=== PATIENT | female | born 1940 | race Caucasian/White ===

== ENCOUNTER 2017-05-20 11:47 | Emergency (ER) | payer MEDICARE ==
--- NOTE | 2017-05-20 12:18 | ED ---
ENT HPI - General Chief complaint: ENT Stated complaint: jaw/dental pain Time Seen by Provider: 05/20/17 12:08 Source: patient, RN notes reviewed, old records reviewed Mode of arrival: ambulatory Limitations: no limitations - History of Present Illness Initial comments: Is a 76-year-old female presenting to the emergency Department chief complaint of right-sided jaw pain for the past 4 days. Patient reports that she's only O able to open her mouth a certain distance. Patient reports that the pain starts in front of her ear and radiates down her jaw. She does have a history of poor dentition. She denies any sore throat. She denies any chest pain, shortness of breath, nausea, vomiting. Patient reports that she is able to open her mouth wide enough to eat but not much more than that. Patient states that she is always had clicking in her jaw however has noticed that he has not been doing it over the past few days. Patient reports no fever or chills, abdominal pain, headache, changes in vision. Patient reports that she normally wears hearing aids however she has not been able to wear hearing aid due to the abnormal pain and swelling around her front of her ear. Patient reports that she taking aspirin for pain. - Related Data Home Medications Medication Instructions Recorded Confirmed Atenolol [Tenormin] 100 mg PO DAILY 04/09/15 05/20/17 Aspirin 650 mg PO Q6H PRN 05/20/17 05/20/17 L.acidoph,Paracasei, B.lactis 1 cap PO DAILY 05/20/17 05/20/17 [Probiotic] Nature-Throid (Unknown Dose) 2 tab PO DAILY 05/20/17 05/20/17 [place]-3/Dha/Epa/Fish Oil [Fish Oil 1 cap PO DAILY 05/20/17 05/20/17 EC 1,200 mg Softgel] Previous Rx's Medication Instructions Recorded Amoxicillin 500 mg PO Q12HR #20 cap 05/20/17 Cyclobenzaprine [Flexeril] 10 mg PO TID #12 tab 05/20/17 methylPREDNISolone Dose Pack 4 mg PO DIRECTED #21 package 05/20/17 [Medrol Dose Pack] Allergies Allergy/AdvReac Type Severity Reaction Status Date / Time diphenhydramine Allergy Rash/Hives Verified 05/20/17 12:21 [From Benadryl] Review of Systems ROS Statement: Those systems with pertinent positive or pertinent negative responses have been documented in the HPI. ROS Other: All systems not noted in ROS Statement are negative. Past Medical History Past Medical History: Fibromyalgia, Hypertension, Rheumatoid Arthritis (RA) Additional Past Medical History / Comment(s): weak bladder, bladder infection, spastic bowel History of Any Multi-Drug Resistant Organisms: None Reported Past Surgical History: Back Surgery Past Psychological History: No Psychological Hx Reported Smoking Status: Former smoker Past Alcohol Use History: Occasional Past Drug Use History: None Reported General Exam - General Exam Comments Initial Comments: Pleasant 76-year-old female. No distress. Limitations: no limitations General appearance: alert, in no apparent distress Head exam: Present: atraumatic, normocephalic, normal inspection Eye exam: Present: normal appearance, PERRL, EOMI. Absent: scleral icterus, conjunctival injection, periorbital swelling ENT exam: Present: normal exam, mucous membranes moist, TM's normal bilaterally , other (Patient has inability to open jaw fully. Patient has no mastoid tenderness. Patient is somewhat tender over the preauricular area radiating down her lower jawline. Patient reports some swelling over the aspect of her front of right ear.). Absent: normal oropharynx (Difficult to examine the oropharynx is patient is unable to fully open her mouth.), normal external ear exam (Patient has some swelling over the preauricular area of the right ear.) Neck exam: Present: normal inspection. Absent: tenderness, meningismus, lymphadenopathy Respiratory exam: Present: normal lung sounds bilaterally. Absent: respiratory distress, wheezes, rales, rhonchi, stridor Cardiovascular Exam: Present: regular rate, normal rhythm, normal heart sounds. Absent: systolic murmur, diastolic murmur, rubs, gallop, clicks GI/Abdominal exam: Present: soft, normal bowel sounds. Absent: distended, tenderness, guarding, rebound, rigid Extremities exam: Present: normal inspection, full ROM, normal capillary refill. Absent: tenderness, pedal edema, joint swelling, calf tenderness Back exam: Present: normal inspection Neurological exam: Present: alert, oriented X3, CN II-XII intact Psychiatric exam: Present: normal affect, normal mood Skin exam: Present: warm, dry, intact, normal color. Absent: rash Course Vital Signs 05/20/17 05/20/1705/20/17 12:00 12:25 13:43 Temperature 99.0 F 97.3 F L Pulse Rate 63 55 L 51 L Respiratory 20 16 18 Rate Blood Pressure 184/77 166/72 166/74 O2 Sat by Pulse 98 97 98 Oximetry 05/20/17 15:54 Temperature 96.4 F L Pulse Rate 50 L Respiratory 13 Rate Blood Pressure 172/80 O2 Sat by Pulse 99 Oximetry Medical Decision Making - Medical Decision Making Is a 76-year-old female presenting to the emergency Department chief complaint of right-sided jaw pain for the past 4 days. Patient reports that she's only O able to open her mouth a certain distance. Patient reports that the pain starts in front of her ear and radiates down her jaw. She does have a history of poor dentition. She denies any sore throat. She denies any chest pain, shortness of breath, nausea, vomiting. Patient reports that she is able to open her mouth wide enough to eat but not much more than that. Patient states that she is always had clicking in her jaw however has noticed that he has not been doing it over the past few days. It appears the patient does have acute TMJ disorder. However to rule out possible glasses we did order a CT of the neck. Also amenable x-ray was negative for any acute process. Evidence of a poor dentition however. Patient CT neck did show some fullness over the right soft tissues however no definite abscess was located. Is able to view the patient's oropharynx. No evidence of peritonsillar abscess. Patient's oropharynx is no exudates and is not erythematous. She is afebrile. Again patient does have some poor dentition. I discussed this case with Dr. Dior. 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 Patient will be discharged with muscle relaxers, steroids and amoxicillin in case there is any underlying dental infection. Patient agrees to treatment plan will comply. Return parameters were discussed. - Lab Data Lab Results 05/20/17 Range/Units 15:44 Group A Strep Rapid Negative (Negative) - Radiology Data Radiology results: report reviewed CT shows no acute osseous lesions. Mild degenerative changes within the cervical spine. Emphysema changes in the lungs. Atrophy of the right parotid gland. Asymmetry of the soft tissues of the oropharynx with prominence on the right direct visualization would be suggested. The exam is not adequately assessed dentition. Disposition Clinical Impression: TMJ (sprain of temporomandibular joint) Disposition: HOME SELF-CARE Condition: Good Instructions: Temporomandibular Disorder (ED) Additional Instructions: Follow-up with your primary care provider tomorrow or the next day. Return to the emergency department if any alarming signs or symptoms occur. Prescriptions: Amoxicillin 500 mg PO Q12HR #20 cap Cyclobenzaprine [Flexeril] 10 mg PO TID #12 tab methylPREDNISolone Dose Pack [Medrol Dose Pack] 4 mg PO DIRECTED #21 package Referrals: Vanessa Garcia MD [Primary Care Provider] - 1-2 days Time of Disposition: 15:52
--- NOTE | 2017-05-20 12:56 | XR ---
EXAMINATION TYPE: XR mandible complete DATE OF EXAM ORDERED: 05/20/2017 HISTORY: Pain. FINDINGS: There are multiple missing teeth. There is some resorption on the left.. No fracture or dislocation is seen. The temporomandibular joints are not assessed adequately. IMPRESSION: 1. POOR DENTITION. 2. MILD MANDIBULAR ENLARGED ON THE LEFT. 3. DEDICATED TM JOINT VIEWS WOULD BE SUGGESTED IF SYMPTOMS POINT TO THE TEMPOROMANDIBULAR JOINTS.
--- NOTE | 2017-05-20 14:54 | CT ---
EXAMINATION TYPE: CT soft tissue neck wo con DATE OF EXAM: 05/20/2017 HISTORY: Right sided jaw and dental pain COMPARISON: None. CT DLP: 565 mGycm. Automated Exposure Control for Dose Reduction was Utilized. TECHNIQUE: CT scan of the neck is performed , patient injected with mL of , axial images are obtaine d, coronal and sagittal reformatted images are reviewed. FINDINGS:Visualized intracranial structures are normal. Limited views of the orbits are normal. There is apical scarring present bilaterally. There is chronic emphysematous change throughout the vi sualized portions of the lungs. Vertebral body height and alignment are maintained. Atlantoaxial relationships are normal. There is s urprisingly few degenerative changes. There is uncovertebral joint disease at C5-6 and C6-7. Visualized portions of the paranasal sinuses and mastoids are clear. Both TMJs have a normal appearance. The mandible appears unremarkable. The zygomatic arches are intact. The pterygoid plates are intact. The hernandez of the maxillary sinuses are intact. There is atrophy of the right parotid gland. Major salivary glands are otherwise unremarkable. The parapharyngeal soft tissues are normal. There is asymmetry in the oropharyngeal soft tissue with the right being slightly effaced. Laryngeal soft tissues are unremarkable. The thyroid gland appears unremarkable. There is some shotty deep cervical as well as posterior triangle and submental adenopathy. No patholo gically enlarged lymph nodes are seen. There is a large amount of streak artifact through the region of the teeth and I cannot assess dentit ion. IMPRESSION: 1. NO ACUTE OSSEOUS LESION. 2. MILD DEGENERATIVE CHANGE WITHIN THE CERVICAL SPINE. 3. EMPHYSEMATOUS CHANGES WITHIN THE LUNGS. 4. ATROPHY OF THE RIGHT PAROTID GLAND. 5. ASYMMETRY IN THE SOFT TISSUES OF THE OROPHARYNX WITH PROMINENCE ON THE RIGHT. DIRECT VISUALIZATION WOULD BE SUGGESTED. 6. THIS EXAMINATION HAS NOT ADEQUATELY ASSESSED DENTITION.
[2017-05-20 15:55] VITALS: BP 172/80; PULSE 50; RESP 13; TEMP 96.4
== END 2017-05-20 16:17 | disposition home or self-care (01) ==
LOC: EC 11:47
DX: S03.41XA Sprain of jaw, right side, initial encounter (principal); M47.812 Spondylosis without myelopathy or radiculopathy, cervical region; J43.9 Emphysema, unspecified; K11.0 Atrophy of salivary gland; I10 Essential (primary) hypertension; Z87.891 Personal history of nicotine dependence; Z79.899 Other long term (current) drug therapy; Z88.8 Allergy status to other drugs, medicaments and biological substances; X58.XXXA Exposure to other specified factors, initial encounter
CPT/HCPCS: 70110; 70490; 87081; 87430; 99284

== ENCOUNTER → 2018-01-05 | Outpatient (CLI) | payer MEDICARE ==
[2018-01-05 14:16] LABS: Anion Gap 8 mmol/L; Blood Urea Nitrogen 23 mg/dL (7-17); Carbon Dioxide 32 mmol/L (22-30); Chloride 104 mmol/L (98-107); Potassium 4.6 mmol/L (3.5-5.1); Sodium 144 mmol/L (137-145)
[2018-01-05 14:49] LABS: Basophils % (A) 0 %; Eosinophils # (A) 0.1 k/uL (0-0.7); Eosinophils % (A) 1 %; HGB 13.1 gm/dL (11.4-16.0); Hypochromasia Slight; Lymphocytes # (A) 2.1 k/uL (1.0-4.8); Lymphocytes % (A) 19 %; MCH 29.3 pg (25.0-35.0); MCHC 30.5 g/dL (31.0-37.0); MCV 95.9 fL (80.0-100.0); Mean Platelet Volume 7.2; Monocytes # (A) 0.8 k/uL (0-1.0); Monocytes % (A) 7 %; Neutrophils # (A) 7.8 k/uL (1.3-7.7); Neutrophils % (A) 72 %; Platelet Count 395 k/uL (150-450); RBC 4.49 m/uL (3.80-5.40); RDW 14.2 % (11.5-15.5); WBC 10.9 k/uL (3.8-10.6)
== END | disposition home or self-care (01) ==
LOC: LABPAT 13:15
PROVIDERS: ATTEND Obstetrics & Gynecology
DX: Z01.812 Encounter for preprocedural laboratory examination (principal); N18.4 Chronic kidney disease, stage 4 (severe); N81.10 Cystocele, unspecified
CPT/HCPCS: 36415; 80051; 82565; 84520; 85025; 86850; 86900; 86901

== ENCOUNTER 2018-01-13 05:48 | Day surgery (SDC) | payer MEDICARE ==
[2018-01-02 09:57] VITALS: BMI 22.4
--- NOTE | 2018-01-12 17:53 | HP ---
HISTORY AND PHYSICAL DATE OF SURGERY: 01/13/2018 HISTORY OF PRESENT ILLNESS: The patient is a 77-year-old 5, para 5-0-0-5 who was found with grade 3 uterine prolapse and cystocele at a previous visit. She also complained of some urinary frequency and was then some subsequently sent for evaluation at [facility]. She was seen by Dr. Bhandari, who felt that no surgical urologic intervention was warranted. As a result, we have planned to proceed with vaginal hysterectomy and anterior colporrhaphy as well as possible posterior colporrhaphy, should that be noted under anesthesia. PAST MEDICAL HISTORY: 1. Issues with her colon. 2. Hypertension. PAST SURGICAL HISTORY: Back surgery on 2 separate occasions. OBSTETRICAL HISTORY: 5, para 5-0-0-5, with 5 term vaginal deliveries without complications. GYNECOLOGIC HISTORY: Unremarkable, with no history of any infections to include STDs. She does have prolapse, as noted above, to approximately grade 3. FAMILY HISTORY: Noncontributory. SOCIAL HISTORY: The patient is and retired. She smokes a half pack per day and reports occasional alcohol and no other social concerns. CURRENT MEDICATIONS: Atenolol daily. ALLERGIES: NO KNOWN DRUG ALLERGIES. REVIEW OF SYSTEMS: Confined to history of present illness. PHYSICAL EXAMINATION: Vital signs are stable. The patient is afebrile. In general, this is a well- developed, well-nourished white female in no acute distress. HEENT demonstrates PERRLA, EOMI. Her oropharynx is clear. Her neck is supple and without adenopathy. The thyroid is normal to palpation. Her heart has a regular rhythm and rate without murmur. Her lungs are clear to auscultation bilaterally in all ayoub. Her abdomen is nondistended, has normoactive bowel sounds, is soft, nontender, and without any palpable masses, hepatosplenomegaly or hernias. Her extremities are without any cyanosis, clubbing or edema and are non-tender to palpation bilaterally. Pelvic examination demonstrates normal external genitalia and BUS with normal vaginal mucosa and cervix. There is no cervical motion tenderness. There are grade 3 uterine prolapse and grade 3 cystocele present. The uterus is atrophic in size, mid plane, mobile, non-tender and normal in shape. The adnexa are normal and non-tender without mass bilaterally. ASSESSMENT AND PLAN: Symptomatic cystocele and uterine prolapse, grade 3. We discussed the treatment for this. She has been evaluated by Urology, who feels that no urologic surgical intervention is necessary. As a result, we will proceed with vaginal hysterectomy and anterior repair as well as possible posterior repair, should this be found under anesthesia. We also discussed non-surgical options, including pessaries. She ultimately agreed to proceed with the procedures as outlined. The risks and complications of these procedures were thoroughly discussed, including risk for bleeding, bleeding requiring transfusion, infection, and injury to local structures to specifically include the bowel, bladder and ureters. We also discussed the typical hospital and postoperative courses and are scheduled for the morning of January 13, 2018. MMODL / IJN: [id number] /
[~2018-01-13 05:48] MED LIST: DEXAMETHASONE SOD PHOSPHATE 10 MG/ML 1 ML VIAL IV ONE; HYDROmorphone 0.5 MG/0.5 ML SYRINGE IVP PRN; ONDANSETRON 4 MG/2 ML VIAL IVP ONE; ceFAZolin IN SWFI 2 GM/20 ML SYRINGE IVP ONE
[2018-01-13] MEDS: LACTATED RINGERS 1,000 ML IV SCH ×3 (06:31→21:44)
[2018-01-13] MEDS ORDERED: LIDOCAINE 1% 20 ML VIAL (10MG/ML) FOR IV START INTRADERMA ONE (06:31)
[2018-01-13] MEDS ORDERED: LIDOCAINE 1% INJ 10MG/ML (20 ML MDV) ONE (07:40)
[2018-01-13] MEDS ORDERED: PROPOFOL 10 MG/ML 20 ML VIAL IV ONE (07:40)
[2018-01-13] MEDS ORDERED: SUCCINYLCHOLINE CHLORIDE 100 MG/5 ML SYR IV ONE (07:40)
[2018-01-13] MEDS ORDERED: MIDAZOLAM 2 MG/2 ML VIAL ONE (07:40)
[2018-01-13] MEDS ORDERED: fentaNYL (PF) 50 MCG/ML 2 ML AMP ONE (07:40)
[2018-01-13] MEDS ORDERED: METOCLOPRAMIDE 5 MG/ML 2 ML VIAL IVP PRN (07:49)
[2018-01-13] MEDS ORDERED: Acetaminophen-Codeine 300-30mg TAB PO PRN ×2 (07:49)
[2018-01-13] MEDS ORDERED: SIMETHICONE 80 MG CHEWABLE PO PRN (07:49)
[2018-01-13] MEDS ORDERED: IBUPROFEN 600 MG TAB PO PRN (07:49)
[2018-01-13] MEDS ORDERED: ONDANSETRON 4 MG/2 ML VIAL IVP PRN (07:49)
[2018-01-13] MEDS ORDERED: VASOPRESSIN 20 UNIT/ML 1 ML VIAL SQ ONE (08:02)
[2018-01-13] MEDS ORDERED: BACITRACIN 500 UNIT/GM OINT 28.4 GM TUBE TOPICAL ONE (08:35)
--- NOTE | 2018-01-13 08:51 | P.OP ---
Date of Procedure: 01/13/18 Preoperative Diagnosis: Symptomatic pelvic organ prolapse, grade 3 cystocele Postoperative Diagnosis: Same Procedure(s) Performed: #1. Vaginal vitrectomy, abandoned #2. Anterior colporrhaphy Anesthesia: ROBINA Surgeon: Gatito Valera Clutch Specialist #1: Yamilet Pena Estimated Blood Loss (ml): 30 IV fluids (ml): 500 Urine output (ml): 180 Pathology: none sent Condition: stable Disposition: PACU Operative Findings: Preoperative pelvic examination demonstrated a grade 3 cystocele and uterus appeared to have somewhat less descensus than appreciated in the office. Intraoperatively, after application of a tenaculum, uterus was noted to have minimal descensus toward the opening the vagina. After opening the mucosa circumferentially and being unable to safely and clearly identify the posterior peritoneum from as well as the obvious and firm uterosacral support of the uterus, the decision was made to abandon the vaginal hysterectomy as it was clear that the uterus was not involved in the symptomatology of the prolapse. As result, the anterior colporrhaphy was carried out in standard fashion without difficulty. There was clear fabi urine both before and after the case. Description of Procedure: The patient was prepped and draped in usual fashion after general endotracheal anesthesia was administered by the anesthesiologist. A weighted speculum was placed in the anterior lip of the cervix was grasped with a single-tooth tenaculum and noted to be minimally mobile. Attempts with both a single-tooth and double tooth tenaculums failed to improve the visualization. Nonetheless, the cervicovaginal mucosa was infused with diluted vasopressin solution and incised circumferentially. Dissection was carried out bluntly to attempt to identify the posterior peritoneum. What appeared to be the posterior peritoneum could not be easily entered given the lack of space in the vagina and the lack of descensus of the uterus. The uterosacral ligaments were noted to be very firm and tense bilaterally. Given these findings, the decision was made to proceed with anterior repair and simply close the circumferential vaginal because all incision around the cervix. As result, the anterior vesicovaginal mucosa was grasped with 2 Allis clamps and infused in the midline towards the urethra with diluted vasopressin solution. A it was undermined and divided in the midline with the Metzenbaum scissors. Sharp and blunt dissection was carried out to reflect the overlying mucosa from the underlying tissues bilaterally. Once adequate reflection had been carried out, a catheter was placed into the bladder noting clear fabi urine. Serial Florecita plication stitches were placed from the urethral apex towards the cervical angle using 2- 0 Vicryl. At the bottom, the cervix was reincorporated in a pursestring stitch. The vaginal mucosa was then trimmed and the mucosa was then closed with a running locking stitch of 2-0 Vicryl proceeding from the apex to the cervix and around the left side of the cervix and then closing the posterior cul -de-sac dissection as well. A single [id number] stitch was utilized to close the cervical mucosa to the vaginal because on the patient's right side there was no significant ongoing bleeding throughout the entire case. Prior to closing the posterior mucosa there was noted to be no significant ongoing bleeding. Estimated blood loss for the entire case was 30 mL or less. The only complication was the inability to complete the vaginal hysterectomy which was abandoned before creating any difficulties for the patient. All sponge, instrument, and needle counts were correct. The patient tolerated the procedure well and proceeded to the recovery room in stable condition after the vagina was packed with one-inch iodophor gauze covered with bacitracin ointment.
[2018-01-13] MEDS: KETOROLAC 30 MG/ML 1 ML VIAL IVP PRN ×2 (10:30→21:56)
[2018-01-13] MEDS: SENNOSIDES-DOCUSATE SODIUM 1 EACH TAB PO SCH ×2 (12:53→21:45)
[2018-01-13] MEDS ORDERED: ATENOLOL 50 MG TAB PO SCH (21:00)
[2018-01-14] MEDS: KETOROLAC 30 MG/ML 1 ML VIAL IVP PRN ×2 (06:25→12:33)
[2018-01-14 06:43] LABS: Basophils % (A) 0 %; Eosinophils % (A) 0 %; HGB 12.2 gm/dL (11.4-16.0); Lymphocytes # (A) 2.2 k/uL (1.0-4.8); Lymphocytes % (A) 18 %; MCH 29.3 pg (25.0-35.0); MCV 91.7 fL (80.0-100.0); Mean Platelet Volume 7.4; Monocytes # (A) 0.8 k/uL (0-1.0); Monocytes % (A) 6 %; Neutrophils # (A) 9.4 k/uL (1.3-7.7); Neutrophils % (A) 74 %; Platelet Count 387 k/uL (150-450); RBC 4.15 m/uL (3.80-5.40); RDW 13.8 % (11.5-15.5); WBC 12.7 k/uL (3.8-10.6)
[2018-01-14] MEDS: LACTATED RINGERS 1,000 ML IV SCH ×2 (06:47→07:38)
[2018-01-14] MEDS: SENNOSIDES-DOCUSATE SODIUM 1 EACH TAB PO SCH (07:50)
[2018-01-14 08:52] VITALS: RESP 18
--- NOTE | 2018-01-14 09:03 | P.DS ---
Providers Expected date of discharge: 01/14/18 Attending physician: Gatito Valera Primary care physician: Vanessa Garcia - Discharge Diagnosis(es) (1) Cystocele Current Visit: Yes Status: Acute Hospital Course: The patient is a 77-year-old 5 para 5005 was found in the office to have grade 3 cystocele with presumptive uterine involvement as well. She additionally complains of some urinary frequency and the was [facility] They determined that no urologic surgical intervention was necessary. As result we plan to proceed with vaginal hysterectomy and anterior colporrhaphy as well as any indicated surgery. In the operating room, the patient was found to have actually quite excellent uterine support after opening circumferentially around the cervix. As it was difficult to identify the posterior peritoneum and the uterus did not appear to be any portion of the prolapse in question, the decision was made to abandon the vaginal hysterectomy and proceed only with the anterior colporrhaphy. This was carried out and an uncomplicated fashion without difficulty. The postoperative course was entirely unremarkable with the patient tolerating a regular diet by the evening of day of surgery. She reported the normal flatus at that time as well. Her pain was minimal throughout. She was deemed stable for discharge on postoperative day #1 pending adequate ability to void as she is currently undergoing a voiding trial. Should she be able to void at least two thirds of her volume and have a roughly no more than 100 mL of urine remaining in the bladder, she will be discharged home to follow-up in the office in 2 weeks for a recheck and 6 weeks routinely. Discharge instructions included calling for any significantly increased fever, pain, bleeding, or anything else that concerned her. She was additionally to do no heavy lifting for at least 6 weeks time and to abstain from anything in the vagina over the same period of time. She understood her instructions and agrees to follow up as noted above. Discharge medications included only her home medications as well as [id number] analgesic pain medications as needed. Discharge hemoglobin and hematocrit were 12.2 and 38.0 respectively. Procedures: #1. Attempted vaginal hysterectomy, abandoned #2. Anterior colporrhaphy Patient Condition at Discharge: Good Plan - Discharge Summary Discharge Rx Participant: No New Discharge Prescriptions: No Action Atenolol [Tenormin] 100 mg PO HS Aspirin 650 mg PO Q6H PRN PRN Reason: DENTAL PAIN [place]-3/Dha/Epa/Fish Oil [Fish Oil EC 1,200 mg Softgel] 1 cap PO DAILY L.acidoph,Paracasei, B.lactis [Probiotic] 1 cap PO DAILY Discharge Medication List Atenolol [Tenormin] 100 mg PO HS 04/09/15 [History] Aspirin 650 mg PO Q6H PRN 05/20/17 [History] L.acidoph,Paracasei, B.lactis [Probiotic] 1 cap PO DAILY 05/20/17 [History] [place]-3/Dha/Epa/Fish Oil [Fish Oil EC 1,200 mg Softgel] 1 cap PO DAILY 05/20/17 [History] Follow up Appointment(s)/Referral(s): Gatito Valera MD [STAFF PHYSICIAN] - 2 Weeks Discharge Disposition: HOME SELF-CARE
[2018-01-14 12:42] VITALS: BP 168/76; PULSE 56
[2018-01-14 14:59] VITALS: TEMP 98.1
== END 2018-01-14 15:57 | disposition home or self-care (01) ==
LOC: OR 05:48 → 6PED 09:33 → OR 01-14 15:57
PROVIDERS: ATTEND Obstetrics & Gynecology
DX: N81.4 Uterovaginal prolapse, unspecified (principal); Z53.8 Procedure and treatment not carried out for other reasons; I10 Essential (primary) hypertension; F17.210 Nicotine dependence, cigarettes, uncomplicated; Z79.899 Other long term (current) drug therapy; Z88.8 Allergy status to other drugs, medicaments and biological substances
CPT/HCPCS: 85025; 58260; 57240; J2250; J1100; J2405 ×2; J2001; J3010; J1885 ×2; J0330; J2704; J0690; 86850; 86900; 86901

== ENCOUNTER 2018-03-29 11:48 | Inpatient (IN) | payer MEDICARE ==
[2018-03-29] MEDS ORDERED: ACETAMINOPHEN TAB 500 MG TAB PO STA (11:59)
--- NOTE | 2018-03-29 12:00 | ED ---
Fever HPI - General Chief Complaint: Fever Stated Complaint: COLD SYMPTOMS Time Seen by Provider: 03/29/18 11:54 Source: patient, RN notes reviewed Mode of arrival: ambulatory Limitations: no limitations - History of Present Illness Initial Comments: This a 77-year-old female presents emergency Department chief complaint of fever cough congestion. Patient states she's been sick over the last 3-4 days progressively getting worse. She has not taken anything other than aspirin for her fever. Current temp 103.8. Patient points of sinus ingestion sinus pressure. He states her cough is productive at times. She states her grandson was sick last week and she believes this report stems from. She denies any abdominal pain including nausea, vomiting, diarrhea constipation. Patient has a mild headache denies any neck pain or neck stiffness. - Related Data Home Medications Medication Instructions Recorded Confirmed Atenolol [Tenormin] 100 mg PO HS 04/09/15 01/13/18 Aspirin 650 mg PO Q6H PRN 05/20/17 01/13/18 L.acidoph,Paracasei, B.lactis 1 cap PO DAILY 05/20/17 01/13/18 [Probiotic] [place]-3/Dha/Epa/Fish Oil [Fish Oil 1 cap PO DAILY 05/20/17 01/13/18 EC 1,200 mg Softgel] Allergies Allergy/AdvReac Type Severity Reaction Status Date / Time diphenhydramine Allergy Rash/Hives Verified 03/29/18 11:52 [From Benadryl] Review of Systems ROS Statement: Those systems with pertinent positive or pertinent negative responses have been documented in the HPI. ROS Other: All systems not noted in ROS Statement are negative. Past Medical History Past Medical History: Fibromyalgia, Hypertension, Rheumatoid Arthritis (RA) Additional Past Medical History / Comment(s): weak bladder, spastic bowel History of Any Multi-Drug Resistant Organisms: None Reported Past Surgical History: Back Surgery Additional Past Surgical History / Comment(s): Colonoscopy Past Anesthesia/Blood Transfusion Reactions: No Reported Reaction Past Psychological History: No Psychological Hx Reported Smoking Status: Former smoker Past Alcohol Use History: None Reported Past Drug Use History: None Reported - Past Family History Mother Family Medical History: Cancer Additional Family Medical History / Comment(s): Bone CA General Exam Limitations: no limitations General appearance: alert, in no apparent distress Head exam: Present: atraumatic, normocephalic, normal inspection Eye exam: Present: normal appearance, PERRL, EOMI. Absent: scleral icterus, conjunctival injection, periorbital swelling ENT exam: Present: mucous membranes moist, TM's normal bilaterally, normal external ear exam. Absent: normal exam, normal oropharynx (Mild postnasal drainage) Neck exam: Present: normal inspection, full ROM. Absent: tenderness, meningismus, lymphadenopathy Respiratory exam: Present: normal lung sounds bilaterally. Absent: respiratory distress, wheezes, rales, rhonchi, stridor Cardiovascular Exam: Present: regular rate, normal rhythm, normal heart sounds. Absent: systolic murmur, diastolic murmur, rubs, gallop, clicks Skin exam: Present: warm, dry, intact, normal color. Absent: rash Course Vital Signs 03/29/18 03/29/18 11:50 13:08 Temperature 103.8 F H 101.1 F H Pulse Rate 89 69 Respiratory 20 18 Rate Blood Pressure 172/77 120/56 O2 Sat by Pulse 96 93 L Oximetry Medical Decision Making - Medical Decision Making 77-year-old female presents for fever cough congestion. Patient is found to have bilateral pneumonia, leukocytosis. Influenza is negative. Patiently admitted for IV antibiotics and further medical management. - Lab Data Result diagrams: 03/29/18 12:10 03/29/18 12:10 Lab Results 03/29/18 03/29/18 03/29/18 Range/Units 12:10 12:10 12:10 WBC (3.8-10.6) k/uL RBC (3.80-5.40) m/uL Hgb (11.4-16.0) gm/dL Hct (34.0-46.0) % MCV (80.0-100.0) fL MCH (25.0-35.0) pg MCHC (31.0-37.0) g/dL RDW (11.5-15.5) % Plt Count (150-450) k/uL Neutrophils % % Lymphocytes % % Monocytes % % Eosinophils % % Basophils % % Neutrophils # (1.3-7.7) k/uL Lymphocytes # (1.0-4.8) k/uL Monocytes # (0-1.0) k/uL Eosinophils # (0-0.7) k/uL Basophils # (0-0.2) k/uL Sodium 142 (137-145) mmol/L Potassium 4.3 (3.5-5.1) mmol/L Chloride 103 (98-107) mmol/L Carbon Dioxide 25 (22-30) mmol/L Anion Gap 14 mmol/L BUN 11 (7-17) mg/dL Creatinine 0.70 (0.52-1.04) mg/dL Est GFR (CKD-EPI)AfAm >90 (>60 ml/min/1.73 sqM) Est GFR (CKD-EPI)NonAf 83 (>60 ml/min/1.73 sqM) Glucose 111 H (74-99) mg/dL Plasma Lactic Acid Clarke 0.9 (0.7-2.0) mmol/L Calcium 8.9 (8.4-10.2) mg/dL Total Bilirubin 0.9 (0.2-1.3) mg/dL AST 35 (14-36) U/L ALT 23 (9-52) U/L Alkaline Phosphatase 102 (38-126) U/L Total Protein 7.0 (6.3-8.2) g/dL Albumin 3.6 (3.5-5.0) g/dL Urine Color Urine Appearance (Clear) Urine pH (5.0-8.0) Ur Specific Molt (1.001-1.035) Urine Protein (Negative) Urine Glucose (UA) (Negative) Urine Ketones (Negative) Urine Blood (Negative) Urine Nitrite (Negative) Urine Bilirubin (Negative) Urine Urobilinogen (<2.0) mg/dL Ur Leukocyte Esterase (Negative) Urine RBC (0-5) /hpf Urine WBC (0-5) /hpf Ur Squamous Epith Cells (0-4) /hpf Urine Mucus (None) /hpf Influenza Type A RNA Not Detected (Not Detectd) Influenza Type B (PCR) Not Detected (Not Detectd) 03/29/18 03/29/18 Range/Units 12:10 12:20 WBC 17.6 H (3.8-10.6) k/uL RBC 4.16 (3.80-5.40) m/uL Hgb 12.1 (11.4-16.0) gm/dL Hct 37.4 (34.0-46.0) % MCV 89.7 (80.0-100.0) fL MCH 28.9 (25.0-35.0) pg MCHC 32.3 (31.0-37.0) g/dL RDW 14.1 (11.5-15.5) % Plt Count 448 (150-450) k/uL Neutrophils % 86 % Lymphocytes % 7 % Monocytes % 6 % Eosinophils % 0 % Basophils % 0 % Neutrophils # 15.1 H (1.3-7.7) k/uL Lymphocytes # 1.2 (1.0-4.8) k/uL Monocytes # 1.0 (0-1.0) k/uL Eosinophils # 0.1 (0-0.7) k/uL Basophils # 0.0 (0-0.2) k/uL Sodium (137-145) mmol/L Potassium (3.5-5.1) mmol/L Chloride (98-107) mmol/L Carbon Dioxide (22-30) mmol/L Anion Gap mmol/L BUN (7-17) mg/dL Creatinine (0.52-1.04) mg/dL Est GFR (CKD-EPI)AfAm (>60 ml/min/1.73 sqM) Est GFR (CKD-EPI)NonAf (>60 ml/min/1.73 sqM) Glucose (74-99) mg/dL Plasma Lactic Acid Clarke (0.7-2.0) mmol/L Calcium (8.4-10.2) mg/dL Total Bilirubin (0.2-1.3) mg/dL AST (14-36) U/L ALT (9-52) U/L Alkaline Phosphatase (38-126) U/L Total Protein (6.3-8.2) g/dL Albumin (3.5-5.0) g/dL Urine Color Yellow Urine Appearance Clear (Clear) Urine pH 5.5 (5.0-8.0) Ur Specific Molt 1.016 (1.001-1.035) Urine Protein 1+ H (Negative) Urine Glucose (UA) Negative (Negative) Urine Ketones Negative (Negative) Urine Blood Small H (Negative) Urine Nitrite Negative (Negative) Urine Bilirubin Negative (Negative) Urine Urobilinogen <2.0 (<2.0) mg/dL Ur Leukocyte Esterase Negative (Negative) Urine RBC 2 (0-5) /hpf Urine WBC 1 (0-5) /hpf Ur Squamous Epith Cells <1 (0-4) /hpf Urine Mucus Rare H (None) /hpf Influenza Type A RNA (Not Detectd) Influenza Type B (PCR) (Not Detectd) Disposition Clinical Impression: Bilateral pneumonia Disposition: ADMITTED IP TO THIS HOSP Condition: Stable Referrals: Vanessa Garcia MD [Primary Care Provider] - 1-2 days
[2018-03-29 12:28] LABS: Basophils % (A) 0 %; Eosinophils # (A) 0.1 k/uL (0-0.7); Eosinophils % (A) 0 %; HCT 37.4 % (34.0-46.0); HGB 12.1 gm/dL (11.4-16.0); Lymphocytes # (A) 1.2 k/uL (1.0-4.8); Lymphocytes % (A) 7 %; MCH 28.9 pg (25.0-35.0); MCHC 32.3 g/dL (31.0-37.0); MCV 89.7 fL (80.0-100.0); Mean Platelet Volume 7.8; Monocytes % (A) 6 %; Neutrophils # (A) 15.1 k/uL (1.3-7.7); Neutrophils % (A) 86 %; Platelet Count 448 k/uL (150-450); RBC 4.16 m/uL (3.80-5.40); RDW 14.1 % (11.5-15.5); WBC 17.6 k/uL (3.8-10.6)
--- NOTE | 2018-03-29 12:32 | XR ---
EXAMINATION TYPE: XR chest 2V DATE OF EXAM: 03/29/2018 HISTORY: Cough/fever. REFERENCE: NONE. FINDINGS: There are infiltrates in the upper lobes bilaterally. The lungs are overinflated. Heart siz e upper limits of normal. Pleural spaces are clear. IMPRESSION: 1. COPD. 2. BORDERLINE CARDIOMEGALY. 3. PATCHY, BILATERAL UPPER LOBE INFILTRATES.
[2018-03-29 12:37] LABS: ALT 23 U/L (9-52); AST 35 U/L (14-36); Albumin 3.6 g/dL (3.5-5.0); Alkaline Phosphatase 102 U/L (38-126); Anion Gap 14 mmol/L; Blood Urea Nitrogen 11 mg/dL (7-17); Calcium 8.9 mg/dL (8.4-10.2); Carbon Dioxide 25 mmol/L (22-30); Chloride 103 mmol/L (98-107); Glucose 111 mg/dL (74-99); Potassium 4.3 mmol/L (3.5-5.1); Sodium 142 mmol/L (137-145); Total Bilirubin 0.9 mg/dL (0.2-1.3)
[2018-03-29 12:47] LABS: Appearance,Urine Clear (Clear); Bilirubin,Urine Negative (Negative); Blood,Urine Small (Negative); Color,Urine Yellow; Glucose,Urine (UA) Negative (Negative); Ketones,Urine Negative (Negative); Leukocyte Esterase,Urine Negative (Negative); Mucus,Urine Rare /hpf; Nitrite,Urine Negative (Negative); PH, Urine 5.5 (5.0-8.0); Protein,Urine 1+ (Negative); RBC,Urine 2 /hpf (0-5); Specific Gravity,Urine 1.016 (1.001-1.035); Squamous Epithelial Cell,Urine <1 /hpf (0-4); Urobilinogen,Urine <2.0 mg/dL (<2.0); WBC,Urine 1 /hpf (0-5)
[2018-03-29] MEDS ORDERED: LEVOFLOXACIN 750MG-D5W PMX 750 MG in DEXTROSE/WATER 1 150ML.BAG IVPB STA (13:47)
[2018-03-29] MEDS ORDERED: PNEUMONIA PROTOCOL UTILIZED 1 EACH MISC PO PRN (13:48)
[2018-03-29] MEDS ORDERED: IBUPROFEN 600 MG TAB PO PRN (13:49)
[2018-03-29] MEDS ORDERED: ACETAMINOPHEN TAB 325 MG TAB PO PRN (13:49)
[2018-03-29] MEDS ORDERED: SODIUM CHLORIDE 0.9% 1,000 ML IV ONE (14:40)
[2018-03-29 15:12] VITALS: BMI 22.8
--- NOTE | 2018-03-29 17:34 | P.HPIM ---
History of Present Illness H&P Date: 03/29/18 Chief Complaint: Fever Yenni Reese is a 77-year-old female patient of Dr. Garcia who presented to [facility] emergency room with a chief complaint of fever and cough, patient stated that her symptoms started 3 days ago and have been worsening, she took [id number] medication for cough but her symptoms continued to worsen and she decided to come to emergency room. She was evaluated in the emergency room and had evidence of patchy infiltrates in both lungs suggestive of pneumonia she was started on IV antibiotics Levaquin and was admitted to medical floor. Patient stated that she used to smoke she quit 20 years ago, she denies ever being diagnosed with asthma or emphysema, she denies having any previous episodes of pneumonia in the past she denies having any previous history of cardiac disease no history of coronary artery disease or congestive heart failure. She states that 2 months ago she had bladder suspension surgery. Past Medical History Past Medical History: Fibromyalgia, Hypertension, Rheumatoid Arthritis (RA) Additional Past Medical History / Comment(s): weak bladder, spastic bowel History of Any Multi-Drug Resistant Organisms: None Reported Past Surgical History: Back Surgery, Bladder Surgery Additional Past Surgical History / Comment(s): Colonoscopy Past Anesthesia/Blood Transfusion Reactions: No Reported Reaction Past Psychological History: No Psychological Hx Reported Smoking Status: Former smoker Past Alcohol Use History: None Reported Additional Past Alcohol Use History / Comment(s): smoked from teens to 1989; smoked less than 1/2 ppd; has the occ. beer Past Drug Use History: None Reported - Past Family History Mother Family Medical History: Cancer Additional Family Medical History / Comment(s): Bone CA Medications and Allergies Home Medications Medication Instructions Recorded Confirmed Type Atenolol [Tenormin] 100 mg PO HS 04/09/15 03/29/18 History Aspirin 650 mg PO HS 05/20/17 03/29/18 History L.acidoph,Paracasei, B.lactis 1 cap PO DAILY 05/20/17 03/29/18 History [Probiotic] [place]-3/Dha/Epa/Fish Oil [Fish Oil 1 cap PO DAILY 05/20/17 03/29/18 History EC 1,200 mg Softgel] Allergies Allergy/AdvReac Type Severity Reaction Status Date / Time diphenhydramine Allergy Rash/Hives Verified 03/29/18 14:12 [From Benadryl] Physical Exam Vitals: Vital Signs Temp Pulse Pulse Resp BP BP Pulse Ox 03/29/18 15:35 96 03/29/18 14:45 97.9 F 66 18 114/57 96 03/29/18 14:21 105/50 03/29/18 14:19 98.9 F 95 18 101/50 98 03/29/18 13:08 101.1 F H 69 18 120/56 93 L 03/29/18 11:50 103.8 F H 89 20 172/77 96 Intake and Output 03/29/18 03/29/18 03/29/18 06:59 14:59 22:59 Other: # Voids 2 Weight 63.503 kg 64.41 kg In general patient is alert and oriented 3 in no apparent distress HEENT head normocephalic and atraumatic Neck is supple no JVD no goiter no lymphadenopathy Chest exam reveals scattered crackles in both lung ayoub no wheezing Cardiac exam reveals regular heart sounds S1 and S2 no gallops no murmurs Abdomen is soft nontender no organomegaly with normal bowel sounds Extremity exam reveals no edema no cyanosis or clubbing Neurological examination reveals no gross focal deficits Results CBC & Chem 7: 03/29/18 12:10 03/29/18 12:10 Labs: Abnormal Lab Results - Last 24 Hours (Table) 03/29/18 03/29/18 03/29/18 Range/Units 12:10 12:10 12:20 WBC 17.6 H (3.8-10.6) k/uL Neutrophils # 15.1 H (1.3-7.7) k/uL Glucose 111 H (74-99) mg/dL Urine Protein 1+ H (Negative) Urine Blood Small H (Negative) Urine Mucus Rare H (None) /hpf Thrombosis Risk Factor Assmnt - Choose All That Apply Each Factor Represents 1 point: Medical pt on bed rest, Serious lung disease incl. pneumonia (< 1month) Each Risk Factor Represents 3 Points: Age 75 years or older Other congenital or acquired thrombophilia - If yes, enter type in comment: No Thrombosis Risk Factor Assessment Total Risk Factor Score: 5 Thrombosis Risk Factor Assessment Level: High Risk Assessment and Plan Plan: #1 bilateral pneumonia, patient started on IV Levaquin in the emergency room will continue with the same at this time, will assess progress, influenza screen negative #2 febrile illness likely related to pneumonia #3 recent bladder suspension surgery, 2 months ago, prior to that patient was having recurrent urinary tract infections, urine analysis done in the emergency room and there was no evidence of significant urinary tract infection #4 for DVT prophylaxis patient started on Lovenox for GI prophylaxis patient started on Pepcid
[2018-03-29] MEDS: ASPIRIN 325 MG TAB PO SCH (22:08)
[2018-03-29] MEDS: ATENOLOL 50 MG TAB PO SCH (22:08)
[2018-03-29] MEDS: FAMOTIDINE 20 MG TAB PO SCH (22:08)
[2018-03-29] MEDS: guaiFENesin 600 MG TABLET.ER PO SCH (22:08)
[2018-03-30] MEDS: ENOXAPARIN 40 MG/0.4 ML SYRINGE SQ SCH (07:41)
[2018-03-30] MEDS: FAMOTIDINE 20 MG TAB PO SCH ×2 (07:41→20:43)
[2018-03-30] MEDS: guaiFENesin 600 MG TABLET.ER PO SCH ×2 (07:41→20:40)
[2018-03-30 07:52] LABS: Basophils % (A) 0 %; Eosinophils # (A) 0.1 k/uL (0-0.7); Eosinophils % (A) 1 %; HCT 34.9 % (34.0-46.0); HGB 11.1 gm/dL (11.4-16.0); Lymphocytes # (A) 1.8 k/uL (1.0-4.8); Lymphocytes % (A) 15 %; MCH 29.1 pg (25.0-35.0); MCHC 31.7 g/dL (31.0-37.0); MCV 91.7 fL (80.0-100.0); Mean Platelet Volume 7.3; Monocytes % (A) 8 %; Neutrophils # (A) 9.1 k/uL (1.3-7.7); Neutrophils % (A) 74 %; Platelet Count 365 k/uL (150-450); RBC 3.81 m/uL (3.80-5.40); RDW 13.8 % (11.5-15.5); WBC 12.2 k/uL (3.8-10.6)
[2018-03-30 08:10] LABS: ALT 22 U/L (9-52); AST 24 U/L (14-36); Albumin 2.8 g/dL (3.5-5.0); Alkaline Phosphatase 84 U/L (38-126); Anion Gap 10 mmol/L; Blood Urea Nitrogen 13 mg/dL (7-17); Calcium 8.6 mg/dL (8.4-10.2); Carbon Dioxide 28 mmol/L (22-30); Chloride 107 mmol/L (98-107); Glucose 95 mg/dL (74-99); Sodium 145 mmol/L (137-145); Total Bilirubin 0.7 mg/dL (0.2-1.3); Total Protein 5.8 g/dL (6.3-8.2)
[2018-03-30] MEDS ORDERED: NON-FORMULARY DRUG (Omega-3/Dha/Epa/Fish Oil [Fish Oil Ec 1,200 Mg Softgel] 1 CAP) PO SCH (09:00)
--- NOTE | 2018-03-30 11:17 | P.CNPUL ---
History of Present Illness Consult date: 03/30/18 Requesting physician: Galileo Valverde Reason for consult: pneumonia Chief complaint: shortness of breath History of present illness: This is a 77-year-old female patient being seen examined and evaluated today for consultation. The patient came in with complaints of a fever cough and congestion that had started approximately 3 days ago and had been progressing despite [id number]-[id number] medications. Patient was worked up in the emergency room and did have a chest x-ray which did reveal COPD, cardiomegaly and patchy bilateral upper lobe infiltrates. This patient is a previous half a pack per day smoker for approximately 30-40 years. Per the patient she did quit approximately 20 years ago. She denies ever seeing a public transit specialist in the past , has never had breathing treatments or MDIs. Patient does have 1 dog in the home. 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 Of note the patient was in the hospital personally 2 months ago with a bladder suspension surgery, related to multiple 3 current UTIs. The patient has been negative for UTI this admission. Upon examination she is resting up in bed on room air. States she does have shortness of breath with exertion and activity. Does have a congested cough. Patient states that she feels her sinuses are very congested and have sinus pressure. Unable to bring up sputum at this time. She is afebrile no further complaints Review of Systems 14 point review of systems was completed and is negative unless noted above in the HPI Past Medical History Past Medical History: Fibromyalgia, Hypertension, Rheumatoid Arthritis (RA) Additional Past Medical History / Comment(s): weak bladder, spastic bowel History of Any Multi-Drug Resistant Organisms: None Reported Past Surgical History: Back Surgery, Bladder Surgery Additional Past Surgical History / Comment(s): Colonoscopy Past Anesthesia/Blood Transfusion Reactions: No Reported Reaction Past Psychological History: No Psychological Hx Reported Smoking Status: Former smoker Past Alcohol Use History: None Reported Additional Past Alcohol Use History / Comment(s): smoked from teens to 1989; smoked less than 1/2 ppd; has the occ. beer Past Drug Use History: None Reported - Past Family History Mother Family Medical History: Cancer Additional Family Medical History / Comment(s): Bone CA Medications and Allergies Home Medications Medication Instructions Recorded Confirmed Type Atenolol [Tenormin] 100 mg PO HS 04/09/15 03/29/18 History Aspirin 650 mg PO HS 05/20/17 03/29/18 History L.acidoph,Paracasei, B.lactis 1 cap PO DAILY 05/20/17 03/29/18 History [Probiotic] [place]-3/Dha/Epa/Fish Oil [Fish Oil 1 cap PO DAILY 05/20/17 03/29/18 History EC 1,200 mg Softgel] Allergies Allergy/AdvReac Type Severity Reaction Status Date / Time diphenhydramine Allergy Rash/Hives Verified 03/29/18 14:12 [From Benadl] Physical Exam Vitals: Vital Signs Temp Pulse Pulse Resp BP BP Pulse Ox 03/30/18 07:45 97.9 F 53 L 20 166/64 98 03/29/18 22:10 98.4 F 78 16 170/85 99 03/29/18 21:40 16 03/29/18 15:35 96 03/29/18 14:45 97.9 F 66 18 114/57 96 03/29/18 14:21 105/50 03/29/18 14:19 98.9 F 95 18 101/50 98 03/29/18 13:08 101.1 F H 69 18 120/56 93 L 03/29/18 11:50 103.8 F H 89 20 172/77 96 Intake and Output 03/29/18 03/30/18 03/30/18 22:59 06:59 14:59 Intake Total 590 590 Balance 590 590 Intake: Oral 590 590 Other: # Voids 2 2 Weight 64.41 kg GENERAL EXAM: Alert, comfortable in no apparent distress. HEAD: Normocephalic. EYES: Normal reaction of pupils, equal size. NOSE: Clear with pink turbinates. THROAT: No erythema or exudates. NECK: No masses, no JVD. CHEST: No chest wall deformity. LUNGS: Lung sounds are noted to have some rhonchi throughout with a very faint expiratory wheeze. CVS: S1 and S2 normal with no audible mumurs, regular rhythm. ABDOMEN: No hepatosplenomegaly, normal bowel sounds, no guarding or rigidity. EXTREMITIES: No edema noted, pedal pulses palpable. CENTRAL NERVOUS SYSTEM: No focal deficits, tone is normal in all 4 extremities. Results - Laboratory Findings CBC and BMP: 03/30/18 06:54 03/30/18 06:54 Abnormal lab findings: Abnormal Labs 03/29/18 03/29/18 03/29/18 12:10 12:10 12:20 WBC 17.6 H Hgb Neutrophils # 15.1 H Glucose 111 H Total Protein Albumin Urine Protein 1+ H Urine Blood Small H Urine Mucus Rare H 03/30/18 03/30/18 06:54 06:54 WBC 12.2 H Hgb 11.1 L Neutrophils # 9.1 H Glucose Total Protein 5.8 L Albumin 2.8 L Urine Protein Urine Blood Urine Mucus - Diagnostic Findings Chest x-ray: report reviewed, image reviewed Assessment and Plan Assessment: Assessment Bilateral pneumonia Acute Sinusitis Status post bladder suspension surgery Rheumatoid arthritis Fibromyalgia Plan Medications have been reviewed and will be continued as ordered. We will add budesonide and DuoNeb to her current regime. Increase her Mucinex dosage. Initiate prednisone. Continue with pulmonary hygiene, coughing and deep breathing exercises, and supportive care. Supplemental oxygen to maintain oxygen saturations of 92% or better in needed. Obtain sputum culture. Initiate and encourage incentive spirometer. GI and DVT prophylaxis. We will continue to monitor labs/results and adjust treatment as necessary. Further recommendations pending. I performed an examination of the patient and discussed their management with the nurse practitioner. I have reviewed the nurse practitioner's note and agree with the documented findings and plan of care.
[2018-03-30] MEDS ORDERED: guaiFENesin 600 MG TABLET.ER PO ONE (11:30)
[2018-03-30] MEDS: LACTOBACILLUS ACIDOPH & BULGAR 1 EACH PACKET PO SCH (12:30)
[2018-03-30] MEDS: predniSONE 20 MG TAB PO SCH (12:31)
[2018-03-30] MEDS: IPRATROPIUM-ALBUTEROL 3 ML NEB INHALATION SCH ×2 (13:15→21:49)
--- NOTE | 2018-03-30 13:17 | P.PN ---
Subjective Progress Note Date: 03/30/18 Principal diagnosis: Bilateral pneumonia Patient is still having a lot of cough today. She said that her shortness of breath has improved. Her cough is generally nonproductive. No further documented fevers in the past 24 hours. Objective - Vital Signs Vital signs: Vital Signs Temp 97.9 F 03/30/18 07:45 Pulse 53 L 03/30/18 07:45 Resp 20 03/30/18 07:45 BP 166/64 03/30/18 07:45 Pulse Ox 98 03/30/18 07:45 Intake & Output 03/29/18 03/30/18 03/30/18 18:59 06:59 18:59 Intake Total 1180 Balance 1180 Weight 64.41 kg Intake: Oral 1180 Other: # Voids 2 2 - Exam General: The patient is awake and alert, in no distress Eye: there is normal conjunctiva bilaterally. Neck: The neck is supple, there is no JVD. Cardiovascular: Normal S1-S2, no S3-S4, no murmurs. Respiratory: Lungs clear to auscultation bilaterally Gastrointestinal: Abdomen is soft, nontender Musculoskeletal: There is no pedal edema. Neurological:. Speech is normal. Skin: Skin is warm and dry - Labs CBC & Chem 7: 03/30/18 06:54 03/30/18 06:54 Labs: Abnormal Lab Results - Last 24 Hours (Table) 03/30/18 03/30/18 Range/Units 06:54 06:54 WBC 12.2 H (3.8-10.6) k/uL Hgb 11.1 L (11.4-16.0) gm/dL Neutrophils # 9.1 H (1.3-7.7) k/uL Total Protein 5.8 L (6.3-8.2) g/dL Albumin 2.8 L (3.5-5.0) g/dL Microbiology - Last 24 Hours (Table) 03/29/18 12:20 Urine Culture - Preliminary Urine,Clean Catch Assessment and Plan Assessment: 1. Bilateral pneumonia, community-acquired. 2. Sepsis without septic shock secondary to #1. Improving with antibiotic. Blood culture pending. No further fever spike. 3. Essential hypertension, blood pressure not well controlled. We will continue to monitor 4. Shortness of breath and cough, attributed to #1. Continue bronchodilators as needed. Mucinex twice daily. Antibiotic with Levaquin for 7 days. 5. DVT prophylaxis with subcu Lovenox Today, I reviewed her medication list and lab work results. Continue current regimen. Repeat lab work in the morning. Continue short course of prednisone 40 mg daily for 5 days. Anticipate discharge home within the next day or 2.
[2018-03-30] MEDS ORDERED: LEVOFLOXACIN 750MG-D5W PMX 750 MG in DEXTROSE/WATER 1 150ML.BAG IVPB SCH (14:00)
[2018-03-30] MEDS ORDERED: LEVOFLOXACIN 750 MG TAB PO SCH (14:00)
--- NOTE | 2018-03-30 14:19 | XR ---
EXAMINATION TYPE: XR chest 2V DATE OF EXAM: 03/30/2018 COMPARISON: Chest x-ray yesterday. HISTORY: Pneumonia progress study. TECHNIQUE: Frontal and lateral views of the chest are obtained. FINDINGS: There is persistent patchy right upper lobe opacity. There is improved aeration left upper lobe. There is no new focal air space opacity, pleural effusion, or pneumothorax seen. The cardiac s ilhouette size is stable and upper limits of normal. Underlying scoliosis is redemonstrated. IMPRESSION: Persistent right upper lobe infiltrate. No new infiltrate is seen.
[2018-03-30] MEDS: ASPIRIN 325 MG TAB PO SCH (20:40)
[2018-03-30] MEDS: ATENOLOL 50 MG TAB PO SCH (20:42)
[2018-03-30] MEDS: BUDESONIDE 0.5 MG/2 ML NEBU INHALATION SCH (21:49)
[2018-03-31] MEDS: IPRATROPIUM-ALBUTEROL 3 ML NEB INHALATION SCH ×2 (07:11→12:48)
[2018-03-31] MEDS: BUDESONIDE 0.5 MG/2 ML NEBU INHALATION SCH (07:11)
[2018-03-31 07:47] LABS: Basophils % (A) 0 %; Eosinophils % (A) 0 %; HCT 36.7 % (34.0-46.0); HGB 11.5 gm/dL (11.4-16.0); Hypochromasia Slight; Lymphocytes # (A) 1.5 k/uL (1.0-4.8); Lymphocytes % (A) 12 %; MCH 29.2 pg (25.0-35.0); MCHC 31.2 g/dL (31.0-37.0); MCV 93.5 fL (80.0-100.0); Mean Platelet Volume 7.6; Monocytes # (A) 0.8 k/uL (0-1.0); Monocytes % (A) 7 %; Neutrophils # (A) 9.8 k/uL (1.3-7.7); Neutrophils % (A) 79 %; Platelet Count 434 k/uL (150-450); RBC 3.93 m/uL (3.80-5.40); RDW 13.9 % (11.5-15.5); WBC 12.3 k/uL (3.8-10.6)
[2018-03-31 07:51] LABS: Anion Gap 12 mmol/L; Blood Urea Nitrogen 16 mg/dL (7-17); Calcium 9.1 mg/dL (8.4-10.2); Carbon Dioxide 25 mmol/L (22-30); Chloride 107 mmol/L (98-107); Glucose 128 mg/dL (74-99); Potassium 4.2 mmol/L (3.5-5.1); Sodium 144 mmol/L (137-145)
[2018-03-31 07:54] VITALS: BP 161/72; PULSE 65; RESP 20; TEMP 97.4
--- NOTE | 2018-03-31 09:02 | P.PN ---
<Cindi Sanon E - Last Filed: 03/31/18 08:57> Subjective Progress Note Date: 03/31/18 HPI: This is a 77-year-old female patient being seen examined and evaluated today for consultation. The patient came in with complaints of a fever cough and congestion that had started approximately 3 days ago and had been progressing despite kehf-aux-oepkkwg medications. Patient was worked up in the emergency room and did have a chest x-ray which did reveal COPD, cardiomegaly and patchy bilateral upper lobe infiltrates. This patient is a previous half a pack per day smoker for approximately 30-40 years. Per the patient she did quit approximately 20 years ago. She denies ever seeing a deputy sheriff building guard in the past , has never had breathing treatments or MDIs. Patient does have 1 dog in the home. 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 Of note the patient was in the hospital personally 2 months ago with a bladder suspension surgery, related to multiple 3 current UTIs. The patient has been negative for UTI this admission. Upon examination she is resting up in bed on room air. States she does have shortness of breath with exertion and activity. Does have a congested cough. Patient states that she feels her sinuses are very congested and have sinus pressure. Unable to bring up sputum at this time. She is afebrile no further complaints Interval History: 03/31/18- Patient is being seen examined and evaluated today on rounds. She is resting up in bed on room air states she is feeling better and her breathing is close to baseline. She does occasionally still gets short of breath with exertion. She has been up ambulating in the hallway. She states her cough is getting better. She has been unable to obtain a sputum sample. She is requesting to go home. She is afebrile no further complaints. Objective - Vital Signs Vital signs: Vital Signs Temp 97.4 F L 03/31/18 07:40 Pulse 65 03/31/18 07:40 Resp 20 03/31/18 07:40 BP 161/72 03/31/18 07:40 Pulse Ox 97 03/31/18 07:40 Intake & Output 03/30/18 03/31/18 03/31/18 18:59 06:59 18:59 Intake Total 840 Balance 840 Weight 64.41 kg Intake: Oral 840 Other: # Voids 2 3 - Exam GENERAL EXAM: Alert, comfortable in no apparent distress. HEAD: Normocephalic. EYES: Normal reaction of pupils, equal size. NOSE: Clear with pink turbinates. THROAT: No erythema or exudates. NECK: No masses, no JVD. CHEST: No chest wall deformity. LUNGS: Lung sounds are noted to have some rhonchi throughout with a very faint expiratory wheeze. CVS: S1 and S2 normal with no audible mumurs, regular rhythm. ABDOMEN: No hepatosplenomegaly, normal bowel sounds, no guarding or rigidity. EXTREMITIES: No edema noted, pedal pulses palpable. CENTRAL NERVOUS SYSTEM: No focal deficits, tone is normal in all 4 extremities. - Labs CBC & Chem 7: 03/31/18 07:14 03/31/18 07:14 Labs: Abnormal Lab Results - Last 24 Hours (Table) 03/31/18 03/31/18 Range/Units 07:14 07:14 WBC 12.3 H (3.8-10.6) k/uL Neutrophils # 9.8 H (1.3-7.7) k/uL Glucose 128 H (74-99) mg/dL Microbiology - Last 24 Hours (Table) 03/29/18 12:20 Urine Culture - Final Urine,Clean Catch 03/29/18 12:10 Blood Culture - Preliminary Blood No Growth after 24 hours Assessment and Plan Assessment: Assessment Bilateral pneumonia Acute Sinusitis Status post bladder suspension surgery Rheumatoid arthritis Fibromyalgia Plan Patient can be cleared for discharge from a pulmonary stand point. Continue with oral antibiotics and steroids. Medications have been reviewed and will be continued as ordered. A script for a nebulizer machine has been given. Continue Mucinex. Continue with pulmonary hygiene, coughing and deep breathing exercises, and supportive care. Supplemental oxygen to maintain oxygen saturations of 92% or better in needed. Obtain sputum culture. Initiate and encourage incentive spirometer. GI and DVT prophylaxis. Patient would benefit from a full PFT in the outpatient setting. We'll follow-up with the patient 1- 2 days post discharge. We will continue to monitor labs/results and adjust treatment as necessary. Further recommendations pending. I performed an examination of the patient and discussed their management with the nurse practitioner. I have reviewed the nurse practitioner's note and agree with the documented findings and plan of care. <Ternes,Florecita A - Last Filed: 03/31/18 14:13> Objective - Vital Signs Vital signs: Vital Signs Temp 97.4 F L 03/31/18 07:40 Pulse 65 03/31/18 07:40 Resp 20 03/31/18 07:40 BP 161/72 03/31/18 07:40 Pulse Ox 97 03/31/18 07:40 Intake & Output 03/30/18 03/31/18 03/31/18 18:59 06:59 18:59 Intake Total 840 Balance 840 Weight 64.41 kg Intake: Oral 840 Other: # Voids 2 3 - Labs CBC & Chem 7: 03/31/18 07:14 03/31/18 07:14 Labs: Abnormal Lab Results - Last 24 Hours (Table) 03/31/18 03/31/18 Range/Units 07:14 07:14 WBC 12.3 H (3.8-10.6) k/uL Neutrophils # 9.8 H (1.3-7.7) k/uL Glucose 128 H (74-99) mg/dL Microbiology - Last 24 Hours (Table) 03/29/18 12:20 Urine Culture - Final Urine,Clean Catch 03/29/18 12:10 Blood Culture - Preliminary Blood No Growth after 24 hours Assessment and Plan Assessment: OK to DC from pulmonary standpoint with ABX, steroid taper, nebulizer with Pulmicort and Duonebs. PFT outpatient. CXR until clear. Follow up in pulmonary office in 1-2 days. ~Florecita Thomas DO
[2018-03-31] MEDS: guaiFENesin 600 MG TABLET.ER PO SCH (09:32)
[2018-03-31] MEDS: predniSONE 20 MG TAB PO SCH (09:33)
[2018-03-31] MEDS: FAMOTIDINE 20 MG TAB PO SCH (09:33)
[2018-03-31] MEDS: ENOXAPARIN 40 MG/0.4 ML SYRINGE SQ SCH (09:33)
[2018-03-31] MEDS: LACTOBACILLUS ACIDOPH & BULGAR 1 EACH PACKET PO SCH (11:45)
--- NOTE | 2018-03-31 12:40 | P.DS ---
Providers Date of admission: 03/29/18 13:48 Expected date of discharge: 03/31/18 Attending physician: Galileo Valverde Consults: 03/29/18 17:16 Consult Physician Routine Consulting Provider: Jovan Cruz Consult Reason/Comments: pneumonia Do you want consulting provider notified?: Yes Primary care physician: [facility] Course: 1. Bilateral pneumonia, community-acquired. 2. Sepsis without septic shock secondary to #1. Improved with antibiotic and IV fluid. Blood culture negative to date. 3. Essential hypertension, blood pressure not well controlled. Follow-up with PCP within the next 2-3 days Patient Condition at Discharge: Stable Plan - Discharge Summary Discharge Rx Participant: No New Discharge Prescriptions: New Ipratropium-Albuterol Nebulize [Duoneb 0.5 mg-3 mg/3 ml Soln] 3 ml INHALATION QID #120 neb guaiFENesin [Mucinex] 1,200 mg PO Q12HR #20 tablet.er Levofloxacin [Levaquin] 500 mg PO DAILY #5 tab predniSONE 40 mg PO DAILY #6 tab Continue Atenolol [Tenormin] 100 mg PO HS Aspirin 650 mg PO HS Aniwa-3/Dha/Epa/Fish Oil [Fish Oil EC 1,200 mg Softgel] 1 cap PO DAILY L.acidoph,Paracasei, B.lactis [Probiotic] 1 cap PO DAILY Discharge Medication List Atenolol [Tenormin] 100 mg PO HS 04/09/15 [History] Aspirin 650 mg PO HS 05/20/17 [History] L.acidoph,Paracasei, B.lactis [Probiotic] 1 cap PO DAILY 05/20/17 [History] Aniwa-3/Dha/Epa/Fish Oil [Fish Oil EC 1,200 mg Softgel] 1 cap PO DAILY 05/20/17 [History] Ipratropium-Albuterol Nebulize [Duoneb 0.5 mg-3 mg/3 ml Soln] 3 ml INHALATION QID #120 neb 03/31/18 [Rx] Levofloxacin [Levaquin] 500 mg PO DAILY #5 tab 03/31/18 [Rx] guaiFENesin [Mucinex] 1,200 mg PO Q12HR #20 tablet.er 03/31/18 [Rx] predniSONE 40 mg PO DAILY #6 tab 03/31/18 [Rx] Follow up Appointment(s)/Referral(s): Vanessa Garcia MD [Primary Care Provider] - 1-2 days Florecita Thomas DO [Doctor of Osteopathic Medicine] - 1 Week Discharge Disposition: HOME SELF-CARE
== END 2018-03-31 13:21 | disposition home or self-care (01) | DRG 871 ==
LOC: EC 11:48 → 5MS5E 13:48
PROVIDERS: ADMIT Internal Medicine; ATTEND Internal Medicine
DX: A41.9 Sepsis, unspecified organism (principal); J18.9 Pneumonia, unspecified organism; J44.0 Chronic obstructive pulmonary disease with (acute) lower respiratory infection; I11.9 Hypertensive heart disease without heart failure; J01.90 Acute sinusitis, unspecified; M06.9 Rheumatoid arthritis, unspecified; M79.7 Fibromyalgia; Z87.891 Personal history of nicotine dependence; Z87.440 Personal history of urinary (tract) infections; Z79.82 Long term (current) use of aspirin; Z79.899 Other long term (current) drug therapy; Z88.8 Allergy status to other drugs, medicaments and biological substances; Z80.8 Family history of malignant neoplasm of other organs or systems
CPT/HCPCS: 36415; 71046; 80048; 80053; 81001; 83605; 85025; 87040; 87086; 87502; 94640; 96365; 99285

== ENCOUNTER → 2018-07-09 | Outpatient (CLI) | payer MEDICARE ==
[2018-07-09 13:30] LABS: Basophils % (A) 0 %; Eosinophils # (A) 0.2 k/uL (0-0.7); Eosinophils % (A) 2 %; HCT 41.8 % (34.0-46.0); HGB 13.1 gm/dL (11.4-16.0); Lymphocytes # (A) 2.1 k/uL (1.0-4.8); Lymphocytes % (A) 19 %; MCH 29.1 pg (25.0-35.0); MCHC 31.3 g/dL (31.0-37.0); Mean Platelet Volume 6.9; Monocytes # (A) 0.7 k/uL (0-1.0); Monocytes % (A) 6 %; Neutrophils # (A) 8.2 k/uL (1.3-7.7); Neutrophils % (A) 72 %; Platelet Count 419 k/uL (150-450); RDW 14.4 % (11.5-15.5); WBC 11.4 k/uL (3.8-10.6)
[2018-07-09 13:38] LABS: Appearance,Urine Clear (Clear); Bacteria,Urine Rare /hpf; Bilirubin,Urine Negative (Negative); Blood,Urine Trace (Negative); Color,Urine Yellow; Glucose,Urine (UA) Negative (Negative); Ketones,Urine Negative (Negative); Leukocyte Esterase,Urine Trace (Negative); Mucus,Urine Rare /hpf; Nitrite,Urine Negative (Negative); Protein,Urine Negative (Negative); RBC,Urine 1 /hpf (0-5); Specific Gravity,Urine 1.015 (1.001-1.035); Squamous Epithelial Cell,Urine <1 /hpf (0-4); Urobilinogen,Urine <2.0 mg/dL (<2.0); WBC,Urine 3 /hpf (0-5)
[2018-07-09 13:53] LABS: Calcium 9.4 mg/dL (8.4-10.2); Potassium 5.7 mmol/L (3.5-5.1)
== END | disposition home or self-care (01) ==
LOC: LABPAT 12:20
PROVIDERS: ATTEND Urology
DX: Z01.812 Encounter for preprocedural laboratory examination (principal); N39.3 Stress incontinence (female) (male); I10 Essential (primary) hypertension; R35.0 Frequency of micturition; R31.29 Other microscopic hematuria; Z79.899 Other long term (current) drug therapy
CPT/HCPCS: 36415; 80048; 81001; 85025; 87086

== ENCOUNTER 2018-07-15 08:57 | Day surgery (SDC) | payer MEDICARE ==
[2018-07-08 09:46] VITALS: BMI 22.2
--- NOTE | 2018-07-14 12:57 | P.GSHP ---
History of Present Illness H&P Date: 07/14/18 The patient is 77. She had an anteriro repair last spring SHe had urgency incontinence and now has fahad that was masked by the cystocele SHe had an evaluation including uds that identified a low LPP She will undergo a pvs with autologous fascia. - Review of Systems ROS unobtainable: Reports: due to endotracheal tube, due to mental status Past Medical History Past Medical History: Fibromyalgia, Hypertension, Pneumonia, Rheumatoid Arthritis (RA) Additional Past Medical History / Comment(s): PNEUMONIA (MARCH 2018), STATES FREQUENT STOOLS WITH STOMACH ACHE PRIOR., BLADDER LEAKAGE . History of Any Multi-Drug Resistant Organisms: None Reported Past Surgical History: Back Surgery, Bladder Surgery Additional Past Surgical History / Comment(s): Colonoscopy, ANTERIOR COLPORRHAPHY. Past Anesthesia/Blood Transfusion Reactions: No Reported Reaction Past Psychological History: No Psychological Hx Reported Smoking Status: Former smoker Past Alcohol Use History: Occasional Additional Past Alcohol Use History / Comment(s): smoked from teens to 1989; smoked less than 1/2 ppd Past Drug Use History: None Reported - Past Family History Mother Family Medical History: Cancer Additional Family Medical History / Comment(s): Bone CA Medications and Allergies Home Medications Medication Instructions Recorded Confirmed Type Atenolol [Tenormin] 100 mg PO HS 04/09/15 07/08/18 History Aspirin 650 mg PO HS 05/20/17 07/08/18 History Digestive Enzyme 1 tab PO DAILY 07/08/18 History Allergies Allergy/AdvReac Type Severity Reaction Status Date / Time diphenhydramine Allergy Rash/Hives Verified 07/08/18 09:09 [From Benadryl] Surgical - Exam - General well developed, well nourished, no distress - Eyes PERRL - ENT no hearing loss - Neck no masses, trachea midline - Respiratory normal expansion, normal respiratory effort - Cardiovascular Rhythm: regular - Abdomen Abdomen: soft, non tender - Genitourinary hypermobile urethra normal external genitalia - Neurologic normal coordination, normal sensation - Musculoskeletal normal gait, normal posture - Psychiatric oriented to time, oriented to person, oriented to place, speech is normal, memory intact Assessment and Plan Assessment: Impression: FAHAD Plan Pubovagianl sling with autologous fascia.
[~2018-07-15 08:57] MED LIST changes: -HYDROmorphone 0.5 MG/0.5 ML SYRINGE IVP PRN; +LIDOCAINE 1% 20 ML VIAL (10MG/ML) FOR IV START INTRADERMA PRN; +MIDAZOLAM 2 MG/2 ML VIAL IV PRN; +ceFAZolin 1,000 MG in DEXTROSE/WATER 1 50ML.BAG IVPB ONE; -ceFAZolin IN SWFI 2 GM/20 ML SYRINGE IVP ONE; +fentaNYL (PF) 50 MCG/ML 2 ML AMP IV PRN
[2018-07-15] MEDS: LACTATED RINGERS 1,000 ML IV SCH ×2 (09:53→19:44)
[2018-07-15] MEDS ORDERED: LIDOCAINE 1% INJ 10MG/ML (20 ML MDV) ONE (12:04)
[2018-07-15] MEDS ORDERED: fentaNYL (PF) 50 MCG/ML 2 ML AMP ONE (12:04)
[2018-07-15] MEDS ORDERED: PROPOFOL 10 MG/ML 20 ML VIAL IV ONE (12:04)
[2018-07-15] MEDS ORDERED: SUCCINYLCHOLINE CHLORIDE 100 MG/5 ML SYR IV ONE (12:04)
[2018-07-15] MEDS ORDERED: MIDAZOLAM 2 MG/2 ML VIAL ONE (12:04)
[2018-07-15] MEDS ORDERED: VASOPRESSIN 20 UNIT/ML 1 ML VIAL SQ ONE (12:27)
[2018-07-15] MEDS ORDERED: BACITRACIN 500 UNIT/GM OINT 28.4 GM TUBE TOPICAL ONE (12:28)
[2018-07-15] MEDS ORDERED: ONDANSETRON 4 MG/2 ML VIAL IVP PRN (13:28)
--- NOTE | 2018-07-15 13:35 | P.OP ---
Date of Procedure: 07/15/18 Preoperative Diagnosis: Stress urinary incontinence Postoperative Diagnosis: Same Procedure(s) Performed: Cystoscopy with pubovaginal sling using autologous fascia Anesthesia: ROBINA Surgeon: Rom Bhandari Estimated Blood Loss (ml): 10 Pathology: none sent Condition: stable Disposition: PACU Indications for Procedure: The patient is 77. She is status post hysterectomy and anterior repair that unmasked her stress incontinence. She actually has type III stress incontinence. She come for pubovaginal sling with autologous fascia Description of Procedure: Patient brought to the operating suite. She's given general anesthesia. She's placed lithotomy position and a sterile prep and drape. The labor sewn laterally to 0 silk. Tarango cath was introduced sterilely. The anterior vaginal mucosa was elevated off the submucosa with a mixture of 20 units of Pitressin and 60 mL of saline. A midline suburethral incision is made. I dissect lateral the bladder neck through the endopelvic fascia bilaterally. A make a suprapubic Pfannenstiel incision. I dissect down to the rectus fascia. I ellipsed a segment of rectus fascia 2 cm x 8 cm. The rectus fascias closed with 2 running 0 PDS stitches. Through the ends of the rectus fascia placed 2- 0 Prolene stitches. I then passed the Stamey needle retropubically at the corners of the pubis into the vaginal space. I attached the this graft to the Stamey needles and pull it back through the suprapubic incisions. Actually in the mid urethra nicely secured with 2 4-0 Vicryl. I then inspect the urethra there is no injury inspect the bladder there is no injury. I pull on the and it elevates bladder neck nicely. Then tied the Prolene stitches to one another over the rectus fascia such that 2 fingerbreadths can fit beneath the tight stitches. I closed the suprapubic incision in 2 layers with 4-0 chromic and 4- 0 Vicryl. I closed the vaginal incision with 3-0 Vicryl. The Tarango catheter been previously replaced. A vaginal packing is placed. The labial stitches are removed. The patient awake and returned recovery in good condition. Blood loss was approximately 10 mL.
[2018-07-15] MEDS: HYDROcodone/APAP 5-325MG 1 EACH TAB PO PRN (15:14)
[2018-07-15] MEDS: DEXTROSE 5%-0.45% NACL 1,000 ML IV SCH ×2 (15:25→15:44)
[2018-07-15] MEDS: ATENOLOL 50 MG TAB PO SCH (21:42)
[2018-07-16] MEDS: HYDROcodone/APAP 5-325MG 1 EACH TAB PO PRN (02:14)
[2018-07-16] MEDS: DEXTROSE 5%-0.45% NACL 1,000 ML IV SCH (03:42)
--- NOTE | 2018-07-16 06:45 | P.PN ---
Subjective Progress Note Date: 07/16/18 The patient is in her first postoperative day from a pubovaginal sling. Her pain is mild to moderate. The catheter and packing were removed this morning. She has yet to void although it clearly. Vital signs are stable. Her urine output was good. We'll see how she does today. If she does well she can be discharged home in the morning. Objective - Vital Signs Vital signs: Vital Signs Temp 97.4 F L 07/16/18 00:00 Pulse 42 L 07/16/18 00:00 Resp 15 07/16/18 00:00 BP 168/77 07/16/18 00:00 Pulse Ox 98 07/15/18 20:00 Intake & Output 07/15/18 07/15/18 07/16/18 06:59 18:59 06:59 Intake Total 900 Output Total 810 1400 Balance 90 -1400 Weight 63.503 kg Intake: IV 900 Output: Urine 800 1400 Uretheral (Tarango) 1400 Estimated Blood Loss 10 - Labs CBC & Chem 7: 07/15/18 09:50
[2018-07-16] MEDS: KETOROLAC 30 MG/ML 1 ML VIAL IVP PRN ×2 (13:05→21:26)
[2018-07-16] MEDS: ATENOLOL 50 MG TAB PO SCH (21:08)
[2018-07-17] MEDS: DEXTROSE 5%-0.45% NACL 1,000 ML IV SCH (00:07)
[2018-07-17] MEDS: LACTATED RINGERS 1,000 ML IV SCH (00:08)
[2018-07-17 00:42] VITALS: PULSE 48
--- NOTE | 2018-07-17 07:24 | P.DS ---
Providers Attending physician: Rom Bhandari Primary care physician: [facility] Course: The patient is 77. She is brought in the hospital 07/15/2018 for a pubovaginal sling for type III stress urinary incontinence. She has responded nicely postoperatively. She has not had any fever or chills. Her pain has been under control. She she does not have stress incontinence but she does have some urgency. She is emptying her bladder adequately. I explained to her that the urgency and urgency incontinence is quite normal post as well as presurgical. As Long as she is not leaking with movement than the surgery has worked up. The urgency may subside with time however if not medication may be in order. She comprehends this difference. Her wound looks good. Vital signs are stable. She'll be discharged home care of family regular diet limited activity. She'll follow-up in the office in one week. Postoperative instructions been given. She does not wish any pain medicine upon discharge. Patient Condition at Discharge: Good Plan - Discharge Summary Discharge Rx Participant: Yes New Discharge Prescriptions: No Action Atenolol [Tenormin] 100 mg PO HS Aspirin 650 mg PO HS Digestive Enzyme 1 tab PO DAILY Discharge Medication List Atenolol [Tenormin] 100 mg PO HS 04/09/15 [History] Aspirin 650 mg PO HS 05/20/17 [History] Digestive Enzyme 1 tab PO DAILY 07/08/18 [History] Follow up Appointment(s)/Referral(s): Rom Bhandari MD [STAFF PHYSICIAN] - 1 Week Discharge Disposition: HOME SELF-CARE
[2018-07-17 08:33] VITALS: BP 125/68; RESP 16; TEMP 97.8
== END 2018-07-17 09:50 | disposition home or self-care (01) ==
LOC: OR 08:57 → 4FBP 13:51 → OR 07-17 09:50
PROVIDERS: ATTEND Urology
DX: N39.46 Mixed incontinence (principal); N81.10 Cystocele, unspecified; I10 Essential (primary) hypertension; M79.7 Fibromyalgia; M06.9 Rheumatoid arthritis, unspecified; Z87.891 Personal history of nicotine dependence; Z79.82 Long term (current) use of aspirin; Z79.899 Other long term (current) drug therapy; Z88.8 Allergy status to other drugs, medicaments and biological substances
CPT/HCPCS: 84132; 57288; J2250; J1100; J2405; J2001; J3010; J1885; J0690; J0330; J2704

== ENCOUNTER 2021-02-08 16:35 | Emergency (ER) | payer MEDICARE ==
[2021-02-08 17:13] VITALS: BP 170/85
[2021-02-08] MEDS ORDERED: ACETAMINOPHEN TAB 325 MG TAB PO STA (17:18)
--- NOTE | 2021-02-08 17:46 | XR ---
EXAMINATION TYPE: XR chest 2V DATE OF EXAM: 02/08/2021 COMPARISON: 03/30/2018 HISTORY: Short of breath. Fever. TECHNIQUE: FINDINGS: There is some mild interstitial infiltrate in the right lower lung ayoub. Heart and medias tinum are normal. There is no pleural effusion. There is no heart failure. Bony thorax is intact. The re is mild pleural thickening at the lung apices. IMPRESSION: There is mild right lower lobe interstitial infiltrate that is new compared to last exam. There is clearing of the right upper lobe mild pneumonia compared to last exam. There is clearing of the small right pleural effusion.
--- NOTE | 2021-02-08 19:25 | ED ---
URI HPI - General Chief Complaint: Upper Respiratory Infection Stated Complaint: Poss covid Time Seen by Provider: 02/08/21 18:36 Source: patient Mode of arrival: ambulatory Limitations: no limitations - History of Present Illness Initial Comments: 80-year-old female with hx of RA, HTN presenting today for chief complaint of body aches and fevers. Patient states she's had bodyaches fevers and occasional cough. Patient was concerned that she is comfortable. Patient states she really does not have shortness of breath or any chest pain denies leg swelling or hemoptysis. Patient denies a pain with deep inspiration. Patient denies any neck stiffness sore throat or ear pain. Patient denies dysuria urgency frequency. Patient upon arrival appears well nontoxic in no acute distress. In advanced triage pt tested positive for covid 19. - Related Data Home Medications Medication Instructions Recorded Confirmed Atenolol [Tenormin] 100 mg PO HS 04/09/15 07/15/18 Aspirin 650 mg PO HS 05/20/17 07/15/18 Digestive Enzyme 1 tab PO DAILY 07/08/18 07/15/18 Previous Rx's Medication Instructions Recorded Dexamethasone [Decadron] 6 mg PO DAILY 4 Days #4 tablet 02/08/21 Allergies Allergy/AdvReac Type Severity Reaction Status Date / Time diphenhydramine Allergy Rash/Hives Verified 02/08/21 17:13 [From Benadryl] Review of Systems ROS Statement: Those systems with pertinent positive or pertinent negative responses have been documented in the HPI. ROS Other: All systems not noted in ROS Statement are negative. Past Medical History Past Medical History: Fibromyalgia, Hypertension, Pneumonia, Rheumatoid Arthritis (RA) Additional Past Medical History / Comment(s): PNEUMONIA (MARCH 2018), STATES FREQUENT STOOLS WITH STOMACH ACHE PRIOR., BLADDER LEAKAGE . History of Any Multi-Drug Resistant Organisms: None Reported Past Surgical History: Back Surgery, Bladder Surgery Additional Past Surgical History / Comment(s): Colonoscopy, ANTERIOR COLPORRHAPHY. Past Anesthesia/Blood Transfusion Reactions: No Reported Reaction Past Psychological History: No Psychological Hx Reported Smoking Status: Never smoker Past Alcohol Use History: Occasional Past Drug Use History: None Reported - Past Family History Mother Family Medical History: Cancer Additional Family Medical History / Comment(s): Bone CA General Exam - General Exam Comments Initial Comments: General: The patient is awake and alert, in no distress Eye: +3 mm pupils are equal, round and reactive to light, extra-ocular movements are intact. No nystagmus. There is normal conjunctiva bilaterally. No signs of icterus. Ears, nose, mouth and throat: There are moist mucous membranes and no oral lesions. Neck: The neck is supple, there is no tenderness or JVD. Cardiovascular: There is a regular rate and rhythm. No murmur, rub or gallop is appreciated. Respiratory: Lungs are clear to auscultation, respirations are non-labored, breath sounds are equal. No wheezes, stridor, rales, or rhonchi. Gastrointestinal: Soft, non-distended, non-tender abdomen without masses or organomegaly noted. There is no rebound or guarding present. Musculoskeletal: Normal ROM, no tenderness. Strength 5/5. Sensation intact. Radial and DP pulses equal bilaterally 2+. Neurological: A&O x 3. CN II-XII intact grossly, There are no obvious motor or sensory deficits. Coordination appears grossly intact. Speech is normal. Skin: Skin is warm and dry and no rashes or lesions are noted. No calf pain, no LE edema Psychiatric: Cooperative, appropriate mood & affect, normal judgment. Limitations: no limitations Course Vital Signs 02/08/21 02/08/21 17:08 19:09 Temperature 103.0 F H Pulse Rate 78 Respiratory 18 22 Rate Blood Pressure 170/85 O2 Sat by Pulse 95 Oximetry Medical Decision Making - Medical Decision Making Very well-appearing 80-year-old female history of hypertension presenting for cough fever body aches. Comfortable positive. Denies chest pain or shortness of breath she is 95-96% on room air. She has no retractions nor abdominal breathing. Patient fever controlled with tylenol. Patient CXR infiltrate noted suspectd to be viral. Patient diann be discharged with CAP tx and decadron with PCP f/u. I recommend home monitoring of oxygen with OTC pulse oximeter. patient aware of strict return parameters and aware that she may decline. patietn agreeable to discharge and states she just wants to go home and eat. Dr Ibarra is agreeable to care plan and discharge. - Lab Data Lab Results 02/08/21 Range/Units 17:18 Coronavirus (PCR) Detected A (Not Detectd) Disposition Clinical Impression: COVID-19, Myalgia, Fever Disposition: HOME SELF-CARE Condition: Good Instructions (If sedation given, give patient instructions): Coronavirus Disease 2019 (COVID-19) Additional Instructions: Please use medication as discussed. Please follow-up with family doctor in the next 2 days. Home oxygen monitoring as discussed-return for shortness of breath or chest pain/extremity swelling, uncontrolled fevers/pain. Please return to emergency room if the symptoms increase or worsen or for any other concerns. Prescriptions: Dexamethasone [Decadron] 6 mg PO DAILY 4 Days #4 tablet Is patient prescribed a controlled substance at d/c from ED?: No Referrals: Vanessa Garcia MD [Primary Care Provider] - 1-2 days Time of Disposition: 19:24
[2021-02-08 19:49] VITALS: PULSE 71; RESP 18; TEMP 99.8
== END 2021-02-08 19:48 | disposition home or self-care (01) ==
LOC: EC 16:35
DX: U07.1 COVID-19 (principal); M79.7 Fibromyalgia; I10 Essential (primary) hypertension; M06.9 Rheumatoid arthritis, unspecified; Z79.82 Long term (current) use of aspirin
CPT/HCPCS: 71046; 87635; 99283

== ENCOUNTER 2021-02-12 19:51 | Inpatient (IN) | payer MEDICARE ==
[2021-02-12 20:33] LABS: Basophils % (A) 0 %; Eosinophils % (A) 0 %; HCT 41.3 % (34.0-46.0); HGB 13.8 gm/dL (11.4-16.0); Lymphocytes # (A) 1.4 k/uL (1.0-4.8); Lymphocytes % (A) 21 %; MCH 29.8 pg (25.0-35.0); MCHC 33.4 g/dL (31.0-37.0); MCV 89.4 fL (80.0-100.0); Mean Platelet Volume 7.7; Monocytes # (A) 0.2 k/uL (0-1.0); Monocytes % (A) 3 %; Neutrophils # (A) 4.9 k/uL (1.3-7.7); Neutrophils % (A) 75 %; Platelet Count 280 k/uL (150-450); RBC 4.63 m/uL (3.80-5.40); RDW 14.2 % (11.5-15.5); WBC 6.5 k/uL (3.8-10.6)
[2021-02-12] MEDS: ALBUTEROL HFA INHALER INHALATION PRN (20:41)
--- NOTE | 2021-02-12 20:45 | XR ---
EXAMINATION TYPE: XR chest 1V portable DATE OF EXAM: 02/12/2021 COMPARISON: Covid positive. Shortness of breath. HISTORY: 02/08/2021. TECHNIQUE: Single frontal view of the chest is obtained. FINDINGS: There are increased peripheral [id number]-[id number] interstitial opacities in the mid to lower lungs bilaterally. No significant pleural effusion, or pneumothorax seen. The cardiac silhouette si ze is within normal limits. The osseous structures are intact. IMPRESSION: Increased bilateral interstitial opacities, concerning for infection.
[2021-02-12 20:47] LABS: Albumin 3.4 g/dL (3.5-5.0); Calcium 8.6 mg/dL (8.4-10.2); INR 0.9 (<1.2); Magnesium 1.9 mg/dL (1.6-2.3); Partial Thromboplastin Time 26.6 sec (22.0-30.0); Total Bilirubin 0.4 mg/dL (0.2-1.3); Total Protein 6.8 g/dL (6.3-8.2)
[2021-02-12 20:59] LABS: D-Dimer 0.93 mg/L FEU (<0.60)
--- NOTE | 2021-02-12 21:47 | CT ---
EXAMINATION TYPE: CT angio chest DATE OF EXAM: 02/12/2021 9:30 PM COMPARISON: Same-day radiograph. HISTORY: Elevated d-dimer, +covid. CT DLP: 217.3 mGycm Automated exposure control for dose reduction was used. CONTRAST: CTA scan of the thorax is performed with IV Contrast, patient injected with 54ml mL of Isovue 370, pu lmonary embolism protocol. MIP images are created and reviewed. FINDINGS: LUNGS: There are bilateral diffuse moderate patchy groundglass opacities, most pronounced at the lung bases. No significant pleural effusion or pneumothorax. MEDIASTINUM: There is satisfactory enhancement of the pulmonary artery and its branches, there is no CT evidence for pulmonary embolism. There are scattered few mildly enlarged mediastinal lymph nodes, may be reactive. No pericardial effusion is seen. OTHER: No additional significant abnormality is seen. IMPRESSION: NO PE. BILATERAL DIFFUSE PATCHY AIRSPACE OPACITIES, CONSISTENT WITH COVID PNEUMONIA.
--- NOTE | 2021-02-12 22:14 | ED ---
General Adult HPI - General Chief complaint: Recheck/Abnormal Lab/Rx Stated complaint: Low oxygen level Time Seen by Provider: 02/12/21 20:05 Source: patient Mode of arrival: ambulatory Limitations: no limitations - History of Present Illness Initial comments: This 80-year-old female presents with a complaint of cough. She also has felt weak and has had some diffuse myalgias. She states that she will cough if she takes a deep breath. She denies any chest pain. There is no leg pain or swelling. She denies any underlying lung disease. She was seen in the emergency department 4 days ago and was diagnosed with covid. She was started on steroids of dexamethasone but this did not seem to help alleviate her symptoms. She also has taken multiple [id number] medications without relief. She is been watching her oxygen at home and it is ranged between 87 and 92 over the last day. She did have fevers initially. Symptom onset was approximately 8-9 days ago. She denies any other complaints or modifying factors. - Related Data Home Medications Medication Instructions Recorded Confirmed Atenolol [Tenormin] 100 mg PO HS 04/09/15 02/12/21 Acetaminophen Tab [Tylenol] 325 mg PO Q4-6H PRN 02/12/21 02/12/21 Ergocalciferol (Vitamin D2) 50 mcg PO DAILY 02/12/21 02/12/21 [Vitamin D2 (2000 Iu)] Hydroxychloroquine Sulfate 200 mg PO DIRECTED 02/12/21 02/12/21 [Plaquenil] Hydroxychloroquine Sulfate See Taper PO DIRECTED 02/12/21 02/12/21 [Plaquenil] Ibuprofen [Advil] 200 mg PO Q4-6H PRN 02/12/21 02/12/21 Thyroid,Pork [Game Trapper Thyroid] 60 mg PO DAILY 02/12/21 02/12/21 Zinc 50 mg PO DAILY 02/12/21 02/12/21 Previous Rx's Medication Instructions Recorded Dexamethasone [Decadron] 6 mg PO DAILY 4 Days #4 tablet 02/08/21 Allergies Allergy/AdvReac Type Severity Reaction Status Date / Time diphenhydramine Allergy Rash/Hives Verified 02/12/21 21:06 [From Benadryl] Review of Systems ROS Statement: Those systems with pertinent positive or pertinent negative responses have been documented in the HPI. ROS Other: All systems not noted in ROS Statement are negative. Past Medical History Past Medical History: Fibromyalgia, Hypertension, Pneumonia, Rheumatoid Arthritis (RA) Additional Past Medical History / Comment(s): PNEUMONIA (MARCH 2018), STATES FREQUENT STOOLS WITH STOMACH ACHE PRIOR., BLADDER LEAKAGE . History of Any Multi-Drug Resistant Organisms: None Reported Past Surgical History: Back Surgery, Bladder Surgery Additional Past Surgical History / Comment(s): Colonoscopy, ANTERIOR COLP ORRHAPHY. Past Anesthesia/Blood Transfusion Reactions: No Reported Reaction Past Psychological History: No Psychological Hx Reported Smoking Status: Never smoker Past Alcohol Use History: Occasional Past Drug Use History: None Reported - Past Family History Mother Family Medical History: Cancer Additional Family Medical History / Comment(s): Bone CA General Exam - General Exam Comments Initial Comments: GENERAL: The patient is well nourished and well hydrated. VITAL SIGNS: Heart rate, blood pressure, respiratory rate reviewed as recorded in nurse's notes. EYES: Pupils are round and reactive. Extraocular movements are intact. No conjunctival / lid redness or swelling. ENT: No external evidence of injury, swelling, or ecchymosis. Airway is patent. Throat is clear. NECK: Nontender. No swelling or evidence of injury. No subcutaneous emphysema. Trachea is midline. No thyroid mass. HEART: Regular rate and rhythm. Good peripheral pulses. LUNGS/CHEST: Breath sounds clear and equal bilaterally. No rales, rhonchi, or wheezes. No ecchymosis, subcutaneous emphysema, or tenderness. ABDOMEN: Abdomen soft without tenderness. No palpable masses or organomegaly. No peritoneal signs. No abdominal wall swelling or ecchymosis. EXTREMITIES: No extremity tenderness. Normal muscle tone and function. No thoracolumbar tenderness. NEUROLOGIC: Sensation is grossly intact. Cranial nerve exam reveals face is symmetrical, tongue is midline, speech is clear. SKIN: No abrasions or ecchymosis is noted. No induration or masses noted. PSYCHIATRIC: Alert and oriented. Appropriate behavior and judgment. Limitations: no limitations Course Vital Signs 02/12/21 02/12/21 02/12/21 19:56 20:23 20:29 Temperature 99.7 F H Pulse Rate 70 65 Respiratory 18 18 18 Rate Blood Pressure 147/71 175/75 O2 Sat by Pulse 95 96 Oximetry Medical Decision Making - Medical Decision Making The patient was seen and examined. All diagnostics were reviewed. She had an EKG which shows a normal sinus rhythm at a rate of 66. There is some flattened T waves in inferior leads but no ST elevation. The GA intervals 156, QRS duration is 82, and the QTC intervals 438. The patient also had a chest x-ray which does show infiltrate of changes likely related to COVID. The laboratory came back with a significant elevation of the CRP. There also is elevation of the d-dimer. She therefore underwent a CT angiogram of the chest and this does show evidence of likely covid pneumonia. She was watched for quite some time without oxygen on in her pulse ox went down to 91%. She's had approximately 95- 96% on 2 L per nasal cannula. Overall, the patient appears to have bilateral p neumonia. Her symptomatology is moderate to severe and it is felt as though she would benefit from admission to the hospital for further oxygen treatment. She also may benefit from seeing pulmonology for further recommendations and treatment of her condition. Albuterol will be added. She has already tried a course of steroids without significant relief. Case will be discussed with internal medicine in the near future. - Lab Data Result diagrams: 02/12/21 20:24 02/12/21 20:24 Lab Results 02/12/21 02/12/21 02/12/21 Range/Units 20:24 20:24 20:24 WBC 6.5 (3.8-10.6) k/uL RBC 4.63 (3.80-5.40) m/uL Hgb 13.8 (11.4-16.0) gm/dL Hct 41.3 (34.0-46.0) % MCV 89.4 (80.0-100.0) fL MCH 29.8 (25.0-35.0) pg MCHC 33.4 (31.0-37.0) g/dL RDW 14.2 (11.5-15.5) % Plt Count 280 (150-450) k/uL MPV 7.7 Neutrophils % 75 % Lymphocytes % 21 % Monocytes % 3 % Eosinophils % 0 % Basophils % 0 % Neutrophils # 4.9 (1.3-7.7) k/uL Lymphocytes # 1.4 (1.0-4.8) k/uL Monocytes # 0.2 (0-1.0) k/uL Eosinophils # 0.0 (0-0.7) k/uL Basophils # 0.0 (0-0.2) k/uL PT 10.0 (9.0-12.0) sec INR 0.9 (<1.2) APTT 26.6 (22.0-30.0) sec D-Dimer 0.93 H (<0.60) mg/L FEU Sodium 135 L (137-145) mmol/L Potassium 4.0 (3.5-5.1) mmol/L Chloride 99 (98-107) mmol/L Carbon Dioxide 29 (22-30) mmol/L Anion Gap 7 mmol/L BUN 15 (7-17) mg/dL Creatinine 0.75 (0.52-1.04) mg/dL Est GFR (CKD-EPI)AfAm 87 (>60 ml/min/1.73 sqM) Est GFR (CKD-EPI)NonAf 75 (>60 ml/min/1.73 sqM) Glucose 121 H (74-99) mg/dL Plasma Lactic Acid Clarke (0.7-2.0) mmol/L Calcium 8.6 (8.4-10.2) mg/dL Magnesium 1.9 (1.6-2.3) mg/dL Total Bilirubin 0.4 (0.2-1.3) mg/dL AST 99 H (14-36) U/L ALT 34 (4-34) U/L Alkaline Phosphatase 64 (38-126) U/L Lactate Dehydrogenase 900 H (313-618) U/L C-Reactive Protein 135.0 H (<10.0) mg/L Total Protein 6.8 (6.3-8.2) g/dL Albumin 3.4 L (3.5-5.0) g/dL 02/12/21 Range/Units 20:24 WBC (3.8-10.6) k/uL RBC (3.80-5.40) m/uL Hgb (11.4-16.0) gm/dL Hct (34.0-46.0) % MCV (80.0-100.0) fL MCH (25.0-35.0) pg MCHC (31.0-37.0) g/dL RDW (11.5-15.5) % Plt Count (150-450) k/uL MPV Neutrophils % % Lymphocytes % % Monocytes % % Eosinophils % % Basophils % % Neutrophils # (1.3-7.7) k/uL Lymphocytes # (1.0-4.8) k/uL Monocytes # (0-1.0) k/uL Eosinophils # (0-0.7) k/uL Basophils # (0-0.2) k/uL PT (9.0-12.0) sec INR (<1.2) APTT (22.0-30.0) sec D-Dimer (<0.60) mg/L FEU Sodium (137-145) mmol/L Potassium (3.5-5.1) mmol/L Chloride (98-107) mmol/L Carbon Dioxide (22-30) mmol/L Anion Gap mmol/L BUN (7-17) mg/dL Creatinine (0.52-1.04) mg/dL Est GFR (CKD-EPI)AfAm (>60 ml/min/1.73 sqM) Est GFR (CKD-EPI)NonAf (>60 ml/min/1.73 sqM) Glucose (74-99) mg/dL Plasma Lactic Acid Clarke 1.0 (0.7-2.0) mmol/L Calcium (8.4-10.2) mg/dL Magnesium (1.6-2.3) mg/dL Total Bilirubin (0.2-1.3) mg/dL AST (14-36) U/L ALT (4-34) U/L Alkaline Phosphatase (38-126) U/L Lactate Dehydrogenase (313-618) U/L C-Reactive Protein (<10.0) mg/L Total Protein (6.3-8.2) g/dL Albumin (3.5-5.0) g/dL Disposition Clinical Impression: COVID-19, Bilateral pneumonia, Myalgia, Hypoxia, Hypertension, Elevated d- dimer, Weakness Disposition: ADMITTED IP TO THIS [facility] Condition: Fair Is patient prescribed a controlled substance at d/c from ED?: No Referrals: Vanessa Garcia MD [Primary Care Provider] - 1-2 days Time of Disposition: 22:14 Decision Date: 02/12/21 Decision Time: 22:14
[2021-02-12] MEDS ORDERED: IBUPROFEN 200 MG TAB PO PRN (22:15)
[2021-02-12] MEDS ORDERED: NALOXONE 0.4 MG/ML 1 ML VIAL IV PRN (22:16)
[2021-02-12] MEDS: traMADol 50 MG TAB PO PRN (22:57)
[2021-02-13] MEDS: ACETAMINOPHEN TAB 325 MG TAB PO PRN ×2 (02:52→22:44)
[2021-02-13] MEDS: ZINC SULFATE 220 MG CAP PO SCH (08:02)
[2021-02-13] MEDS: dexAMETHasone 4 MG TAB PO SCH (08:02)
[2021-02-13] MEDS: ENOXAPARIN 40 MG/0.4 ML SYRINGE SQ SCH (08:03)
[2021-02-13] MEDS: ALBUTEROL HFA INHALER INHALATION PRN ×2 (08:12→19:52)
[2021-02-13] MEDS: THYROID, PORK 30 MG TAB PO SCH (08:43)
[2021-02-13] MEDS ORDERED: PANTOPRAZOLE 40 MG/10 ML VIAL IV SCH (09:00)
[2021-02-13] MEDS ORDERED: HYDROXYCHLOROQUINE SULFATE 200 MG TAB PO ONE (09:00)
[2021-02-13] MEDS ORDERED: NON FORMULARY DRUG (Ergocalciferol (Vitamin D2) [Vitamin D2 (2000 Iu)] 50 MCG Tablet) PO SCH (09:00)
--- NOTE | 2021-02-13 10:03 | P.CNPUL ---
History of Present Illness Consult date: 02/13/21 Reason for consult: dyspnea, cough, hypoxemia, abnormal CXR/CT Chief complaint: COVID 19 History of present illness: 80-year-old female with past medical history of hypertension, rheumatoid arthritis on hydroxychloroquine, fibro-myalgia, remote history of smoking but no chronic lung disease who was seen in the emergency department on 02/08/2021 with symptoms of body aches and fevers and occasional cough, patient at that time was not complaining of any shortness of breath, no chest pain, no leg swelling or hemoptysis, patient was checked for COVID 19 and was found to be positive, her chest x-ray did show a lateral infiltrates that were suspected to be viral, and patient was discharged home on Decadron 6 mg daily for 4 days, azithromycin, patient was not requiring oxygen at that time. She was breathing comfortably, she was instructed to follow up with her primary care provider. Fortunately patient did not take her Decadron as she was confused about which medication to take and she was worried about some interaction with her regular medications. She returned to the emergency department on 02/12/2021 for reevaluation of high fevers of 10 3F, diffuse body aches, increased cough. She felt increasingly weak, she has had poor appetite, she's had a couple of bouts of diarrhea, some mild nausea but no vomiting, no leg pain or swelling, no chest discomfort, no hemoptysis, no altered mentation. Chest x-ray showed increased bilateral interstitial opacities. Her d-dimer was increased to 0.93, CBC was within normal limits sodium was 135, the rest of electrolytes and renal profile were unremarkable LDH was 900, and CRP is 135. THS was completed showing no evidence of pulmonary embolism, no showed bilateral diffuse moderate patchy groundglass opacities more pronounced at bilateral lung bases. Patient is currently requiring oxygen, at 2 L, and her pulse ox is 92%, she is in sinus mechanism with a rate 65, blood pressure is 160/73, she has been started on Decadron, lung sounds reveal diffuse coarse crackles more so at bilateral bases. She was started on vitamin C D and zinc, and prophylactic dose of Lovenox at 40 mg once daily, she is awaiting admission on medical surgical floor. Review of Systems All systems: negative Constitutional: Reports fatigue, Reports fever, Reports weakness, Denies chills Eyes: denies blurred vision, denies pain Ears, nose, mouth and throat: Denies headache, Denies sore throat Cardiovascular: Denies chest pain, Denies shortness of breath Respiratory: Reports dyspnea, Denies cough Gastrointestinal: Denies abdominal pain, Denies diarrhea, Denies nausea, Denies vomiting Genitourinary: Denies dysuria, Denies hematuria Musculoskeletal: Denies myalgias Integumentary: Denies pruritus, Denies rash Neurological: Denies numbness, Denies weakness Psychiatric: Denies anxiety, Denies depression Endocrine: Denies fatigue, Denies weight change Past Medical History Past Medical History: Fibromyalgia, Hypertension, Pneumonia, Rheumatoid Arthritis (RA) Additional Past Medical History / Comment(s): PNEUMONIA (MARCH 2018), STATES FREQUENT STOOLS WITH STOMACH ACHE PRIOR., BLADDER LEAKAGE . History of Any Multi-Drug Resistant Organisms: None Reported Past Surgical History: Back Surgery, Bladder Surgery Additional Past Surgical History / Comment(s): Colonoscopy, ANTERIOR COLPORRHAPHY. Past Anesthesia/Blood Transfusion Reactions: No Reported Reaction Past Psychological History: No Psychological Hx Reported Smoking Status: Never smoker Past Alcohol Use History: Occasional Past Drug Use History: None Reported - Past Family History Mother Family Medical History: Cancer Additional Family Medical History / Comment(s): Bone CA Medications and Allergies Home Medications Medication Instructions Recorded Confirmed Type Atenolol [Tenormin] 100 mg PO HS 04/09/15 02/12/21 History Dexamethasone [Decadron] 6 mg PO DAILY 4 Days #4 tablet 02/08/21 02/12/21 Rx Acetaminophen Tab [Tylenol] 325 mg PO Q4-6H PRN 02/12/21 02/12/21 History Ergocalciferol (Vitamin D2) 50 mcg PO DAILY 02/12/21 02/12/21 History [Vitamin D2 (2000 Iu)] Hydroxychloroquine Sulfate 200 mg PO DIRECTED 02/12/21 02/12/21 History [Plaquenil] Hydroxychloroquine Sulfate See Taper PO DIRECTED 02/12/21 02/12/21 History [Plaquenil] Ibuprofen [Advil] 200 mg PO Q4-6H PRN 02/12/21 02/12/21 History 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,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 Thyroid] 60 mg PO DAILY 02/12/21 02/12/21 History Zinc 50 mg PO DAILY 02/12/21 02/12/21 History Allergies Allergy/AdvReac Type Severity Reaction Status Date / Time diphenhydramine Allergy Rash/Hives Verified 02/12/21 21:06 [From [facility]] Physical Exam Vitals: Vital Signs Temp Pulse Resp BP Pulse Ox 02/13/21 06:20 100 F H 69 18 160/73 94 L 02/13/21 02:27 18 02/13/21 00:56 18 02/12/21 22:58 70 18 156/65 96 02/12/21 22:23 67 18 172/72 95 02/12/21 21:00 70 18 159/77 96 02/12/21 20:29 18 02/12/21 20:23 65 18 175/75 96 02/12/21 19:56 99.7 F H 70 18 147/71 95 Intake and Output 02/12/21 02/13/21 02/13/21 22:59 06:59 14:59 Other: Weight 61.235 kg GENERAL EXAM: Alert, very pleasant, 80-year-old white female, on 2 L of oxygen and the pulse ox of 92%, comfortable in no apparent distress. HEAD: Normocephalic/atraumatic. EYES: Normal reaction of pupils, equal size. Conjunctiva pink, sclera white. NOSE: Clear with pink turbinates. THROAT: No erythema or exudates. NECK: No masses, no JVD, no thyroid enlargement, no adenopathy. CHEST: No chest wall deformity. Symmetrical expansion. LUNGS: Equal air entry with diffuse coarse crackles more so at bilateral lung bases CVS: Regular rate and rhythm, normal S1 and S2, no gallops, no murmurs, no rubs ABDOMEN: Soft, nontender. No hepatosplenomegaly, normal bowel sounds, no guarding or rigidity. EXTREMITIES: No clubbing, no edema, no cyanosis, 2+ pulses and upper and lower extremities. MUSCULOSKELETAL: Muscle strength and tone normal. SPINE: No scoliosis or deformity SKIN: No rashes CENTRAL NERVOUS SYSTEM: Alert and oriented -3. No focal deficits, tone is normal in all 4 extremities. PSYCHIATRIC: Alert and oriented -3. Appropriate affect. Intact judgment and insight. Results - Laboratory Findings CBC and BMP: 02/12/21 20:24 02/12/21 20:24 PT/INR, D-dimer PT 10.0 sec (9.0-12.0) 02/12/21 20:24 INR 0.9 (<1.2) 02/12/21 20:24 D-Dimer 0.93 mg/L FEU (<0.60) H 02/12/21 20:24 Abnormal lab findings: Abnormal Labs 02/12/21 02/12/21 20:24 20:24 D-Dimer 0.93 H Sodium 135 L Glucose 121 H AST 99 H Lactate Dehydrogenase 900 H C-Reactive Protein 135.0 H Albumin 3.4 L - Diagnostic Findings Chest x-ray: report reviewed, image reviewed CT scan - chest: report reviewed, image reviewed Assessment and Plan Plan: Assessment: #1. Acute hypoxic respiratory failure related to acute COVID 19 pneumonia, patient was first diagnosed on 02/08/2021, was seen in the emergency department, initially did not have any significant pulmonary symptoms other than mild cough, and did not require oxygen. Patient was sent home with outpatient treatment on oral steroids however she failed to take her steroids and her symptoms progressed and patient presented back to the emergency department on 02/12/2021 with worsening symptoms, cough, hypoxia and progression of pulmonary infiltrates #2. Fever, cough, elevated inflammatory markers, related to the above #3. Elevated d-dimer, without CT evidence of pulmonary embolism #4. History of rheumatoid arthritis on hydroxychloroquine #5. History of fibromyalgia #6. No history of smoking, no chronic lung disease #7. Previous history of pneumonia #8. History of hypertension Plan: Continue the Decadron, continue prophylactic anticoagulation, chest imaging has been reviewed including chest x-ray and CT angios of the chest, there is progression of bilateral infiltrates from 02/08/2021 related to viral pneumonia. We'll start the patient on Remdesivir treatments, continue with vitamins, urge oral intake. Continue following inflammatory markers, follow-up chest x-ray tomorrow. I performed a history & physical examination of the patient and discussed their management with my nurse practitioner, Yolanda Hall. I reviewed the nurse practitioner's note and agree with the documented findings and plan of care. Lung sounds are positive for diffuse coarse bilateral crackles. The findings and the impression was discussed with the patient. I attest to the documentation by the nurse practitioner. Time with Patient: Greater than 30
[2021-02-13] MEDS: CHOLECALCIFEROL 25 MCG (1000 IU) TABLET PO SCH (11:01)
[2021-02-13] MEDS: ASCORBIC ACID 500 MG TAB PO SCH ×2 (11:01→22:46)
[2021-02-13] MEDS ORDERED: REMDESIVIR 200 MG in SODIUM CHLORIDE 0.9% 250 ML IVPB ONE (12:00)
[2021-02-13 12:15] LABS: Ferritin 1090.5 ng/mL (10.0-291.0)
--- NOTE | 2021-02-13 18:33 | P.HPIM ---
History of Present Illness H&P Date: 02/13/21 Yenni Reese, 80-year-old female, who presented to [facility] emergency room with a chief complaint of cough generalized weakness and muscle ache, patient was seen in the emergency room for days prior to this admission at that time she was diagnosed with Covid 19, she was started on dexamethasone and was discharged home patient was monitoring her oxygen level and her pulse ox was ranging between 87 and 92, her symptoms started to worsen and she decided to return to emergency room. Patient was evaluated again in the emergency room vital examination reveals a temperature of 99.7 pulse 70 respiration 18 blood pressure 147/71 pulse ox 95% on room air white blood count is 6.5 hemoglobin 13.8 platelet count 280 d-dimer 0.93 sodium 135 potassium 4.0 chloride 99 LDH 900 C-reactive protein 135 Procalcitonin 0.83 chest x-ray done in the emergency room revealed increased bilateral interstitial opacities concerning for infection, CT angiogram of the chest done in the emergency room was negative for pulmonary embolism however it revealed bilateral diffuse patchy airspace opacit ies 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 Past medical history is significant for history of hypertension, history of rheumatoid arthritis, and history of fibromyalgia no previous history of lung disease no previous history of smoking Past Medical History Past Medical History: Fibromyalgia, Hypertension, Pneumonia, Rheumatoid Arthritis (RA) Additional Past Medical History / Comment(s): PNEUMONIA (MARCH 2018), STATES FREQUENT STOOLS WITH STOMACH ACHE PRIOR., BLADDER LEAKAGE . History of Any Multi-Drug Resistant Organisms: None Reported Past Surgical History: Back Surgery, Bladder Surgery Additional Past Surgical History / Comment(s): Colonoscopy, ANTERIOR COLPORRHAPHY. Past Anesthesia/Blood Transfusion Reactions: No Reported Reaction Past Psychological History: No Psychological Hx Reported Smoking Status: Never smoker Past Alcohol Use History: Occasional Past Drug Use History: None Reported - Past Family History Mother Family Medical History: Cancer Additional Family Medical History / Comment(s): Bone CA Medications and Allergies Home Medications Medication Instructions Recorded Confirmed Type Atenolol [Tenormin] 100 mg PO HS 04/09/15 02/12/21 History Dexamethasone [Decadron] 6 mg PO DAILY 4 Days #4 tablet 02/08/21 02/12/21 Rx Acetaminophen Tab [Tylenol] 325 mg PO Q4-6H PRN 02/12/21 02/12/21 History Ergocalciferol (Vitamin D2) 50 mcg PO DAILY 02/12/21 02/12/21 History [Vitamin D2 (2000 Iu)] Hydroxychloroquine Sulfate 200 mg PO DIRECTED 02/12/21 02/12/21 History [Plaquenil] Hydroxychloroquine Sulfate See Taper PO DIRECTED 02/12/21 02/12/21 History [Plaquenil] Ibuprofen [Advil] 200 mg PO Q4-6H PRN 02/12/21 02/12/21 History 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,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 Thyroid] 60 mg PO DAILY 02/12/21 02/12/21 History Zinc 50 mg PO DAILY 02/12/21 02/12/21 History Allergies Allergy/AdvReac Type Severity Reaction Status Date / Time diphenhydramine Allergy Rash/Hives Verified 02/12/21 21:06 [From [facility]] Physical Exam Vitals: Vital Signs Temp Pulse Resp BP Pulse Ox 02/13/21 15:49 61 16 161/80 95 02/13/21 11:02 67 18 142/67 93 L 02/13/21 06:20 100 F H 69 18 160/73 94 L 02/13/21 02:27 18 02/13/21 00:56 18 02/12/21 22:58 70 18 156/65 96 02/12/21 22:23 67 18 172/72 95 02/12/21 21:00 70 18 159/77 96 02/12/21 20:29 18 02/12/21 20:23 65 18 175/75 96 02/12/21 19:56 99.7 F H 70 18 147/71 95 In general patient is alert and oriented 3 in no apparent distress HEENT head normocephalic and atraumatic Neck is supple no JVD no goiter no lymphadenopathy Chest exam reveals coarse crackles in both lung ayoub with wheezing Cardiac exam reveals regular heart sounds no gallops no murmurs Abdomen is soft nontender no organomegaly with normal bowel sounds Extremity exam reveals no edema no cyanosis or clubbing Neurological examination reveals no gross focal deficit Results CBC & Chem 7: 02/12/21 20:24 02/12/21 20:24 Labs: Abnormal Lab Results - Last 24 Hours (Table) 02/12/21 02/12/21 02/12/21 Range/Units 20:24 20:24 20:24 D-Dimer 0.93 H (<0.60) mg/L FEU Sodium 135 L (137-145) mmol/L Glucose 121 H (74-99) mg/dL Ferritin 1090.5 H (10.0-291.0) ng/mL AST 99 H (14-36) U/L Lactate Dehydrogenase 900 H (313-618) U/L C-Reactive Protein 135.0 H (<10.0) mg/L Albumin 3.4 L (3.5-5.0) g/dL Procalcitonin 0.83 H (0.02-0.09) ng/mL Assessment and Plan Plan: Acute Covid 19 infection with pneumonia Acute hypoxic respiratory failure Elevated d-dimer CT angiogram negative for pulmonary embolism History of rheumatoid arthritis History of hypertension History of fibromyalgia At this time patient is admitted to medical floor She is started on oral dexamethasone, subcu Lovenox, IV Remdesevir Pulmonary critical care consultation requested Home medications reviewed and reordered Will follow closely during this admission
[2021-02-13] MEDS: atenoloL 50 MG TAB PO SCH (22:44)
[2021-02-14] MEDS: ONDANSETRON 4 MG/2 ML VIAL IVP PRN (02:48)
[2021-02-14] MEDS: ASCORBIC ACID 500 MG TAB PO SCH ×2 (08:49→19:47)
[2021-02-14] MEDS: ZINC SULFATE 220 MG CAP PO SCH (08:49)
[2021-02-14] MEDS: CHOLECALCIFEROL 25 MCG (1000 IU) TABLET PO SCH (08:49)
[2021-02-14] MEDS: ENOXAPARIN 40 MG/0.4 ML SYRINGE SQ SCH (08:49)
[2021-02-14] MEDS: PANTOPRAZOLE 40 MG TABLET PO SCH (08:49)
[2021-02-14] MEDS: dexAMETHasone 4 MG TAB PO SCH (09:52)
[2021-02-14] MEDS: THYROID, PORK 30 MG TAB PO SCH (09:53)
[2021-02-14] MEDS: ALBUTEROL HFA INHALER INHALATION PRN ×2 (11:30→21:04)
--- NOTE | 2021-02-14 11:43 | P.PN ---
Subjective Progress Note Date: 02/14/21 80-year-old female with past medical history of hypertension, rheumatoid arthri tis on hydroxychloroquine, fibro-myalgia, remote history of smoking but no chronic lung disease who was seen in the emergency department on 02/08/2021 with symptoms of body aches and fevers and occasional cough, patient at that time was not complaining of any shortness of breath, no chest pain, no leg swelling or hemoptysis, patient was checked for COVID 19 and was found to be positive, her chest x-ray did show a lateral infiltrates that were suspected to be viral, and patient was discharged home on Decadron 6 mg daily for 4 days, azithromycin, patient was not requiring oxygen at that time. She was breathing comfortably, she was instructed to follow up with her primary care provider. Fortunately patient did not take her Decadron as she was confused about which medication to take and she was worried about some interaction with her regular medications. She returned to the emergency department on 02/12/2021 for reevaluation of high fevers of 10 3F, diffuse body aches, increased cough. She felt increasingly weak, she has had poor appetite, she's had a couple of bouts of diarrhea, some mild nausea but no vomiting, no leg pain or swelling, no chest discomfort, no hemoptysis, no altered mentation. Chest x-ray showed increased bilateral interstitial opacities. Her d-dimer was increased to 0.93, CBC was within normal limits sodium was 135, the rest of electrolytes and renal profile were unremarkable LDH was 900, and CRP is 135. THS was completed showing no evidence of pulmonary embolism, no showed bilateral diffuse moderate patchy groundglass opacities more pronounced at bilateral lung bases. Patient is currently requiring oxygen, at 2 L, and her pulse ox is 92%, she is in sinus mechanism with a rate 65, blood pressure is 160/73, she has been started on Decadron, lung sounds reveal diffuse coarse crackles more so at bilateral bases. She was started on vitamin C D and zinc, and prophylactic dose of Lovenox at 40 mg once daily, she is awaiting admission on medical surgical floor. 02/14/2021 the patient is being seen for a follow-up. Patient is still in the emergency department. She was supposed to get hospitalized for Covid likely related to pneumonia. After she is hospitalized and she is waiting for a bed. She remains on 2 L about 2 by nasal cannula. She is afebrile. She was started on Decadron and she was also started on REM and she received her first dose yesterday and second dose will be delivered to her today. No blood work from today. Note that the initial LDH was 900 and CRP was 135 and these need to be followed up. Chest x-ray was showing increased interstitial infiltrates bilaterally. CT angiogram was also done yesterday that showed no evidence of any pulmonary embolism. 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 Objective - Vital Signs Vital signs: Vital Signs Temp 97.5 F L 02/14/21 08:00 Pulse 67 02/14/21 08:00 Resp 16 02/14/21 08:00 BP 127/71 02/14/21 08:00 Pulse Ox 88 L 02/14/21 08:00 Intake & Output 02/13/21 02/14/21 02/14/21 18:59 06:59 18:59 Weight 61.235 kg Other: # Voids 2 - Exam GENERAL EXAM: Alert, very pleasant, 80-year-old white female, on 2 L of oxygen and the pulse ox of 92%, comfortable in no apparent distress. HEAD: Normocephalic/atraumatic. EYES: Normal reaction of pupils, equal size. Conjunctiva pink, sclera white. NOSE: Clear with pink turbinates. THROAT: No erythema or exudates. NECK: No masses, no JVD, no thyroid enlargement, no adenopathy. CHEST: No chest wall deformity. Symmetrical expansion. LUNGS: Equal air entry with diffuse coarse crackles more so at bilateral lung bases CVS: Regular rate and rhythm, normal S1 and S2, no gallops, no murmurs, no rubs ABDOMEN: Soft, nontender. No hepatosplenomegaly, normal bowel sounds, no guarding or rigidity. EXTREMITIES: No clubbing, no edema, no cyanosis, 2+ pulses and upper and lower extremities. MUSCULOSKELETAL: Muscle strength and tone normal. SPINE: No scoliosis or deformity SKIN: No rashes CENTRAL NERVOUS SYSTEM: Alert and oriented -3. No focal deficits, tone is normal in all 4 extremities. PSYCHIATRIC: Alert and oriented -3. Appropriate affect. Intact judgment and insight. - Labs CBC & Chem 7: 02/12/21 20:24 02/12/21 20:24 Labs: Abnormal Lab Results - Last 24 Hours (Table) 02/12/21 02/12/21 Range/Units 20:24 20:24 Ferritin 1090.5 H (10.0-291.0) ng/mL Procalcitonin 0.83 H (0.02-0.09) ng/mL Microbiology - Last 24 Hours (Table) 02/12/21 20:56 Blood Culture - Preliminary Blood No Growth after 24 hours 02/12/21 20:40 Blood Culture - Preliminary Blood No Growth after 24 hours Assessment and Plan Plan: #1. Acute hypoxic respiratory failure related to acute COVID 19 pneumonia, patient was first diagnosed on 02/08/2021, was seen in the emergency department, initially did not have any significant pulmonary symptoms other than mild cough, and did not require oxygen. Patient was sent home with outpatient treatment on oral steroids however she failed to take her steroids and her symptoms progressed and patient presented back to the emergency department on 02/12/2021 with worsening symptoms, cough, hypoxia and progression of pulmonary infiltrates. #2. Fever, cough, elevated inflammatory markers, related to the above #3. Elevated d-dimer, without CT evidence of pulmonary embolism #4. History of rheumatoid arthritis on hydroxychloroquine #5. History of fibromyalgia #6. No history of smoking, no chronic lung disease #7. Previous history of pneumonia #8. History of hypertension Plan: Continue the Decadron 6 mg by mouth daily Lovenox 40 mg SC every day Remdesivir treatments day #2 and will try to complete a 5 day course Stop The hydroxychloroquine continue with vitamins, urge oral intake. Continue following inflammatory markers follow-up chest x-ray tomorrow.
[2021-02-14] MEDS: REMDESIVIR 100 MG in SODIUM CHLORIDE 0.9% 250 ML IVPB SCH (13:24)
--- NOTE | 2021-02-14 17:52 | P.PN ---
Subjective Progress Note Date: 02/14/21 Yenni Reese, 80-year-old female, who presented to [facility] emergency room with a chief complaint of cough generalized weakness and muscle ache, patient was seen in the emergency room for days prior to this admission at that time she was diagnosed with Covid 19, she was started on dexamethasone and was discharged home patient was monitoring her oxygen level and her pulse ox was ranging between 87 and 92, her symptoms started to worsen and she decided to return to emergency room. Patient was evaluated again in the emergency room vital examination reveals a temperature of 99.7 pulse 70 respiration 18 blood pressure 147/71 pulse ox 95% on room air white blood count is 6.5 hemoglobin 13.8 platelet count 280 d-dimer 0.93 sodium 135 potassium 4.0 chloride 99 LDH 900 C-reactive protein 135 Procalcitonin 0.83 chest x-ray done in the emergency room revealed increased bilateral interstitial opacities concerning for infection, CT angiogram of the chest done in the emergency room was negative for pulmonary embolism however it revealed bilateral diffuse patchy airspace opacities 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 Past medical history is significant for history of hypertension, history of rheumatoid arthritis, and history of fibromyalgia no previous history of lung disease no previous history of smoking On 02/14/2021 patient was seen and examined on the medical floor she is alert and oriented 3 in no apparent distress she stated that her cough and shortness of breath has improved there is no fever or chills no headache or dizziness no chest pain no nausea or vomiting no abdominal pain no diarrhea no blood in the stools no burning with urination no frequency or urgency and no hematuria Objective - Vital Signs Vital signs: Vital Signs Temp 97.5 F L 02/14/21 02:51 Pulse 56 L 02/14/21 02:51 Resp 16 02/14/21 02:51 BP 181/80 02/14/21 02:51 Pulse Ox 93 L 02/14/21 02:51 Intake & Output 02/13/21 02/14/21 02/14/21 18:59 06:59 18:59 Weight 61.235 kg - Exam In general patient is alert and oriented 3 in no apparent distress HEENT head normocephalic and atraumatic Neck is supple no JVD no goiter no lymphadenopathy Chest exam reveals coarse crackles in both lung ayoub with wheezing Cardiac exam reveals regular heart sounds no gallops no murmurs Abdomen is soft nontender no organomegaly with normal bowel sounds Extremity exam reveals no edema no cyanosis or clubbing Neurological examination reveals no gross focal deficit - Labs CBC & Chem 7: 02/12/21 20:24 02/12/21 20:24 Labs: Abnormal Lab Results - Last 24 Hours (Table) 02/12/21 02/12/21 Range/Units 20:24 20:24 Ferritin 1090.5 H (10.0-291.0) ng/mL Procalcitonin 0.83 H (0.02-0.09) ng/mL Microbiology - Last 24 Hours (Table) 02/12/21 20:56 Blood Culture - Preliminary Blood No Growth after 24 hours 02/12/21 20:40 Blood Culture - Preliminary Blood No Growth after 24 hours Assessment and Plan Plan: Acute Covid 19 infection with pneumonia Acute hypoxic respiratory failure Elevated d-dimer CT angiogram negative for pulmonary embolism History of rheumatoid arthritis History of hypertension History of fibromyalgia At this time patient is admitted to medical floor She is started on oral dexamethasone, subcu Lovenox, IV Remdesevir Pulmonary critical care consultation requested Home medications reviewed and reordered Will follow closely during this admission
[2021-02-14] MEDS: atenoloL 50 MG TAB PO SCH (19:47)
--- NOTE | 2021-02-15 07:22 | XR ---
EXAMINATION TYPE: XR chest 1V portable DATE OF EXAM: 02/15/2021 HISTORY: Shortness of breath. COMPARISON: 02/12/2021 TECHNIQUE: Single view of the chest is submitted. FINDINGS: Demonstrated are scattered senescent parenchymal change. Vague peripheral infiltrate left lung persists as well as scattered groundglass infiltrate right lung base. The heart is stable. Hilar and mediastinal structures are within normal limits. Degenerative changes are seen of the dorsal spine. IMPRESSION: 1. Stable chest.
[2021-02-15] MEDS: ENOXAPARIN 40 MG/0.4 ML SYRINGE SQ SCH (07:50)
[2021-02-15] MEDS: CHOLECALCIFEROL 25 MCG (1000 IU) TABLET PO SCH (07:50)
[2021-02-15] MEDS: THYROID, PORK 30 MG TAB PO SCH (07:50)
[2021-02-15] MEDS: PANTOPRAZOLE 40 MG TABLET PO SCH (07:50)
[2021-02-15] MEDS: ASCORBIC ACID 500 MG TAB PO SCH ×2 (07:50→20:18)
[2021-02-15] MEDS: ZINC SULFATE 220 MG CAP PO SCH (07:50)
[2021-02-15] MEDS: ALBUTEROL HFA INHALER INHALATION PRN (08:49)
[2021-02-15] MEDS: dexAMETHasone 4 MG TAB PO SCH (10:21)
[2021-02-15 12:04] LABS: C Reactive Protein 4.8 mg/dL (0.0-0.8)
[2021-02-15] MEDS: REMDESIVIR 100 MG in SODIUM CHLORIDE 0.9% 250 ML IVPB SCH (12:30)
--- NOTE | 2021-02-15 14:39 | P.PN ---
Subjective Progress Note Date: 02/15/21 80-year-old female with past medical history of hypertension, rheumatoid arthri tis on hydroxychloroquine, fibro-myalgia, remote history of smoking but no chronic lung disease who was seen in the emergency department on 02/08/2021 with symptoms of body aches and fevers and occasional cough, patient at that time was not complaining of any shortness of breath, no chest pain, no leg swelling or hemoptysis, patient was checked for COVID 19 and was found to be positive, her chest x-ray did show a lateral infiltrates that were suspected to be viral, and patient was discharged home on Decadron 6 mg daily for 4 days, azithromycin, patient was not requiring oxygen at that time. She was breathing comfortably, she was instructed to follow up with her primary care provider. Fortunately patient did not take her Decadron as she was confused about which medication to take and she was worried about some interaction with her regular medications. She returned to the emergency department on 02/12/2021 for reevaluation of high fevers of 10 3F, diffuse body aches, increased cough. She felt increasingly weak, she has had poor appetite, she's had a couple of bouts of diarrhea, some mild nausea but no vomiting, no leg pain or swelling, no chest discomfort, no hemoptysis, no altered mentation. Chest x-ray showed increased bilateral interstitial opacities. Her d-dimer was increased to 0.93, CBC was within normal limits sodium was 135, the rest of electrolytes and renal profile were unremarkable LDH was 900, and CRP is 135. THS was completed showing no evidence of pulmonary embolism, no showed bilateral diffuse moderate patchy groundglass opacities more pronounced at bilateral lung bases. Patient is currently requiring oxygen, at 2 L, and her pulse ox is 92%, she is in sinus mechanism with a rate 65, blood pressure is 160/73, she has been started on Decadron, lung sounds reveal diffuse coarse crackles more so at bilateral bases. She was started on vitamin C D and zinc, and prophylactic dose of Lovenox at 40 mg once daily, she is awaiting admission on medical surgical floor. 02/14/2021 the patient is being seen for a follow-up. Patient is still in the emergency department. She was supposed to get hospitalized for Covid likely related to pneumonia. After she is hospitalized and she is waiting for a bed. She remains on 2 L about 2 by nasal cannula. She is afebrile. She was started on Decadron and she was also started on REM and she received her first dose yesterday and second dose will be delivered to her today. No blood work from today. Note that the initial LDH was 900 and CRP was 135 and these need to be followed up. Chest x-ray was showing increased interstitial infiltrates bilaterally. CT angiogram was also done yesterday that showed no evidence of any pulmonary embolism. 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 02/15/2021, I have the patient on oxygen at 2 L. She is on day 3 of REM and she is also on Decadron. Note that the patient extensive bilateral pneumonia related to Covid 19 and the patient was hospitalized accordingly. She is doing well. CRP is down to 4.8 and LDH is down to 333. No new complaints otherwise for now. She has multiple comorbidities. She has RA and hypertension and fibromyalgia. No other constitutional symptoms for now. She is tolerating her diet. No altered mentation. Objective - Vital Signs Vital signs: Vital Signs Temp 97.8 F 02/15/21 10:00 Pulse 52 L 02/15/21 10:00 Resp 16 02/15/21 10:00 BP 154/82 02/15/21 10:00 Pulse Ox 89 L 02/15/21 10:00 Intake & Output 02/14/21 02/15/21 02/15/21 18:59 06:59 18:59 Intake Total 200 Balance 200 Weight 61.235 kg Intake: Oral 200 Other: Voiding Method Toilet Toilet # Voids 1 3 - Exam GENERAL EXAM: Alert, very pleasant, 80-year-old white female, on 2 L of oxygen and the pulse ox of 92%, comfortable in no apparent distress. HEAD: Normocephalic/atraumatic. EYES: Normal reaction of pupils, equal size. Conjunctiva pink, sclera white. NOSE: Clear with pink turbinates. THROAT: No erythema or exudates. NECK: No masses, no JVD, no thyroid enlargement, no adenopathy. CHEST: No chest wall deformity. Symmetrical expansion. LUNGS: Equal air entry with diffuse coarse crackles more so at bilateral lung bases CVS: Regular rate and rhythm, normal S1 and S2, no gallops, no murmurs, no rubs ABDOMEN: Soft, nontender. No hepatosplenomegaly, normal bowel sounds, no guarding or rigidity. EXTREMITIES: No clubbing, no edema, no cyanosis, 2+ pulses and upper and lower extremities. MUSCULOSKELETAL: Muscle strength and tone normal. SPINE: No scoliosis or deformity SKIN: No rashes CENTRAL NERVOUS SYSTEM: Alert and oriented -3. No focal deficits, tone is normal in all 4 extremities. PSYCHIATRIC: Alert and oriented -3. Appropriate affect. Intact judgment and insight. - Labs CBC & Chem 7: 02/12/21 20:24 02/12/21 20:24 Labs: Abnormal Lab Results - Last 24 Hours (Table) 02/15/21 Range/Units 08:12 Lactate Dehydrogenase 333 H (120-246) U/L C-Reactive Protein 4.8 H (0.0-0.8) mg/dL Microbiology - Last 24 Hours (Table) 02/12/21 20:56 Blood Culture - Preliminary Blood No Growth after 48 hours 02/12/21 20:40 Blood Culture - Preliminary Blood No Growth after 48 hours Assessment and Plan Plan: #1. Acute hypoxic respiratory failure related to acute COVID 19 pneumonia, patient was first diagnosed on 02/08/2021, was seen in the emergency department, initially did not have any significant pulmonary symptoms other than mild cough, and did not require oxygen. Patient was sent home with outpatient treatment on oral steroids however she failed to take her steroids and her symptoms progressed and patient presented back to the emergency department on 02/12/2021 with worsening symptoms, cough, hypoxia and progression of pulmonary infiltrates. Likely, the patient is remaining stable. She is completing the course of Decadron and REM and she is on day #3. Inflammatory markers are improving. She is also on Lovenox for DVT prophylaxis. She is afebrile. #2. Fever, cough, elevated inflammatory markers, related to the above #3. Elevated d-dimer, without CT evidence of pulmonary embolism #4. History of rheumatoid arthritis on hydroxychloroquine #5. History of fibromyalgia #6. No history of smoking, no chronic lung disease #7. Previous history of pneumonia #8. History of hypertension Plan: Continue the Decadron 6 mg by mouth daily Lovenox 40 mg SC every day Remdesivir treatments day #3 and will try to complete a 5 day course continue with vitamins, urge oral intake. Continue following inflammatory markers follow-up chest x-ray tomorrow.
[2021-02-15] MEDS: atenoloL 50 MG TAB PO SCH (20:18)
[2021-02-16] MEDS: THYROID, PORK 30 MG TAB PO SCH (08:20)
[2021-02-16] MEDS: CHOLECALCIFEROL 25 MCG (1000 IU) TABLET PO SCH (08:20)
[2021-02-16] MEDS: ZINC SULFATE 220 MG CAP PO SCH (08:20)
[2021-02-16] MEDS: ASCORBIC ACID 500 MG TAB PO SCH ×2 (08:20→21:20)
[2021-02-16] MEDS: PANTOPRAZOLE 40 MG TABLET PO SCH (08:20)
[2021-02-16] MEDS: dexAMETHasone 4 MG TAB PO SCH (08:21)
[2021-02-16] MEDS: ENOXAPARIN 40 MG/0.4 ML SYRINGE SQ SCH (08:21)
[2021-02-16] MEDS: REMDESIVIR 100 MG in SODIUM CHLORIDE 0.9% 250 ML IVPB SCH (08:21)
[2021-02-16] MEDS ORDERED: HYDROXYCHLOROQUINE SULFATE 200 MG TAB PO SCH ×2 (09:00)
[2021-02-16 09:24] LABS: HCT 42.6 % (37.2-46.3); HGB 13.9 g/dL (12.0-15.0); MCH 29.4 pg (27.0-32.0); MCHC 32.6 g/dL (32.0-37.0); MCV 90.1 fL (80.0-97.0); Mean Platelet Volume 9.9 fL (9.5-12.2); Platelet Count 442 X 10*3/uL (140-440); RBC 4.73 X 10*6/uL (4.10-5.20)
[2021-02-16 09:36] LABS: African American GFR (CKD) 80.1 (60.0-200.0); Albumin 3.6 g/dL (3.80-4.90); Albumin/Globulin Ratio 1.29 (1.60-3.17); Anion Gap 9.5 mmol/L (4.00-12.00); C Reactive Protein 3.4 mg/dL (0.0-0.8); Carbon Dioxide 30.5 mmol/L (21.6-31.8); Globulin 2.8 g/dL (1.6-3.3); Non-African American GFR(CKD) 69.1 (60.0-200.0); Potassium 4.9 mmol/L (3.5-5.5); Total Bilirubin 0.5 mg/dL (0.3-1.2); Total Protein 6.4 g/dL (6.2-8.2)
--- NOTE | 2021-02-16 09:47 | P.PN ---
Subjective Progress Note Date: 02/15/21 Yenni Reese, 80-year-old female, who presented to [facility] emergency room with a chief complaint of cough generalized weakness and muscle ache, patient was seen in the emergency room for days prior to this admission at that time she was diagnosed with Covid 19, she was started on dexamethasone and was discharged home patient was monitoring her oxygen level and her pulse ox was ranging between 87 and 92, her symptoms started to worsen and she decided to return to emergency room. Patient was evaluated again in the emergency room vital examination reveals a temperature of 99.7 pulse 70 respiration 18 blood pressure 147/71 pulse ox 95% on room air white blood count is 6.5 hemoglobin 13.8 platelet count 280 d-dimer 0.93 sodium 135 potassium 4.0 chloride 99 LDH 900 C-reactive protein 135 Procalcitonin 0.83 chest x-ray done in the emergency room revealed increased bilateral interstitial opacities concerning for infection, CT angiogram of the chest done in the emergency room was negative for pulmonary embolism however it revealed bilateral diffuse patchy airspace opacities 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 Past medical history is significant for history of hypertension, history of rheumatoid arthritis, and history of fibromyalgia no previous history of lung disease no previous history of smoking On 02/14/2021 patient was seen and examined on the medical floor she is alert and oriented 3 in no apparent distress she stated that her cough and shortness of breath has improved there is no fever or chills no headache or dizziness no chest pain no nausea or vomiting no abdominal pain no diarrhea no blood in the stools no burning with urination no frequency or urgency and no hematuria On 02/15/2021 patient was seen and examined on the medical floor she is alert and oriented 3 in no apparent distress she is complaining of shortness of breath and cough otherwise she denies any complaints there is no fever or chills no headache or dizziness no chest pain no nausea or vomiting no abdominal pain no diarrhea no blood in the stools no burning with urination no frequency or urgency and no hematuria Objective - Vital Signs Vital signs: Vital Signs Temp 97.6 F 02/15/21 05:58 Pulse 52 L 02/15/21 05:58 Resp 17 02/15/21 05:58 BP 172/75 02/15/21 05:58 Pulse Ox 92 L 02/15/21 05:58 Intake & Output 02/14/21 02/15/21 02/15/21 18:59 06:59 18:59 Weight 61.235 kg Other: Voiding Method Toilet Toilet # Voids 1 3 - Exam In general patient is alert and oriented 3 in no apparent distress HEENT head normocephalic and atraumatic Neck is supple no JVD no goiter no lymphadenopathy Chest exam reveals coarse crackles in both lung ayoub with wheezing Cardiac exam reveals regular heart sounds no gallops no murmurs Abdomen is soft nontender no organomegaly with normal bowel sounds Extremity exam reveals no edema no cyanosis or clubbing Neurological examination reveals no gross focal deficit - Labs CBC & Chem 7: 02/16/21 05:46 02/16/21 05:46 Labs: Microbiology - Last 24 Hours (Table) 02/12/21 20:56 Blood Culture - Preliminary Blood No Growth after 48 hours 02/12/21 20:40 Blood Culture - Preliminary Blood No Growth after 48 hours Assessment and Plan Plan: Acute Covid 19 infection with pneumonia Acute hypoxic respiratory failure Elevated d-dimer CT angiogram negative for pulmonary embolism History of rheumatoid arthritis History of hypertension History of fibromyalgia At this time patient is admitted to medical floor She is started on oral dexamethasone, subcu Lovenox, IV Remdesevir Pulmonary critical care consultation requested Home medications reviewed and reordered Will follow closely during this admission
[2021-02-16 10:53] LABS: Basophils # (A) 0.06 X 10*3/uL (0.00-0.10); Basophils % (A) 0.5 %; Eosinophils # (A) 0 X 10*3/uL (0.04-0.35); Eosinophils % (A) 0 %; Lymphocytes # (A) 1.54 X 10*3/uL (0.90-5.00); Lymphocytes % (A) 12.3 %; Monocytes # (A) 0.79 X 10*3/uL (0.20-1.00); Monocytes % (A) 6.3 %; Neutrophils # (A) 9.85 X 10*3/uL (1.80-7.70); Neutrophils % (A) 78.8 %
--- NOTE | 2021-02-16 12:57 | P.PN ---
Subjective Progress Note Date: 02/16/21 80-year-old female with past medical history of hypertension, rheumatoid arthritis on hydroxychloroquine, fibro-myalgia, remote history of smoking but no chronic lung disease who was seen in the emergency department on 02/08/2021 with symptoms of body aches and fevers and occasional cough, patient at that time was not complaining of any shortness of breath, no chest pain, no leg swelling or hemoptysis, patient was checked for COVID 19 and was found to be positive, her chest x-ray did show a lateral infiltrates that were suspected to be viral, and patient was discharged home on Decadron 6 mg daily for 4 days, azithromycin, patient was not requiring oxygen at that time. She was breathing comfortably, she was instructed to follow up with her primary care provider. Fortunately patient did not take her Decadron as she was confused about which medication to take and she was worried about some interaction with her regular medications. She returned to the emergency department on 02/12/2021 for reevaluation of high fevers of 10 3F, diffuse body aches, increased cough. She felt increasingly weak, she has had poor appetite, she's had a couple of bouts of diarrhea, some mild nausea but no vomiting, no leg pain or swelling, no chest discomfort, no hemoptysis, no altered mentation. Chest x-ray showed increased bilateral interstitial opacities. Her d-dimer was increased to 0.93, CBC was within normal limits sodium was 135, the rest of electrolytes and renal profile were unremarkable LDH was 900, and CRP is 135. THS was completed showing no evidence of pulmonary embolism, no showed bilateral diffuse moderate patchy groundglass opacities more pronounced at bilateral lung bases. Patient is currently requiring oxygen, at 2 L, and her pulse ox is 92%, she is in sinus mechanism with a rate 65, blood pressure is 160/73, she has been started on Decadron, lung sounds reveal diffuse coarse crackles more so at bilateral bases. She was started on vitamin C D and zinc, and prophylactic dose of Lovenox at 40 mg once daily, she is awaiting admission on medical surgical floor. 02/14/2021 the patient is being seen for a follow-up. Patient is still in the emergency department. She was supposed to get hospitalized for Covid likely related to pneumonia. After she is hospitalized and she is waiting for a bed. She remains on 2 L about 2 by nasal cannula. She is afebrile. She was started on Decadron and she was also started on REM and she received her first dose yesterday and second dose will be delivered to her today. No blood work from today. Note that the initial LDH was 900 and CRP was 135 and these need to be followed up. Chest x-ray was showing increased interstitial infiltrates bilaterally. CT angiogram was also done yesterday that showed no evidence of any pulmonary embolism. 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 02/15/2021, I have the patient on oxygen at 2 L. She is on day 3 of REM and she is also on Decadron. Note that the patient extensive bilateral pneumonia rela carl to Covid 19 and the patient was hospitalized accordingly. She is doing well. CRP is down to 4.8 and LDH is down to 333. No new complaints otherwise for now. She has multiple comorbidities. She has RA and hypertension and fibromyalgia. No other constitutional symptoms for now. She is tolerating her diet. No altered mentation. On 02/16/2021 patient seen in follow-up on medical surgical floor, states she is awake and alert, in no acute distress, she states she is breathing easier, mini mal crackles on today's exam, no cough, no chest discomfort, she is afebrile, room air pulse ox is 91%, today is day 4 of Remdesivir, she is on Decadron and prophylactic Lovenox. Doing well. Today's labs reviewed, d-dimer is 0.75, electrodes renal profile within normal limits, platelet count has increased to 442, white count is 12.5, hemoglobin is 13.9. No specific complaints, LDH is down to 290, CRP is down to 3.4. Follow-up pro-Rickey is negative at 0.22. Blood cultures negative Objective - Vital Signs Vital signs: Vital Signs Temp 97.7 F 02/16/21 10:00 Pulse 71 02/16/21 10:00 Resp 18 02/16/21 10:00 BP 157/76 02/16/21 10:00 Pulse Ox 91 L 02/16/21 10:00 Intake & Output 03/25/21 03/26/21 03/26/21 18:59 06:59 18:59 Intake Total 520 Balance 520 Intake: Oral 520 Other: Voiding Method Toilet # Voids 2 2 - Exam GENERAL EXAM: Alert, very pleasant, 80-year-old white female, on 2 L of oxygen and the pulse ox of 92%, comfortable in no apparent distress. HEAD: Normocephalic/atraumatic. EYES: Normal reaction of pupils, equal size. Conjunctiva pink, sclera white. NOSE: Clear with pink turbinates. THROAT: No erythema or exudates. NECK: No masses, no JVD, no thyroid enlargement, no adenopathy. CHEST: No chest wall deformity. Symmetrical expansion. LUNGS: Equal air entry with diffuse coarse crackles more so at bilateral lung bases CVS: Regular rate and rhythm, normal S1 and S2, no gallops, no murmurs, no rubs ABDOMEN: Soft, nontender. No hepatosplenomegaly, normal bowel sounds, no guarding or rigidity. EXTREMITIES: No clubbing, no edema, no cyanosis, 2+ pulses and upper and lower extremities. MUSCULOSKELETAL: Muscle strength and tone normal. SPINE: No scoliosis or deformity SKIN: No rashes CENTRAL NERVOUS SYSTEM: Alert and oriented -3. No focal deficits, tone is normal in all 4 extremities. PSYCHIATRIC: Alert and oriented -3. Appropriate affect. Intact judgment and insight. - Labs CBC & Chem 7: 02/16/21 05:46 02/16/21 05:46 Labs: Abnormal Lab Results - Last 24 Hours (Table) 02/15/21 02/16/21 02/16/21 Range/Units 08:12 05:46 05:46 WBC (4.50-10.00) X 10*3/uL RDW (11.5-14.5) % Plt Count (140-440) X 10*3/uL Plt Count Comment Immature Gran # (0.00-0.04) X 10*3/uL Neutrophils # (1.80-7.70) X 10*3/uL Eosinophils # (0.04-0.35) X 10*3/uL D-Dimer 0.75 H (<0.60) mg/L FEU BUN/Creatinine Ratio 30.00 H (12.00-20.00) Ratio Glucose 155 H (70-110) mg/dL AST 63 H (13-35) U/L ALT 77 H (8-44) U/L Lactate Dehydrogenase 290 H (120-246) U/L C-Reactive Protein 3.4 H (0.0-0.8) mg/dL Albumin 3.60 L (3.80-4.90) g/dL Albumin/Globulin Ratio 1.29 L (1.60-3.17) g/dL Procalcitonin 0.22 H (0.02-0.09) ng/mL 02/16/21 Range/Units 05:46 WBC 12.50 H (4.50-10.00) X 10*3/uL RDW 15.0 H (11.5-14.5) % Plt Count 442 H (140-440) X 10*3/uL Plt Count Comment INCREASED A Immature Gran # 0.26 H (0.00-0.04) X 10*3/uL Neutrophils # 9.85 H (1.80-7.70) X 10*3/uL Eosinophils # 0 L (0.04-0.35) X 10*3/uL D-Dimer (<0.60) mg/L FEU BUN/Creatinine Ratio (12.00-20.00) Ratio Glucose (70-110) mg/dL AST (13-35) U/L ALT (8-44) U/L Lactate Dehydrogenase (120-246) U/L C-Reactive Protein (0.0-0.8) mg/dL Albumin (3.80-4.90) g/dL Albumin/Globulin Ratio (1.60-3.17) g/dL Procalcitonin (0.02-0.09) ng/mL Microbiology - Last 24 Hours (Table) 02/12/21 20:56 Blood Culture - Preliminary Blood No Growth after 72 hours 02/12/21 20:40 Blood Culture - Preliminary Blood No Growth after 72 hours Assessment and Plan Plan: Assessment: #1. Acute hypoxic respiratory failure related to acute COVID 19 pneumonia, patient was first diagnosed on 02/08/2021, was seen in the emergency department, initially did not have any significant pulmonary symptoms other than mild cough, and did not require oxygen. Patient was sent home with outpatient treatment on oral steroids however she failed to take her steroids and her symptoms progressed and patient presented back to the emergency department on 02/12/2021 with worsening symptoms, cough, hypoxia and progression of pulmonary infiltrates. Patient was started on Remdesivir treatment on 02/13/2021 #2. Fever, cough, elevated inflammatory markers, related to the above #3. Elevated d-dimer, without CT evidence of pulmonary embolism #4. History of rheumatoid arthritis on hydroxychloroquine #5. History of fibromyalgia #6. No history of smoking, no chronic lung disease #7. Previous history of pneumonia #8. History of hypertension Plan: Continue current medical treatment, today is day 4 of Remdesivir, follow up with something markers and a d-dimer, continue with prophylactic Lovenox, patient is doing well, obtain room air oxygen, increase activity as tolerated, will consider for discharge home possibly in the next 24 hours if she continues to improve I performed a history & physical examination of the patient and discussed their management with my nurse practitioner, Yolanda Hall. I reviewed the nurse practitioner's note and agree with the documented findings and plan of care. Lung sounds are positive for diffuse coarse bilateral crackles. The findings and the impression was discussed with the patient. I attest to the documentation by the nurse practitioner. Time with Patient: Less than 30
--- NOTE | 2021-02-16 13:47 | P.PN ---
Subjective Progress Note Date: 02/16/21 Yenni Reese, 80-year-old female, who presented to [facility] emergency room with a chief complaint of cough generalized weakness and muscle ache, patient was seen in the emergency room for days prior to this admission at that time she was diagnosed with Covid 19, she was started on dexamethasone and was discharged home patient was monitoring her oxygen level and her pulse ox was ranging between 87 and 92, her symptoms started to worsen and she decided to return to emergency room. Patient was evaluated again in the emergency room vital examination reveals a temperature of 99.7 pulse 70 respiration 18 blood pressure 147/71 pulse ox 95% on room air white blood count is 6.5 hemoglobin 13.8 platelet count 280 d-dimer 0.93 sodium 135 potassium 4.0 chloride 99 LDH 900 C-reactive protein 135 Procalcitonin 0.83 chest x-ray done in the emergency room revealed increased bilateral interstitial opacities concerning for infection, CT angiogram of the chest done in the emergency room was negative for pulmonary embolism however it revealed bilateral diffuse patchy airspace opacities 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 Past medical history is significant for history of hypertension, history of rheumatoid arthritis, and history of fibromyalgia no previous history of lung disease no previous history of smoking On 02/14/2021 patient was seen and examined on the medical floor she is alert and oriented 3 in no apparent distress she stated that her cough and shortness of breath has improved there is no fever or chills no headache or dizziness no chest pain no nausea or vomiting no abdominal pain no diarrhea no blood in the stools no burning with urination no frequency or urgency and no hematuria On 02/15/2021 patient was seen and examined on the medical floor she is alert and oriented 3 in no apparent distress she is complaining of shortness of breath and cough otherwise she denies any complaints there is no fever or chills no headache or dizziness no chest pain no nausea or vomiting no abdominal pain no diarrhea no blood in the stools no burning with urination no frequency or urgency and no hematuria On 02/16/2021 patient was seen and examined on the medical floor she is alert and oriented in no distress she is feeling better she is still having shortness of breath with activity and some cough otherwise she denies any complaints there is no fever or chills no headache or dizziness no chest pain no nausea or vomiting no abdominal pain no diarrhea no blood in the stools no burning with urination no frequency or urgency and no hematuria Objective - Vital Signs Vital signs: Vital Signs Temp 97.5 F L 02/16/21 05:59 Pulse 48 L 02/16/21 05:59 Resp 17 02/15/21 21:38 BP 186/79 02/16/21 05:59 Pulse Ox 90 L 02/16/21 05:59 Intake & Output 02/15/21 02/16/21 02/16/21 18:59 06:59 18:59 Intake Total 520 Balance 520 Intake: Oral 520 Other: Voiding Method Toilet # Voids 2 2 - Exam In general patient is alert and oriented 3 in no apparent distress HEENT head normocephalic and atraumatic Neck is supple no JVD no goiter no lymphadenopathy Chest exam reveals coarse crackles in both lung ayoub with wheezing Cardiac exam reveals regular heart sounds no gallops no murmurs Abdomen is soft nontender no organomegaly with normal bowel sounds Extremity exam reveals no edema no cyanosis or clubbing Neurological examination reveals no gross focal deficit - Labs CBC & Chem 7: 02/16/21 05:46 02/16/21 05:46 Labs: Abnormal Lab Results - Last 24 Hours (Table) 02/15/21 02/15/21 02/16/21 Range/Units 08:12 08:12 05:46 WBC (4.50-10.00) X 10*3/uL RDW (11.5-14.5) % Plt Count (140-440) X 10*3/uL D-Dimer 0.75 H (<0.60) mg/L FEU BUN/Creatinine Ratio (12.00-20.00) Ratio Glucose (70-110) mg/dL AST (13-35) U/L ALT (8-44) U/L Lactate Dehydrogenase 333 H (120-246) U/L C-Reactive Protein 4.8 H (0.0-0.8) mg/dL Albumin (3.80-4.90) g/dL Albumin/Globulin Ratio (1.60-3.17) g/dL Procalcitonin 0.22 H (0.02-0.09) ng/mL 02/16/21 02/16/21 Range/Units 05:46 05:46 WBC 12.50 H (4.50-10.00) X 10*3/uL RDW 15.0 H (11.5-14.5) % Plt Count 442 H (140-440) X 10*3/uL D-Dimer (<0.60) mg/L FEU BUN/Creatinine Ratio 30.00 H (12.00-20.00) Ratio Glucose 155 H (70-110) mg/dL AST 63 H (13-35) U/L ALT 77 H (8-44) U/L Lactate Dehydrogenase 290 H (120-246) U/L C-Reactive Protein 3.4 H (0.0-0.8) mg/dL Albumin 3.60 L (3.80-4.90) g/dL Albumin/Globulin Ratio 1.29 L (1.60-3.17) g/dL Procalcitonin (0.02-0.09) ng/mL Microbiology - Last 24 Hours (Table) 02/12/21 20:56 Blood Culture - Preliminary Blood No Growth after 72 hours 02/12/21 20:40 Blood Culture - Preliminary Blood No Growth after 72 hours Assessment and Plan Plan: Acute Covid 19 infection with pneumonia Acute hypoxic respiratory failure Elevated d-dimer CT angiogram negative for pulmonary embolism History of rheumatoid arthritis History of hypertension History of fibromyalgia At this time patient is admitted to medical floor She is started on oral dexamethasone, subcu Lovenox, IV Remdesevir Pulmonary critical care consultation requested Home medications reviewed and reordered Will follow closely during this admission
[2021-02-16] MEDS: atenoloL 50 MG TAB PO SCH (21:19)
[2021-02-16] MEDS: ONDANSETRON 4 MG/2 ML VIAL IVP PRN (21:20)
[2021-02-16] MEDS: traMADol 50 MG TAB PO PRN (21:20)
[2021-02-17 07:47] LABS: Basophils # (A) 0.1 k/uL (0-0.2); Basophils % (A) 0 %; Eosinophils % (A) 0 %; HGB 14.9 gm/dL (11.4-16.0); Lymphocytes # (A) 1.5 k/uL (1.0-4.8); Lymphocytes % (A) 6 %; MCH 29.9 pg (25.0-35.0); MCHC 33.8 g/dL (31.0-37.0); MCV 88.5 fL (80.0-100.0); Mean Platelet Volume 7.7; Monocytes # (A) 1.1 k/uL (0-1.0); Monocytes % (A) 5 %; Neutrophils # (A) 20.7 k/uL (1.3-7.7); Neutrophils % (A) 88 %; Platelet Count 517 k/uL (150-450); RBC 4.97 m/uL (3.80-5.40); RDW 14.3 % (11.5-15.5); WBC 23.5 k/uL (3.8-10.6)
[2021-02-17 08:01] LABS: ALT 67 U/L (4-34); AST 69 U/L (14-36); African American GFR (CKD) >90 (>60 ml/min/1.73 sqM); Albumin 3.2 g/dL (3.5-5.0); Albumin/Globulin Ratio 0.9; Alkaline Phosphatase 96 U/L (38-126); Anion Gap 10 mmol/L; Blood Urea Nitrogen 22 mg/dL (7-17); C Reactive Protein 53.2 mg/L (<10.0); Calcium 8.5 mg/dL (8.4-10.2); Carbon Dioxide 31 mmol/L (22-30); Chloride 95 mmol/L (98-107); Globulin 3.5 g/dL; Glucose 136 mg/dL (74-99); LDH 796 U/L (313-618); Non-African American GFR(CKD) 88 (>60 ml/min/1.73 sqM); Sodium 136 mmol/L (137-145); Total Bilirubin 0.7 mg/dL (0.2-1.3); Total Protein 6.7 g/dL (6.3-8.2)
--- NOTE | 2021-02-17 08:03 | XR ---
EXAMINATION TYPE: XR chest 1V portable DATE OF EXAM: 02/17/2021 COMPARISON: 02/15/2021 HISTORY: Shortness of breath TECHNIQUE: Single frontal view of the chest is obtained. FINDINGS: There are mild small scattered partially consolidative opacities in both lungs. The opacity in the ri ght lung bases mildly worsened in the interval. The graft is no pleural effusion or pneumothorax. Hea rt size and pulmonary vasculature are normal. The osseous structures are intact. IMPRESSION: Mild scattered partially consolidative opacities with mild worsening in the right lung base.
[2021-02-17] MEDS: PANTOPRAZOLE 40 MG TABLET PO SCH (08:19)
[2021-02-17] MEDS: CHOLECALCIFEROL 25 MCG (1000 IU) TABLET PO SCH (08:19)
[2021-02-17] MEDS: THYROID, PORK 30 MG TAB PO SCH (08:20)
[2021-02-17] MEDS: ZINC SULFATE 220 MG CAP PO SCH (08:20)
[2021-02-17] MEDS: dexAMETHasone 4 MG TAB PO SCH (08:20)
[2021-02-17] MEDS: ASCORBIC ACID 500 MG TAB PO SCH ×2 (08:20→20:01)
[2021-02-17] MEDS: ENOXAPARIN 40 MG/0.4 ML SYRINGE SQ SCH (08:26)
--- NOTE | 2021-02-17 11:01 | P.PN ---
Subjective Progress Note Date: 02/17/21 80-year-old female with past medical history of hypertension, rheumatoid arthritis on hydroxychloroquine, fibro-myalgia, remote history of smoking but no chronic lung disease who was seen in the emergency department on 02/08/2021 with symptoms of body aches and fevers and occasional cough, patient at that time was not complaining of any shortness of breath, no chest pain, no leg swelling or hemoptysis, patient was checked for COVID 19 and was found to be positive, her chest x-ray did show a lateral infiltrates that were suspected to be viral, and patient was discharged home on Decadron 6 mg daily for 4 days, azithromycin, patient was not requiring oxygen at that time. She was breathing comfortably, she was instructed to follow up with her primary care provider. Fortunately patient did not take her Decadron as she was confused about which medication to take and she was worried about some interaction with her regular medications. She returned to the emergency department on 02/12/2021 for reevaluation of high fevers of 10 3F, diffuse body aches, increased cough. She felt increasingly we ak, she has had poor appetite, she's had a couple of bouts of diarrhea, some mild nausea but no vomiting, no leg pain or swelling, no chest discomfort, no hemoptysis, no altered mentation. Chest x-ray showed increased bilateral interstitial opacities. Her d-dimer was increased to 0.93, CBC was within normal limits sodium was 135, the rest of electrolytes and renal profile were unremarkable LDH was 900, and CRP is 135. THS was completed showing no evidence of pulmonary embolism, no showed bilateral diffuse moderate patchy groundglass opacities more pronounced at bilateral lung bases. Patient is currently requiring oxygen, at 2 L, and her pulse ox is 92%, she is in sinus mechanism with a rate 65, blood pressure is 160/73, she has been started on Decadron, lung sounds reveal diffuse coarse crackles more so at bilateral bases. She was started on vitamin C D and zinc, and prophylactic dose of Lovenox at 40 mg once daily, she is awaiting admission on medical surgical floor. 02/14/2021 the patient is being seen for a follow-up. Patient is still in the emergency department. She was supposed to get hospitalized for Covid likely related to pneumonia. After she is hospitalized and she is waiting for a bed. She remains on 2 L about 2 by nasal cannula. She is afebrile. She was started on Decadron and she was also started on REM and she received her first dose yesterday and second dose will be delivered to her today. No blood work from today. Note that the initial LDH was 900 and CRP was 135 and these need to be followed up. Chest x-ray was showing increased interstitial infiltrates bilaterally. CT angiogram was also done yesterday that showed no evidence of any pulmonary embolism. 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 02/15/2021, I have the patient on oxygen at 2 L. She is on day 3 of REM and she is also on Decadron. Note that the patient extensive bilateral pneumonia rel ated to Covid 19 and the patient was hospitalized accordingly. She is doing well. CRP is down to 4.8 and LDH is down to 333. No new complaints otherwise for now. She has multiple comorbidities. She has RA and hypertension and fibromyalgia. No other constitutional symptoms for now. She is tolerating her diet. No altered mentation. On 02/16/2021 patient seen in follow-up on medical surgical floor, states she is awake and alert, in no acute distress, she states she is breathing easier, min imal crackles on today's exam, no cough, no chest discomfort, she is afebrile, room air pulse ox is 91%, today is day 4 of Remdesivir, she is on Decadron and prophylactic Lovenox. Doing well. Today's labs reviewed, d-dimer is 0.75, electrodes renal profile within normal limits, platelet count has increased to 442, white count is 12.5, hemoglobin is 13.9. No specific complaints, LDH is down to 290, CRP is down to 3.4. Follow-up pro-Rickey is negative at 0.22. Blood cultures negative On 02/17/2021, the patient is completing her fifth day of REM and she is also on Decadron regarding her Covid 19 related pneumonia. Her main complaint is some vague abdominal discomfort that she cannot describe. No nausea. No vomiting. No diarrhea. No abdominal distention. The chest x-ray findings showing some limited improvement especially in the infiltrate on the left peripherally. She is on room air oxygen for now. Her blood work today is showing a rise in her white cell count up to 23 from 12.5 yesterday, platelet is 517, the d-dimer is at 1.15, LFTs is showing some mild transaminitis which is essentially stable compared to yesterday, LDH came up to 796 as CRP is up to 53. Progesterone le yessica was low at 0.8 and 0.2 respectively. Serum bicarb is 31. BUN is 22 with a creatinine of 0.5. Objective - Vital Signs Vital signs: Vital Signs Temp 98.6 F 02/17/21 06:00 Pulse 59 L 02/17/21 06:00 Resp 19 02/17/21 06:00 BP 162/74 02/17/21 06:00 Pulse Ox 91 L 02/17/21 06:00 Intake & Output 02/16/21 02/17/21 02/17/21 18:59 06:59 18:59 Other: Voiding Method Toilet Toilet # Voids 3 2 - Exam GENERAL EXAM: Alert, very pleasant, 80-year-old white female, on RA oxygen and the pulse ox of 92%, comfortable in no apparent distress. HEAD: Normocephalic/atraumatic. EYES: Normal reaction of pupils, equal size. Conjunctiva pink, sclera white. NOSE: Clear with pink turbinates. THROAT: No erythema or exudates. NECK: No masses, no JVD, no thyroid enlargement, no adenopathy. CHEST: No chest wall deformity. Symmetrical expansion. LUNGS: Equal air entry with diffuse coarse crackles more so at bilateral lung bases CVS: Regular rate and rhythm, normal S1 and S2, no gallops, no murmurs, no rubs ABDOMEN: Soft, nontender. No hepatosplenomegaly, normal bowel sounds, no guarding or rigidity. EXTREMITIES: No clubbing, no edema, no cyanosis, 2+ pulses and upper and lower extremities. MUSCULOSKELETAL: Muscle strength and tone normal. SPINE: No scoliosis or deformity SKIN: No rashes CENTRAL NERVOUS SYSTEM: Alert and oriented -3. No focal deficits, tone is normal in all 4 extremities. PSYCHIATRIC: Alert and oriented -3. Appropriate affect. Intact judgment and insight. - Labs CBC & Chem 7: 02/17/21 06:18 02/17/21 06:18 Labs: Abnormal Lab Results - Last 24 Hours (Table) 02/17/21 02/17/21 02/17/21 Range/Units 06:18 06:18 06:18 WBC 23.5 H (3.8-10.6) k/uL Plt Count 517 H (150-450) k/uL Neutrophils # 20.7 H (1.3-7.7) k/uL Monocytes # 1.1 H (0-1.0) k/uL D-Dimer 1.15 H (<0.60) mg/L FEU Sodium 136 L (137-145) mmol/L Chloride 95 L (98-107) mmol/L Carbon Dioxide 31 H (22-30) mmol/L BUN 22 H (7-17) mg/dL Glucose 136 H (74-99) mg/dL AST 69 H (14-36) U/L ALT 67 H (4-34) U/L Lactate Dehydrogenase 796 H (313-618) U/L C-Reactive Protein 53.2 H (<10.0) mg/L Albumin 3.2 L (3.5-5.0) g/dL Microbiology - Last 24 Hours (Table) 02/12/21 20:56 Blood Culture - Preliminary Blood No Growth after 96 hours 02/12/21 20:40 Blood Culture - Preliminary Blood No Growth after 96 hours Assessment and Plan Plan: #1. Acute hypoxic respiratory failure related to acute COVID 19 pneumonia, keyana rodriguez was first diagnosed on 02/08/2021, was seen in the emergency department, initially did not have any significant pulmonary symptoms other than mild cough, and did not require oxygen. Patient was sent home with outpatient treatment on oral steroids however she failed to take her steroids and her symptoms progressed and patient presented back to the emergency department on 02/12/2021 with worsening symptoms, cough, hypoxia and progression of pulmonary infiltrates. Likely, the patient is remaining stable. She is completing the course of Decadron and REM and she is on day #5. Inflammatory markers are rising. She is also on Lovenox for DVT prophylaxis. She is afebrile. #2. Fever, cough, elevated inflammatory markers, related to the above, fever for now, LDH has come up in addition to CRP. #3. Elevated d-dimer, without CT evidence of pulmonary embolism #4. History of rheumatoid arthritis on hydroxychloroquine #5. History of fibromyalgia #6. No history of smoking, no chronic lung disease #7. Previous history of pneumonia #8. History of hypertension Plan: Continue the Decadron 6 mg by mouth daily Lovenox 40 mg SC every day Remdesivir treatments day #5 continue with vitamins Continue following inflammatory markers Possible home today over the next 24 hours. I'm a bit surprised by the rise in the inflammatory markers. Nevertheless, clinically the patient is stable for now. She may be considered for discharge with a very close follow-up.
[2021-02-17] MEDS: REMDESIVIR 100 MG in SODIUM CHLORIDE 0.9% 250 ML IVPB SCH (11:35)
--- NOTE | 2021-02-17 14:05 | P.PN ---
Subjective Progress Note Date: 02/17/21 Yenni Reese, 80-year-old female, who presented to [facility] emergency room with a chief complaint of cough generalized weakness and muscle ache, patient was seen in the emergency room for days prior to this admission at that time she was diagnosed with Covid 19, she was started on dexamethasone and was discharged home patient was monitoring her oxygen level and her pulse ox was ranging between 87 and 92, her symptoms started to worsen and she decided to return to emergency room. Patient was evaluated again in the emergency room vital examination reveals a temperature of 99.7 pulse 70 respiration 18 blood pressure 147/71 pulse ox 95% on room air white blood count is 6.5 hemoglobin 13.8 platelet count 280 d-dimer 0.93 sodium 135 potassium 4.0 chloride 99 LDH 900 C-reactive protein 135 Procalcitonin 0.83 chest x-ray done in the emergency room revealed increased bilateral interstitial opacities concerning for infection, CT angiogram of the chest done in the emergency room was negative for pulmonary embolism however it revealed bilateral diffuse patchy airspace opacities 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 Past medical history is significant for history of hypertension, history of rheumatoid arthritis, and history of fibromyalgia no previous history of lung disease no previous history of smoking On 02/14/2021 patient was seen and examined on the medical floor she is alert and oriented 3 in no apparent distress she stated that her cough and shortness of breath has improved there is no fever or chills no headache or dizziness no chest pain no nausea or vomiting no abdominal pain no diarrhea no blood in the stools no burning with urination no frequency or urgency and no hematuria On 02/15/2021 patient was seen and examined on the medical floor she is alert and oriented 3 in no apparent distress she is complaining of shortness of breath and cough otherwise she denies any complaints there is no fever or chills no headache or dizziness no chest pain no nausea or vomiting no abdominal pain no diarrhea no blood in the stools no burning with urination no frequency or urgency and no hematuria On 02/16/2021 patient was seen and examined on the medical floor she is alert and oriented in no distress she is feeling better she is still having shortness of breath with activity and some cough otherwise she denies any complaints there is no fever or chills no headache or dizziness no chest pain no nausea or vomiting no abdominal pain no diarrhea no blood in the stools no burning with urination no frequency or urgency and no hematuria On 02/17/2021 patient was seen and examined on the medical floor she is alert and oriented 3 in no apparent distress feeling slightly worse today with more fatigue and shortness of breath, white blood count went up from 12.5-23.5 d- dimer is up from 0.75-1.15 and inflammatory markers are up LDH is up from 290- 796 C-reactive protein is up from 3.4-53.2 days was discussed was pulmonary critical care will continue to monitor patient for 1 more day Objective - Vital Signs Vital signs: Vital Signs Temp 98.2 F 02/17/21 10:00 Pulse 56 L 02/17/21 10:00 Resp 18 02/17/21 10:00 BP 175/87 02/17/21 10:00 Pulse Ox 91 L 02/17/21 10:00 Intake & Output 02/16/21 02/17/21 02/17/21 18:59 06:59 18:59 Other: Voiding Method Toilet Toilet # Voids 3 2 - Exam In general patient is alert and oriented 3 in no apparent distress HEENT head normocephalic and atraumatic Neck is supple no JVD no goiter no lymphadenopathy Chest exam reveals coarse crackles in both lung ayoub with wheezing Cardiac exam reveals regular heart sounds no gallops no murmurs Abdomen is soft nontender no organomegaly with normal bowel sounds Extremity exam reveals no edema no cyanosis or clubbing Neurological examination reveals no gross focal deficit - Labs CBC & Chem 7: 02/17/21 06:18 02/17/21 06:18 Labs: Abnormal Lab Results - Last 24 Hours (Table) 02/17/21 02/17/21 02/17/21 Range/Units 06:18 06:18 06:18 WBC 23.5 H (3.8-10.6) k/uL Plt Count 517 H (150-450) k/uL Neutrophils # 20.7 H (1.3-7.7) k/uL Monocytes # 1.1 H (0-1.0) k/uL D-Dimer 1.15 H (<0.60) mg/L FEU Sodium 136 L (137-145) mmol/L Chloride 95 L (98-107) mmol/L Carbon Dioxide 31 H (22-30) mmol/L BUN 22 H (7-17) mg/dL Glucose 136 H (74-99) mg/dL AST 69 H (14-36) U/L ALT 67 H (4-34) U/L Lactate Dehydrogenase 796 H (313-618) U/L C-Reactive Protein 53.2 H (<10.0) mg/L Albumin 3.2 L (3.5-5.0) g/dL Microbiology - Last 24 Hours (Table) 02/12/21 20:56 Blood Culture - Preliminary Blood No Growth after 96 hours 02/12/21 20:40 Blood Culture - Preliminary Blood No Growth after 96 hours Assessment and Plan Plan: Acute Covid 19 infection with pneumonia Acute hypoxic respiratory failure Elevated d-dimer CT angiogram negative for pulmonary embolism History of rheumatoid arthritis History of hypertension History of fibromyalgia At this time patient is admitted to medical floor She is started on oral dexamethasone, subcu Lovenox, IV Remdesevir Pulmonary critical care consultation requested Home medications reviewed and reordered Will follow closely during this admission
[2021-02-17] MEDS: atenoloL 50 MG TAB PO SCH (20:01)
[2021-02-18] MEDS: CHOLECALCIFEROL 25 MCG (1000 IU) TABLET PO SCH (08:01)
[2021-02-18] MEDS: THYROID, PORK 30 MG TAB PO SCH (08:01)
[2021-02-18] MEDS: ASCORBIC ACID 500 MG TAB PO SCH ×2 (08:01→20:06)
[2021-02-18] MEDS: ZINC SULFATE 220 MG CAP PO SCH (08:01)
[2021-02-18] MEDS: PANTOPRAZOLE 40 MG TABLET PO SCH (08:01)
[2021-02-18] MEDS: ENOXAPARIN 40 MG/0.4 ML SYRINGE SQ SCH (08:01)
[2021-02-18] MEDS: dexAMETHasone 4 MG TAB PO SCH (08:02)
--- NOTE | 2021-02-18 09:38 | P.PN ---
Subjective Progress Note Date: 02/18/21 Yenni Reese, 80-year-old female, who presented to [facility] emergency room with a chief complaint of cough generalized weakness and muscle ache, patient was seen in the emergency room for days prior to this admission at that time she was diagnosed with Covid 19, she was started on dexamethasone and was discharged home patient was monitoring her oxygen level and her pulse ox was ranging between 87 and 92, her symptoms started to worsen and she decided to return to emergency room. Patient was evaluated again in the emergency room vital examination reveals a temperature of 99.7 pulse 70 respiration 18 blood pressure 147/71 pulse ox 95% on room air white blood count is 6.5 hemoglobin 13.8 platelet count 280 d-dimer 0.93 sodium 135 potassium 4.0 chloride 99 LDH 900 C-reactive protein 135 Procalcitonin 0.83 chest x-ray done in the emergency room revealed increased bilateral interstitial opacities concerning for infection, CT angiogram of the chest done in the emergency room was negative for pulmonary embolism however it revealed bilateral diffuse patchy airspace opacities 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 Past medical history is significant for history of hypertension, history of rheumatoid arthritis, and history of fibromyalgia no previous history of lung disease no previous history of smoking On 02/14/2021 patient was seen and examined on the medical floor she is alert and oriented 3 in no apparent distress she stated that her cough and shortness of breath has improved there is no fever or chills no headache or dizziness no chest pain no nausea or vomiting no abdominal pain no diarrhea no blood in the stools no burning with urination no frequency or urgency and no hematuria On 02/15/2021 patient was seen and examined on the medical floor she is alert and oriented 3 in no apparent distress she is complaining of shortness of breath and cough otherwise she denies any complaints there is no fever or chills no headache or dizziness no chest pain no nausea or vomiting no abdominal pain no diarrhea no blood in the stools no burning with urination no frequency or urgency and no hematuria On 02/16/2021 patient was seen and examined on the medical floor she is alert and oriented in no distress she is feeling better she is still having shortness of breath with activity and some cough otherwise she denies any complaints there is no fever or chills no headache or dizziness no chest pain no nausea or vomiting no abdominal pain no diarrhea no blood in the stools no burning with urination no frequency or urgency and no hematuria On 02/17/2021 patient was seen and examined on the medical floor she is alert and oriented 3 in no apparent distress feeling slightly worse today with more fatigue and shortness of breath, white blood count went up from 12.5-23.5 d- dimer is up from 0.75-1.15 and inflammatory markers are up LDH is up from 290- 796 C-reactive protein is up from 3.4-53.2 days was discussed was pulmonary critical care will continue to monitor patient for 1 more day On 02/18/2021 patient was seen and examined on the medical floor she is alert and oriented 3 in no distress she stated that she is not feeling well and not ready to go home or complaining of cough and shortness of breath she is complaining of abdominal discomfort and constipation otherwise she denies any complaints there is no fever or chills no headache or dizziness no chest pain no nausea or vomiting no diarrhea no blood in the stools no burning with urination no frequency or urgency and no hematuria Objective - Vital Signs Vital signs: Vital Signs Temp 98.2 F 02/18/21 06:00 Pulse 61 02/18/21 06:00 Resp 18 02/18/21 06:00 BP 168/97 02/18/21 06:00 Pulse Ox 92 L 02/18/21 06:00 Intake & Output 02/17/21 02/18/21 02/18/21 18:59 06:59 18:59 Other: Voiding Method Toilet Toilet # Voids 2 - Exam In general patient is alert and oriented 3 in no apparent distress HEENT head normocephalic and atraumatic Neck is supple no JVD no goiter no lymphadenopathy Chest exam reveals coarse crackles in both lung ayoub with wheezing Cardiac exam reveals regular heart sounds no gallops no murmurs Abdomen is soft nontender no organomegaly with normal bowel sounds Extremity exam reveals no edema no cyanosis or clubbing Neurological examination reveals no gross focal deficit - Labs CBC & Chem 7: 02/17/21 06:18 02/17/21 06:18 Labs: Microbiology - Last 24 Hours (Table) 02/12/21 20:56 Blood Culture - Preliminary Blood No Growth after 120 hours 02/12/21 20:40 Blood Culture - Preliminary Blood No Growth after 120 hours Assessment and Plan Plan: Acute Covid 19 infection with pneumonia Acute hypoxic respiratory failure Elevated d-dimer CT angiogram negative for pulmonary embolism History of rheumatoid arthritis History of hypertension History of fibromyalgia At this time patient is admitted to medical floor She is started on oral dexamethasone, subcu Lovenox, IV Remdesevir Pulmonary critical care consultation requested Home medications reviewed and reordered Will follow closely during this admission
--- NOTE | 2021-02-18 12:24 | P.PN ---
Subjective Progress Note Date: 02/18/21 80-year-old female with past medical history of hypertension, rheumatoid arthritis on hydroxychloroquine, fibro-myalgia, remote history of smoking but no chronic lung disease who was seen in the emergency department on 02/08/2021 with symptoms of body aches and fevers and occasional cough, patient at that time was not complaining of any shortness of breath, no chest pain, no leg swelling or hemoptysis, patient was checked for COVID 19 and was found to be positive, her chest x-ray did show a lateral infiltrates that were suspected to be viral, and patient was discharged home on Decadron 6 mg daily for 4 days, azithromycin, patient was not requiring oxygen at that time. She was breathing comfortably, she was instructed to follow up with her primary care provider. Fortunately patient did not take her Decadron as she was confused about which medication to take and she was worried about some interaction with her regular medications. She returned to the emergency department on 02/12/2021 for reevaluation of high fevers of 10 3F, diffuse body aches, increased cough. She felt increasingly we ak, she has had poor appetite, she's had a couple of bouts of diarrhea, some mild nausea but no vomiting, no leg pain or swelling, no chest discomfort, no hemoptysis, no altered mentation. Chest x-ray showed increased bilateral interstitial opacities. Her d-dimer was increased to 0.93, CBC was within normal limits sodium was 135, the rest of electrolytes and renal profile were unremarkable LDH was 900, and CRP is 135. THS was completed showing no evidence of pulmonary embolism, no showed bilateral diffuse moderate patchy groundglass opacities more pronounced at bilateral lung bases. Patient is currently requiring oxygen, at 2 L, and her pulse ox is 92%, she is in sinus mechanism with a rate 65, blood pressure is 160/73, she has been started on Decadron, lung sounds reveal diffuse coarse crackles more so at bilateral bases. She was started on vitamin C D and zinc, and prophylactic dose of Lovenox at 40 mg once daily, she is awaiting admission on medical surgical floor. 02/14/2021 the patient is being seen for a follow-up. Patient is still in the emergency department. She was supposed to get hospitalized for Covid likely related to pneumonia. After she is hospitalized and she is waiting for a bed. She remains on 2 L about 2 by nasal cannula. She is afebrile. She was started on Decadron and she was also started on REM and she received her first dose yesterday and second dose will be delivered to her today. No blood work from today. Note that the initial LDH was 900 and CRP was 135 and these need to be followed up. Chest x-ray was showing increased interstitial infiltrates bilaterally. CT angiogram was also done yesterday that showed no evidence of any pulmonary embolism. 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 02/15/2021, I have the patient on oxygen at 2 L. She is on day 3 of REM and she is also on Decadron. Note that the patient extensive bilateral pneumonia rel ated to Covid 19 and the patient was hospitalized accordingly. She is doing well. CRP is down to 4.8 and LDH is down to 333. No new complaints otherwise for now. She has multiple comorbidities. She has RA and hypertension and fibromyalgia. No other constitutional symptoms for now. She is tolerating her diet. No altered mentation. On 02/16/2021 patient seen in follow-up on medical surgical floor, states she is awake and alert, in no acute distress, she states she is breathing easier, min imal crackles on today's exam, no cough, no chest discomfort, she is afebrile, room air pulse ox is 91%, today is day 4 of Remdesivir, she is on Decadron and prophylactic Lovenox. Doing well. Today's labs reviewed, d-dimer is 0.75, electrodes renal profile within normal limits, platelet count has increased to 442, white count is 12.5, hemoglobin is 13.9. No specific complaints, LDH is down to 290, CRP is down to 3.4. Follow-up pro-Rickey is negative at 0.22. Blood cultures negative On 02/17/2021, the patient is completing her fifth day of REM and she is also on Decadron regarding her Covid 19 related pneumonia. Her main complaint is some vague abdominal discomfort that she cannot describe. No nausea. No vomiting. No diarrhea. No abdominal distention. The chest x-ray findings showing some limited improvement especially in the infiltrate on the left peripherally. She is on room air oxygen for now. Her blood work today is showing a rise in her white cell count up to 23 from 12.5 yesterday, platelet is 517, the d-dimer is at 1.15, LFTs is showing some mild transaminitis which is essentially stable compared to yesterday, LDH came up to 796 as CRP is up to 53. Procal level was low at 0.8 and 0.2 respectively. Serum bicarb is 31. BUN is 22 with a creatinine of 0.5. 02/18/2021, the patient is still having some vague got issues with some discomfort. She completed her course of REM and she is also on Decadron. No major respiratory issues. She is on oxygen on 1 L per minute that she can easily be weaned down to room air. Her d-dimer is at 1.1. Her white cell count is at 2022 from yesterday probably steroid induced, and her LDH was 796 and the CRP was 53. I think the levels need to be repeated to make sure they're consistently dropping. No other complaints otherwise for now. The GI issues are being addressed by the medical team. Objective - Vital Signs Vital signs: Vital Signs Temp 98.2 F 02/18/21 10:00 Pulse 69 02/18/21 10:00 Resp 19 02/18/21 10:00 BP 150/92 02/18/21 10:00 Pulse Ox 92 L 02/18/21 10:00 Intake & Output 02/17/21 02/18/21 02/18/21 18:59 06:59 18:59 Other: Voiding Method Toilet Toilet # Voids 2 - Exam GENERAL EXAM: Alert, very pleasant, 80-year-old white female, on RA -1l oxygen and the pulse ox of 92%, comfortable in no apparent distress. HEAD: Normocephalic/atraumatic. EYES: Normal reaction of pupils, equal size. Conjunctiva pink, sclera white. NOSE: Clear with pink turbinates. THROAT: No erythema or exudates. NECK: No masses, no JVD, no thyroid enlargement, no adenopathy. CHEST: No chest wall deformity. Symmetrical expansion. LUNGS: Equal air entry with diffuse coarse crackles more so at bilateral lung bases CVS: Regular rate and rhythm, normal S1 and S2, no gallops, no murmurs, no rubs ABDOMEN: Soft, nontender. No hepatosplenomegaly, normal bowel sounds, no guarding or rigidity. EXTREMITIES: No clubbing, no edema, no cyanosis, 2+ pulses and upper and lower extremities. MUSCULOSKELETAL: Muscle strength and tone normal. SPINE: No scoliosis or deformity SKIN: No rashes CENTRAL NERVOUS SYSTEM: Alert and oriented -3. No focal deficits, tone is normal in all 4 extremities. PSYCHIATRIC: Alert and oriented -3. Appropriate affect. Intact judgment and insight. - Labs CBC & Chem 7: 02/17/21 06:18 02/17/21 06:18 Labs: Microbiology - Last 24 Hours (Table) 02/12/21 20:56 Blood Culture - Preliminary Blood No Growth after 120 hours 02/12/21 20:40 Blood Culture - Preliminary Blood No Growth after 120 hours Assessment and Plan Plan: #1. Acute hypoxic respiratory failure related to acute COVID 19 pneumonia, patient was first diagnosed on 02/08/2021, was seen in the emergency department, initially did not have any significant pulmonary symptoms other than mild cough, and did not require oxygen. Patient was sent home with outpatient treatment on oral steroids however she failed to take her steroids and her symptoms progressed and patient presented back to the emergency department on 02/12/2021 with worsening symptoms, cough, hypoxia and progression of pulmonary infiltrates. Likely, the patient is remaining stable. She is completing the course of Decadron and REM and she is on day #5. Inflammatory markers are rising. She is also on Lovenox for DVT prophylaxis. She is afebrile. His evaluation, the patient's oxygenation is ranging between room air and 1 L Bactrim by nasal cannula and her pulse ox is above 90%. Inflammatory markers need to be rechecked based on the increasing trend that was noted earlier. I'm also awaiting a follow-up white cell count knowing that her white cell count from yesterday was elevated at 23.5. #2. Fever, cough, elevated inflammatory markers, related to the above, fever for now, LDH has come up in addition to CRP. #3. Elevated d-dimer, without CT evidence of pulmonary embolism #4. History of rheumatoid arthritis on hydroxychloroquine #5. History of fibromyalgia #6. No history of smoking, no chronic lung disease #7. Previous history of pneumonia #8. History of hypertension Plan: Continue the Decadron 6 mg by mouth daily Lovenox 40 mg SC every day Remdesivir treatments, a total of 5 day course of treatment was completed continue with vitamins Continue following inflammatory markers and repeat levels today and awaiting a follow-up white cell count Possible home today over the next 24 hours.
[2021-02-18] MEDS: LACTOBACILLUS ACIDOPH & BULGAR 1 EACH PACKET PO SCH ×2 (13:39→20:06)
[2021-02-18] MEDS: atenoloL 50 MG TAB PO SCH (20:06)
[2021-02-19 08:49] LABS: HCT 42.8 % (37.2-46.3); HGB 14.1 g/dL (12.0-15.0); MCH 29.3 pg (27.0-32.0); MCHC 32.9 g/dL (32.0-37.0); Mean Platelet Volume 9.7 fL (9.5-12.2); Platelet Count 521 X 10*3/uL (140-440); RBC 4.81 X 10*6/uL (4.10-5.20); RDW 14.6 % (11.5-14.5); WBC 29.06 X 10*3/uL (4.50-10.00)
[2021-02-19] MEDS: PANTOPRAZOLE 40 MG TABLET PO SCH (08:53)
[2021-02-19] MEDS: ZINC SULFATE 220 MG CAP PO SCH (08:53)
[2021-02-19] MEDS: LACTOBACILLUS ACIDOPH & BULGAR 1 EACH PACKET PO SCH ×2 (08:53→19:34)
[2021-02-19] MEDS: ENOXAPARIN 40 MG/0.4 ML SYRINGE SQ SCH (08:53)
[2021-02-19] MEDS: CHOLECALCIFEROL 25 MCG (1000 IU) TABLET PO SCH (08:53)
[2021-02-19] MEDS: ASCORBIC ACID 500 MG TAB PO SCH ×2 (08:53→19:34)
[2021-02-19] MEDS: ALBUTEROL HFA INHALER INHALATION PRN ×2 (08:57→16:42)
[2021-02-19] MEDS: THYROID, PORK 30 MG TAB PO SCH (08:57)
[2021-02-19] MEDS: dexAMETHasone 4 MG TAB PO SCH (08:59)
[2021-02-19 10:02] LABS: African American GFR (CKD) 94.2 (60.0-200.0); Albumin 3.1 g/dL (3.80-4.90); Albumin/Globulin Ratio 1.15 (1.60-3.17); Anion Gap 6.2 mmol/L (4.00-12.00); BUN/Creat Ratio 31.43 Ratio (12.00-20.00); C Reactive Protein 10.1 mg/dL (0.0-0.8); Calcium 8.6 mg/dL (8.7-10.3); Carbon Dioxide 34.8 mmol/L (21.6-31.8); Globulin 2.7 g/dL (1.6-3.3); Non-African American GFR(CKD) 81.3 (60.0-200.0); Potassium 4.2 mmol/L (3.5-5.5); Total Bilirubin 0.9 mg/dL (0.3-1.2); Total Protein 5.8 g/dL (6.2-8.2)
[2021-02-19 10:49] LABS: Basophils # (A) 0.12 X 10*3/uL (0.00-0.10); Basophils % (A) 0.4 %; Eosinophils # (A) 0.01 X 10*3/uL (0.04-0.35); Eosinophils % (A) 0 %; Lymphocytes # (A) 1.71 X 10*3/uL (0.90-5.00); Lymphocytes % (A) 5.9 %; Monocytes # (A) 2.33 X 10*3/uL (0.20-1.00); Neutrophils # (A) 24.39 X 10*3/uL (1.80-7.70)
[2021-02-19] MEDS: IOPAMIDOL CONTRAST (ORAL USE) VIAL PO PRN ×2 (16:00→16:36)
--- NOTE | 2021-02-19 18:31 | P.PN ---
Subjective Progress Note Date: 02/19/21 Yenni Reese, 80-year-old female, who presented to [facility] emergency room with a chief complaint of cough generalized weakness and muscle ache, patient was seen in the emergency room for days prior to this admission at that time she was diagnosed with Covid 19, she was started on dexamethasone and was discharged home patient was monitoring her oxygen level and her pulse ox was ranging between 87 and 92, her symptoms started to worsen and she decided to return to emergency room. Patient was evaluated again in the emergency room vital examination reveals a temperature of 99.7 pulse 70 respiration 18 blood pressure 147/71 pulse ox 95% on room air white blood count is 6.5 hemoglobin 13.8 platelet count 280 d-dimer 0.93 sodium 135 potassium 4.0 chloride 99 LDH 900 C-reactive protein 135 Procalcitonin 0.83 chest x-ray done in the emergency room revealed increased bilateral interstitial opacities concerning for infection, CT angiogram of the chest done in the emergency room was negative for pulmonary embolism however it revealed bilateral diffuse patchy airspace opacities 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 Past medical history is significant for history of hypertension, history of rheumatoid arthritis, and history of fibromyalgia no previous history of lung disease no previous history of smoking On 02/14/2021 patient was seen and examined on the medical floor she is alert and oriented 3 in no apparent distress she stated that her cough and shortness of breath has improved there is no fever or chills no headache or dizziness no chest pain no nausea or vomiting no abdominal pain no diarrhea no blood in the stools no burning with urination no frequency or urgency and no hematuria On 02/15/2021 patient was seen and examined on the medical floor she is alert and oriented 3 in no apparent distress she is complaining of shortness of breath and cough otherwise she denies any complaints there is no fever or chills no headache or dizziness no chest pain no nausea or vomiting no abdominal pain no diarrhea no blood in the stools no burning with urination no frequency or urgency and no hematuria On 02/16/2021 patient was seen and examined on the medical floor she is alert and oriented in no distress she is feeling better she is still having shortness of breath with activity and some cough otherwise she denies any complaints there is no fever or chills no headache or dizziness no chest pain no nausea or vomiting no abdominal pain no diarrhea no blood in the stools no burning with urination no frequency or urgency and no hematuria On 02/17/2021 patient was seen and examined on the medical floor she is alert and oriented 3 in no apparent distress feeling slightly worse today with more fatigue and shortness of breath, white blood count went up from 12.5-23.5 d- dimer is up from 0.75-1.15 and inflammatory markers are up LDH is up from 290- 796 C-reactive protein is up from 3.4-53.2 days was discussed was pulmonary critical care will continue to monitor patient for 1 more day On 02/18/2021 patient was seen and examined on the medical floor she is alert and oriented 3 in no distress she stated that she is not feeling well and not ready to go home or complaining of cough and shortness of breath she is complaining of abdominal discomfort and constipation otherwise she denies any complaints there is no fever or chills no headache or dizziness no chest pain no nausea or vomiting no diarrhea no blood in the stools no burning with urination no frequency or urgency and no hematuria On 02/19/2021 patient was seen and examined on the medical floor she is alert and oriented 3 in no apparent distress she is complaining of shortness of breath and cough, and mostly abdominal discomfort, otherwise she denies any complaints there is no fever or chills no headache or dizziness no chest pain no nausea or vomiting no diarrhea no blood in the stools no burning with urination no frequency or urgency and no hematuria. Objective - Vital Signs Vital signs: Vital Signs Temp 97.5 F L 02/19/21 06:00 Pulse 55 L 02/19/21 06:00 Resp 18 02/19/21 06:00 BP 144/66 02/19/21 06:00 Pulse Ox 96 02/19/21 06:00 Intake & Output 02/18/21 02/19/21 02/19/21 18:59 06:59 18:59 Other: Voiding Method Toilet Toilet # Voids 1 - Exam In general patient is alert and oriented 3 in no apparent distress HEENT head normocephalic and atraumatic Neck is supple no JVD no goiter no lymphadenopathy Chest exam reveals coarse crackles in both lung ayoub with wheezing Cardiac exam reveals regular heart sounds no gallops no murmurs Abdomen is soft nontender no organomegaly with normal bowel sounds Extremity exam reveals no edema no cyanosis or clubbing Neurological examination reveals no gross focal deficit - Labs CBC & Chem 7: 02/19/21 06:23 02/19/21 06:23 Labs: Abnormal Lab Results - Last 24 Hours (Table) 02/19/21 02/19/21 02/19/21 Range/Units 06:23 06:23 06:23 WBC 29.06 H (4.50-10.00) X 10*3/uL RDW 14.6 H (11.5-14.5) % Plt Count 521 H (140-440) X 10*3/uL Plt Count Comment INCREASED A Immature Gran # 0.50 H (0.00-0.04) X 10*3/uL Neutrophils # 24.39 H (1.80-7.70) X 10*3/uL Monocytes # 2.33 H (0.20-1.00) X 10*3/uL Eosinophils # 0.01 L (0.04-0.35) X 10*3/uL Basophils # 0.12 H (0.00-0.10) X 10*3/uL D-Dimer 0.81 H (<0.60) mg/L FEU Chloride 95 L (96-109) mmol/L Carbon Dioxide 34.8 H (21.6-31.8) mmol/L BUN/Creatinine Ratio 31.43 H (12.00-20.00) Ratio Glucose 161 H (70-110) mg/dL Calcium 8.6 L (8.7-10.3) mg/dL Lactate Dehydrogenase 301 H (120-246) U/L C-Reactive Protein 10.1 H (0.0-0.8) mg/dL Total Protein 5.8 L (6.2-8.2) g/dL Albumin 3.10 L (3.80-4.90) g/dL Albumin/Globulin Ratio 1.15 L (1.60-3.17) g/dL Microbiology - Last 24 Hours (Table) 02/12/21 20:56 Blood Culture - Final Blood No Growth after 144 hours 02/12/21 20:40 Blood Culture - Final Blood No Growth after 144 hours Assessment and Plan Plan: Acute Covid 19 infection with pneumonia Acute hypoxic respiratory failure Elevated d-dimer CT angiogram negative for pulmonary embolism History of rheumatoid arthritis History of hypertension History of fibromyalgia Abdominal discomfort, will check CT scan of Abdomen and pelvis and consult GI At this time patient is admitted to medical floor She is started on oral dexamethasone, subcu Lovenox, IV Remdesevir Pulmonary critical care consultation requested Home medications reviewed and reordered Will follow closely during this admission
--- NOTE | 2021-02-19 19:12 | CT ---
EXAMINATION TYPE: CT abdomen pelvis w con DATE OF EXAM: 02/19/2021 COMPARISON: None HISTORY: LUQ pain CT DLP: 687.7 mGycm Automated exposure control for dose reduction was used. CONTRAST: Performed with IV Contrast, patient injected with 100 mL of Isovue 300. Images obtained from the diaphragm to the floor the pelvis with oral and IV contrast. There is some airspace infiltrate and atelectasis both lung bases. There is no pleural effusion. Hear t is borderline enlarged. There is no pericardial effusion. Liver is intact. The bile ducts are not dilated. Spleen is intact. There is no critical mass. Stomach is intact. There is no adrenal mass. Kidneys show satisfactory contrast opacification. There is no hydronephrosi s. There is no retroperitoneal adenopathy. Abdominal aorta is atheromatous. Bladder distends smoothly . There is no inguinal hernia. There is no free fluid in the pelvis. Delayed images show normal renal excretion. There are numerous sigmoid diverticula. There is a complex mass in the pelvis anterior to the lower s igmoid colon which contains air and fluid and measures 8 x 6 cm and consistent with peridiverticular abscess. The oral contrast material extends to the mid sigmoid colon. I see no evidence of free air. The lumbar vertebra show some disc space narrowing and spur formation. There is a mild dextroscoliosi s. There is no compression fracture. The bony pelvis is intact. There is hypertrophic spurring at the hip joints. IMPRESSION: Large complex pelvic mass consistent with peridiverticular abscess. Extensive sigmoid diverticulosis. Bilateral basilar pulmonary linear infiltrates and atelectasis.
[2021-02-19] MEDS: atenoloL 50 MG TAB PO SCH (19:34)
[2021-02-19] MEDS: CHOLESTYRAMINE (WITH SUGAR) 4 GM PACKET PO SCH (21:39)
[2021-02-20] MEDS: CHOLECALCIFEROL 25 MCG (1000 IU) TABLET PO SCH (08:31)
[2021-02-20] MEDS: ENOXAPARIN 40 MG/0.4 ML SYRINGE SQ SCH (08:31)
[2021-02-20] MEDS: dexAMETHasone 4 MG TAB PO SCH (08:31)
[2021-02-20] MEDS: PANTOPRAZOLE 40 MG TABLET PO SCH (08:31)
[2021-02-20] MEDS: ZINC SULFATE 220 MG CAP PO SCH (08:31)
[2021-02-20] MEDS: THYROID, PORK 30 MG TAB PO SCH (08:31)
[2021-02-20] MEDS: ASCORBIC ACID 500 MG TAB PO SCH ×2 (08:32→20:28)
[2021-02-20] MEDS: LACTOBACILLUS ACIDOPH & BULGAR 1 EACH PACKET PO SCH ×2 (08:32→20:12)
[2021-02-20] MEDS: CHOLESTYRAMINE (WITH SUGAR) 4 GM PACKET PO SCH ×2 (08:32→18:21)
[2021-02-20] MEDS: ALBUTEROL HFA INHALER INHALATION PRN (09:25)
[2021-02-20 09:40] LABS: Basophils % (A) 0.5 %; Eosinophils # (A) 0 X 10*3/uL (0.04-0.35); Eosinophils % (A) 0 %; HCT 43.8 % (37.2-46.3); HGB 14.1 g/dL (12.0-15.0); Lymphocytes # (A) 1.29 X 10*3/uL (0.90-5.00); MCH 29.1 pg (27.0-32.0); MCHC 32.2 g/dL (32.0-37.0); MCV 90.5 fL (80.0-97.0); Mean Platelet Volume 9.9 fL (9.5-12.2); Monocytes # (A) 1.89 X 10*3/uL (0.20-1.00); Monocytes % (A) 8.8 %; Neutrophils # (A) 17.89 X 10*3/uL (1.80-7.70); Neutrophils % (A) 82.8 %; Platelet Count 558 X 10*3/uL (140-440); RBC 4.84 X 10*6/uL (4.10-5.20); RDW 14.8 % (11.5-14.5); WBC 21.57 X 10*3/uL (4.50-10.00)
[2021-02-20 10:22] LABS: African American GFR (CKD) 80.1 (60.0-200.0); Albumin 3.5 g/dL (3.80-4.90); Albumin/Globulin Ratio 1.17 (1.60-3.17); Anion Gap 7.7 mmol/L (4.00-12.00); BUN/Creat Ratio 23.75 Ratio (12.00-20.00); Calcium 9.2 mg/dL (8.7-10.3); Carbon Dioxide 33.3 mmol/L (21.6-31.8); Non-African American GFR(CKD) 69.1 (60.0-200.0); Potassium 5.3 mmol/L (3.5-5.5); Total Protein 6.5 g/dL (6.2-8.2)
[2021-02-20] MEDS: LEVOFLOXACIN 500MG-D5W PMX 500 MG in DEXTROSE/WATER 1 100ML.BAG IVPB SCH (12:23)
[2021-02-20] MEDS: metroNIDAZOLE-NS PMX 500 MG in SALINE 1 100ML.BAG IVPB SCH ×3 (13:23→23:49)
--- NOTE | 2021-02-20 15:19 | P.GSCN ---
History of Present Illness Consult date: 02/20/21 Reason for Consult: Abdominal pain History of present illness: 80-year-old female admitted to the hospital with complaints of cough myalgias an d fatigue. Patient was diagnosed with Covid pneumonia. During this hospital stay patient began experiencing abdominal discomfort over the last few days. Per the patient and the family she has a history of intermittent lower abdominal pain for the last several months if not longer. History of diverticulitis in the past. Last colonoscopy within the last 5 years she states and apparently was normal. Her white blood cell count has been climbing over the last several days. CAT scan was performed last night which shows a abscess adjacent to the sigmoid colon along with inflammatory changes and possible mass formation. No free intraperitoneal air noted. Patient describes history of chronic intermittent crampy abdominal discomfort and change in bowel habits. No rectal bleeding. Patient says her pain radiates from the left lower quadrant to the left back. She is afebrile without tachycardia. Patient has low oxygen requirements. Says her Covid infection is better. Review of Systems The patient denies any acute changes in vision or hearing, no dysphagia or odynophagia, no dysuria or hematuria, no headache, no runny nose, no rectal bleeding or melena, no unexplained weight loss Past Medical History Past Medical History: Fibromyalgia, Hypertension, Osteoarthritis (OA), Pneumonia, Rheumatoid Arthritis (RA), Thyroid Disorder Additional Past Medical History / Comment(s): Pt tested +covic on 02/08/21 at [facility] ER. 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 History of Any Multi-Drug Resistant Organisms: None Reported Past Surgical History: Back Surgery, Bladder Surgery, Tonsillectomy Additional Past Surgical History / Comment(s): Anterior colporrhaphy, cyst pubo vag sling, colonoscopy, lower back surgery, bilateral cataract removals/lens implants Past Anesthesia/Blood Transfusion Reactions: No Reported Reaction Smoking Status: Former smoker - Past Family History Mother Family Medical History: Cancer Additional Family Medical History / Comment(s): Bone CA Father Additional Family Medical History / Comment(s): Father had rheumatic fever as a child and from heart problem at the age of 43yrs. Medications and Allergies Home Medications Medication Instructions Recorded Confirmed Type Atenolol [Tenormin] 100 mg PO HS 04/09/15 02/12/21 History Dexamethasone [Decadron] 6 mg PO DAILY 4 Days #4 tablet 02/08/21 02/12/21 Rx Acetaminophen Tab [Tylenol] 325 mg PO Q4-6H PRN 02/12/21 02/12/21 History Ergocalciferol (Vitamin D2) 50 mcg PO DAILY 02/12/21 02/12/21 History [Vitamin D2 (2000 Iu)] Hydroxychloroquine Sulfate 200 mg PO DIRECTED 02/12/21 02/12/21 History [Plaquenil] Hydroxychloroquine Sulfate See Taper PO DIRECTED 02/12/21 02/12/21 History [Plaquenil] Ibuprofen [Advil] 200 mg PO Q4-6H PRN 02/12/21 02/12/21 History Thyroid,Pork [Morning Nanny Thyroid] 60 mg PO DAILY 02/12/21 02/12/21 History Zinc 50 mg PO DAILY 02/12/21 02/12/21 History Allergies Allergy/AdvReac Type Severity Reaction Status Date / Time diphenhydramine Allergy Rash/Hives Verified 02/12/21 21:06 [From Benadryl] Surgical - Exam Vital Signs Temp Pulse Resp BP Pulse Ox 99.7 F H 70 18 147/71 95 02/12/21 19:56 02/12/21 19:56 02/12/21 19:56 02/12/21 19:56 02/12/21 19:56 Physical exam: General: Well-developed, well-nourished HEENT: Normocephalic, sclerae nonicteric Abdomen: Bilateral lower quadrant tenderness left greater than right, some fullness in the midline inferiorly, nondistended Extremities: No edema Neuro: Alert and oriented Results - Labs 02/20/21 06:00 02/20/21 06:00 Abnormal Lab Results - Last 24 Hours (Table) 02/20/21 02/20/21 Range/Units 06:00 06:00 WBC 21.57 H (4.50-10.00) X 10*3/uL RDW 14.8 H (11.5-14.5) % Plt Count 558 H (140-440) X 10*3/uL Immature Gran # 0.40 H (0.00-0.04) X 10*3/uL Neutrophils # 17.89 H (1.80-7.70) X 10*3/uL Monocytes # 1.89 H (0.20-1.00) X 10*3/uL Eosinophils # 0 L (0.04-0.35) X 10*3/uL Carbon Dioxide 33.3 H (21.6-31.8) mmol/L BUN/Creatinine Ratio 23.75 H (12.00-20.00) Ratio Glucose 156 H (70-110) mg/dL Albumin 3.50 L (3.80-4.90) g/dL Albumin/Globulin Ratio 1.17 L (1.60-3.17) g/dL Diabetes panel 02/20/21 Range/Units 06:00 Sodium 137 (135-145) mmol/L Potassium 5.3 (3.5-5.5) mmol/L Chloride 96 (96-109) mmol/L Carbon Dioxide 33.3 H (21.6-31.8) mmol/L BUN 19.0 (9.0-27.0) mg/dL Creatinine 0.8 (0.6-1.5) mg/dL Glucose 156 H (70-110) mg/dL Calcium 9.2 (8.7-10.3) mg/dL AST 20 (13-35) U/L ALT 31 (8-44) U/L Alkaline Phosphatase 87 (41-126) U/L Total Protein 6.5 (6.2-8.2) g/dL Albumin 3.50 L (3.80-4.90) g/dL Calcium panel 02/20/21 Range/Units 06:00 Calcium 9.2 (8.7-10.3) mg/dL Albumin 3.50 L (3.80-4.90) g/dL Pituitary panel 02/20/21 Range/Units 06:00 Sodium 137 (135-145) mmol/L Potassium 5.3 (3.5-5.5) mmol/L Chloride 96 (96-109) mmol/L Carbon Dioxide 33.3 H (21.6-31.8) mmol/L BUN 19.0 (9.0-27.0) mg/dL Creatinine 0.8 (0.6-1.5) mg/dL Glucose 156 H (70-110) mg/dL Calcium 9.2 (8.7-10.3) mg/dL Adrenal panel 02/20/21 Range/Units 06:00 Sodium 137 (135-145) mmol/L Potassium 5.3 (3.5-5.5) mmol/L Chloride 96 (96-109) mmol/L Carbon Dioxide 33.3 H (21.6-31.8) mmol/L BUN 19.0 (9.0-27.0) mg/dL Creatinine 0.8 (0.6-1.5) mg/dL Glucose 156 H (70-110) mg/dL Calcium 9.2 (8.7-10.3) mg/dL Total Bilirubin 1.0 (0.2-1.2) mg/dL AST 20 (13-35) U/L ALT 31 (8-44) U/L Alkaline Phosphatase 87 (41-126) U/L Total Protein 6.5 (6.2-8.2) g/dL Albumin 3.50 L (3.80-4.90) g/dL Assessment and Plan (1) Diverticular disease of intestine with perforation and abscess Narrative/Plan: 80-year-old female with CAT scan findings demonstrating a large abscess anterior to the sigmoid colon. This does not appear to be amenable to percutaneous drainage. Patient has had chronic complaints over the last several months of bowel issues and diverticulitis in the past. Options reviewed. We'll proceed with exploratory laparotomy, drainage pelvic abscess, possible sigmoid colectomy, possible ostomy. This was discussed with both the patient and her daughter Lakesha. I did call the patient's but was unable to reach him. Risks of bleeding, infection, scarring, hernia, ostomy, possible need for further surgery, recurrent abscess, bladder bowel and ureteral injury, respiratory failure, cardiac failure, were reviewed. She understands and wishes to proceed. Current Visit: Yes Status: Acute Code(s): K57.80 - DVTRCLI OF INTEST, PART UNSP, W PERF AND ABSCESS W/O BLEED SNOMED Code(s): 4937445100043
[2021-02-20 15:20] VITALS: BMI 21.7
[2021-02-20] MEDS ORDERED: fentaNYL (PF) 50 MCG/ML 2 ML AMP ONE (15:24)
[2021-02-20] MEDS ORDERED: HYDROmorphone (PF) 1 MG/ML ONE (15:24)
[2021-02-20] MEDS ORDERED: LIDOCAINE 1% INJ 10MG/ML (20 ML MDV) ONE (15:24)
[2021-02-20] MEDS ORDERED: NEOSTIGMINE 1 MG/ML 10 ML VIAL ONE (15:24)
[2021-02-20] MEDS ORDERED: ROCURONIUM 10 MG/ML (5 ML VIAL) IV ONE (15:24)
[2021-02-20] MEDS ORDERED: METOPROLOL TARTRATE 5 MG/5 ML VIAL IVP ONE (15:24)
[2021-02-20] MEDS ORDERED: PROPOFOL 10 MG/ML 20 ML VIAL IV ONE (15:24)
[2021-02-20] MEDS ORDERED: SUCCINYLCHOLINE CHLORIDE 100 MG/5 ML SYR IV ONE (15:24)
[2021-02-20] MEDS ORDERED: DEXAMETHASONE SOD PHOSPHATE 4 MG/ML 1 ML VIAL ONE (15:24)
[2021-02-20] MEDS ORDERED: ONDANSETRON 4 MG/2 ML VIAL ONE (15:24)
[2021-02-20] MEDS ORDERED: MIDAZOLAM 2 MG/2 ML VIAL ONE (15:24)
[2021-02-20] MEDS ORDERED: GLYCOPYRROLATE 0.2 MG/ML 2 ML VIAL ONE (15:24)
[2021-02-20] MEDS ORDERED: ePHEDrine SULFATE/0.9% NACL/PF 50 MG/5 ML SYRINGE IV ONE (15:24)
[2021-02-20] MEDS ORDERED: hydrALAZINE HCL 20 MG/ML 1 ML VIAL ONE (15:24)
[2021-02-20] MEDS ORDERED: SODIUM CHLORIDE 0.9% 1,000 ML IV ONE ×2 (15:27→17:27)
--- NOTE | 2021-02-20 17:05 | P.CONS ---
History of Present Illness - Reason for Consult Consult date: 02/20/21 Abdominal pain Requesting physician: Galileo Valverde - Chief Complaint Fever, shortness of breath, cough - History of Present Illness This is a pleasant 80-year-old white female who was admitted to the hospital 8 days ago with complaints of cough, myalgias, and fatigue. She was diagnosed with Covid 19 infection with pneumonia. Past medical history includes fibromyalgia, hypertension, osteoarthritis, rheumatoid arthritis, diverticular disease and thyroid disorder. During her hospital stay she started having increased abdominal discomfort therefore gastroenterology was consulted. She states she has had abdominal pain with cramping for the last few months and was following with Dr. Andrade who had her on probiotics and vitamins. She states she's been having some loose bowel movements, no blood noted. She states her last colonoscopy was within the last couple years and was normal. Primary medicine ordered a CT of the abdomen and pelvis as part of the workup for the abdominal pain which showed large complex pelvic mass consistent with peridiverticular abscess. Extensive sigmoid diverticulosis. Bilateral basilar pulmonary linear infiltrates and atelectasis. Review of Systems Constitutional: Denies chills, Denies fever Eyes: denies blurred vision, denies pain Ears, nose, mouth and throat: Denies headache, Denies sore throat Cardiovascular: Denies chest pain, Denies shortness of breath Respiratory: Reports cough, Reports dyspnea Gastrointestinal: Reports abdominal pain, Reports change in bowel habits, Denies BRBPR, Denies coffee ground emesis, Denies hematemesis, Denies hematochezia, Denies loss of appetite, Denies melena, Denies nausea, Denies vomiting Genitourinary: Denies dysuria, Denies hematuria Musculoskeletal: Denies myalgias Integumentary: Denies pruritus, Denies rash Neurological: Denies numbness, Denies weakness Psychiatric: Denies anxiety, Denies depression Endocrine: Denies fatigue, Denies weight change Past Medical History Past Medical History: Fibromyalgia, Hypertension, Osteoarthritis (OA), Pneumonia, Rheumatoid Arthritis (RA), Thyroid Disorder Additional Past Medical History / Comment(s): Pt tested +covic on 02/08/[address] [facility] ER. 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 History of Any Multi-Drug Resistant Organisms: None Reported Past Surgical History: Back Surgery, Bladder Surgery, Tonsillectomy Additional Past Surgical History / Comment(s): Anterior colporrhaphy, cyst pubo vag sling, colonoscopy, lower back surgery, bilateral cataract removals/lens implants Past Anesthesia/Blood Transfusion Reactions: No Reported Reaction Smoking Status: Former smoker - Past Family History Mother Family Medical History: Cancer Additional Family Medical History / Comment(s): Bone CA Father Additional Family Medical History / Comment(s): Father had rheumatic fever as a child and from heart problem at the age of 43yrs. Medications and Allergies Home Medications Medication Instructions Recorded Confirmed Type Atenolol [Tenormin] 100 mg PO HS 04/09/15 02/12/21 History Dexamethasone [Decadron] 6 mg PO DAILY 4 Days #4 tablet 02/08/21 02/12/21 Rx Acetaminophen Tab [Tylenol] 325 mg PO Q4-6H PRN 02/12/21 02/12/21 History Ergocalciferol (Vitamin D2) 50 mcg PO DAILY 02/12/21 02/12/21 History [Vitamin D2 (2000 Iu)] Hydroxychloroquine Sulfate 200 mg PO DIRECTED 02/12/21 02/12/21 History [Plaquenil] Hydroxychloroquine Sulfate See Taper PO DIRECTED 02/12/21 02/12/21 History [Plaquenil] Ibuprofen [Advil] 200 mg PO Q4-6H PRN 02/12/21 02/12/21 History Thyroid,Pork [Chemical Tester Thyroid] 60 mg PO DAILY 02/12/21 02/12/21 History Zinc 50 mg PO DAILY 02/12/21 02/12/21 History Allergies Allergy/AdvReac Type Severity Reaction Status Date / Time diphenhydramine Allergy Rash/Hives Verified 02/12/21 21:06 [From Benadryl] Physical Exam Vitals: Vital Signs Temp Pulse Resp BP BP Pulse Ox 02/20/21 15:54 144/70 02/20/21 13:50 97.8 F 69 18 153/82 94 L 02/20/21 11:47 98.6 F 54 L 16 134/70 96 02/20/21 09:21 97.4 F L 66 18 161/83 95 02/20/21 06:00 97.7 F 51 L 16 195/83 95 02/20/21 02:00 98.0 F 55 L 16 185/68 94 L 02/19/21 22:00 97.5 F L 52 L 16 174/90 94 L 02/19/21 20:00 62 18 Intake and Output 02/20/21 02/20/21 02/20/21 06:59 14:59 22:59 Other: # Voids 2 Weight 61.235 kg General appearance: The patient is alert, oriented, appears in no acute distres s. HET: Head is normocephalic and atraumatic. Neck: Supple without lymphadenopathy. Trachea midline. Heart: S1 S2. Regular rate and rhythm. Lungs: Equal air entry, with crackles at bilateral bases. Abdomen: Soft, low abdominal tenderness, nondistended with bowel sounds. No peritoneal signs. No palpable organomegaly or masses. Extremities: Normal skin color and turgor. Bilateral lower extremity pedal edema Neurological: No focal deficits. Alert and oriented 3. Results CBC & Chem 7: 02/20/21 06:00 02/20/21 06:00 Labs: Abnormal Lab Results - Last 24 Hours (Table) 02/20/21 02/20/21 Range/Units 06:00 06:00 WBC 21.57 H (4.50-10.00) X 10*3/uL RDW 14.8 H (11.5-14.5) % Plt Count 558 H (140-440) X 10*3/uL Immature Gran # 0.40 H (0.00-0.04) X 10*3/uL Neutrophils # 17.89 H (1.80-7.70) X 10*3/uL Monocytes # 1.89 H (0.20-1.00) X 10*3/uL Eosinophils # 0 L (0.04-0.35) X 10*3/uL Carbon Dioxide 33.3 H (21.6-31.8) mmol/L BUN/Creatinine Ratio 23.75 H (12.00-20.00) Ratio Glucose 156 H (70-110) mg/dL Albumin 3.50 L (3.80-4.90) g/dL Albumin/Globulin Ratio 1.17 L (1.60-3.17) g/dL CT scan - abdomen: report reviewed (Large complex pelvic mass consistent with peridiverticular abcess.dense of sigmoid diverticulosis. Bilateral basilar pulmonary linear infiltrates and atelectasis.) Assessment and Plan (1) Abdominal pain Narrative/Plan: This is a pleasant 80-year-old white female who was admitted for coping 19 infection with pneumonia. She has been complaining of intermittent abdominal pain for the last several months duration and has been using probiotics and vitamins. During her hospitalization she has had increase in abdominal pain, therefore a CT of the abdomen and pelvis was completed. The computed tomography scan findings included a large peridiverticular abscess with dense of sigmoid diverticulosis. She states her last colonoscopy was approximately 2-3 years ago, with normal findings. His denied any rectal bleeding or blood in her stool. She denies any nausea or vomiting. Current Visit: Yes Status: Acute Code(s): R10.9 - UNSPECIFIED ABDOMINAL PAIN SNOMED Code(s): 10618921 (2) COVID-19 Narrative/Plan: Pulmonology and primary medicine following patient closely, symptoms have improved. Current Visit: Yes Status: Acute Code(s): U07.1 - COVID-19 SNOMED Code(s): 374673735 (3) Diverticular disease of intestine with perforation and abscess Narrative/Plan: Surgical services is on consult, plan is to proceed with exploratory laparotomy, drainage of the pelvic abscess, possible sigmoid colectomy, possible ostomy. Current Visit: Yes Status: Acute Code(s): K57.80 - DVTRCLI OF INTEST, PART UNSP, W PERF AND ABSCESS W/O BLEED SNOMED Code(s): 8305908543918 Plan: 1. Symptomatic and supportive care 2. Levaquin 500 milligrams IV every 24 hours and Flagyl 500 mg IV every 8 hours ordered 3. Repeat CBC 4. Surgical services on consult, proceeding with exploratory laparotomy, drainage of pelvic abscess, possible sigmoid colectomy, possible ostomy 5. Will try to get old records from previous colonoscopy 6. Diet per surgical services Thank you for this consultation, we will continue to follow closely Dr. Bhargavi Pham I agree with the dictator's note, documented as a scribe by Albina Birmingham.
[2021-02-20] MEDS ORDERED: HYDROmorphone 1 MG/ML 1 ML SYRINGE IVP PRN (17:28)
--- NOTE | 2021-02-20 17:38 | P.OP ---
Date of Procedure: 02/20/21 Procedure(s) Performed: PREOPERATIVE DIAGNOSIS: Diverticular abscess POSTOPERATIVE DIAGNOSIS: Same PROCEDURE: Sigmoid colectomy with end colostomy, drainage pelvic abscess SURGEON: Flavio EBL: 50 mL ANESTHESIA: General COMPLICATIONS: None OPERATIVE PROCEDURE: Patient place in the operative table in the supine position. The patient was placed under general anesthesia. The abdomen was prepped and draped in usual sterile fashion. A vertical incision was made extending from the suprapubic region to the umbilicus. The fascia was divided as well. There was no unusual fluid within the peritoneal cavity. The Bookwalter retractor was utilized. The sigmoid colon was densely adherent to the posterior aspect of the uterus. As I bluntly dissected between the uterus and sigmoid colon a moderate to large sized abscess cavity was encountered. Air, pus, and stool was evacuated from that abscess cavity. As I further dissected I could feel a 1.5 cm hole in the colon feeding this abscess cavity. Careful dissection took place distal to the perforated site in the distal sigmoid colon. The tissues here were so indurated that a stapler could not be utilized. Instead the bowel was divided using electrocautery. The stump was oversewn using a running locking 0 Vicryl suture. The mesentery of the bowel was divided using the LigaSure device. The bowel proximal to the inflamed segment was divided using a linear 75 stapler. The specimen was passed off at this point. Cultures were taken early during the procedure. A drain was placed behind the uterus in the previous abscess cavity. This exited from the low right lower lateral abdomen and sutured using a 3-0 silk stitch. The sigmoid colon was further mobilized by incising the white line of Toldt. Once I had enough length on the colon the abdomen was copiously irrigated with 3 L of saline. No further purulence was encountered at that time. A circular incision was made in the left midabdomen. Dissection through the subcutaneous fat and fascia took place using electrocautery. I bluntly entered the perineal cavity and this was further bluntly opened. The bowel was brought out through this defect in the left midabdomen. The midline fascia was then reapproximated using 2 separate double-stranded #1 PDS sutures. The subcutaneous tissues were irrigated. The subcutaneous tissues were closed using 3-0 Vicryl sutures. The skin was then closed using liliane. The ostomy was then addressed. A portion of the pericolonic fat was removed using the LigaSure device. The staple line was then removed using electrocautery. The ostomy was then matured in a [place] fashion using interrupted 3-0 Vicryl sutures. An ostomy appliance was then applied. Sterile dressings were then applied to the midline incision. DISPOSITION: Stable
--- NOTE | 2021-02-20 18:04 | P.PN ---
Subjective Progress Note Date: 02/20/21 Yenni Reese, 80-year-old female, who presented to [facility] emergency room with a chief complaint of cough generalized weakness and muscle ache, patient was seen in the emergency room for days prior to this admission at that time she was diagnosed with Covid 19, she was started on dexamethasone and was discharged home patient was monitoring her oxygen level and her pulse ox was ranging between 87 and 92, her symptoms started to worsen and she decided to return to emergency room. Patient was evaluated again in the emergency room vital examination reveals a temperature of 99.7 pulse 70 respiration 18 blood pressure 147/71 pulse ox 95% on room air white blood count is 6.5 hemoglobin 13.8 platelet count 280 d-dimer 0.93 sodium 135 potassium 4.0 chloride 99 LDH 900 C-reactive protein 135 Procalcitonin 0.83 chest x-ray done in the emergency room revealed increased bilateral interstitial opacities concerning for infection, CT angiogram of the chest done in the emergency room was negative for pulmonary embolism however it revealed bilateral diffuse patchy airspace opacities 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 Past medical history is significant for history of hypertension, history of rheumatoid arthritis, and history of fibromyalgia no previous history of lung disease no previous history of smoking On 02/14/2021 patient was seen and examined on the medical floor she is alert and oriented 3 in no apparent distress she stated that her cough and shortness of breath has improved there is no fever or chills no headache or dizziness no chest pain no nausea or vomiting no abdominal pain no diarrhea no blood in the stools no burning with urination no frequency or urgency and no hematuria On 02/15/2021 patient was seen and examined on the medical floor she is alert and oriented 3 in no apparent distress she is complaining of shortness of breath and cough otherwise she denies any complaints there is no fever or chills no headache or dizziness no chest pain no nausea or vomiting no abdominal pain no diarrhea no blood in the stools no burning with urination no frequency or urgency and no hematuria On 02/16/2021 patient was seen and examined on the medical floor she is alert and oriented in no distress she is feeling better she is still having shortness of breath with activity and some cough otherwise she denies any complaints there is no fever or chills no headache or dizziness no chest pain no nausea or vomiting no abdominal pain no diarrhea no blood in the stools no burning with urination no frequency or urgency and no hematuria On 02/17/2021 patient was seen and examined on the medical floor she is alert and oriented 3 in no apparent distress feeling slightly worse today with more fatigue and shortness of breath, white blood count went up from 12.5-23.5 d- dimer is up from 0.75-1.15 and inflammatory markers are up LDH is up from 290- 796 C-reactive protein is up from 3.4-53.2 days was discussed was pulmonary critical care will continue to monitor patient for 1 more day On 02/18/2021 patient was seen and examined on the medical floor she is alert and oriented 3 in no distress she stated that she is not feeling well and not ready to go home or complaining of cough and shortness of breath she is complaining of abdominal discomfort and constipation otherwise she denies any complaints there is no fever or chills no headache or dizziness no chest pain no nausea or vomiting no diarrhea no blood in the stools no burning with urination no frequency or urgency and no hematuria On 02/19/2021 patient was seen and examined on the medical floor she is alert and oriented 3 in no apparent distress she is complaining of shortness of breath and cough, and mostly abdominal discomfort, otherwise she denies any complaints there is no fever or chills no headache or dizziness no chest pain no nausea or vomiting no diarrhea no blood in the stools no burning with urination no frequency or urgency and no hematuria. On 02/20/2021 patient was seen and examined on the medical floor she is alert and oriented 3 in no distress she is still complaining of abdominal discomfort computed tomography scan of the abdomen and pelvis done last night reviewed patient was started on IV antibiotics Levaquin and Flagyl and surgical consultation was requested with Dr. Muniz Objective - Vital Signs Vital signs: Vital Signs Temp 97.4 F L 02/20/21 09:21 Pulse 66 02/20/21 09:21 Resp 18 02/20/21 09:21 BP 161/83 02/20/21 09:21 Pulse Ox 95 02/20/21 09:21 Intake & Output 02/19/21 02/20/21 02/20/21 18:59 06:59 18:59 Intake Total 600 Balance 600 Intake: Oral 600 Other: Voiding Method Toilet # Voids 3 2 - Exam In general patient is alert and oriented 3 in no apparent distress HEENT head normocephalic and atraumatic Neck is supple no JVD no goiter no lymphadenopathy Chest exam reveals coarse crackles in both lung ayoub with wheezing Cardiac exam reveals regular heart sounds no gallops no murmurs Abdomen is soft nontender no organomegaly with normal bowel sounds Extremity exam reveals no edema no cyanosis or clubbing Neurological examination reveals no gross focal deficit - Labs CBC & Chem 7: 02/20/21 06:00 02/20/21 06:00 Labs: Abnormal Lab Results - Last 24 Hours (Table) 02/19/21 02/19/21 02/20/21 Range/Units 06:23 06:23 06:00 WBC 21.57 H (4.50-10.00) X 10*3/uL RDW 14.8 H (11.5-14.5) % Plt Count 558 H (140-440) X 10*3/uL Plt Count Comment INCREASED A Immature Gran # 0.50 H 0.40 H (0.00-0.04) X 10*3/uL Neutrophils # 24.39 H 17.89 H (1.80-7.70) X 10*3/uL Monocytes # 2.33 H 1.89 H (0.20-1.00) X 10*3/uL Eosinophils # 0.01 L 0 L (0.04-0.35) X 10*3/uL Basophils # 0.12 H (0.00-0.10) X 10*3/uL Lactate Dehydrogenase 301 H (120-246) U/L Assessment and Plan Plan: Acute Covid 19 infection with pneumonia Acute hypoxic respiratory failure Elevated d-dimer CT angiogram negative for pulmonary embolism History of rheumatoid arthritis History of hypertension History of fibromyalgia Acute diverticulitis with evidence of diverticular abscess, patient was started on IV antibiotics Levaquin and Flagyl, surgical consultation was requested At this time patient is admitted to medical floor She is started on oral dexamethasone, subcu Lovenox, IV Remdesevir Pulmonary critical care consultation requested Home medications reviewed and reordered Will follow closely during this admission
[2021-02-20] MEDS: atenoloL 50 MG TAB PO SCH (20:28)
[2021-02-20] MEDS: traMADol 50 MG TAB PO PRN (23:56)
[2021-02-21] MEDS: ASCORBIC ACID 500 MG TAB PO SCH ×2 (08:08→20:21)
[2021-02-21] MEDS: LACTOBACILLUS ACIDOPH & BULGAR 1 EACH PACKET PO SCH ×2 (08:08→20:21)
[2021-02-21] MEDS: ENOXAPARIN 40 MG/0.4 ML SYRINGE SQ SCH (08:08)
[2021-02-21] MEDS: CHOLECALCIFEROL 25 MCG (1000 IU) TABLET PO SCH (08:08)
[2021-02-21] MEDS: ZINC SULFATE 220 MG CAP PO SCH (08:08)
[2021-02-21] MEDS: PANTOPRAZOLE 40 MG TABLET PO SCH (08:08)
[2021-02-21] MEDS: dexAMETHasone 4 MG TAB PO SCH (08:09)
[2021-02-21] MEDS: metroNIDAZOLE-NS PMX 500 MG in SALINE 1 100ML.BAG IVPB SCH ×3 (08:09→23:43)
[2021-02-21] MEDS: THYROID, PORK 30 MG TAB PO SCH (08:09)
[2021-02-21] MEDS: SIMETHICONE 40 MG/0.6 ML DROPS 2,000 MG/30 ML BOTTLE PO SCH ×4 (09:04→23:44)
[2021-02-21 09:13] LABS: Basophils # (A) 0.06 X 10*3/uL (0.00-0.10); Basophils % (A) 0.3 %; Eosinophils # (A) 0 X 10*3/uL (0.04-0.35); Eosinophils % (A) 0 %; HCT 40.7 % (37.2-46.3); HGB 13.4 g/dL (12.0-15.0); Lymphocytes # (A) 0.99 X 10*3/uL (0.90-5.00); Lymphocytes % (A) 4.5 %; MCH 29.9 pg (27.0-32.0); MCHC 32.9 g/dL (32.0-37.0); MCV 90.8 fL (80.0-97.0); Mean Platelet Volume 9.8 fL (9.5-12.2); Monocytes # (A) 2.66 X 10*3/uL (0.20-1.00); Monocytes % (A) 12.2 %; Neutrophils # (A) 17.71 X 10*3/uL (1.80-7.70); Neutrophils % (A) 81.3 %; Platelet Count 520 X 10*3/uL (140-440); RBC 4.48 X 10*6/uL (4.10-5.20); RDW 14.8 % (11.5-14.5)
[2021-02-21 10:00] LABS: African American GFR (CKD) 94.2 (60.0-200.0); Albumin 2.8 g/dL (3.80-4.90); Albumin/Globulin Ratio 1.17 (1.60-3.17); Anion Gap 7.5 mmol/L (4.00-12.00); BUN/Creat Ratio 24.29 Ratio (12.00-20.00); Calcium 8.2 mg/dL (8.7-10.3); Carbon Dioxide 29.5 mmol/L (21.6-31.8); Globulin 2.4 g/dL (1.6-3.3); Non-African American GFR(CKD) 81.3 (60.0-200.0); Potassium 4.7 mmol/L (3.5-5.5); Total Protein 5.2 g/dL (6.2-8.2)
[2021-02-21] MEDS: LEVOFLOXACIN 500MG-D5W PMX 500 MG in DEXTROSE/WATER 1 100ML.BAG IVPB SCH (10:12)
--- NOTE | 2021-02-21 11:29 | P.PN ---
<Jennifer Domingo - Last Filed: 02/21/21 11:19> Subjective Progress Note Date: 02/21/21 CHIEF COMPLAINT: Diverticular abscess HISTORY OF PRESENT ILLNESS: Patient is postop day #1 status post sigmoid colectomy with end colostomy and drainage of pelvic abscess. Patient is complaining of gas pains. Simethicone drops have been added. Patient denies any nausea or vomiting. No output per ostomy. Afebrile. Currently on a clear liquid diet. WBC 21.80 Hgb 13.4 RIANA drain serosanguineous output of 90 bowel PHYSICAL EXAM: VITAL SIGNS: Reviewed. GENERAL: Well-developed in no acute distress. HEENT: No sclera icterus. Extraocular movements grossly intact. Moist buccal mucosa. Head is atraumatic, normocephalic. ABDOMEN: Soft. Nondistended. Incisional dressing clean dry and intact. Ostomy on the left of the abdomen with pink stoma. Service sanguinous drainage in the bag. RIANA drain in place NEUROLOGIC: Alert and oriented. Cranial nerves II through XII grossly intact. ASSESSMENT: 1. Diverticular abscess status post sigmoid colectomy with end colostomy and drainage of pelvic abscess 2. Covid 19 pneumonia PLAN: -Continue clear liquid diet -Simethicone drops added for gas pains -Continue pain medication as needed -Continue antibiotics -Agree with ID consult -Continue Covid 19 treatment -Encouraged patient to use incentive spirometer and to ambulate -GI prophylaxis Protonix and DVT prophylaxis Lovenox Physician Rn Case Management note has been reviewed by physician. Signing provider agrees with the documented findings, assessment, and plan of care. Objective - Vital Signs Vital signs: Vital Signs Temp 97.5 F L 02/21/21 10:06 Pulse 52 L 02/21/21 10:06 Resp 13 02/21/21 10:06 BP 129/68 02/21/21 10:06 Pulse Ox 96 02/21/21 10:06 Intake & Output 02/20/21 02/21/21 02/21/21 18:59 06:59 18:59 Intake Total 1000 Output Total 720 620 Balance 280 -620 Weight 61.235 kg Intake: IV 1000 Output: Drainage 20 70 Right Abdomen 20 70 Urine 550 550 Estimated Blood Loss 150 Other: Voiding Method Indwelling Catheter Indwelling Catheter Indwelling Catheter - Labs CBC & Chem 7: 02/21/21 05:56 02/21/21 05:56 Labs: Abnormal Lab Results - Last 24 Hours (Table) 02/21/21 02/21/21 Range/Units 05:56 05:56 WBC 21.80 H (4.50-10.00) X 10*3/uL RDW 14.8 H (11.5-14.5) % Plt Count 520 H (140-440) X 10*3/uL Immature Gran # 0.38 H (0.00-0.04) X 10*3/uL Neutrophils # 17.71 H (1.80-7.70) X 10*3/uL Monocytes # 2.66 H (0.20-1.00) X 10*3/uL Eosinophils # 0 L (0.04-0.35) X 10*3/uL BUN/Creatinine Ratio 24.29 H (12.00-20.00) Ratio Glucose 135 H (70-110) mg/dL Calcium 8.2 L (8.7-10.3) mg/dL Total Protein 5.2 L (6.2-8.2) g/dL Albumin 2.80 L (3.80-4.90) g/dL Albumin/Globulin Ratio 1.17 L (1.60-3.17) g/dL Microbiology - Last 24 Hours (Table) 02/20/21 16:16 Anaerobic Culture - Preliminary Groin 02/20/21 16:16 Wound Culture - Preliminary Groin <Leon Muniz - Last Filed: 02/21/21 12:01> Subjective As above. Patient doing better today. Says the pain she had preoperatively is much improved. Having surgical site discomfort. Labs noted. Continue broad- spectrum antibiotics. Increase activity level. Continue clear liquids. Objective - Vital Signs Vital signs: Vital Signs Temp 97.5 F L 02/21/21 10:06 Pulse 52 L 02/21/21 10:06 Resp 13 02/21/21 10:06 BP 129/68 02/21/21 10:06 Pulse Ox 96 02/21/21 10:06 Intake & Output 02/20/21 02/21/21 02/21/21 18:59 06:59 18:59 Intake Total 1000 Output Total 720 620 Balance 280 -620 Weight 61.235 kg Intake: IV 1000 Output: Drainage 20 70 Right Abdomen 20 70 Urine 550 550 Estimated Blood Loss 150 Other: Voiding Method Indwelling Catheter Indwelling Catheter Indwelling Catheter - Labs CBC & Chem 7: 02/21/21 05:56 02/21/21 05:56 Labs: Abnormal Lab Results - Last 24 Hours (Table) 02/21/21 02/21/21 Range/Units 05:56 05:56 WBC 21.80 H (4.50-10.00) X 10*3/uL RDW 14.8 H (11.5-14.5) % Plt Count 520 H (140-440) X 10*3/uL Immature Gran # 0.38 H (0.00-0.04) X 10*3/uL Neutrophils # 17.71 H (1.80-7.70) X 10*3/uL Monocytes # 2.66 H (0.20-1.00) X 10*3/uL Eosinophils # 0 L (0.04-0.35) X 10*3/uL BUN/Creatinine Ratio 24.29 H (12.00-20.00) Ratio Glucose 135 H (70-110) mg/dL Calcium 8.2 L (8.7-10.3) mg/dL Total Protein 5.2 L (6.2-8.2) g/dL Albumin 2.80 L (3.80-4.90) g/dL Albumin/Globulin Ratio 1.17 L (1.60-3.17) g/dL Microbiology - Last 24 Hours (Table) 02/20/21 16:16 Anaerobic Culture - Preliminary Groin 02/20/21 16:16 Wound Culture - Preliminary Groin Assessment and Plan (1) Diverticular disease of intestine with perforation and abscess Current Visit: Yes Status: Acute Code(s): K57.80 - DVTRCLI OF INTEST, PART UNSP, W PERF AND ABSCESS W/O BLEED SNOMED Code(s): 4104451378188
--- NOTE | 2021-02-21 11:59 | P.PN ---
Subjective Progress Note Date: 02/21/21 Principal diagnosis: Abdominal pain This is a pleasant 80-year-old female who was admitted to the hospital with Covid 19 pneumonia. The patient had stated she has been having abdominal pain on and off for the last few months duration and has been following with her PCP. She reported increased abdominal pain while in the hospital and underwent a CT of the abdomen which shows large complex pelvic mass consistent with peridiverticular abscess. Extensive sigmoid diverticulosis. Yesterday she underwent sigmoid colectomy with end colostomy, drainage of the pelvic abscess by Dr. Muniz. Today she states she is feeling a little bit better, has some abdominal tenderness. States she was been very gassy feeling, however unable to pass flatus. She is on a clear liquid diet and tolerating in small amounts. She had no acute changes through the night, denies any fever or chills, nausea or vomiting. Objective - Vital Signs Vital signs: Vital Signs Temp 97.5 F L 02/21/21 10:06 Pulse 52 L 02/21/21 10:06 Resp 13 02/21/21 10:06 BP 129/68 02/21/21 10:06 Pulse Ox 96 02/21/21 10:06 Intake & Output 02/20/21 02/21/21 02/21/21 18:59 06:59 18:59 Intake Total 1000 Output Total 720 620 Balance 280 -620 Weight 61.235 kg Intake: IV 1000 Output: Drainage 20 70 Right Abdomen 20 70 Urine 550 550 Estimated Blood Loss 150 Other: Voiding Method Indwelling Catheter Indwelling Catheter Indwelling Catheter - Exam General appearance: The patient is alert, oriented, appears in no acute distress. HET: Head is normocephalic and atraumatic. Conjunctiva pink. Sclera anicteric. Neck: Supple without lymphadenopathy. Abdomen: Soft, surgical tenderness, RIANA drain with serosanguineous drainage, ostomy left abdomen. No guarding or rigidity. Extremities: Normal skin color and turgor. No pedal edema Skin: No rashes, no jaundice Neurological: No focal deficits. Alert and oriented 3. - Labs CBC & Chem 7: 02/21/21 05:56 02/21/21 05:56 Labs: Abnormal Lab Results - Last 24 Hours (Table) 02/21/21 02/21/21 Range/Units 05:56 05:56 WBC 21.80 H (4.50-10.00) X 10*3/uL RDW 14.8 H (11.5-14.5) % Plt Count 520 H (140-440) X 10*3/uL Immature Gran # 0.38 H (0.00-0.04) X 10*3/uL Neutrophils # 17.71 H (1.80-7.70) X 10*3/uL Monocytes # 2.66 H (0.20-1.00) X 10*3/uL Eosinophils # 0 L (0.04-0.35) X 10*3/uL BUN/Creatinine Ratio 24.29 H (12.00-20.00) Ratio Glucose 135 H (70-110) mg/dL Calcium 8.2 L (8.7-10.3) mg/dL Total Protein 5.2 L (6.2-8.2) g/dL Albumin 2.80 L (3.80-4.90) g/dL Albumin/Globulin Ratio 1.17 L (1.60-3.17) g/dL Microbiology - Last 24 Hours (Table) 02/20/21 16:16 Anaerobic Culture - Preliminary Groin 02/20/21 16:16 Wound Culture - Preliminary Groin Assessment and Plan (1) Abdominal pain Narrative/Plan: This is a pleasant 80-year-old white female who was admitted for coping 19 infection with pneumonia. She has been complaining of intermittent abdominal pain for the last several months duration and has been using probiotics and vitamins. During her hospitalization she has had increase in abdominal pain, therefore a CT of the abdomen and pelvis was completed. The computed tomography scan findings included a large peridiverticular abscess with dense of sigmoid diverticulosis. She states her last colonoscopy was approximately 2-3 years ago, with normal findings. His denied any rectal bleeding or blood in her stool. She denies any nausea or vomiting. Current Visit: Yes Status: Acute Code(s): R10.9 - UNSPECIFIED ABDOMINAL PAIN SNOMED Code(s): 93193750 (2) COVID-19 Narrative/Plan: Pulmonology and primary medicine following patient closely, symptoms have improved. Current Visit: Yes Status: Acute Code(s): U07.1 - COVID-19 SNOMED Code(s): 630022813 (3) Diverticular disease of intestine with perforation and abscess Narrative/Plan: Surgical services is on consult, plan is to proceed with exploratory laparotomy, drainage of the pelvic abscess, possible sigmoid colectomy, possible ostomy. The patient underwent a sigmoid colectomy with end colostomy, drainage of the pelvic abscess yesterday with Dr. Muniz Current Visit: Yes Status: Acute Code(s): K57.80 - DVTRCLI OF INTEST, PART UNSP, W PERF AND ABSCESS W/O BLEED SNOMED Code(s): 3829223568057 Plan: 1. Symptomatic and supportive care 2. Continue Levaquin 500 milligrams IV every 24 hours and Flagyl 500 mg IV every 8 hours ordered 3. Repeat CBC 4. Surgical services on consult, status post sigmoid colectomy with end colostomy and drainage of the pelvic abscess 6. Diet per surgical services Thank you for this consultation, we will continue to follow closely Dr. Bhargavi Pham I agree with the dictator's note, documented as a scribe by Albina Birmingham.
[2021-02-21] MEDS: traMADol 50 MG TAB PO PRN ×2 (12:26→18:00)
--- NOTE | 2021-02-21 18:07 | P.PN ---
Subjective Progress Note Date: 02/21/21 Yenni Reese, 80-year-old female, who presented to [facility] emergency room with a chief complaint of cough generalized weakness and muscle ache, patient was seen in the emergency room for days prior to this admission at that time she was diagnosed with Covid 19, she was started on dexamethasone and was discharged home patient was monitoring her oxygen level and her pulse ox was ranging between 87 and 92, her symptoms started to worsen and she decided to return to emergency room. Patient was evaluated again in the emergency room vital examination reveals a temperature of 99.7 pulse 70 respiration 18 blood pressure 147/71 pulse ox 95% on room air white blood count is 6.5 hemoglobin 13.8 platelet count 280 d-dimer 0.93 sodium 135 potassium 4.0 chloride 99 LDH 900 C-reactive protein 135 Procalcitonin 0.83 chest x-ray done in the emergency room revealed increased bilateral interstitial opacities concerning for infection, CT angiogram of the chest done in the emergency room was negative for pulmonary embolism however it revealed bilateral diffuse patchy airspace opacities 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 Past medical history is significant for history of hypertension, history of rheumatoid arthritis, and history of fibromyalgia no previous history of lung disease no previous history of smoking On 02/14/2021 patient was seen and examined on the medical floor she is alert and oriented 3 in no apparent distress she stated that her cough and shortness of breath has improved there is no fever or chills no headache or dizziness no chest pain no nausea or vomiting no abdominal pain no diarrhea no blood in the stools no burning with urination no frequency or urgency and no hematuria On 02/15/2021 patient was seen and examined on the medical floor she is alert and oriented 3 in no apparent distress she is complaining of shortness of breath and cough otherwise she denies any complaints there is no fever or chills no headache or dizziness no chest pain no nausea or vomiting no abdominal pain no diarrhea no blood in the stools no burning with urination no frequency or urgency and no hematuria On 02/16/2021 patient was seen and examined on the medical floor she is alert and oriented in no distress she is feeling better she is still having shortness of breath with activity and some cough otherwise she denies any complaints there is no fever or chills no headache or dizziness no chest pain no nausea or vomiting no abdominal pain no diarrhea no blood in the stools no burning with urination no frequency or urgency and no hematuria On 02/17/2021 patient was seen and examined on the medical floor she is alert and oriented 3 in no apparent distress feeling slightly worse today with more fatigue and shortness of breath, white blood count went up from 12.5-23.5 d- dimer is up from 0.75-1.15 and inflammatory markers are up LDH is up from 290- 796 C-reactive protein is up from 3.4-53.2 days was discussed was pulmonary critical care will continue to monitor patient for 1 more day On 02/18/2021 patient was seen and examined on the medical floor she is alert and oriented 3 in no distress she stated that she is not feeling well and not ready to go home or complaining of cough and shortness of breath she is complaining of abdominal discomfort and constipation otherwise she denies any complaints there is no fever or chills no headache or dizziness no chest pain no nausea or vomiting no diarrhea no blood in the stools no burning with urination no frequency or urgency and no hematuria On 02/19/2021 patient was seen and examined on the medical floor she is alert and oriented 3 in no apparent distress she is complaining of shortness of breath and cough, and mostly abdominal discomfort, otherwise she denies any complaints there is no fever or chills no headache or dizziness no chest pain no nausea or vomiting no diarrhea no blood in the stools no burning with urination no frequency or urgency and no hematuria. On 02/20/2021 patient was seen and examined on the medical floor she is alert and oriented 3 in no distress she is still complaining of abdominal discomfort computed tomography scan of the abdomen and pelvis done last night reviewed patient was started on IV antibiotics Levaquin and Flagyl and surgical consultation was requested with Dr. Muniz On 02/21/2021 patient was seen and examined on the medical floor she is alert and oriented 3 in no distress she is still complaining of abdominal discomfort computed tomography scan of the abdomen and pelvis done last night reviewed patient was started on IV antibiotics Levaquin and Flagyl and surgical consultat ion was requested with Dr. Muniz, patient underwent sigmoid colectomy with drainage of pelvic abscess yesterday and today she is doing better there is no fever or chills no headache or dizziness no chest pain no shortness of breath no cough no nausea or vomiting no abdominal pain no diarrhea and no urinary symptoms Objective - Vital Signs Vital signs: Vital Signs Temp 97.5 F L 02/21/21 10:06 Pulse 52 L 02/21/21 10:06 Resp 13 02/21/21 10:06 BP 129/68 02/21/21 10:06 Pulse Ox 96 02/21/21 10:06 Intake & Output 02/20/21 02/21/21 02/21/21 18:59 06:59 18:59 Intake Total 1000 Output Total 720 620 Balance 280 -620 Weight 61.235 kg Intake: IV 1000 Output: Drainage 20 70 Right Abdomen 20 70 Urine 550 550 Estimated Blood Loss 150 Other: Voiding Method Indwelling Catheter Indwelling Catheter Indwelling Catheter - Exam In general patient is alert and oriented 3 in no apparent distress HEENT head normocephalic and atraumatic Neck is supple no JVD no goiter no lymphadenopathy Chest exam reveals coarse crackles in both lung ayoub with wheezing Cardiac exam reveals regular heart sounds no gallops no murmurs Abdomen is soft nontender no organomegaly with normal bowel sounds Extremity exam reveals no edema no cyanosis or clubbing Neurological examination reveals no gross focal deficit - Labs CBC & Chem 7: 02/21/21 05:56 02/21/21 05:56 Labs: Abnormal Lab Results - Last 24 Hours (Table) 02/21/21 02/21/21 Range/Units 05:56 05:56 WBC 21.80 H (4.50-10.00) X 10*3/uL RDW 14.8 H (11.5-14.5) % Plt Count 520 H (140-440) X 10*3/uL Immature Gran # 0.38 H (0.00-0.04) X 10*3/uL Neutrophils # 17.71 H (1.80-7.70) X 10*3/uL Monocytes # 2.66 H (0.20-1.00) X 10*3/uL Eosinophils # 0 L (0.04-0.35) X 10*3/uL BUN/Creatinine Ratio 24.29 H (12.00-20.00) Ratio Glucose 135 H (70-110) mg/dL Calcium 8.2 L (8.7-10.3) mg/dL Total Protein 5.2 L (6.2-8.2) g/dL Albumin 2.80 L (3.80-4.90) g/dL Albumin/Globulin Ratio 1.17 L (1.60-3.17) g/dL Microbiology - Last 24 Hours (Table) 02/20/21 16:16 Anaerobic Culture - Preliminary Groin 02/20/21 16:16 Wound Culture - Preliminary Groin Assessment and Plan Plan: Acute Covid 19 infection with pneumonia Acute hypoxic respiratory failure Elevated d-dimer CT angiogram negative for pulmonary embolism History of rheumatoid arthritis History of hypertension History of fibromyalgia Acute diverticulitis with evidence of diverticular abscess, patient was started on IV antibiotics Levaquin and Flagyl, surgical consultation was requested At this time patient is admitted to medical floor She is started on oral dexamethasone, subcu Lovenox, IV Remdesevir Pulmonary critical care consultation requested Home medications reviewed and reordered Will follow closely during this admission
[2021-02-21] MEDS: atenoloL 50 MG TAB PO SCH (20:20)
[2021-02-21] MEDS: MELATONIN 5 MG TABLET PO SCH (20:21)
[2021-02-21] MEDS: PIPERACILLIN-TAZOBACTAM 3.375 GM in SODIUM CHLORIDE 0.9% 100 ML IVPB SCH (23:43)
--- NOTE | 2021-02-22 06:25 | CONS ---
CONSULTATION DATE OF SERVICE: 02/21/2021 REASON FOR CONSULTATION: Abdominal abscess, perforated diverticulitis. HISTORY OF PRESENT ILLNESS: The patient is an 80-year-old female who presented to [facility] more than a week ago on 02/12/2021 for evaluation of increasing shortness of breath and cough in this patient who has been diagnosed with acute COVID-19 pneumonia. Patient has been treated with remdesivir along with steroids. On the , the patient did develop abdominal pain for which the patient did have further workup. His CT scan was completed which did show evidence of a large complex pelvic mass consistent with peridiverticular abscess and extensive sigmoid diverticulosis. Patient subsequent has been evaluated by General Surgery. Patient was taken to the OR last evening and the patient is status post laparotomy and drainage of the abscess and sigmoid colectomy. Culture has been obtained which is currently pending. The patient was treated with Levaquin and Flagyl. Infectious Disease was consulted for further management of antibiotic therapy. The patient at time of my evaluation this morning has been afebrile. The patient is complaining of some gas pain, more of a bloating feeling intensity 3 to 4/10, no radiation. The patient has nausea but no vomiting. Denies any chest pain, shortness of breath or cough. No output in the colostomy bag. Feeling slightly better. REVIEW OF SYSTEMS: Positive points have been mentioned in HPI. Rest of systems are negative. PAST MEDICAL HISTORY: Fibromyalgia, hypertension, pneumonia, rheumatoid arthritis. PAST SURGICAL HISTORY: Back surgery, bladder surgery, colonoscopy. SOCIAL HISTORY: No history of smoking. Occasionally drinks. No drug use. FAMILY HISTORY: Mother with history of bone cancer. ALLERGIES: DIPHENHYDRAMINE. MEDICATIONS: The patient is currently on Tylenol, Ventolin, vitamin C, Tenormin, vitamin D3, dexamethasone, Lovenox, Dilaudid, Advil, Lactinex, Levaquin, Flagyl, Zofran, Protonix, Ultram and zinc sulfate. PHYSICAL EXAMINATION: VITAL SIGNS: Blood pressure 132/67 with a pulse of 58, temperature 96.6, she is 97% on 1 L nasal cannula. GENERAL DESCRIPTION: Patient is an elderly female lying in bed in no distress. No tachypnea or accessory muscles of respiration use. HEENT: Examination shows no pallor or scleral icterus. Oral mucous membrane is dry. NECK: Trachea central, no thyromegaly. LUNGS: Unlabored breathing, decreased intensity, no wheeze. HEART: S1-S2, regular rate and rhythm. ABDOMEN: Soft, mild tenderness. No guarding or rigidity. EXTREMITIES: No edema of the feet. SKIN: No rash or mass palpable. NEUROLOGICAL: Patient is awake, alert, oriented times three. Mood and affect normal. LABS: Hemoglobin 13.4, white count 1.80, BUN of 17, creatinine 0.7, and electrolytes normal. Blood culture so far pending. Abdominal culture is pending. DIAGNOSTIC IMPRESSION: Patient in the hospital with acute COVID-19 pneumonia, subsequent developing abdominal pain in this patient who is status post laparotomy, right colectomy and diverting colostomy, with drainage of the abscess. Will need to cover for the enteric gram- negative both aerobes and anaerobes. PLAN: 1. Discontinue Levaquin. 2. Start the patient on Zosyn 3.375 grams q.8 hours. 3. We will follow her clinical condition and culture to further adjust medication if needed. Thank you for this consultation. Will follow this patient along with you. MMODL / IJN: [id number] /
[2021-02-22] MEDS: ALBUTEROL HFA INHALER INHALATION PRN (07:46)
[2021-02-22] MEDS: CHOLECALCIFEROL 25 MCG (1000 IU) TABLET PO SCH (08:18)
[2021-02-22] MEDS: traMADol 50 MG TAB PO PRN ×3 (08:19→23:44)
[2021-02-22] MEDS: PANTOPRAZOLE 40 MG TABLET PO SCH (08:19)
[2021-02-22] MEDS: dexAMETHasone 4 MG TAB PO SCH (08:19)
[2021-02-22] MEDS: metroNIDAZOLE-NS PMX 500 MG in SALINE 1 100ML.BAG IVPB SCH ×2 (08:19→15:19)
[2021-02-22] MEDS: ZINC SULFATE 220 MG CAP PO SCH (08:19)
[2021-02-22] MEDS: ASCORBIC ACID 500 MG TAB PO SCH ×2 (08:19→21:43)
[2021-02-22] MEDS: PIPERACILLIN-TAZOBACTAM 3.375 GM in SODIUM CHLORIDE 0.9% 100 ML IVPB SCH ×3 (08:19→23:40)
[2021-02-22] MEDS: SIMETHICONE 40 MG/0.6 ML DROPS 2,000 MG/30 ML BOTTLE PO SCH ×4 (08:27→21:44)
[2021-02-22] MEDS: LACTOBACILLUS ACIDOPH & BULGAR 1 EACH PACKET PO SCH ×2 (08:28→21:42)
[2021-02-22] MEDS: THYROID, PORK 30 MG TAB PO SCH (09:40)
[2021-02-22] MEDS: ENOXAPARIN 40 MG/0.4 ML SYRINGE SQ SCH (09:40)
[2021-02-22 11:48] LABS: Basophils # (A) 0.1 k/uL (0-0.2); Basophils % (A) 1 %; Eosinophils % (A) 0 %; HCT 42.6 % (34.0-46.0); HGB 13.5 gm/dL (11.4-16.0); Lymphocytes # (A) 1.6 k/uL (1.0-4.8); Lymphocytes % (A) 10 %; MCH 29.4 pg (25.0-35.0); MCHC 31.6 g/dL (31.0-37.0); MCV 92.9 fL (80.0-100.0); Mean Platelet Volume 8.2; Monocytes # (A) 1.2 k/uL (0-1.0); Monocytes % (A) 7 %; Neutrophils # (A) 12.7 k/uL (1.3-7.7); Neutrophils % (A) 81 %; Platelet Count 515 k/uL (150-450); RBC 4.58 m/uL (3.80-5.40); RDW 14.5 % (11.5-15.5); WBC 15.7 k/uL (3.8-10.6)
[2021-02-22 11:53] LABS: ALT 16 U/L (4-34); AST 26 U/L (14-36); African American GFR (CKD) >90 (>60 ml/min/1.73 sqM); Albumin 2.4 g/dL (3.5-5.0); Albumin/Globulin Ratio 0.8; Alkaline Phosphatase 65 U/L (38-126); Anion Gap 4 mmol/L; Blood Urea Nitrogen 16 mg/dL (7-17); Carbon Dioxide 29 mmol/L (22-30); Chloride 103 mmol/L (98-107); Globulin 2.9 g/dL; Glucose 110 mg/dL (74-99); Non-African American GFR(CKD) 82 (>60 ml/min/1.73 sqM); Potassium 4.8 mmol/L (3.5-5.1); Sodium 136 mmol/L (137-145); Total Bilirubin 0.8 mg/dL (0.2-1.3); Total Protein 5.3 g/dL (6.3-8.2)
--- NOTE | 2021-02-22 15:29 | P.PN ---
Subjective Progress Note Date: 02/22/21 CHIEF COMPLAINT: Diverticular abscess HISTORY OF PRESENT ILLNESS: Patient is postop day #2 status post sigmoid colectomy with end colostomy and drainage of pelvic abscess. Patient reports that her pain is controlled. She denies any nausea or vomiting. She has been up and ambulating. No output per ostomy. Afebrile. Currently on a clear liquid diet. WBC is trended down from 21.80 to 15.7 Hgb 13.5 RIANA drain sanguineous output. Patient seen by infectious disease PHYSICAL EXAM: VITAL SIGNS: Reviewed. GENERAL: Well-developed in no acute distress. HEENT: No sclera icterus. Extraocular movements grossly intact. Moist buccal mucosa. Head is atraumatic, normocephalic. ABDOMEN: Soft. Nondistended. Incisional dressing clean dry and intact. Ostomy on the left of the abdomen with pink stoma. serosanguinous drainage in the ostomy bag. RIANA drain in place NEUROLOGIC: Alert and oriented. Cranial nerves II through XII grossly intact. ASSESSMENT: 1. Diverticular abscess status post sigmoid colectomy with end colostomy and drainage of pelvic abscess 2. Covid 19 pneumonia PLAN: -Continue clear liquid diet -continue Simethicone drops for gas pains -Continue pain medication as needed -Continue antibiotics -Continue Covid 19 treatment -Encouraged patient to use incentive spirometer and to ambulate -GI prophylaxis Protonix and DVT prophylaxis Lovenox Physician Cotton Tier note has been reviewed by physician. Signing provider agrees with the documented findings, assessment, and plan of care. Objective - Vital Signs Vital signs: Vital Signs Temp 97.8 F 02/22/21 13:59 Pulse 58 L 02/22/21 13:59 Resp 16 02/22/21 13:59 BP 133/61 02/22/21 13:59 Pulse Ox 94 L 02/22/21 13:59 Intake & Output 02/21/21 02/22/21 02/22/21 18:59 06:59 18:59 Output Total 365 850 Balance -365 -850 Output: Drainage 65 50 Right Abdomen 65 50 Urine 300 800 Other: Voiding Method Indwelling Catheter Indwelling Catheter Indwelling Catheter - Labs CBC & Chem 7: 02/22/21 09:03 02/22/21 09:03 Labs: Abnormal Lab Results - Last 24 Hours (Table) 02/22/21 02/22/21 Range/Units 09:03 09:03 WBC 15.7 H (3.8-10.6) k/uL Plt Count 515 H (150-450) k/uL Neutrophils # 12.7 H (1.3-7.7) k/uL Monocytes # 1.2 H (0-1.0) k/uL Sodium 136 L (137-145) mmol/L Glucose 110 H (74-99) mg/dL Calcium 8.0 L (8.4-10.2) mg/dL Total Protein 5.3 L (6.3-8.2) g/dL Albumin 2.4 L (3.5-5.0) g/dL Microbiology - Last 24 Hours (Table) 02/20/21 16:16 Gram Stain - Preliminary Groin Wound Culture - Preliminary Estephania albicans
--- NOTE | 2021-02-22 18:52 | P.PN ---
Subjective Progress Note Date: 02/22/21 Yenni Reese, 80-year-old female, who presented to [facility] emergency room with a chief complaint of cough generalized weakness and muscle ache, patient was seen in the emergency room for days prior to this admission at that time she was diagnosed with Covid 19, she was started on dexamethasone and was discharged home patient was monitoring her oxygen level and her pulse ox was ranging between 87 and 92, her symptoms started to worsen and she decided to return to emergency room. Patient was evaluated again in the emergency room vital examination reveals a temperature of 99.7 pulse 70 respiration 18 blood pressure 147/71 pulse ox 95% on room air white blood count is 6.5 hemoglobin 13.8 platelet count 280 d-dimer 0.93 sodium 135 potassium 4.0 chloride 99 LDH 900 C-reactive protein 135 Procalcitonin 0.83 chest x-ray done in the emergency room revealed increased bilateral interstitial opacities concerning for infection, CT angiogram of the chest done in the emergency room was negative for pulmonary embolism however it revealed bilateral diffuse patchy airspace opacities contrast staff assistant was 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 Past medical history is significant for history of hypertension, history of rheumatoid arthritis, and history of fibromyalgia no previous history of lung disease no previous history of smoking On 02/14/2021 patient was seen and examined on the medical floor she is alert and oriented 3 in no apparent distress she stated that her cough and shortness of breath has improved there is no fever or chills no headache or dizziness no chest pain no nausea or vomiting no abdominal pain no diarrhea no blood in the stools no burning with urination no frequency or urgency and no hematuria On 02/15/2021 patient was seen and examined on the medical floor she is alert and oriented 3 in no apparent distress she is complaining of shortness of breath and cough otherwise she denies any complaints there is no fever or chills no headache or dizziness no chest pain no nausea or vomiting no abdominal pain no diarrhea no blood in the stools no burning with urination no frequency or urgency and no hematuria On 02/16/2021 patient was seen and examined on the medical floor she is alert and oriented in no distress she is feeling better she is still having shortness of breath with activity and some cough otherwise she denies any complaints there is no fever or chills no headache or dizziness no chest pain no nausea or vomiting no abdominal pain no diarrhea no blood in the stools no burning with urination no frequency or urgency and no hematuria On 02/17/2021 patient was seen and examined on the medical floor she is alert and oriented 3 in no apparent distress feeling slightly worse today with more fatigue and shortness of breath, white blood count went up from 12.5-23.5 d- dimer is up from 0.75-1.15 and inflammatory markers are up LDH is up from 290- 796 C-reactive protein is up from 3.4-53.2 days was discussed was pulmonary critical care will continue to monitor patient for 1 more day On 02/18/2021 patient was seen and examined on the medical floor she is alert and oriented 3 in no distress she stated that she is not feeling well and not ready to go home or complaining of cough and shortness of breath she is complaining of abdominal discomfort and constipation otherwise she denies any complaints there is no fever or chills no headache or dizziness no chest pain no nausea or vomiting no diarrhea no blood in the stools no burning with urination no frequency or urgency and no hematuria On 02/19/2021 patient was seen and examined on the medical floor she is alert and oriented 3 in no apparent distress she is complaining of shortness of breath and cough, and mostly abdominal discomfort, otherwise she denies any complaints there is no fever or chills no headache or dizziness no chest pain no nausea or vomiting no diarrhea no blood in the stools no burning with urination no frequency or urgency and no hematuria. On 02/20/2021 patient was seen and examined on the medical floor she is alert and oriented 3 in no distress she is still complaining of abdominal discomfort computed tomography scan of the abdomen and pelvis done last night reviewed patient was started on IV antibiotics Levaquin and Flagyl and surgical consultation was requested with Dr. Muniz On 02/21/2021 patient was seen and examined on the medical floor she is alert and oriented 3 in no distress she is still complaining of abdominal discomfort computed tomography scan of the abdomen and pelvis done last night reviewed patient was started on IV antibiotics Levaquin and Flagyl and surgical consultat ion was requested with Dr. Muniz, patient underwent sigmoid colectomy with drainage of pelvic abscess yesterday and today she is doing better there is no fever or chills no headache or dizziness no chest pain no shortness of breath no cough no nausea or vomiting no abdominal pain no diarrhea and no urinary symptoms On 02/22/2021 patient was seen and examined on the medical floor she is alert and oriented 3 in no apparent distress there is no fever or chills no headache or dizziness no chest pain no shortness of breath no cough no nausea or vomiting no abdominal pain no diarrhea no blood in the stools no burning with urination no frequency or urgency and no hematuria Objective - Vital Signs Vital signs: Vital Signs Temp 97.5 F L 02/22/21 05:57 Pulse 45 L 02/22/21 05:57 Resp 16 02/22/21 05:57 BP 153/71 02/22/21 05:57 Pulse Ox 92 L 02/22/21 05:57 Intake & Output 02/21/21 02/22/21 02/22/21 18:59 06:59 18:59 Output Total 365 850 Balance -365 -850 Output: Drainage 65 50 Right Abdomen 65 50 Urine 300 800 Other: Voiding Method Indwelling Catheter Indwelling Catheter - Exam In general patient is alert and oriented 3 in no apparent distress HEENT head normocephalic and atraumatic Neck is supple no JVD no goiter no lymphadenopathy Chest exam reveals coarse crackles in both lung ayoub with wheezing Cardiac exam reveals regular heart sounds no gallops no murmurs Abdomen is soft nontender no organomegaly with normal bowel sounds Extremity exam reveals no edema no cyanosis or clubbing Neurological examination reveals no gross focal deficit - Labs CBC & Chem 7: 02/22/21 09:03 02/22/21 09:03 Labs: Abnormal Lab Results - Last 24 Hours (Table) 02/21/21 02/21/21 Range/Units 05:56 05:56 WBC 21.80 H (4.50-10.00) X 10*3/uL RDW 14.8 H (11.5-14.5) % Plt Count 520 H (140-440) X 10*3/uL Immature Gran # 0.38 H (0.00-0.04) X 10*3/uL Neutrophils # 17.71 H (1.80-7.70) X 10*3/uL Monocytes # 2.66 H (0.20-1.00) X 10*3/uL Eosinophils # 0 L (0.04-0.35) X 10*3/uL BUN/Creatinine Ratio 24.29 H (12.00-20.00) Ratio Glucose 135 H (70-110) mg/dL Calcium 8.2 L (8.7-10.3) mg/dL Total Protein 5.2 L (6.2-8.2) g/dL Albumin 2.80 L (3.80-4.90) g/dL Albumin/Globulin Ratio 1.17 L (1.60-3.17) g/dL Microbiology - Last 24 Hours (Table) 02/20/21 16:16 Gram Stain - Preliminary Groin Wound Culture - Preliminary 02/20/21 16:16 Anaerobic Culture - Preliminary Groin Assessment and Plan Plan: Acute Covid 19 infection with pneumonia Acute hypoxic respiratory failure Elevated d-dimer CT angiogram negative for pulmonary embolism History of rheumatoid arthritis History of hypertension History of fibromyalgia Acute diverticulitis with evidence of diverticular abscess, patient was started on IV antibiotics Levaquin and Flagyl, surgical consultation was requested At this time patient is admitted to medical floor She is started on oral dexamethasone, subcu Lovenox, IV Remdesevir Pulmonary critical care consultation requested Home medications reviewed and reordered Will follow closely during this admission
[2021-02-22] MEDS: atenoloL 50 MG TAB PO SCH (21:43)
[2021-02-22] MEDS: MELATONIN 5 MG TABLET PO SCH (21:45)
[2021-02-22] MEDS ORDERED: FLUCONAZOLE 100 MG TAB PO ONE (23:00)
--- NOTE | 2021-02-22 23:25 | PN ---
PROGRESS NOTE DATE OF SERVICE: 02/22/2021 REASON FOR FOLLOWUP: Perforated diverticulitis. INTERVAL HISTORY: The patient is currently afebrile. Patient is breathing comfortably. The patient denies having any chest pain. No shortness of breath or cough. Abdominal pain has improved. No nausea, no vomiting. No . PHYSICAL EXAMINATION: Blood pressure 137/74, pulse of 64, temperature 98.4. He is 95% on room air. General description: The patient is an elderly female up in the chair in no distress. Respiratory system: Unlabored breathing, decreased intensity of breath sounds. No wheeze. HEART: S1, S2. Regular rate and rhythm. ABDOMEN: Soft, mildly tender. No guarding. No rigidity. LABS: Hemoglobin 13.5, white count 15.7, BUN of 16, creatinine 0.69. Abdominal cultures with Estephania albicans. DIAGNOSTIC IMPRESSION AND PLAN: Patient with abdominal abscess from perforated diverticulitis status post diverting colostomy. Abdominal culture now showing Estephania albicans. We will add Diflucan to her antibiotic regimen of Zosyn and continue supportive care. MMODL / IJN: [id number] /
[2021-02-23] MEDS: ASCORBIC ACID 500 MG TAB PO SCH ×2 (08:14→21:23)
[2021-02-23] MEDS: CHOLECALCIFEROL 25 MCG (1000 IU) TABLET PO SCH (08:14)
[2021-02-23] MEDS: ENOXAPARIN 40 MG/0.4 ML SYRINGE SQ SCH (08:14)
[2021-02-23] MEDS: THYROID, PORK 30 MG TAB PO SCH (08:15)
[2021-02-23] MEDS: ZINC SULFATE 220 MG CAP PO SCH (08:15)
[2021-02-23] MEDS: PANTOPRAZOLE 40 MG TABLET PO SCH (08:15)
[2021-02-23] MEDS: PIPERACILLIN-TAZOBACTAM 3.375 GM in SODIUM CHLORIDE 0.9% 100 ML IVPB SCH ×3 (08:15→23:46)
[2021-02-23] MEDS: dexAMETHasone 4 MG TAB PO SCH (08:15)
[2021-02-23] MEDS: LACTOBACILLUS ACIDOPH & BULGAR 1 EACH PACKET PO SCH ×2 (08:15→21:23)
[2021-02-23] MEDS: SIMETHICONE 40 MG/0.6 ML DROPS 2,000 MG/30 ML BOTTLE PO SCH ×4 (08:16→21:24)
[2021-02-23 11:31] LABS: Basophils # (A) 0.05 X 10*3/uL (0.00-0.10); Basophils % (A) 0.4 %; Eosinophils # (A) 0.01 X 10*3/uL (0.04-0.35); Eosinophils % (A) 0.1 %; HCT 37.4 % (37.2-46.3); Lymphocytes # (A) 1.41 X 10*3/uL (0.90-5.00); Lymphocytes % (A) 11.7 %; MCH 29.5 pg (27.0-32.0); MCHC 32.1 g/dL (32.0-37.0); MCV 91.9 fL (80.0-97.0); Mean Platelet Volume 9.9 fL (9.5-12.2); Monocytes # (A) 1.38 X 10*3/uL (0.20-1.00); Monocytes % (A) 11.4 %; Neutrophils # (A) 9.03 X 10*3/uL (1.80-7.70); Neutrophils % (A) 74.7 %; Platelet Count 439 X 10*3/uL (140-440); RBC 4.07 X 10*6/uL (4.10-5.20); RDW 14.9 % (11.5-14.5); WBC 12.09 X 10*3/uL (4.50-10.00)
--- NOTE | 2021-02-23 14:37 | P.PN ---
Subjective Progress Note Date: 02/23/21 Yenni Reese, 80-year-old female, who presented to [facility] emergency room with a chief complaint of cough generalized weakness and muscle ache, patient was seen in the emergency room for days prior to this admission at that time she was diagnosed with Covid 19, she was started on dexamethasone and was discharged home patient was monitoring her oxygen level and her pulse ox was ranging between 87 and 92, her symptoms started to worsen and she decided to return to emergency room. Patient was evaluated again in the emergency room vital examination reveals a temperature of 99.7 pulse 70 respiration 18 blood pressure 147/71 pulse ox 95% on room air white blood count is 6.5 hemoglobin 13.8 platelet count 280 d-dimer 0.93 sodium 135 potassium 4.0 chloride 99 LDH 900 C-reactive protein 135 Procalcitonin 0.83 chest x-ray done in the emergency room revealed increased bilateral interstitial opacities concerning for infection, CT angiogram of the chest done in the emergency room was negative for pulmonary embolism however it revealed bilateral diffuse patchy airspace opacities 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 Past medical history is significant for history of hypertension, history of rheumatoid arthritis, and history of fibromyalgia no previous history of lung disease no previous history of smoking On 02/14/2021 patient was seen and examined on the medical floor she is alert and oriented 3 in no apparent distress she stated that her cough and shortness of breath has improved there is no fever or chills no headache or dizziness no chest pain no nausea or vomiting no abdominal pain no diarrhea no blood in the stools no burning with urination no frequency or urgency and no hematuria On 02/15/2021 patient was seen and examined on the medical floor she is alert and oriented 3 in no apparent distress she is complaining of shortness of breath and cough otherwise she denies any complaints there is no fever or chills no headache or dizziness no chest pain no nausea or vomiting no abdominal pain no diarrhea no blood in the stools no burning with urination no frequency or urgency and no hematuria On 02/16/2021 patient was seen and examined on the medical floor she is alert and oriented in no distress she is feeling better she is still having shortness of breath with activity and some cough otherwise she denies any complaints there is no fever or chills no headache or dizziness no chest pain no nausea or vomiting no abdominal pain no diarrhea no blood in the stools no burning with urination no frequency or urgency and no hematuria On 02/17/2021 patient was seen and examined on the medical floor she is alert and oriented 3 in no apparent distress feeling slightly worse today with more fatigue and shortness of breath, white blood count went up from 12.5-23.5 d- dimer is up from 0.75-1.15 and inflammatory markers are up LDH is up from 290- 796 C-reactive protein is up from 3.4-53.2 days was discussed was pulmonary critical care will continue to monitor patient for 1 more day On 02/18/2021 patient was seen and examined on the medical floor she is alert and oriented 3 in no distress she stated that she is not feeling well and not ready to go home or complaining of cough and shortness of breath she is complaining of abdominal discomfort and constipation otherwise she denies any complaints there is no fever or chills no headache or dizziness no chest pain no nausea or vomiting no diarrhea no blood in the stools no burning with urination no frequency or urgency and no hematuria On 02/19/2021 patient was seen and examined on the medical floor she is alert and oriented 3 in no apparent distress she is complaining of shortness of breath and cough, and mostly abdominal discomfort, otherwise she denies any complaints there is no fever or chills no headache or dizziness no chest pain no nausea or vomiting no diarrhea no blood in the stools no burning with urination no frequency or urgency and no hematuria. On 02/20/2021 patient was seen and examined on the medical floor she is alert and oriented 3 in no distress she is still complaining of abdominal discomfort computed tomography scan of the abdomen and pelvis done last night reviewed patient was started on IV antibiotics Levaquin and Flagyl and surgical consultation was requested with Dr. Muniz On 02/21/2021 patient was seen and examined on the medical floor she is alert and oriented 3 in no distress she is still complaining of abdominal discomfort computed tomography scan of the abdomen and pelvis done last night reviewed patient was started on IV antibiotics Levaquin and Flagyl and surgical consultat ion was requested with Dr. Muniz, patient underwent sigmoid colectomy with drainage of pelvic abscess yesterday and today she is doing better there is no fever or chills no headache or dizziness no chest pain no shortness of breath no cough no nausea or vomiting no abdominal pain no diarrhea and no urinary symptoms On 02/22/2021 patient was seen and examined on the medical floor she is alert and oriented 3 in no apparent distress there is no fever or chills no headache or dizziness no chest pain no shortness of breath no cough no nausea or vomiting no abdominal pain no diarrhea no blood in the stools no burning with urination no frequency or urgency and no hematuria. On 02/23/2021 patient was seen and examined on the medical floor she is alert and oriented 3 in no apparent distress she is feeling better there is no fever or chills no headache or dizziness no chest pain no shortness of breath no cough no nausea or vomiting no abdominal pain no diarrhea no blood in the stools no burning with urination no frequency or urgency and no hematuria Objective - Vital Signs Vital signs: Vital Signs Temp 97.8 F 02/23/21 05:31 Pulse 50 L 02/23/21 05:31 Resp 14 02/23/21 05:31 BP 183/80 02/23/21 05:31 Pulse Ox 93 L 02/23/21 05:31 Intake & Output 02/22/21 02/23/21 02/23/21 18:59 06:59 18:59 Output Total 1010 1240 Balance -1010 -1240 Output: Drainage 60 40 Right Abdomen 60 40 Urine 950 1200 Other: Voiding Method Indwelling Catheter Indwelling Catheter Indwelling Catheter - Exam In general patient is alert and oriented 3 in no apparent distress HEENT head normocephalic and atraumatic Neck is supple no JVD no goiter no lymphadenopathy Chest exam reveals coarse crackles in both lung ayoub with wheezing Cardiac exam reveals regular heart sounds no gallops no murmurs Abdomen is soft nontender no organomegaly with normal bowel sounds Extremity exam reveals no edema no cyanosis or clubbing Neurological examination reveals no gross focal deficit - Labs CBC & Chem 7: 02/23/21 07:16 02/22/21 09:03 Labs: Abnormal Lab Results - Last 24 Hours (Table) 02/22/21 02/22/21 Range/Units 09:03 09:03 WBC 15.7 H (3.8-10.6) k/uL Plt Count 515 H (150-450) k/uL Neutrophils # 12.7 H (1.3-7.7) k/uL Monocytes # 1.2 H (0-1.0) k/uL Sodium 136 L (137-145) mmol/L Glucose 110 H (74-99) mg/dL Calcium 8.0 L (8.4-10.2) mg/dL Total Protein 5.3 L (6.3-8.2) g/dL Albumin 2.4 L (3.5-5.0) g/dL Microbiology - Last 24 Hours (Table) 02/20/21 16:16 Gram Stain - Preliminary Groin Wound Culture - Preliminary Estephania albicans Assessment and Plan Plan: Acute Covid 19 infection with pneumonia Acute hypoxic respiratory failure Elevated d-dimer CT angiogram negative for pulmonary embolism History of rheumatoid arthritis History of hypertension History of fibromyalgia Acute diverticulitis with evidence of diverticular abscess, patient was started on IV antibiotics Levaquin and Flagyl, surgical consultation was requested At this time patient is admitted to medical floor She is started on oral dexamethasone, subcu Lovenox, IV Remdesevir Pulmonary critical care consultation requested Home medications reviewed and reordered Will follow closely during this admission
--- NOTE | 2021-02-23 16:02 | P.PN ---
Progress Note - Text Progress Note Date: 02/23/21 Patient is resting comfortably room. She is eating her diet. She's had no complaints of pain. On exam her vital signs are stable. Abdomen soft colostomy is functioning. Status post Blake procedure for perforated diverticulitis. Patient will have her diet advanced to regular diet today.
[2021-02-23] MEDS: FLUCONAZOLE 100 MG TAB PO SCH (16:59)
--- NOTE | 2021-02-23 18:16 | PN ---
PROGRESS NOTE DATE OF SERVICE: 02/23/2021 REASON FOR FOLLOWUP: Abdominal abscess, perforated diverticulitis. INTERVAL HISTORY: The patient is currently afebrile. The patient is breathing comfortably. The patient denies having any chest pain, shortness of breath or cough. No abdominal pain or diarrhea. She has been started on a clear liquid diet, which the patient has been tolerating. PHYSICAL EXAMINATION: Blood pressure is 142/72 with a pulse of 59, temperature 98. She is 92% on room air. General description is an elderly female up in the chair in no distress. RESPIRATORY SYSTEM: Unlabored breathing with decreased intensity of breath sounds. No wheeze. HEART: S1, S2. Regular rate and rhythm. ABDOMEN: Soft. No tenderness. LABS: Hemoglobin is 12, white count 12.09. Abdominal culture with Estephania albicans. DIAGNOSTIC IMPRESSION AND PLAN: Patient with abdominal abscess, perforated diverticulitis, status post diverting colostomy. Abdominal culture with Estephania albicans. The patient was started on Diflucan; to continue in addition to Zosyn, finishing therapy with oral Augmentin and Diflucan once cleared by Surgery. Continue with supportive care. MMODL / IJN: [id number] /
[2021-02-23] MEDS: MELATONIN 5 MG TABLET PO SCH (21:23)
[2021-02-23] MEDS: atenoloL 50 MG TAB PO SCH (21:28)
[2021-02-24] MEDS: THYROID, PORK 30 MG TAB PO SCH (08:55)
[2021-02-24] MEDS: CHOLECALCIFEROL 25 MCG (1000 IU) TABLET PO SCH (08:55)
[2021-02-24] MEDS: PIPERACILLIN-TAZOBACTAM 3.375 GM in SODIUM CHLORIDE 0.9% 100 ML IVPB SCH ×2 (08:55→15:57)
[2021-02-24] MEDS: PANTOPRAZOLE 40 MG TABLET PO SCH (08:55)
[2021-02-24] MEDS: dexAMETHasone 4 MG TAB PO SCH (08:55)
[2021-02-24] MEDS: ASCORBIC ACID 500 MG TAB PO SCH ×2 (08:55→20:26)
[2021-02-24] MEDS: FLUCONAZOLE 100 MG TAB PO SCH (08:56)
[2021-02-24] MEDS: LACTOBACILLUS ACIDOPH & BULGAR 1 EACH PACKET PO SCH ×2 (08:56→20:26)
[2021-02-24] MEDS: ZINC SULFATE 220 MG CAP PO SCH (08:56)
[2021-02-24] MEDS: ENOXAPARIN 40 MG/0.4 ML SYRINGE SQ SCH (08:57)
[2021-02-24] MEDS: SIMETHICONE 40 MG/0.6 ML DROPS 2,000 MG/30 ML BOTTLE PO SCH ×4 (08:57→20:27)
--- NOTE | 2021-02-24 10:42 | P.PN ---
Subjective Progress Note Date: 02/24/21 Yenni Reese, 80-year-old female, who presented to [facility] emergency room with a chief complaint of cough generalized weakness and muscle ache, patient was seen in the emergency room for days prior to this admission at that time she was diagnosed with Covid 19, she was started on dexamethasone and was discharged home patient was monitoring her oxygen level and her pulse ox was ranging between 87 and 92, her symptoms started to worsen and she decided to return to emergency room. Patient was evaluated again in the emergency room vital examination reveals a temperature of 99.7 pulse 70 respiration 18 blood pressure 147/71 pulse ox 95% on room air white blood count is 6.5 hemoglobin 13.8 platelet count 280 d-dimer 0.93 sodium 135 potassium 4.0 chloride 99 LDH 900 C-reactive protein 135 Procalcitonin 0.83 chest x-ray done in the emergency room revealed increased bilateral interstitial opacities concerning for infection, CT angiogram of the chest done in the emergency room was negative for pulmonary embolism however it revealed bilateral diffuse patchy airspace opacities 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 Past medical history is significant for history of hypertension, history of rheumatoid arthritis, and history of fibromyalgia no previous history of lung disease no previous history of smoking On 02/14/2021 patient was seen and examined on the medical floor she is alert and oriented 3 in no apparent distress she stated that her cough and shortness of breath has improved there is no fever or chills no headache or dizziness no chest pain no nausea or vomiting no abdominal pain no diarrhea no blood in the stools no burning with urination no frequency or urgency and no hematuria On 02/15/2021 patient was seen and examined on the medical floor she is alert and oriented 3 in no apparent distress she is complaining of shortness of breath and cough otherwise she denies any complaints there is no fever or chills no headache or dizziness no chest pain no nausea or vomiting no abdominal pain no diarrhea no blood in the stools no burning with urination no frequency or urgency and no hematuria On 02/16/2021 patient was seen and examined on the medical floor she is alert and oriented in no distress she is feeling better she is still having shortness of breath with activity and some cough otherwise she denies any complaints there is no fever or chills no headache or dizziness no chest pain no nausea or vomiting no abdominal pain no diarrhea no blood in the stools no burning with urination no frequency or urgency and no hematuria On 02/17/2021 patient was seen and examined on the medical floor she is alert and oriented 3 in no apparent distress feeling slightly worse today with more fatigue and shortness of breath, white blood count went up from 12.5-23.5 d- dimer is up from 0.75-1.15 and inflammatory markers are up LDH is up from 290- 796 C-reactive protein is up from 3.4-53.2 days was discussed was pulmonary critical care will continue to monitor patient for 1 more day On 02/18/2021 patient was seen and examined on the medical floor she is alert and oriented 3 in no distress she stated that she is not feeling well and not ready to go home or complaining of cough and shortness of breath she is complaining of abdominal discomfort and constipation otherwise she denies any complaints there is no fever or chills no headache or dizziness no chest pain no nausea or vomiting no diarrhea no blood in the stools no burning with urination no frequency or urgency and no hematuria On 02/19/2021 patient was seen and examined on the medical floor she is alert and oriented 3 in no apparent distress she is complaining of shortness of breath and cough, and mostly abdominal discomfort, otherwise she denies any complaints there is no fever or chills no headache or dizziness no chest pain no nausea or vomiting no diarrhea no blood in the stools no burning with urination no frequency or urgency and no hematuria. On 02/20/2021 patient was seen and examined on the medical floor she is alert and oriented 3 in no distress she is still complaining of abdominal discomfort computed tomography scan of the abdomen and pelvis done last night reviewed patient was started on IV antibiotics Levaquin and Flagyl and surgical consultation was requested with Dr. Muniz On 02/21/2021 patient was seen and examined on the medical floor she is alert and oriented 3 in no distress she is still complaining of abdominal discomfort computed tomography scan of the abdomen and pelvis done last night reviewed patient was started on IV antibiotics Levaquin and Flagyl and surgical consultat ion was requested with Dr. Muniz, patient underwent sigmoid colectomy with drainage of pelvic abscess yesterday and today she is doing better there is no fever or chills no headache or dizziness no chest pain no shortness of breath no cough no nausea or vomiting no abdominal pain no diarrhea and no urinary symptoms On 02/22/2021 patient was seen and examined on the medical floor she is alert and oriented 3 in no apparent distress there is no fever or chills no headache or dizziness no chest pain no shortness of breath no cough no nausea or vomiting no abdominal pain no diarrhea no blood in the stools no burning with urination no frequency or urgency and no hematuria. On 02/23/2021 patient was seen and examined on the medical floor she is alert and oriented 3 in no apparent distress she is feeling better there is no fever or chills no headache or dizziness no chest pain no shortness of breath no cough no nausea or vomiting no abdominal pain no diarrhea no blood in the stools no burning with urination no frequency or urgency and no hematuria. On 02/24/2021 patient was seen and examined on the medical floor she is alert and oriented 3 in no apparent distress there is no fever or chills no headache or dizziness no chest pain no shortness of breath no cough no nausea or vomiting no abdominal pain no diarrhea no blood in the stools no burning with urination no frequency or urgency and no hematuria. At this time will continue with current management and there is stool coming out in the colostomy bag, possible discharge to home on Friday. Objective - Vital Signs Vital signs: Vital Signs Temp 97.7 F 02/24/21 05:58 Pulse 52 L 02/24/21 05:58 Resp 16 02/24/21 05:58 BP 167/80 02/24/21 05:58 Pulse Ox 95 02/24/21 05:58 Intake & Output 02/23/21 02/24/21 02/24/21 18:59 06:59 18:59 Output Total 1600 40 Balance -1600 -40 Weight 61.235 kg Output: Drainage 40 Right Abdomen 40 Urine 1600 Other: Voiding Method Indwelling Catheter # Voids 2 - Exam In general patient is alert and oriented 3 in no apparent distress HEENT head normocephalic and atraumatic Neck is supple no JVD no goiter no lymphadenopathy Chest exam reveals coarse crackles in both lung ayoub with wheezing Cardiac exam reveals regular heart sounds no gallops no murmurs Abdomen is soft nontender no organomegaly with normal bowel sounds Extremity exam reveals no edema no cyanosis or clubbing Neurological examination reveals no gross focal deficit - Labs CBC & Chem 7: 02/23/21 07:16 02/22/21 09:03 Labs: Abnormal Lab Results - Last 24 Hours (Table) 02/23/21 Range/Units 07:16 WBC 12.09 H (4.50-10.00) X 10*3/uL RBC 4.07 L (4.10-5.20) X 10*6/uL RDW 14.9 H (11.5-14.5) % Immature Gran # 0.21 H (0.00-0.04) X 10*3/uL Neutrophils # 9.03 H (1.80-7.70) X 10*3/uL Monocytes # 1.38 H (0.20-1.00) X 10*3/uL Eosinophils # 0.01 L (0.04-0.35) X 10*3/uL Microbiology - Last 24 Hours (Table) 02/20/21 16:16 Gram Stain - Final Groin Wound Culture - Final Estephania albicans Assessment and Plan Plan: Acute Covid 19 infection with pneumonia Acute hypoxic respiratory failure Elevated d-dimer CT angiogram negative for pulmonary embolism History of rheumatoid arthritis History of hypertension History of fibromyalgia Acute diverticulitis with evidence of diverticular abscess, patient was started on IV antibiotics Levaquin and Flagyl, surgical consultation was requested At this time patient is admitted to medical floor She is started on oral dexamethasone, subcu Lovenox, IV Remdesevir Pulmonary critical care consultation requested Home medications reviewed and reordered Will follow closely during this admission
[2021-02-24 11:22] LABS: HCT 34.8 % (37.2-46.3); HGB 11.5 g/dL (12.0-15.0); MCH 29.9 pg (27.0-32.0); MCV 90.6 fL (80.0-97.0); Mean Platelet Volume 10.2 fL (9.5-12.2); Platelet Count 433 X 10*3/uL (140-440); RBC 3.84 X 10*6/uL (4.10-5.20); RDW 14.9 % (11.5-14.5); WBC 11.02 X 10*3/uL (4.50-10.00)
[2021-02-24 11:45] LABS: Basophils # (A) 0.05 X 10*3/uL (0.00-0.10); Basophils % (A) 0.5 %; Eosinophils # (A) 0 X 10*3/uL (0.04-0.35); Eosinophils % (A) 0 %; Lymphocytes # (A) 1.34 X 10*3/uL (0.90-5.00); Lymphocytes % (A) 12.2 %; Monocytes # (A) 1.16 X 10*3/uL (0.20-1.00); Monocytes % (A) 10.5 %; Neutrophils # (A) 8.24 X 10*3/uL (1.80-7.70); Neutrophils % (A) 74.7 %
[2021-02-24 12:41] LABS: African American GFR (CKD) 94.2 (60.0-200.0); Albumin 2.6 g/dL (3.80-4.90); Albumin/Globulin Ratio 1.24 (1.60-3.17); Anion Gap 2.9 mmol/L (4.00-12.00); BUN/Creat Ratio 21.43 Ratio (12.00-20.00); Calcium 7.9 mg/dL (8.7-10.3); Carbon Dioxide 31.1 mmol/L (21.6-31.8); Globulin 2.1 g/dL (1.6-3.3); Non-African American GFR(CKD) 81.3 (60.0-200.0); Potassium 4.4 mmol/L (3.5-5.5); Total Bilirubin 0.5 mg/dL (0.3-1.2); Total Protein 4.7 g/dL (6.2-8.2)
--- NOTE | 2021-02-24 14:10 | P.PN ---
Progress Note - Text Progress Note Date: 02/24/21 Patient's resting comfortably in bed. She appears to be in no distress. On exam vital signs are stable. Abdomen soft. Incisions clean and intact. Colostomy has some stool in it. Status post Blake procedure for perforated diverticula is. Patient is doing well surgically. She can be discharged when medically appropriate
[2021-02-24] MEDS: ALBUTEROL HFA INHALER INHALATION PRN (16:35)
[2021-02-24] MEDS: MELATONIN 5 MG TABLET PO SCH (20:26)
[2021-02-24] MEDS: atenoloL 50 MG TAB PO SCH (20:27)
--- NOTE | 2021-02-24 21:15 | PN ---
PROGRESS NOTE DATE OF SERVICE: 02/24/2021 REASON FOR FOLLOWUP: Perforated diverticulitis and abdominal abscess. INTERVAL HISTORY: Patient is currently afebrile. Patient is feeling better. Breathing comfortably. The patient is currently on room air. Denies any chest pain or shortness of breath or cough. Abdominal pain is currently controlled. Has been tolerating her diet. PHYSICAL EXAMINATION: Blood pressure 186/80 with a pulse of 50. Temperature 97.9. She is 96% on room air. General description: The patient is an elderly female up in the bed in no distress. Respiratory system: Unlabored breathing, clear to auscultation anteriorly. Heart S1, S2. Regular rate and rhythm. ABDOMEN: Soft. Mild tenderness. No guarding. No rigidity. EXTREMITIES: No edema of the feet. LABS: Hemoglobin 11.5, white count 9.02. BUN of 15, creatinine 0.7. Abdominal culture with Estephania albicans. DIAGNOSTIC IMPRESSION AND PLAN: Patient with abdominal abscess from perforated diverticulitis in this patient who is status post laparotomy with sigmoid colectomy and colostomy and drainage of the pelvic abscess. Culture has been positive for Estephania albicans. Patient is covered with Zosyn and Diflucan. Finish therapy with oral Augmentin and Diflucan and close outpatient followup. MMODL / IJN: [id number] /
[2021-02-25] MEDS: PIPERACILLIN-TAZOBACTAM 3.375 GM in SODIUM CHLORIDE 0.9% 100 ML IVPB SCH ×3 (00:19→16:02)
[2021-02-25] MEDS: hydrALAZINE HCL 20 MG/ML 1 ML VIAL IVP PRN ×2 (03:38→22:50)
[2021-02-25] MEDS: THYROID, PORK 30 MG TAB PO SCH (08:37)
[2021-02-25] MEDS: FLUCONAZOLE 100 MG TAB PO SCH (08:37)
[2021-02-25] MEDS: LACTOBACILLUS ACIDOPH & BULGAR 1 EACH PACKET PO SCH ×2 (08:38→20:16)
[2021-02-25] MEDS: ENOXAPARIN 40 MG/0.4 ML SYRINGE SQ SCH (08:38)
[2021-02-25] MEDS: CHOLECALCIFEROL 25 MCG (1000 IU) TABLET PO SCH (08:38)
[2021-02-25] MEDS: dexAMETHasone 4 MG TAB PO SCH (08:38)
[2021-02-25] MEDS: ASCORBIC ACID 500 MG TAB PO SCH ×2 (08:38→20:15)
[2021-02-25] MEDS: PANTOPRAZOLE 40 MG TABLET PO SCH (08:38)
[2021-02-25] MEDS: ZINC SULFATE 220 MG CAP PO SCH (08:39)
[2021-02-25] MEDS: SIMETHICONE 40 MG/0.6 ML DROPS 2,000 MG/30 ML BOTTLE PO SCH ×4 (08:47→20:16)
--- NOTE | 2021-02-25 09:52 | P.PN ---
Progress Note - Text Progress Note Date: 02/25/21 Patient feels better. She is tolerating diet. On exam her vital signs show. Abdomen soft. Colostomy dysfunction. Patient will be most likely discharge home tomorrow.
--- NOTE | 2021-02-25 16:55 | P.PN ---
Subjective 80-year-old female was admitted for covid 19, patient patient is found to have diverticulitis patient underwent sigmoid colectomy patient has a colostomy in place patient is having bowel movements and the patient is clinically doing well probably will be discharged tomorrow. Constitutional: Denied any fatigue denied any fever. Cardio vascular: denied any chest pain, palpitations Gastrointestinal denied any nausea vomiting Pulmonary: Denied any shortness of breath cough Neurologic denied any new focal deficits All inpatient medications were reviewed and appropriate changes in these medications as dictated in the interval history and assessment and plan. Objective - Vital Signs Vital signs: Vital Signs Temp 97.9 F 02/25/21 14:00 Pulse 53 L 02/25/21 14:00 Resp 18 02/25/21 14:00 BP 142/64 02/25/21 14:00 Pulse Ox 94 L 02/25/21 14:00 Intake & Output 02/24/21 02/25/21 02/25/21 18:59 06:59 18:59 Intake Total 600 Output Total 335 20 350 Balance -335 -20 250 Intake: Oral 600 Output: Drainage 35 20 50 Right Abdomen 35 20 50 Stool 300 300 Other: Voiding Method Indwelling Catheter Indwelling Catheter # Voids 2 - Exam PHYSICAL EXAMINATION: GENERAL: The patient is alert and oriented x3, not in any acute distress. Thin built female HEENT: Pupils are round and equally reacting to light. EOMI. No scleral icterus. No conjunctival pallor. Normocephalic, atraumatic. No pharyngeal erythema. No thyromegaly. CARDIOVASCULAR: S1 and S2 present. No murmurs, rubs, or gallops. PULMONARY: Chest is clear to auscultation, no wheezing or crackles. ABDOMEN: Soft, nontender, nondistended, normoactive bowel sounds. No palpable organomegaly. colOstomy in place does have bowel sounds MUSCULOSKELETAL: No joint swelling or deformity. EXTREMITIES: No cyanosis, clubbing, or pedal edema. NEUROLOGICAL: Gross neurological examination did not reveal any focal deficits. SKIN: No rashes. - Labs CBC & Chem 7: 02/24/21 07:19 02/24/21 07:19 Labs: Microbiology - Last 24 Hours (Table) 02/20/21 16:16 Anaerobic Culture - Final Groin Anaerobic Gm Positive Bacill Anaerobic Gm Negative Bacilli Gram Neg Bacilli Assessment and Plan Plan: Acute Covid 19 infection with pneumonia patient is on room air at 94% Acute hypoxic respiratory failure Elevated d-dimer CT angiogram negative for pulmonary embolism History of rheumatoid arthritis History of hypertension History of fibromyalgia Acute diverticulitis , patient is status post sigmoid colectomy and a colostomy which is functioning very well. Possible discharge tomorrow
--- NOTE | 2021-02-25 19:50 | PN ---
PROGRESS NOTE DATE OF SERVICE: 02/25/2021 REASON FOR FOLLOWUP: Abdominal abscess, perforated diverticulitis. INTERVAL HISTORY: Patient is currently afebrile. The patient is feeling better. She is breathing comfortably. The patient denies any chest pain, shortness of breath or cough. Abdominal pain is currently controlled. No nausea, vomiting or diarrhea. PHYSICAL EXAMINATION: Blood pressure 148/74, pulse of 87, temperature 98. She is 96% on room air. General description: The patient is an elderly female lying in bed in no distress. Respiratory system: Unlabored breathing, clear to auscultation anteriorly. Heart S1, S2. Regular rate and rhythm. Abdomen soft, no tenderness. LABS: White count 11.2, abdominal culture positive for anaerobes and Estephania albicans, now with Gram-negative bacilli. DIAGNOSTIC IMPRESSION AND PLAN: Patient with abdominal abscess from perforated diverticulitis status post diverting colostomy. Abdominal culture now showing anaerobes as well as gram-negative. ID is sensitive to gram-negative pending along with Estephania albicans. Patient to continue Zosyn and Diflucan. Discharge antibiotic depending upon the final cultures. Continue supportive care. MMODL / IJN: [id number] /
[2021-02-25] MEDS: atenoloL 50 MG TAB PO SCH (20:16)
[2021-02-25] MEDS: MELATONIN 5 MG TABLET PO SCH (20:16)
[2021-02-26] MEDS: PIPERACILLIN-TAZOBACTAM 3.375 GM in SODIUM CHLORIDE 0.9% 100 ML IVPB SCH ×3 (00:21→12:32)
[2021-02-26] MEDS: hydrALAZINE HCL 20 MG/ML 1 ML VIAL IVP PRN (06:13)
[2021-02-26] MEDS: SIMETHICONE 40 MG/0.6 ML DROPS 2,000 MG/30 ML BOTTLE PO SCH ×2 (09:00→12:45)
[2021-02-26] MEDS: FLUCONAZOLE 100 MG TAB PO SCH (09:13)
[2021-02-26] MEDS: ASCORBIC ACID 500 MG TAB PO SCH (09:13)
[2021-02-26] MEDS: PANTOPRAZOLE 40 MG TABLET PO SCH (09:13)
[2021-02-26] MEDS: THYROID, PORK 30 MG TAB PO SCH (09:13)
[2021-02-26] MEDS: ZINC SULFATE 220 MG CAP PO SCH (09:13)
[2021-02-26] MEDS: LACTOBACILLUS ACIDOPH & BULGAR 1 EACH PACKET PO SCH ×2 (09:13→09:23)
[2021-02-26] MEDS: CHOLECALCIFEROL 25 MCG (1000 IU) TABLET PO SCH (09:13)
[2021-02-26] MEDS: ENOXAPARIN 40 MG/0.4 ML SYRINGE SQ SCH (09:23)
[2021-02-26 09:42] VITALS: BP 111/54; PULSE 65; RESP 17; TEMP 99.1
--- NOTE | 2021-02-26 11:58 | P.PN ---
Subjective Progress Note Date: 02/26/21 Principal diagnosis: Diverticular abscess Patient doing well today. No significant discomfort. RIANA drain is serosanguineous. She is afebrile. Tolerating diet. Good ostomy function. She would like to go home. Objective - Vital Signs Vital signs: Vital Signs Temp 99.1 F 02/26/21 09:41 Pulse 65 02/26/21 09:41 Resp 17 02/26/21 09:41 BP 111/54 02/26/21 09:41 Pulse Ox 96 02/26/21 09:41 Intake & Output 02/25/21 02/26/21 02/26/21 18:59 06:59 18:59 Intake Total 600 Output Total 370 15 20 Balance 230 -15 -20 Intake: Oral 600 Output: Drainage 70 15 20 Right Abdomen 70 15 20 Stool 300 Other: Voiding Method Indwelling Catheter # Voids 2 3 - Exam Abdomen: Soft, nondistended, dressing removed, incision clean and dry, RIANA serosanguineous, ostomy functioning - Labs CBC & Chem 7: 02/24/21 07:19 02/24/21 07:19 Labs: Microbiology - Last 24 Hours (Table) 02/20/21 16:16 Anaerobic Culture - Final Groin Anaerobic Gm Positive Bacill Anaerobic Gm Negative Bacilli Gram Neg Bacilli Assessment and Plan (1) Diverticular disease of intestine with perforation and abscess Narrative/Plan: Patient doing well today. May discharge from my standpoint. Remove drain today. Follow-up one week. Current Visit: Yes Status: Acute Code(s): K57.80 - DVTRCLI OF INTEST, PART UNSP, W PERF AND ABSCESS W/O BLEED SNOMED Code(s): 2640549941872
--- NOTE | 2021-02-26 13:12 | P.DS ---
Providers Date of admission: 02/12/21 22:20 Attending physician: Galileo Valverde Consults: 02/12/21 22:18 Consult Physician Routine Consulting Provider: Kalen Arechiga Consult Reason/Comments: covid pneumonia Do you want consulting provider notified?: Yes 02/19/21 13:20 Consult Physician Routine Consulting Provider: Azra Pham Consult Reason/Comments: Abdominal pain Do you want consulting provider notified?: Yes 02/20/21 10:19 Consult Physician Routine Consulting Provider: Leon Muniz Consult Reason/Comments: diverticulitis with abcess Do you want consulting provider notified?: Yes 02/20/21 18:02 Consult Physician Routine Consulting Provider: Casie Gambino Consult Reason/Comments: abdominal infection Do you want consulting provider notified?: Yes Primary care physician: Vanessa Garcia [place] [facility] Course: 80-year-old female was admitted for covid 19, patient patient is found to have diverticulitis patient underwent sigmoid colectomy patient has a colostomy in place patient is having bowel movements and the patient is clinically doing well probably will be discharged tomorrow. 02/26/2021 Patient's surgical drain was removed patient is clinically doing well patient will be discharged home to follow up with general surgery as an outpatient. Patient will be discharged on 1 week of Augmentin and a week of Diflucan. PHYSICAL EXAMINATION: GENERAL: The patient is alert and oriented x3, not in any acute distress. Thin built female HEENT: Pupils are round and equally reacting to light. EOMI. No scleral icterus. No conjunctival pallor. Normocephalic, atraumatic. No pharyngeal erythema. No thyromegaly. CARDIOVASCULAR: S1 and S2 present. No murmurs, rubs, or gallops. PULMONARY: Chest is clear to auscultation, no wheezing or crackles. ABDOMEN: Soft, nontender, nondistended, normoactive bowel sounds. No palpable organomegaly. colOstomy in place does have bowel sounds MUSCULOSKELETAL: No joint swelling or deformity. EXTREMITIES: No cyanosis, clubbing, or pedal edema. NEUROLOGICAL: Gross neurological examination did not reveal any focal deficits. SKIN: No rashes. Assessment and Plan Plan: Acute Covid 19 infection with pneumonia patient is on room air Acute hypoxic respiratory failure Elevated d-dimer CT angiogram negative for pulmonary embolism History of rheumatoid arthritis History of hypertension History of fibromyalgia Acute diverticulitis , patient is status post sigmoid colectomy and a colostomy which is functioning very well. Patient Condition at Discharge: Fair Plan - Discharge Summary Discharge Rx Participant: No New Discharge Prescriptions: New Pantoprazole [Protonix] 40 mg PO AC-BRKFST #14 tablet. Amoxicillin/Potassium Clav [Augmentin 875-125 Tablet] 1 tab PO Q12HR 7 Days #14 tab Fluconazole [Diflucan] 100 mg PO DAILY #7 tablet Continue Atenolol [Tenormin] 100 mg PO HS Hydroxychloroquine Sulfate [Plaquenil] 200 mg PO DIRECTED Hydroxychloroquine Sulfate [Plaquenil] See Taper PO DIRECTED Ergocalciferol (Vitamin D2) [Vitamin D2 (2000 Iu)] 50 mcg PO DAILY Zinc 50 mg PO DAILY Thyroid,Pork [Pawn Broker Thyroid] 60 mg PO DAILY Acetaminophen Tab [Tylenol] 325 mg PO Q4-6H PRN PRN Reason: Fever And/ Or Pain Discontinued Dexamethasone [Decadron] 6 mg PO DAILY 4 Days #4 tablet Ibuprofen [Advil] 200 mg PO Q4-6H PRN PRN Reason: Fever And/ Or Pain Discharge Medication List Atenolol [Tenormin] 100 mg PO HS 04/09/15 [History] Acetaminophen Tab [Tylenol] 325 mg PO Q4-6H PRN 02/12/21 [History] Ergocalciferol (Vitamin D2) [Vitamin D2 (2000 Iu)] 50 mcg PO DAILY 02/12/21 [His tory] Hydroxychloroquine Sulfate [Plaquenil] 200 mg PO DIRECTED 02/12/21 [History] Hydroxychloroquine Sulfate [Plaquenil] See Taper PO DIRECTED 02/12/21 [History] Thyroid,Pork [Pawn Broker Thyroid] 60 mg PO DAILY 02/12/21 [History] Zinc 50 mg PO DAILY 02/12/21 [History] Amoxicillin/Potassium Clav [Augmentin 875-125 Tablet] 1 tab PO Q12HR 7 Days #14 tab 02/26/21 [Rx] Fluconazole [Diflucan] 100 mg PO DAILY #7 tablet 02/26/21 [Rx] Pantoprazole [Protonix] 40 mg PO AC-BRKFST #14 tablet. 02/26/21 [Rx] Follow up Appointment(s)/Referral(s): Leon Muniz MD [Medical Doctor] - 1 Week Vanessa Garcia MD [Primary Care Provider] - 1-2 days [facility], [NON-STAFF] - As Needed Kalen Arechiga MD [STAFF PHYSICIAN] - 1 Week Patient Instructions/Handouts: Coronavirus Disease 2019 (COVID-19), Colostomy Care (GEN) Activity/Diet/Wound Care/Special Instructions: Colostomy Care Recommendations for Home: Last Colosotmy Pouching system change: 02.23.2021 Mrs Reese will be supplied the following colostomy care products from the hospital for home: Convatec moldable flanges #[id number] (3) Convatec pouches with filter #[id number] (3) Osotmy powder No sting prep pads (10) Mrs. Reese is to empty the pouching system when it is 1/2 to 1/3 full int eh bathroom Mrs Reese is to change the entire pouching system every 3-5 days unless otherwise instructed Home care please arrange for disposable pouches for Mrs Reese in 2-3 weeks and additional ostomy supplies [facility]. Discharge Disposition: HOME WITH HOME HEALTH SERVICES
== END 2021-02-26 14:04 | disposition home health service (06) | DRG 981 ==
LOC: EC 19:51 → 1SOBS 22:20 → 4SSUR 02-13 01:07
PROVIDERS: ADMIT Internal Medicine; ATTEND Internal Medicine
PROC: XW033E5 Introduction of Remdesivir Anti-infective into Peripheral Vein, Percutaneous Approach, New Technology Group 5 (ICD-10-PCS; 2021-02-13)
PROC: 0DTN0ZZ Resection of Sigmoid Colon, Open Approach (ICD-10-PCS; 2021-02-20)
PROC: 0W9J00Z Drainage of Pelvic Cavity with Drainage Device, Open Approach (ICD-10-PCS; 2021-02-20)
PROC: 0D1M0Z4 Bypass Descending Colon to Cutaneous, Open Approach (ICD-10-PCS; principal; 2021-02-20 07:30)
DX: U07.1 COVID-19 (principal); J96.01 Acute respiratory failure with hypoxia; J12.82 Pneumonia due to coronavirus disease 2019; K57.20 Diverticulitis of large intestine with perforation and abscess without bleeding; J98.11 Atelectasis; M06.9 Rheumatoid arthritis, unspecified; I10 Essential (primary) hypertension; E03.9 Hypothyroidism, unspecified; N39.3 Stress incontinence (female) (male); T38.0X5A Adverse effect of glucocorticoids and synthetic analogues, initial encounter; M79.7 Fibromyalgia; M19.90 Unspecified osteoarthritis, unspecified site; Z79.899 Other long term (current) drug therapy; Z87.01 Personal history of pneumonia (recurrent); Z87.448 Personal history of other diseases of urinary system; Z87.39 Personal history of other diseases of the musculoskeletal system and connective tissue; Z87.891 Personal history of nicotine dependence; Z98.42 Cataract extraction status, left eye; Z98.41 Cataract extraction status, right eye; Z96.1 Presence of intraocular lens; Z90.89 Acquired absence of other organs; Z98.890 Other specified postprocedural states; Z88.8 Allergy status to other drugs, medicaments and biological substances; Z80.8 Family history of malignant neoplasm of other organs or systems; Z82.49 Family history of ischemic heart disease and other diseases of the circulatory system
CPT/HCPCS: 36415; 71045; 71275; 74177; 80053; 82728; 83605; 83615; 83690; 83735; 84145; 85025; 85379; 85610; 85730; 86140; 87040; 87070; 87075; 87205; 87324; 88307; 93005; 94640; 94760; 99285

== ENCOUNTER → 2021-12-14 | Outpatient (CLI) | payer MEDICARE ==
[2021-12-14 20:14] LABS: Basophils # (A) 0.03 X 10*3/uL (0.00-0.10); Basophils % (A) 0.4 %; Eosinophils # (A) 0.13 X 10*3/uL (0.04-0.35); Eosinophils % (A) 1.7 %; HGB 15.1 g/dL (12.0-15.0); Lymphocytes # (A) 1.84 X 10*3/uL (0.90-5.00); Lymphocytes % (A) 24.6 %; MCH 29.8 pg (27.0-32.0); MCHC 31.5 g/dL (32.0-37.0); MCV 94.9 fL (80.0-97.0); Mean Platelet Volume 10.1 fL (9.5-12.2); Monocytes # (A) 0.58 X 10*3/uL (0.20-1.00); Monocytes % (A) 7.7 %; Neutrophils # (A) 4.88 X 10*3/uL (1.80-7.70); Neutrophils % (A) 65.2 %; Platelet Count 363 X 10*3/uL (140-440); RBC 5.06 X 10*6/uL (4.10-5.20); RDW 14.6 % (11.5-14.5); WBC 7.49 X 10*3/uL (4.50-10.00)
[2021-12-15 00:26] LABS: Anion Gap 9.8 mmol/L (10.00-18.00); Carbon Dioxide 26.4 mmol/L (20.0-27.5); Potassium 5.2 mmol/L (3.5-5.5)
== END | disposition home or self-care (01) ==
LOC: LABPAT 12:19
PROVIDERS: ATTEND Surgery
DX: Z01.812 Encounter for preprocedural laboratory examination (principal); K57.20 Diverticulitis of large intestine with perforation and abscess without bleeding
CPT/HCPCS: 36415; 80051; 85025

== ENCOUNTER 2021-12-20 11:28 | Day surgery (SDC) | payer MEDICARE ==
[2021-12-18 10:56] VITALS: BMI 22.6
[2021-12-20] MEDS: LACTATED RINGERS 1,000 ML IV SCH ×2 (12:25→15:40)
[2021-12-20] MEDS ORDERED: LIDOCAINE 1% (10MG/ML) FOR IV START INTRADERMA ONE (12:25)
[2021-12-20 12:38] VITALS: RESP 16; TEMP 97.2
[2021-12-20] MEDS ORDERED: PROPOFOL 10 MG/ML 20 ML VIAL IV ONE (12:41)
--- NOTE | 2021-12-20 12:46 | P.GSHP ---
History of Present Illness H&P Date: 12/20/21 Chief Complaint: Diverticulitis 81-year-old female known to our service. Last January patient underwent Blake's procedure for diverticulitis with perforation and abscess. Postoperatively patient has done well. She is interested in colostomy reversal. No recent colonoscopy. Here today for colonoscopy. Past Medical History Past Medical History: Fibromyalgia, Hearing Disorder / Deafness, Hypertension, Osteoarthritis (OA), Rheumatoid Arthritis (RA), Thyroid Disorder Additional Past Medical History / Comment(s): Hx Covid 02/08/21. Rheumatoid arthtiris in large joints, diverticular disease, hypothyroid, stress incontinence, varicose veins, bilateral hearing aid use. History of Any Multi-Drug Resistant Organisms: None Reported Past Surgical History: Back Surgery, Bladder Surgery, Bowel Resection, Tonsillectomy Additional Past Surgical History / Comment(s): Anterior colporrhaphy, cyst pubo vag sling, colonoscopy, lower back surgery, bilateral cataract removals/lens implants, bowel surgery with colostomy. Past Anesthesia/Blood Transfusion Reactions: No Reported Reaction Past Psychological History: No Psychological Hx Reported Smoking Status: Former smoker Past Alcohol Use History: Occasional Additional Past Alcohol Use History / Comment(s): Smoked from teens to 1989, smoked less than 1/2 ppd. Past Drug Use History: None Reported - Past Family History Mother Family Medical History: Cancer Additional Family Medical History / Comment(s): Floyd Treadwell. Father Additional Family Medical History / Comment(s): Father had rheumatic fever as a child and from heart problem at the age of 43yrs. Medications and Allergies Home Medications Medication Instructions Recorded Confirmed Type Atenolol [Tenormin] 100 mg PO QAM 04/09/15 12/18/21 History Thyroid,Pork [Potato Peeler Thyroid] 60 mg PO QAM 02/12/21 12/18/21 History Allergies Allergy/AdvReac Type Severity Reaction Status Date / Time diphenhydramine Allergy Rash/Hives Verified 12/20/21 12:17 [From Benadryl] Surgical - Exam Vital Signs Temp Pulse Resp BP Pulse Ox 97.2 F L 59 L 16 202/87 98 12/20/21 12:20 12/20/21 12:20 12/20/21 12:20 12/20/21 12:20 12/20/21 12:20 Physical exam: General: Well-developed, well-nourished HEENT: Normocephalic, sclerae nonicteric Abdomen: Nontender, nondistended, left-sided ostomy Extremities: No edema Neuro: Alert and oriented Assessment and Plan (1) Diverticular disease of intestine with perforation and abscess Narrative/Plan: 81-year-old female with history of diverticulitis and perforation. We'll proceed with colonoscopy at this time. Current Visit: No Status: Acute Code(s): K57.80 - DVTRCLI OF INTEST, PART UNSP, W PERF AND ABSCESS W/O BLEED SNOMED Code(s): 0073679167206
[2021-12-20] MEDS ORDERED: IOPAMIDOL CONTRAST (ORAL USE) VIAL PO PRN (13:05)
--- NOTE | 2021-12-20 13:09 | P.PCN ---
Date of Procedure: 12/20/21 Procedure(s) Performed: PREOPERATIVE DIAGNOSIS: Diverticulitis POSTOPERATIVE DIAGNOSIS: Residual stool in rectal vault with mild disuse proctitis, fullness in pelvis palpable PROCEDURE: Colonoscopy via stoma and anus ANESTHESIA: MAC SURGEON: Leon Muniz M.D. SPECIMENS: None ENDOSCOPIC PROCEDURE: The patient was placed on the endoscopy table in the left decubitus position. The Olympus colonoscope was inserted into the anus and passed to the proximal rectum. The patient had retained stool that was evacuated manually. There was some residual stool even more proximal that could not be evacuated well that was suspected to be near the end of the rectal stump. Palpation of the pelvis through the rectum however demonstrated some significant induration and fullness. This was unusual by palpation. The patient was then placed supine. The scope was advanced through the stoma to the base of the cecum. The appendiceal orifice was visualized. From that point the scope was slowly withdrawn inspecting all surfaces carefully. There were no neoplastic inflammatory or polypoid lesions throughout the cecum, ascending, transverse, or descending colon. The stoma appeared normal. There was no visible diverticulosis. The patient was taken to the recovery room in stable condition per anesthesia guidelines. RECOMMENDATIONS: Will order CT abdomen and pelvis to evaluate the pelvic fullness palpable on digital rectal examination. This will be reviewed prior to deciding on colostomy reversal tomorrow.
[2021-12-20] MEDS ORDERED: IOPAMIDOL CONTRAST (ORAL USE) VIAL PO ONE ×2 (14:10→14:59)
[2021-12-20 14:34] LABS: Basophils % (A) 0 %; Eosinophils # (A) 0.1 k/uL (0-0.7); Eosinophils % (A) 2 %; HCT 45.7 % (34.0-46.0); HGB 14.6 gm/dL (11.4-16.0); Lymphocytes # (A) 1.5 k/uL (1.0-4.8); Lymphocytes % (A) 23 %; MCH 30.6 pg (25.0-35.0); MCV 95.7 fL (80.0-100.0); Mean Platelet Volume 7.4; Monocytes # (A) 0.4 k/uL (0-1.0); Monocytes % (A) 6 %; Neutrophils # (A) 4.5 k/uL (1.3-7.7); Neutrophils % (A) 67 %; Platelet Count 300 k/uL (150-450); RBC 4.77 m/uL (3.80-5.40); RDW 13.7 % (11.5-15.5); WBC 6.7 k/uL (3.8-10.6)
[2021-12-20 14:52] LABS: Albumin 3.9 g/dL (3.5-5.0); Calcium 9.6 mg/dL (8.4-10.2); Potassium 5.3 mmol/L (3.5-5.1); Total Bilirubin 1.1 mg/dL (0.2-1.3)
[2021-12-20] MEDS ORDERED: hydrALAZINE HCL 20 MG/ML 1 ML VIAL IVP ONE (16:15)
--- NOTE | 2021-12-20 16:24 | CT ---
EXAMINATION TYPE: CT abdomen pelvis w con DATE OF EXAM: 12/20/2021 COMPARISON: 02/19/2021 HISTORY: 81-year-old female Diverticulitis. TECHNIQUE: Contiguous axial scanning of the abdomen and pelvis following administration of 100 ml Iso iesha 300 IV contrast. Delayed images through the kidneys and coronal/sagittal reconstructions perform ed. CT DLP: 1009 mGycm Automated exposure control for dose reduction was used. FINDINGS: Heart upper limits of normal in size without pericardial effusion. Mild groundglass right middle lobe could represent atelectasis versus minimal infectious/inflammatory focus. No pleural effusion. No focal liver lesion or biliary ductal dilatation. Portal venous system is patent. Gallbladder, right adrenal gland, spleen, and pancreas show no gross abnormality. Bilateral small renal cortical cysts are redemonstrated measuring up to 1.2 cm. Symmetric uptake and excretion of contrast from both kidneys. No dilated small bowel, free fluid, or free air. Mild/moderate atherosclerotic plaque and calcifications within the abdominal aorta. Normal appendix. Oral contrast progressed to the patient's left lower quadrant sigmoid colostomy. There is an associat ed 8.1 cm wide fatty parastomal hernia. Bladder partially distended. Uterus anteverted with a 1.3 cm anterior uterine calcified fibroid. Morrison's pouch. There is some residual wall thickening of the distal sigmoid and rectum here. Rectum may have a chronic mural based fluid collection measuring 2.0 cm along the left lateral aspect, refe r to axial image 70 and coronal image 57. Consider direct visualization or CT with rectal contrast. S ome mild soft tissue thickening at the Morrison's pouch and some strandy areas of probable residual in flammation or scarring. No pelvic lymphadenopathy seen. Bones: Osteitis pubis. Moderate degenerative change at the hips. Mild degenerative change of the SI j oints. Degenerated dextro convex scoliosis of lumbar spine. IMPRESSION: 1. COMPARED TO 02/19/2021, THERE HAS BEEN LEFT LOWER QUADRANT SIGMOID COLOSTOMY. WE NOTE A 8.1 CM W CHITO FATTY PARASTOMAL HERNIA HERE. 2. MORRISON'S POUCH. THERE MAY BE SOME CHRONIC SCARRING OR RESIDUAL MILD INFLAMMATION AT THE BLIND END CHARACTERIZED BY SOME SOFT TISSUE THICKENING. ALSO, THERE MAY BE RESIDUAL MILD WALL THICKENING/INFLA MMATION OF THE DISTAL SIGMOID AND RECTUM HERE. THERE IS A 2.0 CM POCKET OF FLUID ECCENTRICALLY POSITI ONED ALONG THE LEFT LATERAL ASPECT OF THE RECTUM THAT COULD BE A SMALL 2.0 CM INTRAMURAL ABSCESS. IF THIS REPRESENTS INTRALUMINAL FLUID, THERE IS ECCENTRIC SOFT TISSUE ON THE RIGHT DISPLACING THE LUMEN. CONSIDER DIRECT VISUALIZATION OR CT WITH RECTAL AND IV CONTRAST TO FURTHER EVALUATE (AXIAL IMAGE 70 AND CORONAL IMAGE 57).
[2021-12-20 16:37] VITALS: BP 158/83; PULSE 60
== END 2021-12-20 17:08 | disposition home or self-care (01) ==
LOC: ORWHC2ENDO 11:28
PROVIDERS: ATTEND Surgery
DX: K57.92 Diverticulitis of intestine, part unspecified, without perforation or abscess without bleeding (principal); M79.7 Fibromyalgia; I10 Essential (primary) hypertension; M19.90 Unspecified osteoarthritis, unspecified site; E03.9 Hypothyroidism, unspecified; Z87.891 Personal history of nicotine dependence; Z80.9 Family history of malignant neoplasm, unspecified
CPT/HCPCS: 44388; 86900; 86901; 80053; 85025; 86850; 74177; J0360; J2704; Q9967

== ENCOUNTER 2021-12-21 01:46 | Emergency (ER) | payer MEDICARE ==
[2021-12-21 01:52] VITALS: TEMP 98.2
[2021-12-21] MEDS ORDERED: SODIUM CHLORIDE 0.9% 1,000 ML IV STA (02:25)
[2021-12-21] MEDS ORDERED: ONDANSETRON 4 MG/2 ML VIAL IVP STA (02:25)
[2021-12-21] MEDS ORDERED: MORPHINE SULFATE 4 MG/ML SYRINGE IV STA (03:00)
[2021-12-21] MEDS ORDERED: SODIUM CHLORIDE 0.9% 500 ML 500 ML IV STA (03:00)
[2021-12-21 03:14] LABS: Basophils % (A) 0 %; Eosinophils % (A) 0 %; HCT 49.9 % (34.0-46.0); HGB 16.1 gm/dL (11.4-16.0); Lymphocytes # (A) 0.6 k/uL (1.0-4.8); Lymphocytes % (A) 5 %; MCHC 32.3 g/dL (31.0-37.0); MCV 96.2 fL (80.0-100.0); Mean Platelet Volume 7.6; Monocytes # (A) 0.2 k/uL (0-1.0); Monocytes % (A) 2 %; Neutrophils # (A) 12.1 k/uL (1.3-7.7); Neutrophils % (A) 93 %; Platelet Count 324 k/uL (150-450); RBC 5.19 m/uL (3.80-5.40); RDW 14.2 % (11.5-15.5)
[2021-12-21 03:18] LABS: ALT 25 U/L (4-34); AST 54 U/L (14-36); African American GFR (CKD) >90 (>60 ml/min/1.73 sqM); Alkaline Phosphatase 88 U/L (38-126); Amylase 55 U/L (30-110); Anion Gap 12 mmol/L; Blood Urea Nitrogen 13 mg/dL (7-17); Calcium 9.6 mg/dL (8.4-10.2); Carbon Dioxide 25 mmol/L (22-30); Chloride 99 mmol/L (98-107); Glucose 162 mg/dL (74-99); Lipase 36 U/L (23-300); Non-African American GFR(CKD) 88 (>60 ml/min/1.73 sqM); Sodium 136 mmol/L (137-145)
[2021-12-21 03:58] LABS: Potassium 4.9 mmol/L (3.5-5.1)
[2021-12-21 04:18] LABS: Appearance,Urine Cloudy (Clear); Bilirubin,Urine Negative (Negative); Blood,Urine Trace (Negative); Color,Urine Yellow; Glucose,Urine (UA) 2+ (Negative); Hyaline Casts,Urine 1 /lpf (0-2); Leukocyte Esterase,Urine Negative (Negative); Mucus,Urine Rare /hpf; Nitrite,Urine Negative (Negative); Protein,Urine 3+ (Negative); RBC,Urine 3 /hpf (0-5); Specific Gravity,Urine 1.024 (1.001-1.035); Urobilinogen,Urine <2.0 mg/dL (<2.0); WBC,Urine 3 /hpf (0-5)
[2021-12-21 04:40] LABS: Ketones,Urine 2+ (Negative)
[2021-12-21] MEDS ORDERED: ONDANSETRON 4 MG ODT STARTER PACK 2 TAB BTL PO STA (04:49)
[2021-12-21] MEDS ORDERED: traMADol 50 MG STARTER PACK 3 TAB BTL PO STA (04:49)
--- NOTE | 2021-12-21 04:49 | ED ---
Nausea/Vomiting/Diarrhea HPI - General Chief complaint: Nausea/Vomiting/Diarrhea Stated complaint: Vomiting, nausea Time Seen by Provider: 12/21/21 02:24 Source: patient, family Mode of arrival: wheelchair Limitations: no limitations - History of Present Illness Initial comments: This patient is an 81-year-old woman who presents to be evaluated for nausea and vomiting as well as headache. The patient states that she is currently taking a GI prep to have diagnostic study later today in preparation for takedown of her colostomy. The patient states that after drinking 2 bottles of the prep she became very nauseated and has had multiple episodes of vomiting. She denies abdominal pain. She denies hematemesis. She states that as result of the vom iting she has developed a moderately severe diffuse headache. She states that she used to get migraine headaches and this headache is not as severe as those were. No neurologic symptoms. No fever or chills. MD complaint: nausea, vomiting -: hour(s) Description of Vomiting: watery Associated Abdominal Pain: No Improves with: none Worsens with: none Associated Symptoms: nausea/vomiting, other (Headache) - Related Data Home Medications Medication Instructions Recorded Confirmed Atenolol [Tenormin] 100 mg PO QAM 04/09/15 12/18/21 Thyroid,Pork [Oil Deliverer Thyroid] 60 mg PO QAM 02/12/21 12/18/21 Allergies Allergy/AdvReac Type Severity Reaction Status Date / Time diphenhydramine Allergy Rash/Hives Verified 12/21/21 01:52 [From Benadryl] Review of Systems ROS Statement: Those systems with pertinent positive or pertinent negative responses have been documented in the HPI. ROS Other: All systems not noted in ROS Statement are negative. Constitutional: Denies: fever, weakness Eyes: Denies: eye pain, vision change Respiratory: Denies: cough Cardiovascular: Denies: chest pain Gastrointestinal: Reports: nausea, vomiting. Denies: abdominal pain Genitourinary: Denies: dysuria Musculoskeletal: Denies: back pain Skin: Denies: rash Neurological: Reports: headache. Denies: weakness, numbness, paresthesias, confusion Past Medical History Past Medical History: Fibromyalgia, Hypertension, Osteoarthritis (OA), Pneu monia, Rheumatoid Arthritis (RA), Thyroid Disorder Additional Past Medical History / Comment(s): Pt tested +covid on 02/08/21 at [facility] ER. 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 History of Any Multi-Drug Resistant Organisms: None Reported Past Surgical History: Back Surgery, Bladder Surgery, Tonsillectomy Additional Past Surgical History / Comment(s): Anterior colporrhaphy, cyst pubo vag sling, colonoscopy, lower back surgery, bilateral cataract removals/lens implants Past Anesthesia/Blood Transfusion Reactions: No Reported Reaction Past Psychological History: No Psychological Hx Reported Smoking Status: Former smoker Past Alcohol Use History: Occasional Past Drug Use History: None Reported - Past Family History Mother Family Medical History: Cancer Additional Family Medical History / Comment(s): [place]. Father Additional Family Medical History / Comment(s): Father had rheumatic fever as a child and from heart problem at the age of 43yrs. General Exam Limitations: no limitations General appearance: alert, in no apparent distress Head exam: Present: atraumatic, normocephalic Eye exam: Present: normal appearance, PERRL, EOMI. Absent: scleral icterus, conjunctival injection, nystagmus Neck exam: Present: normal inspection, full ROM. Absent: tenderness, meningismus Respiratory exam: Present: normal lung sounds bilaterally. Absent: respiratory distress, wheezes, rales, rhonchi Cardiovascular Exam: Present: regular rate, normal rhythm, normal heart sounds. Absent: systolic murmur, diastolic murmur, rubs, gallop GI/Abdominal exam: Present: soft. Absent: distended, tenderness, guarding, rebound, mass Neurological exam: Present: alert, oriented X3. Absent: motor sensory deficit Skin exam: Present: warm, dry, intact, normal color. Absent: rash Course Vital Signs 12/21/21 12/21/21 12/21/21 01:50 03:30 05:26 Temperature 98.2 F 98.2 F Pulse Rate 67 65 Respiratory 20 16 19 Rate Blood Pressure 211/99 148/63 139/62 O2 Sat by Pulse 98 98 Oximetry Medical Decision Making - Medical Decision Making Patient is feeling better following medications and would like to go home. Discussed appropriate further care and follow-up as well as return parameters. - Lab Data Result diagrams: 12/21/21 02:49 12/21/21 02:49 Lab Results 12/21/21 12/21/21 12/21/21 Range/Units 02:49 02:49 04:00 WBC 13.0 H (3.8-10.6) k/uL RBC 5.19 (3.80-5.40) m/uL Hgb 16.1 H (11.4-16.0) gm/dL Hct 49.9 H (34.0-46.0) % MCV 96.2 (80.0-100.0) fL MCH 31.0 (25.0-35.0) pg MCHC 32.3 (31.0-37.0) g/dL RDW 14.2 (11.5-15.5) % Plt Count 324 (150-450) k/uL MPV 7.6 Neutrophils % 93 % Lymphocytes % 5 % Monocytes % 2 % Eosinophils % 0 % Basophils % 0 % Neutrophils # 12.1 H (1.3-7.7) k/uL Lymphocytes # 0.6 L (1.0-4.8) k/uL Monocytes # 0.2 (0-1.0) k/uL Eosinophils # 0.0 (0-0.7) k/uL Basophils # 0.0 (0-0.2) k/uL Sodium 136 L (137-145) mmol/L Potassium 4.9 (3.5-5.1) mmol/L Chloride 99 (98-107) mmol/L Carbon Dioxide 25 (22-30) mmol/L Anion Gap 12 mmol/L BUN 13 (7-17) mg/dL Creatinine 0.54 (0.52-1.04) mg/dL Est GFR (CKD-EPI)AfAm >90 (>60 ml/min/1.73 sqM) Est GFR (CKD-EPI)NonAf 88 (>60 ml/min/1.73 sqM) Glucose 162 H (74-99) mg/dL Calcium 9.6 (8.4-10.2) mg/dL Total Bilirubin 2.0 H (0.2-1.3) mg/dL AST 54 H (14-36) U/L ALT 25 (4-34) U/L Alkaline Phosphatase 88 (38-126) U/L Total Protein 9.0 H (6.3-8.2) g/dL Albumin 5.0 (3.5-5.0) g/dL Amylase 55 (30-110) U/L Lipase 36 (23-300) U/L Urine Color Yellow Urine Appearance Cloudy H (Clear) Urine pH 7.0 (5.0-8.0) Ur Specific [place] 1.024 (1.001-1.035) Urine Protein 3+ H (Negative) Urine Glucose (UA) 2+ H (Negative) Urine Ketones 2+ H (Negative) Urine Blood Trace H (Negative) Urine Nitrite Negative (Negative) Urine Bilirubin Negative (Negative) Urine Urobilinogen <2.0 (<2.0) mg/dL Ur Leukocyte Esterase Negative (Negative) Urine RBC 3 (0-5) /hpf Urine WBC 3 (0-5) /hpf Hyaline Casts 1 (0-2) /lpf Urine Mucus Rare H (None) /hpf Disposition Clinical Impression: Nausea and vomiting Disposition: HOME SELF-CARE Condition: Good Instructions (If sedation given, give patient instructions): Acute Nausea and Vomiting (ED) Is patient prescribed a controlled substance at d/c from ED?: No Referrals: Galileo Valverde MD [Primary Care Provider] - 1-2 days
[2021-12-21 05:27] VITALS: BP 139/62; PULSE 65; RESP 19
== END 2021-12-21 05:20 | disposition home or self-care (01) ==
LOC: EC 01:46
DX: R11.2 Nausea with vomiting, unspecified (principal); M79.7 Fibromyalgia; I10 Essential (primary) hypertension; M06.9 Rheumatoid arthritis, unspecified; E07.9 Disorder of thyroid, unspecified; Z88.1 Allergy status to other antibiotic agents; Z86.16 Personal history of COVID-19; Z87.891 Personal history of nicotine dependence
CPT/HCPCS: 99284; 96374; 96375; 36415; 80053; 82150; 83690; 85025; 81001; J2270; J2405; S0119

== ENCOUNTER 2021-12-23 11:05 | Emergency (ER) | payer MEDICARE ==
[2021-12-23 11:34] VITALS: PULSE 50
--- NOTE | 2021-12-23 11:53 | ED ---
General Adult HPI - General Chief complaint: Urogenital Stated complaint: F/U Visit, Painful Urination Time Seen by Provider: 12/23/21 11:37 Source: patient Mode of arrival: ambulatory Limitations: no limitations - History of Present Illness Initial comments: Dictation was produced using [email or web address] dictation software. please excuse any grammatical, word or spelling errors. Chief Complaint: 81-year-old female presents to the emergency Department for UTI History of Present Illness: Is 81-year-old female she presents emergency department for UTI. Patient states that she is having symptoms of suprapubic cramping and dysuria. States she's had symptoms for the last 48 hours. As any constitutional symptoms. Patient states she gets UTIs though not very often. Her last urinary tract infection was last year. She was some blood in her urine earlier today. The ROS documented in this emergency department record has been reviewed and confirmed by me. Those systems with pertinent positive or negative responses have been documented in the HPI. All other systems are other negative and/or noncontributory. PHYSICAL EXAM: General Impression: Alert and oriented x3, not in acute distress HEENT: Normocephalic atraumatic, extra-ocular movements intact, pupils equal and reactive to light bilaterally, mucous membranes moist. Cardiovascular: Heart regular rate and rhythm Chest: Able to complete full sentences, no retractions, no tachypnea Abdomen: abdomen soft, non-tender, non-distended, no organomegaly Musculoskeletal: Pulses present and equal in all extremities, no peripheral edema Motor: no focal deficits noted Neurological: CN II-XII grossly intact, no focal motor or sensory deficits noted Skin: Intact with no visualized rashes Psych: Normal affect and mood ED course: 81-year-old female presents to the emergency department for symptoms concerning for urinary tract infection. As upon arrival are within acceptable l imits. Patient is afebrile. She does not have any constitutional symptoms. She denies any CVA tenderness. So well-appearing and smiling at the bedside in no acute distress. Urinalysis positive for urinary tract infection. Nitrate positive. Patient's UTI likely secondary to E. coli. Previous [facility] neurology was reviewed showing brought sensitivities. Patient one dose of ceftriaxone IM. Given prescription for Keflex. - Related Data Home Medications Medication Instructions Recorded Confirmed Atenolol [Tenormin] 100 mg PO DAILY 04/09/15 12/23/21 Thyroid,Pork [Rn Nicu Thyroid] 60 mg PO DAILY 02/12/21 12/23/21 Previous Rx's Medication Instructions Recorded Cephalexin [Keflex] 500 mg PO Q12HR 10 Days #20 cap 12/23/21 Allergies Allergy/AdvReac Type Severity Reaction Status Date / Time diphenhydramine Allergy Rash/Hives Verified 12/23/21 12:01 [From Benadryl] Review of Systems ROS Statement: Those systems with pertinent positive or pertinent negative responses have been documented in the HPI. ROS Other: All systems not noted in ROS Statement are negative. Past Medical History Past Medical History: Fibromyalgia, Hypertension, Osteoarthritis (OA), Pneumonia, Rheumatoid Arthritis (RA), Thyroid Disorder Additional Past Medical History / Comment(s): Pt tested +covid on 02/08/21 at [facility] ER. 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 History of Any Multi-Drug Resistant Organisms: None Reported Past Surgical History: Back Surgery, Bladder Surgery, Tonsillectomy Additional Past Surgical History / Comment(s): Anterior colporrhaphy, cyst pubo vag sling, colonoscopy, lower back surgery, bilateral cataract removals/lens implants Past Anesthesia/Blood Transfusion Reactions: No Reported Reaction Past Psychological History: No Psychological Hx Reported Smoking Status: Former smoker Past Alcohol Use History: Occasional Past Drug Use History: None Reported - Past Family History Mother Family Medical History: Cancer Additional Family Medical History / Comment(s): Bone Caner. Father Additional Family Medical History / Comment(s): Father had rheumatic fever as a child and from heart problem at the age of 43yrs. General Exam Limitations: no limitations Course Vital Signs 12/23/21 11:32 Temperature 98.4 F Pulse Rate 50 L Respiratory 16 Rate Blood Pressure 139/75 O2 Sat by Pulse 98 Oximetry Medical Decision Making - Lab Data Lab Results 12/23/21 Range/Units 11:56 Urine Color Light Yellow Urine Appearance Cloudy H (Clear) Urine pH 5.0 (5.0-8.0) Ur Specific Rinard 1.008 (1.001-1.035) Urine Protein Trace H (Negative) Urine Glucose (UA) Negative (Negative) Urine Ketones Negative (Negative) Urine Blood Moderate H (Negative) Urine Nitrite Positive H (Negative) Urine Bilirubin Negative (Negative) Urine Urobilinogen <2.0 (<2.0) mg/dL Ur Leukocyte Esterase Large H (Negative) Urine RBC 3 (0-5) /hpf Urine WBC >182 H (0-5) /hpf Urine WBC Clumps Many H (None) /hpf Ur Squamous Epith Cells <1 (0-4) /hpf Urine Bacteria Many H (None) /hpf Urine Mucus Rare H (None) /hpf Disposition Clinical Impression: Urinary tract infection Disposition: HOME SELF-CARE Condition: Good Instructions (If sedation given, give patient instructions): Urinary Tract Infection in Women (ED) Prescriptions: Cephalexin [Keflex] 500 mg PO Q12HR 10 Days #20 cap Is patient prescribed a controlled substance at d/c from ED?: No Referrals: Galileo Valverde MD [Primary Care Provider] - 1-2 days
[2021-12-23 12:31] LABS: Appearance,Urine Cloudy (Clear); Bacteria,Urine Many /hpf; Bilirubin,Urine Negative (Negative); Blood,Urine Moderate (Negative); Color,Urine Light Yellow; Glucose,Urine (UA) Negative (Negative); Ketones,Urine Negative (Negative); Leukocyte Esterase,Urine Large (Negative); Mucus,Urine Rare /hpf; Nitrite,Urine Positive (Negative); Protein,Urine Trace (Negative); RBC,Urine 3 /hpf (0-5); Specific Gravity,Urine 1.008 (1.001-1.035); Squamous Epithelial Cell,Urine <1 /hpf (0-4); Urobilinogen,Urine <2.0 mg/dL (<2.0); WBC,Urine >182 /hpf (0-5)
[2021-12-23] MEDS ORDERED: cefTRIAXone 1,000 MG VIAL (IM USE) IM STA (12:46)
[2021-12-23 13:09] VITALS: BP 158/83; RESP 17; TEMP 97.8
== END 2021-12-23 13:24 | disposition home or self-care (01) ==
LOC: EC 11:05
DX: N39.0 Urinary tract infection, site not specified (principal); I10 Essential (primary) hypertension; M19.90 Unspecified osteoarthritis, unspecified site; E07.9 Disorder of thyroid, unspecified; Z86.16 Personal history of COVID-19; Z87.891 Personal history of nicotine dependence
CPT/HCPCS: 99284; 96372; 81001; 87086; J0696

== ENCOUNTER 2022-04-15 08:40 | Inpatient (IN) | payer MEDICARE ==
[~2022-04-15 08:40] MED LIST changes: +ACETAMINOPHEN TAB 500 MG TAB PO PRN; +ALVIMOPAN 12 MG CAPSULE PO PRN; -DEXAMETHASONE SOD PHOSPHATE 10 MG/ML 1 ML VIAL IV ONE; +DEXAMETHASONE SOD PHOSPHATE 4 MG/ML 1 ML VIAL IV ONE; +HEPARIN SODIUM,PORCINE/PF 5,000 UNIT/0.5 ML SYRINGE SQ PRN; +HYDROmorphone 0.5 MG/0.5 ML SYRINGE IVP PRN; +LIDOCAINE 1% (10MG/ML) FOR IV START INTRADERMA PRN; -LIDOCAINE 1% 20 ML VIAL (10MG/ML) FOR IV START INTRADERMA PRN; -MIDAZOLAM 2 MG/2 ML VIAL IV PRN; -ceFAZolin 1,000 MG in DEXTROSE/WATER 1 50ML.BAG IVPB ONE; -fentaNYL (PF) 50 MCG/ML 2 ML AMP IV PRN; +metroNIDAZOLE-NS PMX 500 MG in SALINE 1 100ML.BAG IVPB PRN
--- NOTE | 2022-04-15 10:19 | P.GSHP ---
History of Present Illness H&P Date: 04/15/22 Chief Complaint: Diverticulitis 7-year-old female here today for elective colostomy reversal. Patient with history of Blake's procedure last February. She underwent colonoscopy in November. She had some induration seen on the CAT scan obtained at that time because of the patient's complaints of lower abdominal fullness. Patient had canceled her colostomy reversal back then because of severe nausea and vomiting. She has rescheduled a few times over the last 6 months and is scheduled for today's colostomy reversal. Past Medical History Past Medical History: Fibromyalgia, Hypertension, Osteoarthritis (OA), Pneumonia, Rheumatoid Arthritis (RA), Thyroid Disorder Additional Past Medical History / Comment(s): Pt tested +covid on 02/08/21 at [facility] ER. 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 History of Any Multi-Drug Resistant Organisms: None Reported Past Surgical History: Back Surgery, Bladder Surgery, Tonsillectomy Additional Past Surgical History / Comment(s): 02/20/21. BOWEL RESECTION WITH OSTOMY. Anterior colporrhaphy, cyst pubo vag sling, colonoscopy, lower back surgery, bilateral cataract removals/lens implants Past Anesthesia/Blood Transfusion Reactions: No Reported Reaction Past Psychological History: No Psychological Hx Reported Additional Psychological History / Comment(s): Pt resides with her spouse. She is independent. She hunts and fishes. Smoking Status: Former smoker Past Alcohol Use History: Occasional Additional Past Alcohol Use History / Comment(s): smoked from teens to 1989; s moked less than 1/2 ppd Past Drug Use History: None Reported - Past Family History Mother Family Medical History: Cancer Additional Family Medical History / Comment(s): Bone Caner. Father Additional Family Medical History / Comment(s): Father had rheumatic fever as a child and from heart problem at the age of 43yrs. Medications and Allergies Home Medications Medication Instructions Recorded Confirmed Type Atenolol [Tenormin] 100 mg PO QAM 04/09/15 04/11/22 History Thyroid,Pork [Salary And Wage Administrator Thyroid] 60 mg PO QAM 02/12/21 04/11/22 History Aspirin 650 mg PO DAILY PRN 04/11/22 04/11/22 History Neomycin 500 mg PO DIRECTED 04/11/22 04/11/22 History metroNIDAZOLE [Flagyl] 500 mg PO DIRECTED 04/11/22 04/11/22 History Allergies Allergy/AdvReac Type Severity Reaction Status Date / Time diphenhydramine Allergy Rash/Hives Verified 04/11/22 10:43 [From Ariane] Surgical - Exam Physical exam: General: Well-developed, well-nourished HEENT: Normocephalic, sclerae nonicteric Abdomen: Nontender, nondistended Extremities: No edema Neuro: Alert and oriented Assessment and Plan (1) Diverticular disease of intestine with perforation and abscess Narrative/Plan: 81-year-old female with previous Blake's procedure for diverticulitis. We'll proceed with exploratory laparotomy with colostomy reversal. Risks of bleeding, infection, abscess, inability to reverse colostomy, need for temporary loop ileostomy, ureteral and bowel injury, bladder injury, hernia, anesthesia related complications reviewed. She understands and wishes to proceed. Current Visit: No Status: Acute Code(s): K57.80 - DVTRCLI OF INTEST, PART UNSP, W PERF AND ABSCESS W/O BLEED SNOMED Code(s): 4267832290011
[2022-04-15] MEDS: LACTATED RINGERS 1,000 ML IV SCH (11:06)
[2022-04-15] MEDS ORDERED: MIDAZOLAM 2 MG/2 ML VIAL ONE (11:48)
[2022-04-15] MEDS ORDERED: PHENYLEPHRINE-0.9% NACL SYG 1,000 MCG/10 ML SYRINGE ONE (11:48)
[2022-04-15] MEDS ORDERED: hydrALAZINE HCL 20 MG/ML 1 ML VIAL ONE (11:48)
[2022-04-15] MEDS ORDERED: fentaNYL (PF) 50 MCG/ML 2 ML AMP ONE (11:48)
[2022-04-15] MEDS ORDERED: SUGAMMADEX SODIUM 200 MG/2 ML SDV IV ONE (11:48)
[2022-04-15] MEDS ORDERED: LABETALOL 5 MG/ML VIAL MDV ONE (11:48)
[2022-04-15] MEDS ORDERED: ePHEDrine 50 MG/ML 1 ML VIAL ONE (11:48)
[2022-04-15] MEDS ORDERED: PROPOFOL 10 MG/ML 20 ML VIAL IV ONE (11:48)
[2022-04-15] MEDS ORDERED: ROCURONIUM 10 MG/ML (5 ML VIAL) IV ONE (11:48)
[2022-04-15] MEDS ORDERED: SUCCINYLCHOLINE CHLORIDE 100 MG/5 ML SYR IV ONE (11:48)
[2022-04-15] MEDS ORDERED: HYDROmorphone (PF) 1 MG/ML ONE (11:48)
[2022-04-15] MEDS ORDERED: LACTATED RINGERS 1,000 ML IV ONE (12:36)
[2022-04-15] MEDS ORDERED: BENZOCAINE/MENTHOL LOZENG 1 EACH LOZENGE MUCOUS MEM PRN (14:37)
--- NOTE | 2022-04-15 15:00 | P.PCN ---
Date of Procedure: 04/15/22 Procedure(s) Performed: PREOPERATIVE DIAGNOSIS: Diverticulitis POSTOPERATIVE DIAGNOSIS: Same PROCEDURE: Exploratory laparotomy, lysis of adhesions, partial colectomy, partial small bowel resection SURGEON: Flavio EBL: 100 mL ANESTHESIA: General COMPLICATIONS: None OPERATIVE PROCEDURE: Patient was placed on the operative table in the supine position. The patient was placed under general anesthesia. The patient was then placed in lithotomy. Digital rectal examination occurred with removal of retained stool within the rectal vault. Once again I was somewhat concerned by the feeling of induration in the pelvis on this examination. The abdomen was then prepped and draped in usual sterile fashion. I decided to not take down the colostomy given our concerns that reversal may not be possible. At that time a vertical incision was made using a scalpel through the previous midline incision. The Bookwalter retractor was utilized. The patient had extensive adhesions between the small bowel loops in the pelvis. 4 separate loops of small bowel were densely adherent to the pelvis. These were able to be lysed using both blunt dissection and sharp dissection. The most stuck loop of small bowel had a sizable serosal tear and after we lysed the adhesion away from the rectal stump we could visualize the rectal stump was opened at that point. The 2 previous PDS sutures were noted in that area. Later a small bowel resection took place of this section of bowel that was densely adherent to the staple line. The bowel was divided proximal and distal to this section using a linear 75 stapler. The mesentery was divided using LigaSure. A eyed-tb-issy anastomosis then took place. The antimesenteric staple line was removed. The stapler was fired along the antimesenteric border. The remaining defect was closed using a TX 60 device. The mesentery was closed using interrupted 3-0 GI silk sutures. A 3-0 GI silk crotch stitch was also placed. The rectum was addressed. Cautery was used circumferentially around the rectum and then the LigaSure was used to mobilize the rectum. 8 length of rectum was mobilized measuring approximately 10 cm. This was beneath the peritoneal reflection. The wall of the rectum felt quite indurated and chronically inflamed. The wall anteriorly was quite thin and I was worried that we had a serosal tear in that area. At that point I decided not to further mobilize the rectum as I was not comfortable that we would reach a viable anastomotic site. The colostomy reversal was aborted at this point. I did resect the portion of rectum that had been dissected by firing a green load contour stapler across the rectum at that point. We were deep enough into the pelvis that was difficult to get all the way down to our resection margin. The small bowel resection took place as described above. The abdomen was thoroughly irrigated with saline. No bleeding was noted. The small bowel was again inspected all the way from the ligament of Treitz to the ileocecal valve. No serosal tears or abnormalities were present. The midline fascia was then reapproximated using 2 separate double-stranded #1 PDS sutures. The subcutaneous tissues were closed using 3-0 Vicryl sutures. The skin was then closed using liliane. Sterile dressings were then applied. DISPOSITION: Stable to recovery room
[2022-04-15] MEDS: HYDROmorphone 1 MG/ML 1 ML SYRINGE IVP PRN ×2 (16:34→21:12)
[2022-04-15] MEDS: D5-0.45% NACL WITH KCL 20MEQ/L 1,000 ML IV SCH ×2 (16:34→23:55)
[2022-04-15] MEDS: METOCLOPRAMIDE 5 MG/ML 2 ML VIAL IVP PRN (16:37)
[2022-04-15] MEDS: FAMOTIDINE 20 MG/2 ML VIAL IV SCH (21:11)
[2022-04-15] MEDS: HEPARIN SODIUM,PORCINE/PF 5,000 UNIT/0.5 ML SYRINGE SQ SCH (21:12)
[2022-04-16] MEDS: HYDROmorphone 1 MG/ML 1 ML SYRINGE IVP PRN ×5 (01:27→20:29)
[2022-04-16] MEDS: HEPARIN SODIUM,PORCINE/PF 5,000 UNIT/0.5 ML SYRINGE SQ SCH ×3 (03:59→20:23)
[2022-04-16] MEDS: D5-0.45% NACL WITH KCL 20MEQ/L 1,000 ML IV SCH ×3 (07:37→20:30)
[2022-04-16] MEDS: FAMOTIDINE 20 MG/2 ML VIAL IV SCH ×2 (07:38→20:23)
[2022-04-16] MEDS: LACTATED RINGERS 1,000 ML IV SCH (07:38)
[2022-04-16] MEDS: METOCLOPRAMIDE 5 MG/ML 2 ML VIAL IVP PRN (07:40)
[2022-04-16] MEDS: ALVIMOPAN 12 MG CAPSULE PO SCH ×2 (07:43→20:23)
[2022-04-16 09:19] LABS: Basophils # (A) 0.06 X 10*3/uL (0.00-0.10); Basophils % (A) 0.3 %; Eosinophils # (A) 0 X 10*3/uL (0.04-0.35); Eosinophils % (A) 0 %; HCT 42.3 % (37.2-46.3); HGB 13.6 g/dL (12.0-15.0); Immature Grans, Automated 0.6 %; Lymphocytes # (A) 0.75 X 10*3/uL (0.90-5.00); Lymphocytes % (A) 3.9 %; MCH 30.4 pg (27.0-32.0); MCHC 32.2 g/dL (32.0-37.0); MCV 94.6 fL (80.0-97.0); Mean Platelet Volume 10.5 fL (9.5-12.2); Monocytes # (A) 1.29 X 10*3/uL (0.20-1.00); Monocytes % (A) 6.7 %; NRBC Per 100 WBC 0 /100 WBCS (0.0-0.0); Neutrophils % (A) 88.5 %; Platelet Count 301 X 10*3/uL (140-440); RBC 4.47 X 10*6/uL (4.10-5.20); RDW 14.6 % (11.5-14.5); WBC 19.31 X 10*3/uL (4.50-10.00)
[2022-04-16 09:30] LABS: African American GFR (CKD) 79.6 (60.0-200.0); Anion Gap 11.7 mmol/L (10.00-18.00); BUN/Creat Ratio 14.25 Ratio (12.00-20.00); Blood Urea Nitrogen 11.4 mg/dL (9.0-27.0); Calcium 8.6 mg/dL (8.7-10.3); Carbon Dioxide 24.3 mmol/L (20.0-27.5); Non-African American GFR(CKD) 68.7 (60.0-200.0); Potassium 4.4 mmol/L (3.5-5.5)
[2022-04-16] MEDS ORDERED: ONDANSETRON 4 MG/2 ML VIAL IVP PRN (12:05)
--- NOTE | 2022-04-16 12:06 | P.PN ---
Subjective Progress Note Date: 04/16/22 CHIEF COMPLAINT: Diverticulitis HISTORY OF PRESENT ILLNESS: Postoperative day 1 status post exploratory l aparotomy, lysis of adhesions, partial colectomy, partial small bowel resection. Patient lying in bed comfortably. She reports her pain is controlled. She has more pain with movement. She did have nausea earlier which improved with Zofran. No vomiting. No function per ostomy. Currently on a clear liquid diet. Afebrile. WBC is 19.31 hemoglobin 13.6 platelets 301 sodium 137 potassium 4.4 creatinine 0.8 PHYSICAL EXAM: VITAL SIGNS: Reviewed. GENERAL: Well-developed in no acute distress. HEENT: No sclera icterus. Extraocular movements grossly intact. Moist buccal mucosa. Head is atraumatic, normocephalic. ABDOMEN: Soft. Nondistended. Incisional dressing small area at the proximal portion of the dressing with dried area of blood. Ostomy stoma is pink no stool or air NEUROLOGIC: Alert and oriented. Cranial nerves II through XII grossly intact. ASSESSMENT: 1. Diverticulitis status post exploratory laparotomy, lysis of adhesions, partial colectomy, partial small bowel resection PLAN: -Continue clear liquid diet -Continue pain medication as needed -Continue Entereg -Encouraged patient to use incentive spirometer -Encouraged patient to ambulate -Continue IV fluids -Continue antiemetics -DVT prophylaxis subcu heparin Physician Brim Rounder note has been reviewed by physician. Signing provider agrees with the documented findings, assessment, and plan of care. I have personally seen and examined the patient, reviewed the PITCH FILLER /PAs history, exam and MDM and agree with the assessment and plan as written. Based on total visit time, I have performed more than 50% of the visit. As above: Patient seems more comfortable today. Some nausea. No vomiting. Continue clear liquids. Ambulate. Objective - Vital Signs Vital signs: Vital Signs Temp 98 F 04/16/22 07:48 Pulse 70 04/16/22 07:48 Resp 16 04/16/22 08:00 BP 168/72 04/16/22 07:48 Pulse Ox 96 04/16/22 07:48 FiO2 Intake & Output 04/15/22 04/16/22 04/16/22 18:59 06:59 18:59 Intake Total 1700 1080 Output Total 880 600 Balance 820 480 Weight 68.4 kg Intake: IV 1700 Oral 1080 Output: Urine 780 600 Estimated Blood Loss 100 Other: Voiding Method Indwelling Catheter Indwelling Catheter Indwelling Catheter - Labs CBC & Chem 7: 04/16/22 06:32 04/16/22 06:32 Labs: Abnormal Lab Results - Last 24 Hours (Table) 04/16/22 04/16/22 Range/Units 06:32 06:32 WBC 19.31 H (4.50-10.00) X 10*3/uL RDW 14.6 H (11.5-14.5) % Immature Gran # 0.11 H (0.00-0.04) X 10*3/uL Neutrophils # 17.10 H (1.80-7.70) X 10*3/uL Lymphocytes # 0.75 L (0.90-5.00) X 10*3/uL Monocytes # 1.29 H (0.20-1.00) X 10*3/uL Eosinophils # 0 L (0.04-0.35) X 10*3/uL Glucose 170 H (70-110) mg/dL Calcium 8.6 L (8.7-10.3) mg/dL
[2022-04-16] MEDS: atenoloL 50 MG TAB PO SCH (14:16)
--- NOTE | 2022-04-16 16:23 | CDI ---
Documentation Clarification Form Date: 04/16/2022 03:43:33 PM From: Annita Chun RN, CCDS Admit Date: 04/15/2022 09:43:00 AM Patient Name: Yenni Reese Visit Number: [id number] Discharge Date: ATTENTION: The Clinical Documentation Specialists (CDI) and [facility] Coding Staff appreciate your assistance in clarifying documentation. Please respond to the clarification below the line at the bottom and electronically sign. The CDI & [facility] Coding staff will review the response and follow-up if needed. Please note: Queries are made part of the Legal Health Record. If you have any questions, please contact the author of this message via ITS. Dr. Leon Muniz Procedure report on 04/15/33 a serosal tear is documented and patient had exploratory laparotomy, lysis of adhesions, partial colectomy, and partial small bowel resection. Additional clarification is requested regarding the relationship, if any, that exists between the diagnosis and the procedure. Patients Admitting Diagnosis: Diverticulitis Post-Operative Diagnosis: Same Procedure performed: Exploratory laparotomy, lysis of adhesions, partial colectomy, and partial small bowel resection History/Risk Factors: Diverticulitis Clinical Indicators: 81-year-old female with history of diverticulitis present for elective procedure. 04/15 Procedure report: "The most stuck loop of small bowel had a sizable serosal tear and after we lysed the adhesion away from the rectal stump we could visualize the rectal stump was opened at that point. Treatment: Partial Small bowel resection, Side-to side anastomosis What relationship, if any, exists between the diagnosis of serosal tear and the procedure? [ ] Serosal tear is a complication of surgical procedure [] Serosal tear is an expected outcome of the surgical procedure [xx] Serosal tear is related to patients co-morbid condition(s) of [insert co- morbid dxs] & not a complication of the procedure [ ] Other please specify ____ [ ] Unable to determine (Template Last Revised: January 2021) Serosal tear is related to patient's history of diverticulitis and intra- abdominal adhesions and not a complication of the procedure ROBERTD
--- NOTE | 2022-04-16 19:29 | P.CONS ---
History of Present Illness - Reason for Consult Consult date: 04/15/22 - History of Present Illness Yenni Reese, is an 81-year-old female admitted to [facility] by Dr. Muniz for elective colostomy reversal. Patient had Blake procedure in February 2021 due to acute diverticulitis with abscess formation. She is admitted now for colostomy reversal. She went into the operating room on 04/15/2022 she underwent exploratory laparotomy lysis of adhesion she'll colectomy and partial small bowel resection. Colostomy reversal was aborted to due to inflamed hernandez of the rectum. Patient was admitted to medical floor post surgery medical consultation was requested for management while hospitalized. Her past medical history is significant for history of hypertension, history of rheumatoid arthritis, history of fibromyalgia, history of degenerative disc disease with previous history of back surgery, and history of bladder surgery On review of systems patient is alert and oriented 3 in no apparent distress there is no fever or chills no headache or dizziness no chest pain no shortness of breath no cough no nausea or vomiting no abdominal pain no diarrhea and no urinary symptoms. Past Medical History Past Medical History: Fibromyalgia, Hypertension, Osteoarthritis (OA), Pneumonia, Rheumatoid Arthritis (RA), Thyroid Disorder Additional Past Medical History / Comment(s): Pt tested +covid on 02/08/21 at [facility] ER. 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 History of Any Multi-Drug Resistant Organisms: None Reported Past Surgical History: Back Surgery, Bladder Surgery, Tonsillectomy Additional Past Surgical History / Comment(s): 02/20/21. BOWEL RESECTION WITH OSTOMY. Anterior colporrhaphy, cyst pubo vag sling, colonoscopy, lower back surgery, bilateral cataract removals/lens implants Past Anesthesia/Blood Transfusion Reactions: No Reported Reaction Past Psychological History: No Psychological Hx Reported Additional Psychological History / Comment(s): Pt resides with her spouse. She is independent. She hunts and fishes. Smoking Status: Former smoker Past Alcohol Use History: Occasional Additional Past Alcohol Use History / Comment(s): smoked from teens to 1989; smoked less than 1/2 ppd Past Drug Use History: None Reported - Past Family History Mother Family Medical History: Cancer Additional Family Medical History / Comment(s): Bone Caner. Father Additional Family Medical History / Comment(s): Father had rheumatic fever as a child and from heart problem at the age of 43yrs. Medications and Allergies Home Medications Medication Instructions Recorded Confirmed Type Atenolol [Tenormin] 100 mg PO QAM 04/09/15 04/15/22 History Thyroid,Pork [Dining Room Host/Hostess Thyroid] 60 mg PO QAM 02/12/21 04/15/22 History Aspirin 650 mg PO DAILY PRN 04/11/22 04/11/22 History Neomycin 500 mg PO DIRECTED 04/11/22 04/15/22 History metroNIDAZOLE [Flagyl] 500 mg PO DIRECTED 04/11/22 04/15/22 History Allergies Allergy/AdvReac Type Severity Reaction Status Date / Time diphenhydramine Allergy Rash/Hives Verified 04/15/22 10:41 [From Ariane] Physical Exam Vitals: Vital Signs Temp Pulse Resp BP Pulse Ox 04/15/22 19:30 97.5 F L 71 15 157/64 99 04/15/22 17:00 65 111/66 97 04/15/22 16:45 59 L 123/66 98 04/15/22 16:30 61 119/72 98 04/15/22 16:15 60 130/63 96 04/15/22 16:00 61 108/59 96 04/15/22 15:45 61 123/66 98 04/15/22 15:35 98 F 60 16 118/68 93 L 04/15/22 15:15 59 L 18 151/90 96 04/15/22 15:00 58 L 18 150/90 100 04/15/22 14:45 64 18 151/72 100 04/15/22 14:28 97.3 F L 63 18 138/66 100 04/15/22 11:24 197/75 04/15/22 10:48 97.1 F L 53 L 16 202/86 98 Intake and Output 04/15/22 04/15/22 04/15/22 06:59 14:59 22:59 Intake Total 1700 Output Total 680 200 Balance 1020 -200 Intake: IV 1700 Output: Urine 580 200 Estimated Blood Loss 100 Other: Voiding Method Indwelling Catheter Weight 68.4 kg 68.4 kg In general patient is alert and oriented x 3 in no distress HEENT head normocephalic and atraumatic Neck is supple no JVD no goiter no lymphadenopathy no carotid bruit Chest examination is clear to auscultation no crackles no wheezing Cardiac exam reveals regular heart sounds S1 and S2 no gallops no murmurs Abdomen is soft nontender no organomegaly with normal bowel sounds Extremity exam reveals no edema no cyanosis or clubbing Neurological examination reveals no gross focal deficits Results CBC & Chem 7: 04/16/22 06:32 04/16/22 06:32 Assessment and Plan Plan: History of diverticulitis with colostomy placement Status post exploratory laparotomy with lysis of adhesion partial colectomy and partial small bowel resection, colostomy reversal was aborted. Underlying history of hypertension Underlying history of rheumatoid arthritis Underlying history of degenerative disc disease Leukocytosis will monitor closely For DVT prophylaxis patient is on subcu heparin For GI prophylaxis Will add IV protonix Will follow closely
--- NOTE | 2022-04-16 19:31 | P.PN ---
Subjective Progress Note Date: 04/16/22 Yenni Reese, is an 81-year-old female admitted to [facility] by Dr. Muniz for elective colostomy reversal. Patient had Blake procedure in February 2021 due to acute diverticulitis with abscess formation. She is admitted now for colostomy reversal. She went into the operating room on 04/15/2022 she underwent exploratory laparotomy lysis of adhesion she'll colectomy and partial small bowel resection. Colostomy reversal was aborted to due to inflamed hernandez of the rectum. Patient was admitted to medical floor post surgery medical consultation was requested for management while hospitalized. Her past medical history is significant for history of hypertension, history of rheumatoid arthritis, history of fibromyalgia, history of degenerative disc disease with previous history of back surgery, and history of bladder surgery On review of systems patient is alert and oriented 3 in no apparent distress there is no fever or chills no headache or dizziness no chest pain no shortness of breath no cough no nausea or vomiting no abdominal pain no diarrhea and no urinary symptoms. On 04/16/2022 patient was seen and examined on the medical floor she is alert and oriented 3 in no apparent distress there is no fever or chills no headache or dizziness no chest pain no shortness of breath no cough no nausea or vomiting no abdominal pain no diarrhea and no urinary symptoms white blood count is elevated at 19.3 we will continue to monitor closely Objective - Vital Signs Vital signs: Vital Signs Temp 98.2 F 04/16/22 18:11 Pulse 67 04/16/22 18:11 Resp 16 04/16/22 18:11 BP 176/79 04/16/22 18:11 Pulse Ox 94 L 04/16/22 18:11 FiO2 Intake & Output 04/16/22 04/16/22 04/17/22 06:59 18:59 06:59 Intake Total 1080 Output Total 600 700 Balance 480 -700 Intake: Oral 1080 Output: Urine 600 700 Other: Voiding Method Indwelling Catheter Indwelling Catheter - Exam In general patient is alert and oriented x 3 in no distress HEENT head normocephalic and atraumatic Neck is supple no JVD no goiter no lymphadenopathy no carotid bruit Chest examination is clear to auscultation no crackles no wheezing Cardiac exam reveals regular heart sounds S1 and S2 no gallops no murmurs Abdomen is soft nontender no organomegaly with normal bowel sounds Extremity exam reveals no edema no cyanosis or clubbing Neurological examination reveals no gross focal deficits - Labs CBC & Chem 7: 04/16/22 06:32 04/16/22 06:32 Labs: Abnormal Lab Results - Last 24 Hours (Table) 04/16/22 04/16/22 Range/Units 06:32 06:32 WBC 19.31 H (4.50-10.00) X 10*3/uL RDW 14.6 H (11.5-14.5) % Immature Gran # 0.11 H (0.00-0.04) X 10*3/uL Neutrophils # 17.10 H (1.80-7.70) X 10*3/uL Lymphocytes # 0.75 L (0.90-5.00) X 10*3/uL Monocytes # 1.29 H (0.20-1.00) X 10*3/uL Eosinophils # 0 L (0.04-0.35) X 10*3/uL Glucose 170 H (70-110) mg/dL Calcium 8.6 L (8.7-10.3) mg/dL Assessment and Plan Plan: History of diverticulitis with colostomy placement Status post exploratory laparotomy with lysis of adhesion partial colectomy and partial small bowel resection, colostomy reversal was aborted. Underlying history of hypertension Underlying history of rheumatoid arthritis Underlying history of degenerative disc disease Leukocytosis will monitor closely For DVT prophylaxis patient is on subcu heparin For GI prophylaxis Will add IV protonix Will follow closely
[2022-04-16] MEDS: PANTOPRAZOLE 40 MG/10 ML VIAL IVP SCH (20:22)
[2022-04-17] MEDS: HYDROmorphone 1 MG/ML 1 ML SYRINGE IVP PRN ×4 (01:03→19:36)
[2022-04-17] MEDS: HEPARIN SODIUM,PORCINE/PF 5,000 UNIT/0.5 ML SYRINGE SQ SCH ×3 (05:08→21:00)
[2022-04-17] MEDS: THYROID, PORK 30 MG TAB PO SCH (05:09)
[2022-04-17] MEDS: PANTOPRAZOLE 40 MG/10 ML VIAL IVP SCH (08:23)
[2022-04-17] MEDS: ALVIMOPAN 12 MG CAPSULE PO SCH ×2 (08:23→21:00)
[2022-04-17] MEDS: atenoloL 50 MG TAB PO SCH (08:24)
[2022-04-17] MEDS: FAMOTIDINE 20 MG/2 ML VIAL IV SCH ×2 (08:24→22:01)
[2022-04-17 09:23] LABS: Basophils # (A) 0.03 X 10*3/uL (0.00-0.10); Basophils % (A) 0.2 %; Eosinophils # (A) 0.05 X 10*3/uL (0.04-0.35); Eosinophils % (A) 0.3 %; HCT 43.2 % (37.2-46.3); HGB 13.6 g/dL (12.0-15.0); Immature Grans, Automated 0.5 %; Lymphocytes # (A) 0.78 X 10*3/uL (0.90-5.00); Lymphocytes % (A) 5.3 %; MCH 30.6 pg (27.0-32.0); MCHC 31.5 g/dL (32.0-37.0); MCV 97.1 fL (80.0-97.0); Mean Platelet Volume 10.6 fL (9.5-12.2); Monocytes # (A) 1.27 X 10*3/uL (0.20-1.00); Monocytes % (A) 8.7 %; NRBC Per 100 WBC 0 /100 WBCS (0.0-0.0); Neutrophils # (A) 12.42 X 10*3/uL (1.80-7.70); Platelet Count 313 X 10*3/uL (140-440); RBC 4.45 X 10*6/uL (4.10-5.20); RDW 14.6 % (11.5-14.5); WBC 14.62 X 10*3/uL (4.50-10.00)
--- NOTE | 2022-04-17 10:29 | P.PN ---
Subjective Progress Note Date: 04/17/22 Yenni Reese, is an 81-year-old female admitted to [facility] by Dr. Muniz for elective colostomy reversal. Patient had Blake procedure in February 2021 due to acute diverticulitis with abscess formation. She is admitted now for colostomy reversal. She went into the operating room on 04/15/2022 she underwent exploratory laparotomy lysis of adhesion she'll colectomy and partial small bowel resection. Colostomy reversal was aborted to due to inflamed hernandez of the rectum. Patient was admitted to medical floor post surgery medical consultation was requested for management while hospitalized. Her past medical history is significant for history of hypertension, history of rheumatoid arthritis, history of fibromyalgia, history of degenerative disc disease with previous history of back surgery, and history of bladder surgery On review of systems patient is alert and oriented 3 in no apparent distress there is no fever or chills no headache or dizziness no chest pain no shortness of breath no cough no nausea or vomiting no abdominal pain no diarrhea and no urinary symptoms. On 04/16/2022 patient was seen and examined on the medical floor she is alert and oriented 3 in no apparent distress there is no fever or chills no headache or dizziness no chest pain no shortness of breath no cough no nausea or vomiting no abdominal pain no diarrhea and no urinary symptoms white blood count is elevated at 19.3 we will continue to monitor closely On 04/17/2022 patient is alert and oriented 3. White blood cell count 14.62. Patient is resting comfortably in bed. Midline dressing is clean dry and intact. Blood pressure remains high will add hydralazine prn. Blood culture has been ordered. At this time patient denies chest pain or shortness of breath. Patient denies nausea vomiting or diarrhea. Patient denies any urinary burning or frequency. Patient remains on clear liquid diet Objective - Vital Signs Vital signs: Vital Signs Temp 98.5 F 04/17/22 08:00 Pulse 66 04/17/22 08:00 Resp 18 04/17/22 08:00 BP 173/79 04/17/22 08:00 Pulse Ox 90 L 04/17/22 08:00 FiO2 Intake & Output 04/16/22 04/17/22 04/17/22 18:59 06:59 18:59 Intake Total 1080 Output Total 700 1250 Balance -700 -170 Intake: Oral 1080 Output: Urine 700 1250 Other: Voiding Method Indwelling Catheter Indwelling Catheter Indwelling Catheter - Exam In general patient is alert and oriented x 3 in no distress HEENT head normocephalic and atraumatic Neck is supple no JVD no goiter no lymphadenopathy no carotid bruit Chest examination is clear to auscultation no crackles no wheezing Cardiac exam reveals regular heart sounds S1 and S2 no gallops no murmurs Abdomen is soft nontender no organomegaly with normal bowel sounds Extremity exam reveals no edema no cyanosis or clubbing Neurological examination reveals no gross focal deficits - Labs CBC & Chem 7: 04/17/22 05:18 04/16/22 06:32 Labs: Abnormal Lab Results - Last 24 Hours (Table) 04/17/22 Range/Units 05:18 WBC 14.62 H (4.50-10.00) X 10*3/uL MCV 97.1 H (80.0-97.0) fL MCHC 31.5 L (32.0-37.0) g/dL RDW 14.6 H (11.5-14.5) % Immature Gran # 0.07 H (0.00-0.04) X 10*3/uL Neutrophils # 12.42 H (1.80-7.70) X 10*3/uL Lymphocytes # 0.78 L (0.90-5.00) X 10*3/uL Monocytes # 1.27 H (0.20-1.00) X 10*3/uL Assessment and Plan Plan: History of diverticulitis with colostomy placement Status post exploratory laparotomy with lysis of adhesion partial colectomy and partial small bowel resection, colostomy reversal was aborted. Underlying history of hypertension Underlying history of rheumatoid arthritis Underlying history of degenerative disc disease Leukocytosis will monitor closely. Trending down. Blood culture ordered infectious disease services have been consulted For DVT prophylaxis patient is on subcu heparin For GI prophylaxis Will add IV protonix Will follow closely Repeat labs ordered Blood culture ordered Patient maintained on clear liquid diet
[2022-04-17] MEDS: D5-0.45% NACL WITH KCL 20MEQ/L 1,000 ML IV SCH ×2 (10:56→16:27)
--- NOTE | 2022-04-17 12:07 | P.PN ---
Subjective Progress Note Date: 04/17/22 CHIEF COMPLAINT: Diverticulitis HISTORY OF PRESENT ILLNESS: Postoperative day #2 status post exploratory laparotomy, lysis of adhesions, partial colectomy, partial small bowel resection. Patient lying in bed comfortably. She reports her pain is controlled. She complains of pain with movement. Denies any nausea or vomiting. Tolerating clear liquids. Afebrile. Elevated BP 173/79. Medicine service has added hydralazine. WBC 19.31 down to 14.62 hemoglobin 13.6 platelets 313 PHYSICAL EXAM: VITAL SIGNS: Reviewed. GENERAL: Well-developed in no acute distress. HEENT: No sclera icterus. Extraocular movements grossly intact. Moist buccal mucosa. Head is atraumatic, normocephalic. ABDOMEN: Soft. Nondistended. Incisional dressing small area at the proximal portion of the dressing with dried area of blood. Ostomy no stool or air noted in bag. stoma pink NEUROLOGIC: Alert and oriented. Cranial nerves II through XII grossly intact. ASSESSMENT: 1. Diverticulitis status post exploratory laparotomy, lysis of adhesions, partial colectomy, partial small bowel resection PLAN: -Continue clear liquid diet -Continue pain medication as needed -Continue Entereg -Encouraged patient to use incentive spirometer -Encouraged patient to ambulate -Continue IV fluids -Continue antiemetics -DVT prophylaxis subcu heparin Physician Superintendent Police note has been reviewed by physician. Signing provider agrees with the documented findings, assessment, and plan of care. I have personally seen and examined the patient, reviewed the MOBILE SECURITY SPECIALIST /PAs history, exam and MDM and agree with the assessment and plan as written. Based on total visit time, I have performed more than 50% of the visit. As above: Patient doing better today. No nausea. Will advance diet to full liquids. Await return of bowel function. Objective - Vital Signs Vital signs: Vital Signs Temp 98.5 F 04/17/22 08:00 Pulse 66 04/17/22 08:00 Resp 18 04/17/22 08:00 BP 173/79 04/17/22 08:00 Pulse Ox 90 L 04/17/22 08:00 FiO2 Intake & Output 04/16/22 04/17/22 04/17/22 18:59 06:59 18:59 Intake Total 1080 Output Total 700 1250 Balance -700 -170 Intake: Oral 1080 Output: Urine 700 1250 Other: Voiding Method Indwelling Catheter Indwelling Catheter Indwelling Catheter - Labs CBC & Chem 7: 04/17/22 05:18 04/16/22 06:32 Labs: Abnormal Lab Results - Last 24 Hours (Table) 04/17/22 Range/Units 05:18 WBC 14.62 H (4.50-10.00) X 10*3/uL MCV 97.1 H (80.0-97.0) fL MCHC 31.5 L (32.0-37.0) g/dL RDW 14.6 H (11.5-14.5) % Immature Gran # 0.07 H (0.00-0.04) X 10*3/uL Neutrophils # 12.42 H (1.80-7.70) X 10*3/uL Lymphocytes # 0.78 L (0.90-5.00) X 10*3/uL Monocytes # 1.27 H (0.20-1.00) X 10*3/uL
[2022-04-17] MEDS: PIPERACILLIN-TAZOBACTAM 3.375 GM in SODIUM CHLORIDE 0.9% 100 ML IVPB SCH (16:26)
[2022-04-18] MEDS: D5-0.45% NACL WITH KCL 20MEQ/L 1,000 ML IV SCH ×3 (00:02→17:31)
[2022-04-18] MEDS: HYDROmorphone 1 MG/ML 1 ML SYRINGE IVP PRN ×4 (02:29→22:09)
[2022-04-18] MEDS: HEPARIN SODIUM,PORCINE/PF 5,000 UNIT/0.5 ML SYRINGE SQ SCH ×3 (04:00→20:02)
[2022-04-18] MEDS: THYROID, PORK 30 MG TAB PO SCH (06:25)
--- NOTE | 2022-04-18 06:55 | P.CONS ---
History of Present Illness - Reason for Consult Consult date: 04/17/22 Diverticulitis Requesting physician: Galileo Valverde - Chief Complaint Abdominal pain x few days - History of Present Illness Patient is 81-year female with a past medical history significant for perforated diverticulitis with Blake procedure February 2021 patient has been electively admitted to the hospital on 04/15/2022 for reversal of her colostomy at the time of surgical procedure patient was noticed to have significant amount of inflammation patient is status post exploratory laparotomy lysis of adhesion partial colectomy partial small bowel resection colostomy was not reversed because of the inflammatory changes seen but no evidence of any perforated div erticulitis patient also have elevated white count on admission of 19.31 which is down to 14.6 today kidney function has been normal no culture, infectious disease was consulted today concerning for elevated white count and history diverticulitis and need for antibiotic therapy, at the time of evaluation the patient denies having any fever or any chills, she has been complaining of some lower abdominal pain more of a dull aching 2-3 out of 10 no radiation some nausea but no vomiting no chest pain shortness of breath or cough and denies diarrhea Review of Systems Positive point has been mentioned in the HPI rest of the systems are negative Past Medical History Past Medical History: Fibromyalgia, Hypertension, Osteoarthritis (OA), Pneumonia, Rheumatoid Arthritis (RA), Thyroid Disorder Additional Past Medical History / Comment(s): Pt tested +covid on 02/08/21 at [facility]. 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 History of Any Multi-Drug Resistant Organisms: None Reported Past Surgical History: Back Surgery, Bladder Surgery, Tonsillectomy Additional Past Surgical History / Comment(s): 02/20/21. BOWEL RESECTION WITH OSTOMY. Anterior colporrhaphy, cyst pubo vag sling, colonoscopy, lower back surgery, bilateral cataract removals/lens implants Past Anesthesia/Blood Transfusion Reactions: No Reported Reaction Past Psychological History: No Psychological Hx Reported Additional Psychological History / Comment(s): Pt resides with her spouse. She is independent. She hunts and fishes. Smoking Status: Former smoker Past Alcohol Use History: Occasional Additional Past Alcohol Use History / Comment(s): smoked from teens to 1989; smoked less than 1/2 ppd Past Drug Use History: None Reported - Past Family History Mother Family Medical History: Cancer Additional Family Medical History / Comment(s): [place]. Father Additional Family Medical History / Comment(s): Father had rheumatic fever as a child and from heart problem at the age of 43yrs. Medications and Allergies Home Medications Medication Instructions Recorded Confirmed Type Atenolol [Tenormin] 100 mg PO QAM 04/09/15 04/15/22 History Thyroid,Pork [Spooling Supervisor Thyroid] 60 mg PO QAM 02/12/21 04/15/22 History Aspirin 650 mg PO DAILY PRN 04/11/22 04/11/22 History Neomycin 500 mg PO DIRECTED 04/11/22 04/15/22 History metroNIDAZOLE [Flagyl] 500 mg PO DIRECTED 04/11/22 04/15/22 History Allergies Allergy/AdvReac Type Severity Reaction Status Date / Time diphenhydramine Allergy Rash/Hives Verified 04/15/22 10:41 [From Benadryl] Physical Exam Vitals: Vital Signs Temp Pulse Resp BP Pulse Ox 04/17/22 08:00 98.5 F 66 18 173/79 90 L 04/17/22 02:00 99.5 F 74 18 170/81 90 L 04/16/22 18:11 98.2 F 67 16 176/79 94 L 04/16/22 13:36 98.1 F 69 16 178/86 97 Intake and Output 04/16/22 04/17/22 04/17/22 22:59 06:59 14:59 Intake Total 1080 Output Total 700 1250 Balance -700 -170 Intake: Oral 1080 Output: Urine 700 1250 Other: Voiding Method Indwelling Catheter Indwelling Catheter GENERAL DESCRIPTION: An elderly female lying in bed, no distress. No tachypnea or accessory muscle of respiration use. HEENT: Shows Pallor , no scleral icterus. Oral mucous membrane is dry. No pharyngeal erythema or thrush NECK: Trachea central, no thyromegaly. LUNGS: Unlabored breathing. Clear to auscultation anteriorly. No wheeze or crackle. HEART: S1, S2, regular rate and rhythm. No loud murmur ABDOMEN: Soft, no tenderness , guarding or rigidity, no organomegaly EXTREMITIES: No edema of feet. SKIN: No rash, no masses palpable. NEUROLOGICAL: The patient is awake, alert, oriented x3, mood and affect normal. Results CBC & Chem 7: 04/17/22 05:18 04/16/22 06:32 Labs: Abnormal Lab Results - Last 24 Hours (Table) 04/17/22 Range/Units 05:18 WBC 14.62 H (4.50-10.00) X 10*3/uL MCV 97.1 H (80.0-97.0) fL MCHC 31.5 L (32.0-37.0) g/dL RDW 14.6 H (11.5-14.5) % Immature Gran # 0.07 H (0.00-0.04) X 10*3/uL Neutrophils # 12.42 H (1.80-7.70) X 10*3/uL Lymphocytes # 0.78 L (0.90-5.00) X 10*3/uL Monocytes # 1.27 H (0.20-1.00) X 10*3/uL Assessment and Plan (1) Leukocytosis Current Visit: Yes Status: Acute Code(s): D72.829 - ELEVATED WHITE BLOOD CELL COUNT, UNSPECIFIED SNOMED Code(s): 249231151 Plan: 1patient with a history of diverticulitis requiring diverting colostomy about a year ago subsequently present to the hospital for reversal of the colostomy however the patient was noticed to have significant extremity changes patient is status post lysis of adhesion partial colectomy and small bowel resection but no mention of any perforation patient did have elevated white count on admission. 2we will empirically start the patient on Zosyn 3.375 g every 8 hours while i npatient and monitor her white count closely is spiking fever to obtain culture. 3if the patient continues to improve and white count normalized we will be able to transition to oral antibiotics on discharge. We will follow on clinical condition and cultures to further adjust medication if needed Thank you for this consultation will follow this patient along with you Time with Patient: Greater than 30
[2022-04-18] MEDS: atenoloL 50 MG TAB PO SCH (07:50)
[2022-04-18] MEDS: ALVIMOPAN 12 MG CAPSULE PO SCH ×2 (07:51→20:03)
[2022-04-18] MEDS: PANTOPRAZOLE 40 MG/10 ML VIAL IVP SCH (07:51)
[2022-04-18] MEDS: FAMOTIDINE 20 MG/2 ML VIAL IV SCH ×2 (07:52→20:03)
[2022-04-18] MEDS: PIPERACILLIN-TAZOBACTAM 3.375 GM in SODIUM CHLORIDE 0.9% 100 ML IVPB SCH ×4 (07:53→15:42)
[2022-04-18 09:04] LABS: Basophils # (A) 0.05 X 10*3/uL (0.00-0.10); Basophils % (A) 0.4 %; Eosinophils # (A) 0.13 X 10*3/uL (0.04-0.35); Eosinophils % (A) 1.1 %; HCT 39.9 % (37.2-46.3); HGB 12.6 g/dL (12.0-15.0); Immature Grans, Automated 0.4 %; Lymphocytes # (A) 1.12 X 10*3/uL (0.90-5.00); Lymphocytes % (A) 9.8 %; MCH 30.3 pg (27.0-32.0); MCHC 31.6 g/dL (32.0-37.0); MCV 95.9 fL (80.0-97.0); Mean Platelet Volume 10.7 fL (9.5-12.2); Monocytes # (A) 1.26 X 10*3/uL (0.20-1.00); NRBC Per 100 WBC 0 /100 WBCS (0.0-0.0); Neutrophils # (A) 8.83 X 10*3/uL (1.80-7.70); Neutrophils % (A) 77.3 %; Platelet Count 280 X 10*3/uL (140-440); RBC 4.16 X 10*6/uL (4.10-5.20); RDW 14.3 % (11.5-14.5); WBC 11.44 X 10*3/uL (4.50-10.00)
[2022-04-18 09:22] LABS: African American GFR (CKD) 80.1 (60.0-200.0); Albumin 3.1 g/dL (3.8-4.9); Albumin/Globulin Ratio 1.38 (1.60-3.17); Anion Gap 5.2 mmol/L (10.00-18.00); BUN/Creat Ratio 8.72 Ratio (12.00-20.00); Blood Urea Nitrogen 6.9 mg/dL (9.0-27.0); Calcium 8.7 mg/dL (8.7-10.3); Carbon Dioxide 31.1 mmol/L (20.0-27.5); Globulin 2.3 g/dL (1.6-3.3); Non-African American GFR(CKD) 69.1 (60.0-200.0); Potassium 4.2 mmol/L (3.5-5.5); Total Bilirubin 0.9 mg/dL (0.30-1.20); Total Protein 5.4 g/dL (6.2-8.2)
--- NOTE | 2022-04-18 10:55 | P.PN ---
Subjective Progress Note Date: 04/18/22 CHIEF COMPLAINT: Diverticulitis HISTORY OF PRESENT ILLNESS: Postoperative day #3 status post exploratory laparotomy, lysis of adhesions, partial colectomy, partial small bowel resection. Patient sitting in bedside chair. She reports her pain is controlled. She was clear liquid diet this morning. She wants advancement in her diet. Ostomy is not functioning yet. She has a nausea vomiting. Patient seen by infectious disease service. They have added IV Zosyn. She's afebrile. BP is not as elevated as yesterday . WBC is down from 14.62-11.44 hemoglobin 12.6 sodium 141 potassium is 4.2 creatinine 0.8. PHYSICAL EXAM: VITAL SIGNS: Reviewed. GENERAL: Well-developed in no acute distress. HEENT: No sclera icterus. Extraocular movements grossly intact. Moist buccal mucosa. Head is atraumatic, normocephalic. ABDOMEN: Soft. Nondistended. Incisional dressing small area at the proximal portion of the dressing with dried area of blood. Ostomy no stool or air noted in bag. stoma pink NEUROLOGIC: Alert and oriented. Cranial nerves II through XII grossly intact. ASSESSMENT: 1. Diverticulitis status post exploratory laparotomy, lysis of adhesions, partial colectomy, partial small bowel resection PLAN: -Advance diet to full liquids -Continue pain medication as needed -Continue Entereg -Encouraged patient to use incentive spirometer -Encouraged patient to ambulate -Continue IV fluids -Continue antiemetics -DVT prophylaxis subcu heparin and GI prophylaxis Pepcid Physician Code And Test Clerk note has been reviewed by physician. Signing provider agrees with the documented findings, assessment, and plan of care. I have personally seen and examined the patient, reviewed the BAG VALVER /PAs history, exam and MDM and agree with the assessment and plan as written. Based on total visit time, I have performed more than 50% of the visit. As above: Patient has been sitting up in the chair. No nausea or vomiting. Tolerated full liquids. No ostomy function. Continue full liquids for now. Increase activity. Objective - Vital Signs Vital signs: Vital Signs Temp 98.2 F 04/18/22 07:34 Pulse 60 04/18/22 07:34 Resp 17 04/18/22 07:34 BP 168/76 04/18/22 07:34 Pulse Ox 96 04/18/22 07:34 FiO2 21 04/17/22 20:59 Intake & Output 04/17/22 04/18/22 04/18/22 18:59 06:59 18:59 Intake Total 480 Output Total 2500 1400 Balance -2500 -920 Intake: Oral 480 Output: Urine 2500 1400 Uretheral (Tarango) 1000 Other: Voiding Method Indwelling Catheter Indwelling Catheter - Labs CBC & Chem 7: 04/18/22 05:11 04/18/22 05:11 Labs: Abnormal Lab Results - Last 24 Hours (Table) 04/18/22 04/18/22 Range/Units 05:11 05:11 WBC 11.44 H (4.50-10.00) X 10*3/uL MCHC 31.6 L (32.0-37.0) g/dL Immature Gran # 0.05 H (0.00-0.04) X 10*3/uL Neutrophils # 8.83 H (1.80-7.70) X 10*3/uL Monocytes # 1.26 H (0.20-1.00) X 10*3/uL Carbon Dioxide 31.1 H (20.0-27.5) mmol/L Anion Gap 5.20 L (10.00-18.00) mmol/L BUN 6.9 L (9.0-27.0) mg/dL BUN/Creatinine Ratio 8.72 L (12.00-20.00) Ratio Total Protein 5.4 L (6.2-8.2) g/dL Albumin 3.1 L (3.8-4.9) g/dL Albumin/Globulin Ratio 1.38 L (1.60-3.17) g/dL
[2022-04-18] MEDS ORDERED: HEPARIN SODIUM,PORCINE 5,000 UNIT/ML 1 ML VIAL ONE (12:00)
--- NOTE | 2022-04-18 19:55 | P.PN ---
Subjective Progress Note Date: 04/18/22 Yenni Reese, is an 81-year-old female admitted to [facility] by Dr. Muniz for elective colostomy reversal. Patient had Blake procedure in February 2021 due to acute diverticulitis with abscess formation. She is admitted now for colostomy reversal. She went into the operating room on 04/15/2022 she underwent exploratory laparotomy lysis of adhesion she'll colectomy and partial small bowel resection. Colostomy reversal was aborted to due to inflamed hernandez of the rectum. Patient was admitted to medical floor post surgery medical consultation was requested for management while hospitalized. Her past medical history is significant for history of hypertension, history of rheumatoid arthritis, history of fibromyalgia, history of degenerative disc disease with previous history of back surgery, and history of bladder surgery On review of systems patient is alert and oriented 3 in no apparent distress there is no fever or chills no headache or dizziness no chest pain no shortness of breath no cough no nausea or vomiting no abdominal pain no diarrhea and no urinary symptoms. On 04/16/2022 patient was seen and examined on the medical floor she is alert and oriented 3 in no apparent distress there is no fever or chills no headache or dizziness no chest pain no shortness of breath no cough no nausea or vomiting no abdominal pain no diarrhea and no urinary symptoms white blood count is elevated at 19.3 we will continue to monitor closely On 04/17/2022 patient is alert and oriented 3. White blood cell count 14.62. Patient is resting comfortably in bed. Midline dressing is clean dry and intact. Blood pressure remains high will add hydralazine prn. Blood culture has been ordered. At this time patient denies chest pain or shortness of breath. Patient denies nausea vomiting or diarrhea. Patient denies any urinary burning or frequency. Patient remains on clear liquid diet. On 04/18/2022 patient was seen and examined on the medical floor she is alert an d oriented 3 in no apparent distress, there is no fever or chills no headache or dizziness no chest pain no shortness of breath no cough no nausea or vomiting no abdominal pain no diarrhea and no urinary symptoms, patient was seen by Dr. Gambino infectious disease and was started on IV Zosyn, she is maintained on subcu heparin for DVT prophylaxis, otherwise condition is the same Objective - Vital Signs Vital signs: Vital Signs Temp 98.3 F 04/18/22 14:21 Pulse 63 04/18/22 14:21 Resp 17 04/18/22 14:21 BP 174/74 04/18/22 14:21 Pulse Ox 94 L 04/18/22 14:21 FiO2 21 04/17/22 20:59 Intake & Output 04/17/22 04/18/22 04/18/22 18:59 06:59 18:59 Intake Total 480 Output Total 2500 1400 Balance -2500 -920 Intake: Oral 480 Output: Urine 2500 1400 Uretheral (Tarango) 1000 Other: Voiding Method Indwelling Catheter Indwelling Catheter - Exam In general patient is alert and oriented x 3 in no distress HEENT head normocephalic and atraumatic Neck is supple no JVD no goiter no lymphadenopathy no carotid bruit Chest examination is clear to auscultation no crackles no wheezing Cardiac exam reveals regular heart sounds S1 and S2 no gallops no murmurs Abdomen is soft nontender no organomegaly with normal bowel sounds Extremity exam reveals no edema no cyanosis or clubbing Neurological examination reveals no gross focal deficits - Labs CBC & Chem 7: 04/18/22 05:11 04/18/22 05:11 Labs: Abnormal Lab Results - Last 24 Hours (Table) 04/18/22 04/18/22 Range/Units 05:11 05:11 WBC 11.44 H (4.50-10.00) X 10*3/uL MCHC 31.6 L (32.0-37.0) g/dL Immature Gran # 0.05 H (0.00-0.04) X 10*3/uL Neutrophils # 8.83 H (1.80-7.70) X 10*3/uL Monocytes # 1.26 H (0.20-1.00) X 10*3/uL Carbon Dioxide 31.1 H (20.0-27.5) mmol/L Anion Gap 5.20 L (10.00-18.00) mmol/L BUN 6.9 L (9.0-27.0) mg/dL BUN/Creatinine Ratio 8.72 L (12.00-20.00) Ratio Total Protein 5.4 L (6.2-8.2) g/dL Albumin 3.1 L (3.8-4.9) g/dL Albumin/Globulin Ratio 1.38 L (1.60-3.17) g/dL Microbiology - Last 24 Hours (Table) 04/17/22 09:40 Blood Culture - Preliminary Blood No Growth after 24 hours Assessment and Plan Plan: History of diverticulitis with colostomy placement Status post exploratory laparotomy with lysis of adhesion partial colectomy and partial small bowel resection, colostomy reversal was aborted. Underlying history of hypertension Underlying history of rheumatoid arthritis Underlying history of degenerative disc disease Leukocytosis will monitor closely. Trending down. Blood culture ordered infectious disease services have been consulted For DVT prophylaxis patient is on subcu heparin For GI prophylaxis Will add IV protonix Will follow closely Repeat labs ordered Blood culture ordered Patient maintained on clear liquid diet
[2022-04-19] MEDS: D5-0.45% NACL WITH KCL 20MEQ/L 1,000 ML IV SCH ×2 (00:30→08:03)
[2022-04-19] MEDS: PIPERACILLIN-TAZOBACTAM 3.375 GM in SODIUM CHLORIDE 0.9% 100 ML IVPB SCH ×4 (00:30→23:24)
[2022-04-19] MEDS: HEPARIN SODIUM,PORCINE/PF 5,000 UNIT/0.5 ML SYRINGE SQ SCH ×3 (04:31→19:45)
[2022-04-19] MEDS: hydrALAZINE HCL 20 MG/ML 1 ML VIAL IVP PRN ×2 (06:17→19:45)
[2022-04-19] MEDS: HYDROmorphone 1 MG/ML 1 ML SYRINGE IVP PRN (06:18)
[2022-04-19] MEDS: THYROID, PORK 30 MG TAB PO SCH (08:02)
[2022-04-19] MEDS: ALVIMOPAN 12 MG CAPSULE PO SCH (08:02)
[2022-04-19] MEDS: atenoloL 50 MG TAB PO SCH (08:02)
[2022-04-19 08:56] LABS: Basophils % (A) 0 %; Eosinophils # (A) 0.3 k/uL (0-0.7); Eosinophils % (A) 3 %; HCT 41.3 % (34.0-46.0); HGB 12.9 gm/dL (11.4-16.0); Lymphocytes # (A) 1.2 k/uL (1.0-4.8); Lymphocytes % (A) 12 %; MCH 30.7 pg (25.0-35.0); MCHC 31.3 g/dL (31.0-37.0); MCV 98.2 fL (80.0-100.0); Mean Platelet Volume 8.5; Monocytes # (A) 0.7 k/uL (0-1.0); Monocytes % (A) 7 %; Neutrophils # (A) 7.2 k/uL (1.3-7.7); Neutrophils % (A) 76 %; Platelet Count 322 k/uL (150-450); RBC 4.21 m/uL (3.80-5.40); RDW 13.5 % (11.5-15.5); WBC 9.5 k/uL (3.8-10.6)
[2022-04-19] MEDS: FAMOTIDINE 20 MG/2 ML VIAL IV SCH ×2 (09:23→19:44)
[2022-04-19] MEDS: PANTOPRAZOLE 40 MG/10 ML VIAL IVP SCH (09:23)
--- NOTE | 2022-04-19 10:22 | P.PN ---
Subjective Progress Note Date: 04/19/22 Yenni Reese, is an 81-year-old female admitted to [facility] by Dr. Muniz for elective colostomy reversal. Patient had Blake procedure in February 2021 due to acute diverticulitis with abscess formation. She is admitted now for colostomy reversal. She went into the operating room on 04/15/2022 she underwent exploratory laparotomy lysis of adhesion she'll colectomy and partial small bowel resection. Colostomy reversal was aborted to due to inflamed hernandez of the rectum. Patient was admitted to medical floor post surgery medical consultation was requested for management while hospitalized. Her past medical history is significant for history of hypertension, history of rheumatoid arthritis, history of fibromyalgia, history of degenerative disc disease with previous history of back surgery, and history of bladder surgery On review of systems patient is alert and oriented 3 in no apparent distress there is no fever or chills no headache or dizziness no chest pain no shortness of breath no cough no nausea or vomiting no abdominal pain no diarrhea and no urinary symptoms. On 04/16/2022 patient was seen and examined on the medical floor she is alert and oriented 3 in no apparent distress there is no fever or chills no headache or dizziness no chest pain no shortness of breath no cough no nausea or vomiting no abdominal pain no diarrhea and no urinary symptoms white blood count is elevated at 19.3 we will continue to monitor closely On 04/17/2022 patient is alert and oriented 3. White blood cell count 14.62. Patient is resting comfortably in bed. Midline dressing is clean dry and intact. Blood pressure remains high will add hydralazine prn. Blood culture has been ordered. At this time patient denies chest pain or shortness of breath. Patient denies nausea vomiting or diarrhea. Patient denies any urinary burning or frequency. Patient remains on clear liquid diet. On 04/18/2022 patient was seen and examined on the medical floor she is alert an d oriented 3 in no apparent distress, there is no fever or chills no headache or dizziness no chest pain no shortness of breath no cough no nausea or vomiting no abdominal pain no diarrhea and no urinary symptoms, patient was seen by Dr. Gambino infectious disease and was started on IV Zosyn, she is maintained on subcu heparin for DVT prophylaxis, otherwise condition is the same On 04/19/2020 to patient's alert and oriented 3. Patient remains on IV Zosyn per infectious disease. White count has normalized. Patient currently maintained on full liquid diet. At this time patient denies chest pain or shortness breath. Patient denies nausea vomiting or diarrhea. Patient denies any urinary burning or frequency. Objective - Vital Signs Vital signs: Vital Signs Temp 98.2 F 04/19/22 06:16 Pulse 64 04/19/22 06:16 Resp 16 04/19/22 06:16 BP 130/67 04/19/22 06:38 Pulse Ox 97 04/19/22 06:16 FiO2 21 04/17/22 20:59 Intake & Output 04/18/22 04/19/22 04/19/22 18:59 06:59 18:59 Output Total 1600 1000 Balance -1600 -1000 Output: Urine 1600 1000 Other: Voiding Method Indwelling Catheter Indwelling Catheter # Bowel Movements 1 - Exam In general patient is alert and oriented x 3 in no distress HEENT head normocephalic and atraumatic Neck is supple no JVD no goiter no lymphadenopathy no carotid bruit Chest examination is clear to auscultation no crackles no wheezing Cardiac exam reveals regular heart sounds S1 and S2 no gallops no murmurs Abdomen is soft nontender no organomegaly with normal bowel sounds Extremity exam reveals no edema no cyanosis or clubbing Neurological examination reveals no gross focal deficits - Labs CBC & Chem 7: 04/19/22 08:34 04/18/22 05:11 Labs: Microbiology - Last 24 Hours (Table) 04/17/22 09:40 Blood Culture - Preliminary Blood No Growth after 24 hours Assessment and Plan Plan: History of diverticulitis with colostomy placement Status post exploratory laparotomy with lysis of adhesion partial colectomy and partial small bowel resection, colostomy reversal was aborted. Underlying history of hypertension Underlying history of rheumatoid arthritis Underlying history of degenerative disc disease Leukocytosis will monitor closely. Trending down. Blood culture ordered infectious disease services have been consulted. Patient maintained on IV Zosyn For DVT prophylaxis patient is on subcu heparin For GI prophylaxis Will add IV protonix Will follow closely Repeat labs ordered Blood culture ordered Patient advanced to full liquid diet
--- NOTE | 2022-04-19 12:54 | P.PN ---
Subjective Progress Note Date: 04/19/22 CHIEF COMPLAINT: Diverticulitis HISTORY OF PRESENT ILLNESS: Postoperative day #4 status post exploratory laparotomy, lysis of adhesions, partial colectomy, partial small bowel resection. Patient is lying in bed. Her ostomy is functioning. It began functioning last night. She denies any nausea or vomiting. She is tolerating full liquids. Afebrile. WBC has normalized from 11.44-9.5 hemoglobin 12.9. Blood culture negative PHYSICAL EXAM: VITAL SIGNS: Reviewed. GENERAL: Well-developed in no acute distress. HEENT: No sclera icterus. Extraocular movements grossly intact. Moist buccal mucosa. Head is atraumatic, normocephalic. ABDOMEN: Soft. Nondistended. Incisional dressing small area at the proximal portion of the dressing with dried area of blood. Ostomy with stool present NEUROLOGIC: Alert and oriented. Cranial nerves II through XII grossly intact. ASSESSMENT: 1. Diverticulitis status post exploratory laparotomy, lysis of adhesions, partial colectomy, partial small bowel resection PLAN: -Continue full liquids -Discontinue Tarango catheter -Hep-Lock IV fluids -Add [place] for pain control -Entereg discontinued -Antibiotics per ID service -Encouraged patient to ambulate -Encouraged patient to use incentive spirometer -DVT prophylaxis subcu heparin and GI prophylaxis Pepcid Physician Incubator Operator note has been reviewed by physician. Signing provider agrees with the documented findings, assessment, and plan of care. Objective - Vital Signs Vital signs: Vital Signs Temp 98.2 F 04/19/22 06:16 Pulse 64 04/19/22 06:16 Resp 16 04/19/22 06:16 BP 130/67 04/19/22 06:38 Pulse Ox 97 04/19/22 06:16 FiO2 21 04/17/22 20:59 Intake & Output 04/18/22 04/19/22 04/19/22 18:59 06:59 18:59 Output Total 1600 1000 Balance -1600 -1000 Output: Urine 1600 1000 Other: Voiding Method Indwelling Catheter Indwelling Catheter # Bowel Movements 1 - Labs CBC & Chem 7: 04/19/22 08:34 04/18/22 05:11 Labs: Microbiology - Last 24 Hours (Table) 04/17/22 09:40 Blood Culture - Preliminary Blood No Growth after 48 hours
[2022-04-19] MEDS: HYDROcodone/APAP 5-325MG 1 EACH TAB PO PRN ×2 (12:56→20:43)
[2022-04-19] MEDS ORDERED: ZOLPIDEM 5 MG TAB PO PRN (22:00)
[2022-04-20] MEDS: HEPARIN SODIUM,PORCINE/PF 5,000 UNIT/0.5 ML SYRINGE SQ SCH ×3 (04:35→23:03)
[2022-04-20] MEDS: THYROID, PORK 30 MG TAB PO SCH (06:05)
[2022-04-20] MEDS: atenoloL 50 MG TAB PO SCH (08:28)
[2022-04-20] MEDS: PIPERACILLIN-TAZOBACTAM 3.375 GM in SODIUM CHLORIDE 0.9% 100 ML IVPB SCH ×3 (08:29→23:04)
[2022-04-20] MEDS ORDERED: FAMOTIDINE 20 MG TAB PO SCH (09:00)
[2022-04-20 09:07] LABS: Basophils # (A) 0.07 X 10*3/uL (0.00-0.10); Basophils % (A) 0.9 %; Eosinophils # (A) 0.38 X 10*3/uL (0.04-0.35); Eosinophils % (A) 4.7 %; HCT 41.3 % (37.2-46.3); HGB 12.9 g/dL (12.0-15.0); Lymphocytes % (A) 24.6 %; MCH 29.9 pg (27.0-32.0); MCHC 31.2 g/dL (32.0-37.0); MCV 95.8 fL (80.0-97.0); Mean Platelet Volume 10.4 fL (9.5-12.2); Monocytes % (A) 11.1 %; NRBC Per 100 WBC 0 /100 WBCS (0.0-0.0); Neutrophils # (A) 4.69 X 10*3/uL (1.80-7.70); Neutrophils % (A) 57.7 %; Platelet Count 341 X 10*3/uL (140-440); RBC 4.31 X 10*6/uL (4.10-5.20); RDW 14.3 % (11.5-14.5); WBC 8.12 X 10*3/uL (4.50-10.00)
--- NOTE | 2022-04-20 09:28 | P.PN ---
Subjective Progress Note Date: 04/20/22 Yenni Reese, is an 81-year-old female admitted to [facility] by Dr. Muniz for elective colostomy reversal. Patient had Blake procedure in February 2021 due to acute diverticulitis with abscess formation. She is admitted now for colostomy reversal. She went into the operating room on 04/15/2022 she underwent exploratory laparotomy lysis of adhesion she'll colectomy and partial small bowel resection. Colostomy reversal was aborted to due to inflamed hernandez of the rectum. Patient was admitted to medical floor post surgery medical consultation was requested for management while hospitalized. Her past medical history is significant for history of hypertension, history of rheumatoid arthritis, history of fibromyalgia, history of degenerative disc disease with previous history of back surgery, and history of bladder surgery On review of systems patient is alert and oriented 3 in no apparent distress there is no fever or chills no headache or dizziness no chest pain no shortness of breath no cough no nausea or vomiting no abdominal pain no diarrhea and no urinary symptoms. On 04/16/2022 patient was seen and examined on the medical floor she is alert and oriented 3 in no apparent distress there is no fever or chills no headache or dizziness no chest pain no shortness of breath no cough no nausea or vomiting no abdominal pain no diarrhea and no urinary symptoms white blood count is elevated at 19.3 we will continue to monitor closely On 04/17/2022 patient is alert and oriented 3. White blood cell count 14.62. Patient is resting comfortably in bed. Midline dressing is clean dry and intact. Blood pressure remains high will add hydralazine prn. Blood culture has been ordered. At this time patient denies chest pain or shortness of breath. Patient denies nausea vomiting or diarrhea. Patient denies any urinary burning or frequency. Patient remains on clear liquid diet. On 04/18/2022 patient was seen and examined on the medical floor she is alert an d oriented 3 in no apparent distress, there is no fever or chills no headache or dizziness no chest pain no shortness of breath no cough no nausea or vomiting no abdominal pain no diarrhea and no urinary symptoms, patient was seen by Dr. Gambino infectious disease and was started on IV Zosyn, she is maintained on subcu heparin for DVT prophylaxis, otherwise condition is the same On 04/19/2020 to patient's alert and oriented 3. Patient remains on IV Zosyn per infectious disease. White count has normalized. Patient currently maintained on full liquid diet. At this time patient denies chest pain or shortness breath. Patient denies nausea vomiting or diarrhea. Patient denies any urinary burning or frequency. Intake to patient's alert and oriented 3. Patient is currently up in chair. Patient is tolerating diet. Patient denies nausea or vomiting. Patient denies any urinary burning or frequency. Patient denies chest pain or shortness of breath Objective - Vital Signs Vital signs: Vital Signs Temp 98.2 F 04/20/22 07:42 Pulse 59 L 04/20/22 07:42 Resp 18 04/20/22 07:42 BP 162/75 04/20/22 07:42 Pulse Ox 96 04/20/22 07:42 FiO2 21 04/17/22 20:59 Intake & Output 04/19/22 04/20/22 04/20/22 18:59 06:59 18:59 Other: Voiding Method Indwelling Catheter Toilet # Voids 3 1 - Exam In general patient is alert and oriented x 3 in no distress HEENT head normocephalic and atraumatic Neck is supple no JVD no goiter no lymphadenopathy no carotid bruit Chest examination is clear to auscultation no crackles no wheezing Cardiac exam reveals regular heart sounds S1 and S2 no gallops no murmurs Abdomen is soft nontender no organomegaly with normal bowel sounds Extremity exam reveals no edema no cyanosis or clubbing Neurological examination reveals no gross focal deficits - Labs CBC & Chem 7: 04/20/22 05:32 04/18/22 05:11 Labs: Abnormal Lab Results - Last 24 Hours (Table) 04/20/22 Range/Units 05:32 MCHC 31.2 L (32.0-37.0) g/dL Immature Gran # 0.08 H (0.00-0.04) X 10*3/uL Eosinophils # 0.38 H (0.04-0.35) X 10*3/uL Microbiology - Last 24 Hours (Table) 04/17/22 09:40 Blood Culture - Preliminary Blood No Growth after 48 hours Assessment and Plan Plan: History of diverticulitis with colostomy placement Status post exploratory laparotomy with lysis of adhesion partial colectomy and partial small bowel resection, colostomy reversal was aborted. Underlying history of hypertension Underlying history of rheumatoid arthritis Underlying history of degenerative disc disease Leukocytosis will monitor closely. Trending down. Blood culture ordered inf ectious disease services have been consulted. Patient maintained on IV Zosyn For DVT prophylaxis patient is on subcu heparin For GI prophylaxis Will add IV protonix Will follow closely Repeat labs ordered Blood culture ordered Patient advanced to full liquid diet
[2022-04-20 09:57] LABS: African American GFR (CKD) 63.2 (60.0-200.0); Albumin 3.1 g/dL (3.8-4.9); Albumin/Globulin Ratio 1.29 (1.60-3.17); Anion Gap 8.7 mmol/L (10.00-18.00); BUN/Creat Ratio 11.16 Ratio (12.00-20.00); Blood Urea Nitrogen 10.8 mg/dL (9.0-27.0); Calcium 8.9 mg/dL (8.7-10.3); Carbon Dioxide 29.3 mmol/L (20.0-27.5); Globulin 2.4 g/dL (1.6-3.3); Non-African American GFR(CKD) 54.5 (60.0-200.0); Potassium 4.5 mmol/L (3.5-5.5); Total Bilirubin 0.5 mg/dL (0.30-1.20); Total Protein 5.5 g/dL (6.2-8.2)
--- NOTE | 2022-04-20 13:54 | P.PN ---
Subjective Progress Note Date: 04/20/22 CHIEF COMPLAINT: Diverticulitis HISTORY OF PRESENT ILLNESS: The patient is a 81-year-old female admitted for attempt at reversal for colostomy bag due to diverticulitis. Patient had extensive lysis of adhesions with bowel resection. She is resting comfortably. Family is at bedside. No new events overnight. ROS: No reports of nausea and vomiting. No fevers or chills. No new chest pain. No productive sputum PHYSICAL EXAM: VITAL SIGNS: Reviewed CONSTITUTIONAL: Well developed and in no acute distress. EYES: Conjuctivae without sclera icterus. HEAD, EARS, NOSE, THROAT: Moist buccal mucosa. Head is atraumatic, normocephalic. No nasal drainage. RESPIRATORY: Non-labored respirations and equal bilateral excursions. CARDIOVASCULAR: Palpable 2+ radial pulses. ABDOMEN: Dressing intact. Ostomy present. MUSCULOSKELETAL: No gross deformity of the lower extremities noted. No clubbing. No cyanosis. SKIN: Well perfused. NEUROLOGIC: Cranial nerves II through XII grossly intact. No focal or lateralizing signs. PSYCH: Lethargic. CLINICAL LABS: Reviewed. WBC normal at 8.1. Hematoma stable 12.9. ASSESSMENT: 1. Complex diverticulitis with prior history of perforation, colostomy PLAN: 1. Continue follow-up with diet. 2. Advancement of diet pending further function of ostomy Objective - Vital Signs Vital signs: Vital Signs Temp 98.2 F 04/20/22 07:42 Pulse 59 L 04/20/22 07:42 Resp 18 04/20/22 07:42 BP 162/75 04/20/22 07:42 Pulse Ox 96 04/20/22 07:42 FiO2 21 04/17/22 20:59 Intake & Output 04/19/22 04/20/22 04/20/22 18:59 06:59 18:59 Other: Voiding Method Indwelling Catheter Toilet # Voids 3 1 - Labs CBC & Chem 7: 04/20/22 05:32 04/20/22 05:32 Labs: Abnormal Lab Results - Last 24 Hours (Table) 04/20/22 04/20/22 Range/Units 05:32 05:32 MCHC 31.2 L (32.0-37.0) g/dL Immature Gran # 0.08 H (0.00-0.04) X 10*3/uL Eosinophils # 0.38 H (0.04-0.35) X 10*3/uL Carbon Dioxide 29.3 H (20.0-27.5) mmol/L Anion Gap 8.70 L (10.00-18.00) mmol/L Est GFR (CKD-EPI)NonAf 54.5 L (60.0-200.0) BUN/Creatinine Ratio 11.16 L (12.00-20.00) Ratio Total Protein 5.5 L (6.2-8.2) g/dL Albumin 3.1 L (3.8-4.9) g/dL Albumin/Globulin Ratio 1.29 L (1.60-3.17) g/dL Microbiology - Last 24 Hours (Table) 04/17/22 09:40 Blood Culture - Preliminary Blood No Growth after 72 hours
[2022-04-20] MEDS: HYDROcodone/APAP 5-325MG 1 EACH TAB PO PRN (15:53)
--- NOTE | 2022-04-20 21:13 | P.PN ---
Subjective Progress Note Date: 04/18/22 Principal diagnosis: Leukocytosis and possible diverticulitis Patient is 81 year old female with a past medical history significant for perforated diverticulitis requiring diverting colostomy patient was electively admitted to the hospital for reversal of colostomy however she was noticed to have significant inflammatory changes did have lysis of adhesion and resection of the bowel elevated white count and concern for persistent diverticulitis. On today's evaluation that is 04/18/2022, the patient denies having any fever or chills, the patient abdominal pain is currently controlled did not have any output in the colostomy bag denies any chest pain shortness of breath or cough no nausea no vomiting Objective - Vital Signs Vital signs: Vital Signs Temp 98.2 F 04/18/22 07:34 Pulse 60 04/18/22 07:34 Resp 17 04/18/22 07:34 BP 168/76 04/18/22 07:34 Pulse Ox 96 04/18/22 07:34 FiO2 21 04/17/22 20:59 Intake & Output 04/17/22 04/18/22 04/18/22 18:59 06:59 18:59 Intake Total 480 Output Total 2500 1400 Balance -2500 -920 Intake: Oral 480 Output: Urine 2500 1400 Uretheral (Tarango) 1000 Other: Voiding Method Indwelling Catheter Indwelling Catheter - Exam GENERAL DESCRIPTION: An elderly female lying in bed in no distress RESPIRATORY SYSTEM: Unlabored breathing , decreased breath sounds at bases HEART: S1 S2 regular rate and rhythm , ABDOMEN: Soft , mild tenderness EXTREMITIES: No edema feet - Labs CBC & Chem 7: 04/20/22 05:32 04/20/22 05:32 Labs: Abnormal Lab Results - Last 24 Hours (Table) 04/18/22 04/18/22 Range/Units 05:11 05:11 WBC 11.44 H (4.50-10.00) X 10*3/uL MCHC 31.6 L (32.0-37.0) g/dL Immature Gran # 0.05 H (0.00-0.04) X 10*3/uL Neutrophils # 8.83 H (1.80-7.70) X 10*3/uL Monocytes # 1.26 H (0.20-1.00) X 10*3/uL Carbon Dioxide 31.1 H (20.0-27.5) mmol/L Anion Gap 5.20 L (10.00-18.00) mmol/L BUN 6.9 L (9.0-27.0) mg/dL BUN/Creatinine Ratio 8.72 L (12.00-20.00) Ratio Total Protein 5.4 L (6.2-8.2) g/dL Albumin 3.1 L (3.8-4.9) g/dL Albumin/Globulin Ratio 1.38 L (1.60-3.17) g/dL Assessment and Plan (1) Leukocytosis Current Visit: Yes Status: Acute Code(s): D72.829 - ELEVATED WHITE BLOOD CELL COUNT, UNSPECIFIED SNOMED Code(s): 742843638 Plan: 1patient with a history of diverticulitis requiring diverting colostomy about a year ago subsequently present to the hospital for reversal of the colostomy however the patient was noticed to have significant extremity changes patient is status post lysis of adhesion partial colectomy and small bowel resection but no mention of any perforation patient did have elevated white count on admission. 2continue the patient on Zosyn 3.375 g every 8 hours white count is trending down and monitor the patient closely Time with Patient: Less than 30
--- NOTE | 2022-04-20 21:14 | P.PN ---
Subjective Progress Note Date: 04/19/22 Principal diagnosis: Leukocytosis and possible diverticulitis Patient is 81 year old female with a past medical history significant for perforated diverticulitis requiring diverting colostomy patient was electively admitted to the hospital for reversal of colostomy however she was noticed to have significant inflammatory changes did have lysis of adhesion and resection of the bowel elevated white count and concern for persistent diverticulitis. On today's evaluation that is 04/19/2022, the patient remains to be afebrile, the patient abdominal pain is currently controlled and the patient did not have any output in the colostomy bag, the patient denies any chest pain shortness of breath or cough no nausea no vomiting Objective - Vital Signs Vital signs: Vital Signs Temp 98.2 F 04/19/22 06:16 Pulse 64 04/19/22 06:16 Resp 16 04/19/22 06:16 BP 130/67 04/19/22 06:38 Pulse Ox 97 04/19/22 06:16 FiO2 21 04/17/22 20:59 Intake & Output 04/18/22 04/19/22 04/19/22 18:59 06:59 18:59 Output Total 1600 1000 Balance -1600 -1000 Output: Urine 1600 1000 Other: Voiding Method Indwelling Catheter Indwelling Catheter Indwelling Catheter # Bowel Movements 1 - Exam GENERAL DESCRIPTION: An elderly female lying in bed in no distress RESPIRATORY SYSTEM: Unlabored breathing , decreased breath sounds at bases HEART: S1 S2 regular rate and rhythm , ABDOMEN: Soft , midline incision intact no output in the colostomy bag EXTREMITIES: No edema feet - Labs CBC & Chem 7: 04/20/22 05:32 04/20/22 05:32 Labs: Microbiology - Last 24 Hours (Table) 04/17/22 09:40 Blood Culture - Preliminary Blood No Growth after 48 hours Assessment and Plan (1) Leukocytosis Current Visit: Yes Status: Acute Code(s): D72.829 - ELEVATED WHITE BLOOD CELL COUNT, UNSPECIFIED SNOMED Code(s): 773602873 Plan: 1patient with a history of diverticulitis requiring diverting colostomy about a year ago subsequently present to the hospital for reversal of the colostomy however the patient was noticed to have significant extremity changes patient is status post lysis of adhesion partial colectomy and small bowel resection but no mention of any perforation patient did have elevated white count on admission. 2patient seemed to have clinically improved and white count has normalized, raven tient to continue on Zosyn 3.375 g every 8 hours and monitor clinical course closely Time with Patient: Less than 30
--- NOTE | 2022-04-20 21:16 | P.PN ---
Subjective Progress Note Date: 04/20/22 Principal diagnosis: Leukocytosis and possible diverticulitis Patient is 81 year old female with a past medical history significant for perforated diverticulitis requiring diverting colostomy patient was electively admitted to the hospital for reversal of colostomy however she was noticed to have significant inflammatory changes did have lysis of adhesion and resection of the bowel elevated white count and concern for persistent diverticulitis. On today's evaluation that is 04/20/2022, the patient continues to be afebrile, the patient denies abdominal pain and did have output in the colostomy bag, the patient denies any chest pain shortness of breath or cough no nausea no vomiting Objective - Vital Signs Vital signs: Vital Signs Temp 97.5 F L 04/20/22 14:14 Pulse 61 04/20/22 14:14 Resp 17 04/20/22 14:14 BP 155/76 04/20/22 14:14 Pulse Ox 97 04/20/22 14:14 FiO2 21 04/17/22 20:59 Intake & Output 04/20/22 04/20/22 04/21/22 06:59 18:59 06:59 Other: Voiding Method Toilet # Voids 1 3 - Exam GENERAL DESCRIPTION: An elderly female lying in bed in no distress RESPIRATORY SYSTEM: Unlabored breathing , decreased breath sounds at bases HEART: S1 S2 regular rate and rhythm , ABDOMEN: Soft , midline incision intact, patient did have output in the colostomy bag EXTREMITIES: No edema feet - Labs CBC & Chem 7: 04/20/22 05:32 04/20/22 05:32 Labs: Abnormal Lab Results - Last 24 Hours (Table) 04/20/22 04/20/22 Range/Units 05:32 05:32 MCHC 31.2 L (32.0-37.0) g/dL Immature Gran # 0.08 H (0.00-0.04) X 10*3/uL Eosinophils # 0.38 H (0.04-0.35) X 10*3/uL Carbon Dioxide 29.3 H (20.0-27.5) mmol/L Anion Gap 8.70 L (10.00-18.00) mmol/L Est GFR (CKD-EPI)NonAf 54.5 L (60.0-200.0) BUN/Creatinine Ratio 11.16 L (12.00-20.00) Ratio Total Protein 5.5 L (6.2-8.2) g/dL Albumin 3.1 L (3.8-4.9) g/dL Albumin/Globulin Ratio 1.29 L (1.60-3.17) g/dL Microbiology - Last 24 Hours (Table) 04/17/22 09:40 Blood Culture - Preliminary Blood No Growth after 72 hours Assessment and Plan (1) Leukocytosis Current Visit: Yes Status: Acute Code(s): D72.829 - ELEVATED WHITE BLOOD CELL COUNT, UNSPECIFIED SNOMED Code(s): 499714196 Plan: 1patient with a history of diverticulitis requiring diverting colostomy about a year ago subsequently present to the hospital for reversal of the colostomy however the patient was noticed to have significant extremity changes patient is status post lysis of adhesion partial colectomy and small bowel resection but no mention of any perforation patient did have elevated white count on admission. 2patient has shown clinical improvement and white count has normalized, patient to continue on Zosyn 3.375 g every 8 hours and will finish therapy with oral Augmentin on discharge Time with Patient: Less than 30
[2022-04-21] MEDS: HYDROcodone/APAP 5-325MG 1 EACH TAB PO PRN ×4 (06:34→21:35)
[2022-04-21] MEDS: HEPARIN SODIUM,PORCINE/PF 5,000 UNIT/0.5 ML SYRINGE SQ SCH ×3 (06:40→21:33)
[2022-04-21] MEDS: PIPERACILLIN-TAZOBACTAM 3.375 GM in SODIUM CHLORIDE 0.9% 100 ML IVPB SCH ×2 (08:48→17:47)
[2022-04-21] MEDS: FAMOTIDINE 20 MG TAB PO SCH (08:48)
[2022-04-21] MEDS: atenoloL 50 MG TAB PO SCH (08:48)
[2022-04-21] MEDS: THYROID, PORK 30 MG TAB PO SCH (08:48)
[2022-04-21 09:28] LABS: African American GFR (CKD) 65.7 (60.0-200.0); Albumin 3.3 g/dL (3.8-4.9); Albumin/Globulin Ratio 1.38 (1.60-3.17); Anion Gap 12.4 mmol/L (10.00-18.00); BUN/Creat Ratio 12.26 Ratio (12.00-20.00); Blood Urea Nitrogen 11.5 mg/dL (9.0-27.0); Calcium 8.8 mg/dL (8.7-10.3); Carbon Dioxide 28.6 mmol/L (20.0-27.5); Globulin 2.4 g/dL (1.6-3.3); Non-African American GFR(CKD) 56.6 (60.0-200.0); Total Bilirubin 0.5 mg/dL (0.30-1.20); Total Protein 5.6 g/dL (6.2-8.2)
[2022-04-21 09:34] LABS: Basophils # (A) 0.06 X 10*3/uL (0.00-0.10); Basophils % (A) 0.8 %; Eosinophils # (A) 0.31 X 10*3/uL (0.04-0.35); HCT 39.7 % (37.2-46.3); HGB 12.6 g/dL (12.0-15.0); Immature Grans, Automated 1.3 %; Lymphocytes # (A) 1.84 X 10*3/uL (0.90-5.00); MCH 30.1 pg (27.0-32.0); MCHC 31.7 g/dL (32.0-37.0); MCV 94.7 fL (80.0-97.0); Mean Platelet Volume 10.3 fL (9.5-12.2); Monocytes % (A) 10.4 %; NRBC Per 100 WBC 0 /100 WBCS (0.0-0.0); Neutrophils # (A) 4.56 X 10*3/uL (1.80-7.70); Neutrophils % (A) 59.5 %; Platelet Count 342 X 10*3/uL (140-440); RBC 4.19 X 10*6/uL (4.10-5.20); RDW 14.4 % (11.5-14.5); WBC 7.67 X 10*3/uL (4.50-10.00)
--- NOTE | 2022-04-21 12:16 | P.PN ---
Subjective Progress Note Date: 04/21/22 Yenni Reese, is an 81-year-old female admitted to [facility] by Dr. Muniz for elective colostomy reversal. Patient had Blake procedure in February 2021 due to acute diverticulitis with abscess formation. She is admitted now for colostomy reversal. She went into the operating room on 04/15/2022 she underwent exploratory laparotomy lysis of adhesion she'll colectomy and partial small bowel resection. Colostomy reversal was aborted to due to inflamed hernandez of the rectum. Patient was admitted to medical floor post surgery medical consultation was requested for management while hospitalized. Her past medical history is significant for history of hypertension, history of rheumatoid arthritis, history of fibromyalgia, history of degenerative disc disease with previous history of back surgery, and history of bladder surgery On review of systems patient is alert and oriented 3 in no apparent distress there is no fever or chills no headache or dizziness no chest pain no shortness of breath no cough no nausea or vomiting no abdominal pain no diarrhea and no urinary symptoms. On 04/16/2022 patient was seen and examined on the medical floor she is alert and oriented 3 in no apparent distress there is no fever or chills no headache or dizziness no chest pain no shortness of breath no cough no nausea or vomiting no abdominal pain no diarrhea and no urinary symptoms white blood count is elevated at 19.3 we will continue to monitor closely On 04/17/2022 patient is alert and oriented 3. White blood cell count 14.62. Patient is resting comfortably in bed. Midline dressing is clean dry and intact. Blood pressure remains high will add hydralazine prn. Blood culture has been ordered. At this time patient denies chest pain or shortness of breath. Patient denies nausea vomiting or diarrhea. Patient denies any urinary burning or frequency. Patient remains on clear liquid diet. On 04/18/2022 patient was seen and examined on the medical floor she is alert an d oriented 3 in no apparent distress, there is no fever or chills no headache or dizziness no chest pain no shortness of breath no cough no nausea or vomiting no abdominal pain no diarrhea and no urinary symptoms, patient was seen by Dr. Gambino infectious disease and was started on IV Zosyn, she is maintained on subcu heparin for DVT prophylaxis, otherwise condition is the same On 04/19/2020 to patient's alert and oriented 3. Patient remains on IV Zosyn per infectious disease. White count has normalized. Patient currently maintained on full liquid diet. At this time patient denies chest pain or shortness breath. Patient denies nausea vomiting or diarrhea. Patient denies any urinary burning or frequency. On 04/20/2022 patient's alert and oriented 3. Patient is currently up in [facility]. Patient is tolerating diet. Patient denies nausea or vomiting. Patient denies any urinary burning or frequency. Patient denies chest pain or shortness of breath, no nausea or vomiting no abdominal pain no diarrhea and no urinary symptoms. On 04/21/2022 patient was seen and examined on the medical floor she is alert and oriented 3 in no apparent distress there is no fever or chills no headache or dizziness no chest pain no shortness of breath no cough no nausea or vomiting no abdominal pain no diarrhea and no urinary symptoms. Vital exams are stable temperature is 97.8 pulse 58 respiration 18 blood pressure 156/72 pulse ox 94% on room air. Laboratory data reveals a white blood count of 7.67 hemoglobin 12.6 platelet count 342 Objective - Vital Signs Vital signs: Vital Signs Temp 97.8 F 04/21/22 07:52 Pulse 58 L 04/21/22 07:52 Resp 18 04/21/22 07:52 BP 156/72 04/21/22 07:52 Pulse Ox 94 L 04/21/22 07:52 FiO2 21 04/17/22 20:59 Intake & Output 04/20/22 04/21/22 04/21/22 18:59 06:59 18:59 Other: Voiding Method Toilet Diaper # Voids 3 - Exam In general patient is alert and oriented x 3 in no distress HEENT head normocephalic and atraumatic Neck is supple no JVD no goiter no lymphadenopathy no carotid bruit Chest examination is clear to auscultation no crackles no wheezing Cardiac exam reveals regular heart sounds S1 and S2 no gallops no murmurs Abdomen is soft nontender no organomegaly with normal bowel sounds Extremity exam reveals no edema no cyanosis or clubbing Neurological examination reveals no gross focal deficits - Labs CBC & Chem 7: 04/21/22 04:00 04/21/22 04:00 Labs: Abnormal Lab Results - Last 24 Hours (Table) 04/21/22 04/21/22 Range/Units 04:00 04:00 MCHC 31.7 L (32.0-37.0) g/dL Immature Gran # 0.10 H (0.00-0.04) X 10*3/uL Carbon Dioxide 28.6 H (20.0-27.5) mmol/L Est GFR (CKD-EPI)NonAf 56.6 L (60.0-200.0) AST 36 H (13-35) U/L Total Protein 5.6 L (6.2-8.2) g/dL Albumin 3.3 L (3.8-4.9) g/dL Albumin/Globulin Ratio 1.38 L (1.60-3.17) g/dL Microbiology - Last 24 Hours (Table) 04/17/22 09:40 Blood Culture - Preliminary Blood No Growth after 72 hours Assessment and Plan Plan: History of diverticulitis with colostomy placement Status post exploratory laparotomy with lysis of adhesion partial colectomy and partial small bowel resection, colostomy reversal was aborted. Underlying history of hypertension Underlying history of rheumatoid arthritis Underlying history of degenerative disc disease Leukocytosis will monitor closely. Trending down. Blood culture ordered infectious disease services have been consulted. Patient maintained on IV Zosyn For DVT prophylaxis patient is on subcu heparin For GI prophylaxis Will add IV protonix Will follow closely Repeat labs ordered Blood culture ordered Patient advanced to full liquid diet
--- NOTE | 2022-04-21 17:37 | P.PN ---
Subjective Progress Note Date: 04/21/22 CHIEF COMPLAINT: Diverticulitis HISTORY OF PRESENT ILLNESS: The patient is a 81-year-old female admitted for attempt at reversal for colostomy bag due to diverticulitis. Her daughters at bedside. She has tolerated diet. Pain controlled ROS: No reports of nausea and vomiting. No fevers or chills. No new chest pain. No productive sputum PHYSICAL EXAM: VITAL SIGNS: Reviewed CONSTITUTIONAL: Well developed and in no acute distress. EYES: Conjuctivae without sclera icterus. HEAD, EARS, NOSE, THROAT: Moist buccal mucosa. Head is atraumatic, normocephalic. No nasal drainage. RESPIRATORY: Non-labored respirations and equal bilateral excursions. CARDIOVASCULAR: Palpable 2+ radial pulses. ABDOMEN: Dressing intact with mild serosanguineous shadowing along the mid incision. Ostomy present with stool and flatus MUSCULOSKELETAL: No clubbing. No cyanosis. SKIN: Well perfused. NEUROLOGIC: Cranial nerves II through XII grossly intact. No focal or lateralizing signs. PSYCH: Alert to self, person, time. Appropriate affect. CLINICAL LABS: Reviewed. WBC at 7.6 normal ASSESSMENT: 1. Complex diverticulitis with prior history of perforation, colostomy PLAN: 1. Diet as tolerated 2. Continue antibiotics Objective - Vital Signs Vital signs: Vital Signs Temp 98 F 04/21/22 14:00 Pulse 56 L 04/21/22 14:00 Resp 18 04/21/22 14:00 BP 149/71 04/21/22 14:00 Pulse Ox 94 L 04/21/22 14:00 FiO2 21 04/17/22 20:59 Intake & Output 04/20/22 04/21/22 04/21/22 18:59 06:59 18:59 Other: Voiding Method Toilet Toilet Diaper Diaper # Voids 3 - Labs CBC & Chem 7: 04/21/22 04:00 04/21/22 04:00 Labs: Abnormal Lab Results - Last 24 Hours (Table) 04/21/22 04/21/22 Range/Units 04:00 04:00 MCHC 31.7 L (32.0-37.0) g/dL Immature Gran # 0.10 H (0.00-0.04) X 10*3/uL Carbon Dioxide 28.6 H (20.0-27.5) mmol/L Est GFR (CKD-EPI)NonAf 56.6 L (60.0-200.0) AST 36 H (13-35) U/L Total Protein 5.6 L (6.2-8.2) g/dL Albumin 3.3 L (3.8-4.9) g/dL Albumin/Globulin Ratio 1.38 L (1.60-3.17) g/dL Microbiology - Last 24 Hours (Table) 04/17/22 09:40 Blood Culture - Preliminary Blood No Growth after 96 hours
[2022-04-21] MEDS: AMOXIC-POT CLAV 875-125MG 1 EACH TAB PO SCH (21:29)
[2022-04-21] MEDS: ZOLPIDEM 5 MG TAB PO SCH (21:30)
[2022-04-22] MEDS: HEPARIN SODIUM,PORCINE/PF 5,000 UNIT/0.5 ML SYRINGE SQ SCH ×3 (04:47→21:50)
[2022-04-22] MEDS: THYROID, PORK 30 MG TAB PO SCH (04:47)
[2022-04-22] MEDS: FAMOTIDINE 20 MG TAB PO SCH (08:36)
[2022-04-22] MEDS: atenoloL 50 MG TAB PO SCH (08:36)
[2022-04-22] MEDS: AMOXIC-POT CLAV 875-125MG 1 EACH TAB PO SCH ×2 (08:36→21:50)
[2022-04-22] MEDS: HYDROcodone/APAP 5-325MG 1 EACH TAB PO PRN ×2 (08:36→16:19)
[2022-04-22 10:55] LABS: Basophils # (A) 0.07 X 10*3/uL (0.00-0.10); Basophils % (A) 0.9 %; Eosinophils # (A) 0.35 X 10*3/uL (0.04-0.35); Eosinophils % (A) 4.4 %; HCT 39.6 % (37.2-46.3); HGB 12.7 g/dL (12.0-15.0); Immature Grans, Automated 2.1 %; Lymphocytes # (A) 2.38 X 10*3/uL (0.90-5.00); Lymphocytes % (A) 29.6 %; MCH 30.6 pg (27.0-32.0); MCHC 32.1 g/dL (32.0-37.0); MCV 95.4 fL (80.0-97.0); Mean Platelet Volume 10.3 fL (9.5-12.2); Monocytes # (A) 0.83 X 10*3/uL (0.20-1.00); Monocytes % (A) 10.3 %; NRBC Per 100 WBC 0 /100 WBCS (0.0-0.0); Neutrophils # (A) 4.24 X 10*3/uL (1.80-7.70); Neutrophils % (A) 52.7 %; Platelet Count 338 X 10*3/uL (140-440); RBC 4.15 X 10*6/uL (4.10-5.20); RDW 14.2 % (11.5-14.5); WBC 8.04 X 10*3/uL (4.50-10.00)
[2022-04-22 12:41] LABS: African American GFR (CKD) 79.6 (60.0-200.0); Albumin 3.3 g/dL (3.8-4.9); Albumin/Globulin Ratio 1.32 (1.60-3.17); Anion Gap 12.8 mmol/L (10.00-18.00); BUN/Creat Ratio 14.5 Ratio (12.00-20.00); Blood Urea Nitrogen 11.6 mg/dL (9.0-27.0); Calcium 8.8 mg/dL (8.7-10.3); Carbon Dioxide 25.2 mmol/L (20.0-27.5); Globulin 2.5 g/dL (1.6-3.3); Non-African American GFR(CKD) 68.7 (60.0-200.0); Potassium 4.2 mmol/L (3.5-5.5); Total Bilirubin 0.3 mg/dL (0.30-1.20); Total Protein 5.8 g/dL (6.2-8.2)
--- NOTE | 2022-04-22 13:14 | P.PN ---
Subjective Progress Note Date: 04/22/22 Yenni Reese, is an 81-year-old female admitted to [facility] by Dr. Muniz for elective colostomy reversal. Patient had Blake procedure in February 2021 due to acute diverticulitis with abscess formation. She is admitted now for colostomy reversal. She went into the operating room on 04/15/2022 she underwent exploratory laparotomy lysis of adhesion she'll colectomy and partial small bowel resection. Colostomy reversal was aborted to due to inflamed hernandez of the rectum. Patient was admitted to medical floor post surgery medical consultation was requested for management while hospitalized. Her past medical history is significant for history of hypertension, history of rheumatoid arthritis, history of fibromyalgia, history of degenerative disc disease with previous history of back surgery, and history of bladder surgery On review of systems patient is alert and oriented 3 in no apparent distress there is no fever or chills no headache or dizziness no chest pain no shortness of breath no cough no nausea or vomiting no abdominal pain no diarrhea and no urinary symptoms. On 04/16/2022 patient was seen and examined on the medical floor she is alert and oriented 3 in no apparent distress there is no fever or chills no headache or dizziness no chest pain no shortness of breath no cough no nausea or vomiting no abdominal pain no diarrhea and no urinary symptoms white blood count is elevated at 19.3 we will continue to monitor closely On 04/17/2022 patient is alert and oriented 3. White blood cell count 14.62. Patient is resting comfortably in bed. Midline dressing is clean dry and intact. Blood pressure remains high will add hydralazine prn. Blood culture has been ordered. At this time patient denies chest pain or shortness of breath. Patient denies nausea vomiting or diarrhea. Patient denies any urinary burning or frequency. Patient remains on clear liquid diet. On 04/18/2022 patient was seen and examined on the medical floor she is alert an d oriented 3 in no apparent distress, there is no fever or chills no headache or dizziness no chest pain no shortness of breath no cough no nausea or vomiting no abdominal pain no diarrhea and no urinary symptoms, patient was seen by Dr. Gambino infectious disease and was started on IV Zosyn, she is maintained on subcu heparin for DVT prophylaxis, otherwise condition is the same On 04/19/2020 to patient's alert and oriented 3. Patient remains on IV Zosyn per infectious disease. White count has normalized. Patient currently maintained on full liquid diet. At this time patient denies chest pain or shortness breath. Patient denies nausea vomiting or diarrhea. Patient denies any urinary burning or frequency. On 04/20/2022 patient's alert and oriented 3. Patient is currently up in [facility]. Patient is tolerating diet. Patient denies nausea or vomiting. Patient denies any urinary burning or frequency. Patient denies chest pain or shortness of breath, no nausea or vomiting no abdominal pain no diarrhea and no urinary symptoms. On 04/21/2022 patient was seen and examined on the medical floor she is alert and oriented 3 in no apparent distress there is no fever or chills no headache or dizziness no chest pain no shortness of breath no cough no nausea or vomiting no abdominal pain no diarrhea and no urinary symptoms. Vital exams are stable temperature is 97.8 pulse 58 respiration 18 blood pressure 156/72 pulse ox 94% on room air. Laboratory data reveals a white blood count of 7.67 hemoglobin 12.6 platelet count 342 On 04/22/2022 patient was seen and examined on the medical floor she is alert and oriented 3 in no apparent distress there is no fever or chills no headache or dizziness no chest pain no shortness of breath no cough no nausea or vomiting no abdominal pain no diarrhea and no urinary symptoms, vital exam reveals a temperature of 98.5 pulse 57 respiration 18 blood pressure 169/66 pulse ox 96% on room air, white blood count 8.04 hemoglobin 12.7 platelet count 338 Objective - Vital Signs Vital signs: Vital Signs Temp 98.5 F 04/22/22 08:00 Pulse 57 L 04/22/22 08:00 Resp 18 04/22/22 08:00 BP 172/82 04/22/22 08:00 Pulse Ox 94 L 04/22/22 08:00 FiO2 21 04/17/22 20:59 Intake & Output 04/21/22 04/22/22 04/22/22 18:59 06:59 18:59 Output Total 1000 Balance -1000 Output: Urine 1000 Other: Voiding Method Toilet Toilet Toilet Diaper # Voids 3 - Exam In general patient is alert and oriented x 3 in no distress HEENT head normocephalic and atraumatic Neck is supple no JVD no goiter no lymphadenopathy no carotid bruit Chest examination is clear to auscultation no crackles no wheezing Cardiac exam reveals regular heart sounds S1 and S2 no gallops no murmurs Abdomen is soft nontender no organomegaly with normal bowel sounds Extremity exam reveals no edema no cyanosis or clubbing Neurological examination reveals no gross focal deficits - Labs CBC & Chem 7: 04/22/22 03:44 04/22/22 03:44 Labs: Abnormal Lab Results - Last 24 Hours (Table) 04/22/22 Range/Units 03:44 Immature Gran # 0.17 H (0.00-0.04) X 10*3/uL Microbiology - Last 24 Hours (Table) 04/17/22 09:40 Blood Culture - Preliminary Blood No Growth after 120 hours Assessment and Plan Plan: History of diverticulitis with colostomy placement Status post exploratory laparotomy with lysis of adhesion partial colectomy and partial small bowel resection, colostomy reversal was aborted. Underlying history of hypertension Underlying history of rheumatoid arthritis Underlying history of degenerative disc disease Leukocytosis will monitor closely. Trending down. Blood culture ordered infectious disease services have been consulted. Patient maintained on IV Zosyn For DVT prophylaxis patient is on subcu heparin For GI prophylaxis Will add IV protonix Will follow closely Repeat labs ordered Blood culture ordered Patient advanced to full liquid diet
[2022-04-22] MEDS: LOSARTAN 25 MG TAB PO SCH (17:55)
[2022-04-22] MEDS: ZOLPIDEM 5 MG TAB PO SCH (22:05)
[2022-04-23] MEDS: HEPARIN SODIUM,PORCINE/PF 5,000 UNIT/0.5 ML SYRINGE SQ SCH ×2 (00:08→11:21)
[2022-04-23] MEDS: THYROID, PORK 30 MG TAB PO SCH (06:01)
--- NOTE | 2022-04-23 07:57 | P.PN ---
Subjective Progress Note Date: 04/22/22 CHIEF COMPLAINT: Diverticulitis HISTORY OF PRESENT ILLNESS: The patient is a 81-year-old female admitted for attempt at reversal for colostomy bag due to diverticulitis. She is tolerating diet. No reports of abdominal pain. ROS: No reports of nausea and vomiting. No fevers or chills. No new chest pain. No productive sputum PHYSICAL EXAM: VITAL SIGNS: Reviewed CONSTITUTIONAL: Well developed and in no acute distress. EYES: Conjuctivae without sclera icterus. HEAD, EARS, NOSE, THROAT: Moist buccal mucosa. Head is atraumatic, normocephalic. No nasal drainage. RESPIRATORY: Non-labored respirations and equal bilateral excursions. CARDIOVASCULAR: Palpable 2+ radial pulses. ABDOMEN: Ostomy functioning. MUSCULOSKELETAL: No clubbing. No cyanosis. SKIN: Well perfused. NEUROLOGIC: Cranial nerves II through XII grossly intact. No focal or lateralizing signs. PSYCH: Alert to self, person, time. Appropriate affect. CLINICAL LABS: Reviewed. WBC at 8.04 normal, hemoglobin 12.7 normal ASSESSMENT: 1. Complex diverticulitis with prior history of perforation, colostomy PLAN: 1. Clinically stable 2. Antibiotic management per infectious disease Objective - Vital Signs Vital signs: Vital Signs Temp 98.3 F 04/23/22 02:00 Pulse 57 L 04/23/22 02:00 Resp 18 04/23/22 02:00 BP 147/65 04/23/22 02:00 Pulse Ox 94 L 04/23/22 02:00 FiO2 21 04/17/22 20:59 Intake & Output 04/22/22 04/23/22 04/23/22 18:59 06:59 18:59 Intake Total 720 Balance 720 Intake: Oral 720 Other: Voiding Method Toilet Toilet # Voids 4 1 # Bowel Movements 0 - Labs CBC & Chem 7: 04/22/22 03:44 04/22/22 03:44 Labs: Abnormal Lab Results - Last 24 Hours (Table) 04/22/22 04/22/22 Range/Units 03:44 03:44 Immature Gran # 0.17 H (0.00-0.04) X 10*3/uL AST 74 H (13-35) U/L ALT 53 H (8-44) U/L Total Protein 5.8 L (6.2-8.2) g/dL Albumin 3.3 L (3.8-4.9) g/dL Albumin/Globulin Ratio 1.32 L (1.60-3.17) g/dL Microbiology - Last 24 Hours (Table) 04/17/22 09:40 Blood Culture - Preliminary Blood No Growth after 120 hours
[2022-04-23 08:50] LABS: Basophils # (A) 0.09 X 10*3/uL (0.00-0.10); Eosinophils # (A) 0.29 X 10*3/uL (0.04-0.35); Eosinophils % (A) 3.2 %; HCT 41.8 % (37.2-46.3); HGB 13.1 g/dL (12.0-15.0); Lymphocytes # (A) 1.89 X 10*3/uL (0.90-5.00); Lymphocytes % (A) 21.1 %; MCHC 31.3 g/dL (32.0-37.0); MCV 95.9 fL (80.0-97.0); Mean Platelet Volume 10.1 fL (9.5-12.2); Monocytes # (A) 1.11 X 10*3/uL (0.20-1.00); Monocytes % (A) 12.4 %; NRBC Per 100 WBC 0 /100 WBCS (0.0-0.0); Neutrophils # (A) 5.31 X 10*3/uL (1.80-7.70); Neutrophils % (A) 59.3 %; Platelet Count 349 X 10*3/uL (140-440); RBC 4.36 X 10*6/uL (4.10-5.20); WBC 8.96 X 10*3/uL (4.50-10.00)
[2022-04-23] MEDS: AMOXIC-POT CLAV 875-125MG 1 EACH TAB PO SCH (08:50)
[2022-04-23] MEDS: atenoloL 50 MG TAB PO SCH (08:50)
[2022-04-23] MEDS: FAMOTIDINE 20 MG TAB PO SCH (08:50)
[2022-04-23] MEDS: LOSARTAN 25 MG TAB PO SCH (08:50)
[2022-04-23 08:51] VITALS: PULSE 63
[2022-04-23 09:33] LABS: Albumin 3.5 g/dL (3.8-4.9); Albumin/Globulin Ratio 1.4 (1.60-3.17); Anion Gap 10.6 mmol/L (10.00-18.00); BUN/Creat Ratio 11.89 Ratio (12.00-20.00); Blood Urea Nitrogen 10.7 mg/dL (9.0-27.0); Carbon Dioxide 27.4 mmol/L (20.0-27.5); Globulin 2.5 g/dL (1.6-3.3); Non-African American GFR(CKD) 59.5 (60.0-200.0); Potassium 4.7 mmol/L (3.5-5.5); Total Bilirubin 0.3 mg/dL (0.30-1.20)
--- NOTE | 2022-04-23 09:47 | P.PN ---
Subjective Progress Note Date: 04/23/22 Yenni Reese, is an 81-year-old female admitted to [facility] by Dr. Muniz for elective colostomy reversal. Patient had Blake procedure in February 2021 due to acute diverticulitis with abscess formation. She is admitted now for colostomy reversal. She went into the operating room on 04/15/2022 she underwent exploratory laparotomy lysis of adhesion she'll colectomy and partial small bowel resection. Colostomy reversal was aborted to due to inflamed hernandez of the rectum. Patient was admitted to medical floor post surgery medical consultation was requested for management while hospitalized. Her past medical history is significant for history of hypertension, history of rheumatoid arthritis, history of fibromyalgia, history of degenerative disc disease with previous history of back surgery, and history of bladder surgery On review of systems patient is alert and oriented 3 in no apparent distress there is no fever or chills no headache or dizziness no chest pain no shortness of breath no cough no nausea or vomiting no abdominal pain no diarrhea and no urinary symptoms. On 04/16/2022 patient was seen and examined on the medical floor she is alert and oriented 3 in no apparent distress there is no fever or chills no headache or dizziness no chest pain no shortness of breath no cough no nausea or vomiting no abdominal pain no diarrhea and no urinary symptoms white blood count is elevated at 19.3 we will continue to monitor closely On 04/17/2022 patient is alert and oriented 3. White blood cell count 14.62. Patient is resting comfortably in bed. Midline dressing is clean dry and intact. Blood pressure remains high will add hydralazine prn. Blood culture has been ordered. At this time patient denies chest pain or shortness of breath. Patient denies nausea vomiting or diarrhea. Patient denies any urinary burning or frequency. Patient remains on clear liquid diet. On 04/18/2022 patient was seen and examined on the medical floor she is alert an d oriented 3 in no apparent distress, there is no fever or chills no headache or dizziness no chest pain no shortness of breath no cough no nausea or vomiting no abdominal pain no diarrhea and no urinary symptoms, patient was seen by Dr. Gambino infectious disease and was started on IV Zosyn, she is maintained on subcu heparin for DVT prophylaxis, otherwise condition is the same On 04/19/2020 to patient's alert and oriented 3. Patient remains on IV Zosyn per infectious disease. White count has normalized. Patient currently maintained on full liquid diet. At this time patient denies chest pain or shortness breath. Patient denies nausea vomiting or diarrhea. Patient denies any urinary burning or frequency. On 04/20/2022 patient's alert and oriented 3. Patient is currently up in [facility]. Patient is tolerating diet. Patient denies nausea or vomiting. Patient denies any urinary burning or frequency. Patient denies chest pain or shortness of breath, no nausea or vomiting no abdominal pain no diarrhea and no urinary symptoms. On 04/21/2022 patient was seen and examined on the medical floor she is alert and oriented 3 in no apparent distress there is no fever or chills no headache or dizziness no chest pain no shortness of breath no cough no nausea or vomiting no abdominal pain no diarrhea and no urinary symptoms. Vital exams are stable temperature is 97.8 pulse 58 respiration 18 blood pressure 156/72 pulse ox 94% on room air. Laboratory data reveals a white blood count of 7.67 hemoglobin 12.6 platelet count 342 On 04/22/2022 patient was seen and examined on the medical floor she is alert and oriented 3 in no apparent distress there is no fever or chills no headache or dizziness no chest pain no shortness of breath no cough no nausea or vomiting no abdominal pain no diarrhea and no urinary symptoms, vital exam reveals a temperature of 98.5 pulse 57 respiration 18 blood pressure 169/66 pulse ox 96% on room air, white blood count 8.04 hemoglobin 12.7 platelet count 338 On 04/23/2022 patient is alert and oriented 3. Patient is has been switched over to Augmentin per infectious disease services. Current vital signs temp 98.3, pulse rate 57, blood pressure 147/65 with an oxygen saturation of 94% on room air. Patient denies any acute complaints patient has been maintained on Lopressor diet. Patient denies chest pain or shortness of breath. Patient denies nausea vomiting or diarrhea. Patient denies any urinary burning or frequency. Patient is medically cleared for discharge likely DC home today per surgical services Objective - Vital Signs Vital signs: Vital Signs Temp 97.5 F L 04/23/22 08:00 Pulse 63 04/23/22 08:00 Resp 17 04/23/22 08:00 BP 169/84 04/23/22 08:00 Pulse Ox 95 04/23/22 08:00 FiO2 21 04/17/22 20:59 Intake & Output 04/22/22 04/23/22 04/23/22 18:59 06:59 18:59 Intake Total 720 Balance 720 Intake: Oral 720 Other: Voiding Method Toilet Toilet # Voids 4 1 # Bowel Movements 0 - Exam In general patient is alert and oriented x 3 in no distress HEENT head normocephalic and atraumatic Neck is supple no JVD no goiter no lymphadenopathy no carotid bruit Chest examination is clear to auscultation no crackles no wheezing Cardiac exam reveals regular heart sounds S1 and S2 no gallops no murmurs Abdomen is soft nontender no organomegaly with normal bowel sounds Extremity exam reveals no edema no cyanosis or clubbing Neurological examination reveals no gross focal deficits - Labs CBC & Chem 7: 04/23/22 03:52 04/23/22 03:52 Labs: Abnormal Lab Results - Last 24 Hours (Table) 04/22/22 04/22/22 04/23/22 Range/Units 03:44 03:44 03:52 MCHC 31.3 L (32.0-37.0) g/dL Immature Gran # 0.17 H 0.27 H (0.00-0.04) X 10*3/uL Monocytes # 1.11 H (0.20-1.00) X 10*3/uL Est GFR (CKD-EPI)NonAf (60.0-200.0) BUN/Creatinine Ratio (12.00-20.00) Ratio AST 74 H (13-35) U/L ALT 53 H (8-44) U/L Total Protein 5.8 L (6.2-8.2) g/dL Albumin 3.3 L (3.8-4.9) g/dL Albumin/Globulin Ratio 1.32 L (1.60-3.17) g/dL 04/23/22 Range/Units 03:52 MCHC (32.0-37.0) g/dL Immature Gran # (0.00-0.04) X 10*3/uL Monocytes # (0.20-1.00) X 10*3/uL Est GFR (CKD-EPI)NonAf 59.5 L (60.0-200.0) BUN/Creatinine Ratio 11.89 L (12.00-20.00) Ratio AST 87 H (13-35) U/L ALT 80 H (8-44) U/L Total Protein 6.0 L (6.2-8.2) g/dL Albumin 3.5 L (3.8-4.9) g/dL Albumin/Globulin Ratio 1.40 L (1.60-3.17) g/dL Microbiology - Last 24 Hours (Table) 04/17/22 09:40 Blood Culture - Preliminary Blood No Growth after 120 hours Assessment and Plan Plan: History of diverticulitis with colostomy placement Status post exploratory laparotomy with lysis of adhesion partial colectomy and partial small bowel resection, colostomy reversal was aborted. Underlying history of hypertension Underlying history of rheumatoid arthritis Underlying history of degenerative disc disease Leukocytosis will monitor closely. Trending down. Blood culture ordered infectious disease services have been consulted. Patient maintained on IV Zosyn. Resolved For DVT prophylaxis patient is on subcu heparin For GI prophylaxis Will add IV protonix Patient maintained on Augmentin Medically cleared for discharge
[2022-04-23 11:51] VITALS: BMI 24.3
--- NOTE | 2022-04-23 12:08 | P.DS ---
Providers Date of admission: 04/15/22 09:43 Expected date of discharge: 04/23/22 Attending physician: Leon Muniz Consults: 04/15/22 14:40 Consult Physician Routine Consulting Provider: Galileo Valverde Consult Reason/Comments: Medical management Do you want consulting provider notified?: Yes 04/17/22 09:25 Consult Physician Routine Consulting Provider: Casie Gambino Consult Reason/Comments: history of diverticulitis Do you want consulting provider notified?: Yes Primary care physician: Galileo Valverde Hospital Course: Discharge diagnosis 1. Diverticulitis status post exploratory laparotomy, lysis of adhesions, partial colectomy, partial small bowel resection Hospital course This is a 81-year-old female with a known history of diverticulitis. She initially presented for an elective colostomy reversal. However, she is status post exploratory laparotomy, lysis of adhesions, partial colectomy, partial small bowel resection. Colostomy reversal was aborted. Patient reports that her pain is controlled. She is tolerating diet. She has been up and ambulating. Her ostomy is functioning. She's afebrile. Infectious disease did recommend 10 more days of oral antibiotics. She is stable for discharge. Please refer to chart for any further details. Physician Administrative Coordinator note has been reviewed by physician. Signing provider agrees with the documented findings, assessment, and plan of care. I have personally seen and examined the patient, reviewed the TIRE ADJUSTER /PAs history, exam and MDM and agree with the assessment and plan as written. Based on total visit time, I have performed more than 50% of the visit. As above: Patient doing well today. May discharge. Follow-up one week. Patient Condition at Discharge: Stable Plan - Discharge Summary Discharge Rx Participant: No New Discharge Prescriptions: New Amoxic-Pot Clav 875-125Mg [Augmentin 875-125] 1 tab PO Q12HR 10 Days #20 tab HYDROcodone/APAP 7.5-325MG [[place] 7.5-325] 1 tab PO Q6HR PRN 3 Days #12 tab PRN Reason: Pain Continue Atenolol [Tenormin] 100 mg PO QAM Thyroid,Pork [Inbound Call Center Representative Thyroid] 60 mg PO QAM Aspirin 650 mg PO DAILY PRN PRN Reason: Pain No Action metroNIDAZOLE [Flagyl] 500 mg PO DIRECTED Neomycin 500 mg PO DIRECTED Discharge Medication List Atenolol [Tenormin] 100 mg PO QAM 04/09/15 [History] Thyroid,Pork [Inbound Call Center Representative Thyroid] 60 mg PO QAM 02/12/21 [History] Aspirin 650 mg PO DAILY PRN 04/11/22 [History] Neomycin 500 mg PO DIRECTED 04/11/22 [History] metroNIDAZOLE [Flagyl] 500 mg PO DIRECTED 04/11/22 [History] Amoxic-Pot Clav 875-125Mg [Augmentin 875-125] 1 tab PO Q12HR 10 Days #20 tab 04/23/22 [Rx] HYDROcodone/APAP 7.5-325MG [[place] 7.5-325] 1 tab PO Q6HR PRN 3 Days #12 tab 04/23/22 [Rx] Follow up Appointment(s)/Referral(s): Leon Muniz MD [Medical Doctor] - 05/01/22 2:00 pm [facility] [NON-STAFF] - As Needed (walker ) Galileo Valverde MD [Primary Care Provider] - 1 Week (Office unable to take the call at this time. Please call office to arrange follow up appointment) Patient Instructions/Handouts: Diverticulitis (DC), Lysis of Abdominal Adhesions (DC) Activity/Diet/Wound Care/Special Instructions: No driving while taking [place] No lifting over 10 pounds You may shower. No soaking or tub baths for 2 weeks Very light activity until you are reevaluated at your follow up appointment with your surgeon Discharge Disposition: HOME SELF-CARE
[2022-04-23] MEDS: HYDROcodone/APAP 5-325MG 1 EACH TAB PO PRN (13:34)
[2022-04-23 15:12] VITALS: BP 131/67; RESP 18; TEMP 98.5
--- NOTE | 2022-04-30 23:40 | P.PN ---
Subjective Progress Note Date: 04/21/22 Principal diagnosis: Leukocytosis and possible diverticulitis Patient is 81 year old female with a past medical history significant for perforated diverticulitis requiring diverting colostomy patient was electively admitted to the hospital for reversal of colostomy however she was noticed to have significant inflammatory changes did have lysis of adhesion and resection of the bowel elevated white count and concern for persistent diverticulitis. On today's evaluation that is 04/21/2022, the patient remains to be afebrile, the patient denies abdominal pain and did have output in the colostomy bag, the patient denies any chest pain shortness of breath or cough no nausea no vomiting, no new symptoms Objective - Vital Signs Vital signs: Vital Signs Temp 97.8 F 04/21/22 07:52 Pulse 58 L 04/21/22 07:52 Resp 18 04/21/22 07:52 BP 156/72 04/21/22 07:52 Pulse Ox 94 L 04/21/22 07:52 FiO2 21 04/17/22 20:59 Intake & Output 04/20/22 04/21/22 04/21/22 18:59 06:59 18:59 Other: Voiding Method Toilet Diaper # Voids 3 - Exam GENERAL DESCRIPTION: An elderly female lying in bed in no distress RESPIRATORY SYSTEM: Unlabored breathing , decreased breath sounds at bases HEART: S1 S2 regular rate and rhythm , ABDOMEN: Soft , midline incision intact, patient did have output in the colostomy bag EXTREMITIES: No edema feet - Labs CBC & Chem 7: 04/23/22 03:52 04/23/22 03:52 Labs: Abnormal Lab Results - Last 24 Hours (Table) 04/21/22 04/21/22 Range/Units 04:00 04:00 MCHC 31.7 L (32.0-37.0) g/dL Immature Gran # 0.10 H (0.00-0.04) X 10*3/uL Carbon Dioxide 28.6 H (20.0-27.5) mmol/L Est GFR (CKD-EPI)NonAf 56.6 L (60.0-200.0) AST 36 H (13-35) U/L Total Protein 5.6 L (6.2-8.2) g/dL Albumin 3.3 L (3.8-4.9) g/dL Albumin/Globulin Ratio 1.38 L (1.60-3.17) g/dL Microbiology - Last 24 Hours (Table) 04/17/22 09:40 Blood Culture - Preliminary Blood No Growth after 96 hours Assessment and Plan (1) Leukocytosis Status: Acute Code(s): D72.829 - ELEVATED WHITE BLOOD CELL COUNT, UNSPECIFIED SNOMED Code(s): 605866174 Plan: 1patient with a history of diverticulitis requiring diverting colostomy about a year ago subsequently present to the hospital for reversal of the colostomy however the patient was noticed to have significant extremity changes patient is status post lysis of adhesion partial colectomy and small bowel resection but no mention of any perforation patient did have elevated white count on admission. 2patient slowly clinical improvement and white count has normalized, patient clinically improved on Zosyn 3.375 g every 8 hours and will finish therapy with oral Augmentin on discharge Time with Patient: Less than 30
--- NOTE | 2022-04-30 23:41 | P.PN ---
Subjective Progress Note Date: 04/22/22 Principal diagnosis: Leukocytosis and possible diverticulitis Patient is 81 year old female with a past medical history significant for perforated diverticulitis requiring diverting colostomy patient was electively admitted to the hospital for reversal of colostomy however she was noticed to have significant inflammatory changes did have lysis of adhesion and resection of the bowel elevated white count and concern for persistent diverticulitis. On today's evaluation that is 04/22/2022, the patient denies any fever or chills, the patient is breathing comfortably no chest pain shortness of breath or cough abdominal pain is currently controlled no nausea no vomiting Objective - Vital Signs Vital signs: Vital Signs Temp 98.5 F 04/22/22 08:00 Pulse 57 L 04/22/22 08:00 Resp 18 04/22/22 08:00 BP 172/82 04/22/22 08:00 Pulse Ox 94 L 04/22/22 08:00 FiO2 21 04/17/22 20:59 Intake & Output 04/21/22 04/22/22 04/22/22 18:59 06:59 18:59 Output Total 1000 Balance -1000 Output: Urine 1000 Other: Voiding Method Toilet Toilet Diaper # Voids 3 - Exam GENERAL DESCRIPTION: An elderly female lying in bed in no distress RESPIRATORY SYSTEM: Unlabored breathing , decreased breath sounds at bases HEART: S1 S2 regular rate and rhythm , ABDOMEN: Soft , midline incision intact, patient did have output in the colostomy bag EXTREMITIES: No edema feet - Labs CBC & Chem 7: 04/23/22 03:52 04/23/22 03:52 Labs: Microbiology - Last 24 Hours (Table) 04/17/22 09:40 Blood Culture - Preliminary Blood No Growth after 96 hours Assessment and Plan (1) Leukocytosis Status: Acute Code(s): D72.829 - ELEVATED WHITE BLOOD CELL COUNT, UNSPECIFIED SNOMED Code(s): 693189016 Plan: 1patient with a history of diverticulitis requiring diverting colostomy about a year ago subsequently present to the hospital for reversal of the colostomy however the patient was noticed to have significant extremity changes patient is status post lysis of adhesion partial colectomy and small bowel resection but no mention of any perforation patient did have elevated white count on admission. 2patient slowly clinical improvement and white count has normalized, patient clinically improved on Zosyn, patient has lost IV he was switched over to oral Augmentin Time with Patient: Less than 30
--- NOTE | 2022-04-30 23:42 | P.PN ---
Subjective Progress Note Date: 04/23/22 Principal diagnosis: Leukocytosis and possible diverticulitis Patient is 81 year old female with a past medical history significant for perforated diverticulitis requiring diverting colostomy patient was electively admitted to the hospital for reversal of colostomy however she was noticed to have significant inflammatory changes did have lysis of adhesion and resection of the bowel elevated white count and concern for persistent diverticulitis. On today's evaluation that is 04/23/2022, the patient remains to be afebrile, the patient is breathing comfortably on room air denies any chest pain shortness of breath or cough no abdominal pain did have output in the colostomy bag Objective - Vital Signs Vital signs: Vital Signs Temp 97.5 F L 04/23/22 08:00 Pulse 63 04/23/22 08:00 Resp 17 04/23/22 08:00 BP 169/84 04/23/22 08:00 Pulse Ox 95 04/23/22 08:00 FiO2 21 04/17/22 20:59 Intake & Output 04/22/22 04/23/22 04/23/22 18:59 06:59 18:59 Intake Total 720 Balance 720 Weight 68.4 kg Intake: Oral 720 Other: Voiding Method Toilet Toilet Toilet # Voids 4 1 # Bowel Movements 0 - Exam GENERAL DESCRIPTION: An elderly female lying in bed in no distress RESPIRATORY SYSTEM: Unlabored breathing , decreased breath sounds at bases HEART: S1 S2 regular rate and rhythm , ABDOMEN: Soft , midline incision intact, patient did have output in the colostomy bag EXTREMITIES: No edema feet - Labs CBC & Chem 7: 04/23/22 03:52 04/23/22 03:52 Labs: Abnormal Lab Results - Last 24 Hours (Table) 04/22/22 04/23/22 04/23/22 Range/Units 03:44 03:52 03:52 MCHC 31.3 L (32.0-37.0) g/dL Immature Gran # 0.27 H (0.00-0.04) X 10*3/uL Monocytes # 1.11 H (0.20-1.00) X 10*3/uL Est GFR (CKD-EPI)NonAf 59.5 L (60.0-200.0) BUN/Creatinine Ratio 11.89 L (12.00-20.00) Ratio AST 74 H 87 H (13-35) U/L ALT 53 H 80 H (8-44) U/L Total Protein 5.8 L 6.0 L (6.2-8.2) g/dL Albumin 3.3 L 3.5 L (3.8-4.9) g/dL Albumin/Globulin Ratio 1.32 L 1.40 L (1.60-3.17) g/dL Microbiology - Last 24 Hours (Table) 04/17/22 09:40 Blood Culture - Final Blood No Growth after 144 hours Assessment and Plan (1) Leukocytosis Status: Acute Code(s): D72.829 - ELEVATED WHITE BLOOD CELL COUNT, UNSPECIFIED SNOMED Code(s): 814866778 Plan: 1patient with a history of diverticulitis requiring diverting colostomy about a year ago subsequently present to the hospital for reversal of the colostomy however the patient was noticed to have significant extremity changes patient is status post lysis of adhesion partial colectomy and small bowel resection but no mention of any perforation patient did have elevated white count on admission. 2patient slowly clinical improvement and white count has normalized, patient cl inically improved on Zosyn, will finish therapy with oral Augmentin 10 days discussed with the nurse practitioner for admitting team Time with Patient: Less than 30
== END 2022-04-23 16:01 | disposition home or self-care (01) | DRG 330 ==
LOC: 2ORMAIN 09:43 → 4SSUR 14:47
PROVIDERS: ADMIT Surgery; ATTEND Surgery
PROC: 0DN80ZZ Release Small Intestine, Open Approach (ICD-10-PCS; 2022-04-15)
PROC: 0DNP0ZZ Release Rectum, Open Approach (ICD-10-PCS; 2022-04-15)
PROC: 0DB80ZZ Excision of Small Intestine, Open Approach (ICD-10-PCS; principal; 2022-04-15 11:40)
DX: Z43.3 Encounter for attention to colostomy (principal); K57.80 Diverticulitis of intestine, part unspecified, with perforation and abscess without bleeding; K91.71 Accidental puncture and laceration of a digestive system organ or structure during a digestive system procedure; K66.0 Peritoneal adhesions (postprocedural) (postinfection); E03.9 Hypothyroidism, unspecified; I10 Essential (primary) hypertension; M06.9 Rheumatoid arthritis, unspecified; M79.7 Fibromyalgia; Z96.1 Presence of intraocular lens; Z86.16 Personal history of COVID-19; Z87.891 Personal history of nicotine dependence; Z98.42 Cataract extraction status, left eye; Z98.41 Cataract extraction status, right eye; Z98.0 Intestinal bypass and anastomosis status
CPT/HCPCS: 80048; 80053; 85025; 86850; 86900; 86901; 87040; 88307; 94760

== ENCOUNTER → 2022-09-30 | Outpatient (CLI) | payer MEDICARE ==
--- NOTE | 2022-09-30 13:22 | CT ---
EXAMINATION TYPE: CT facial bones wo con DATE OF EXAM: 09/30/2022 COMPARISON: None HISTORY: fall CT DLP: 599.8 mGycm Automated exposure control for dose reduction was used. TECHNIQUE: CT scan of the sinuses is performed without contrast, axial images are obtained, coronal r eformatted images are also reviewed. FINDINGS: The paranasal sinuses including the frontal, ethmoid, sphenoid, and maxillary sinuses bila terally are well-aerated without abnormal opacification. The ostiomeatal complex is patent bilateral ly on the coronal images. Visualized portion of mastoid air cells show no abnormal opacification. The globes are intact bilate rally. Hypertrophic degenerative changes in spine. There is a hairline minimally depressed fracture of the nasal bridge. Best noted on sagittal image 42 . Nasal septal deviation noted. There is mild to moderate generalized intracranial degenerative change. Uncovertebral joint hypertrophy results in bilateral foraminal encroachment and severe changes seen w ording of C5 on the right. IMPRESSION: 1. Mildly displaced\depressed nasal bridge fracture.
== END | disposition home or self-care (01) ==
LOC: RADCTMAIN 12:42
PROVIDERS: ATTEND Internal Medicine
DX: S02.2XXA Fracture of nasal bones, initial encounter for closed fracture (principal)
CPT/HCPCS: 70486

== ENCOUNTER 2022-10-14 10:12 | Emergency (ER) | payer MEDICARE ==
[2022-10-14] MEDS ORDERED: hydrALAZINE HCL 20 MG/ML 1 ML VIAL IVP STA (12:46)
--- NOTE | 2022-10-14 12:50 | ED ---
General Adult HPI - General Chief complaint: Recheck/Abnormal Lab/Rx Stated complaint: High BP Time Seen by Provider: 10/14/22 12:35 Source: patient, RN notes reviewed, old records reviewed Mode of arrival: ambulatory Limitations: no limitations - History of Present Illness Initial comments: This is an 81-year-old female who went to the primary medical care doctor's office today because her blood pressures been high for a week. It was 240/117 they think and he wanted her to come the emergency department. Patient has no chest pain or palpitations. Patient denies shortness of breath or difficulty breathing. Patient denies headache patient denies blurred vision. Patient denies any numbness weakness. Patient denies any recent fever chills or cough. Patient denies any near syncopal episodes or syncopal episode. Patient denies abdominal pain patient's nausea vomiting diarrhea. Patient denies any other symptoms at this time. - Related Data Home Medications Medication Instructions Recorded Confirmed atenoloL [Tenormin] 100 mg PO HS 04/09/15 10/14/22 Thyroid,Pork [Brake Mechanic Thyroid] 60 mg PO [id number] 02/12/21 10/14/22 Aspirin 650 mg PO BID 04/11/22 10/14/22 Valsartan/Hydrochlorothiazide 1 tab PO DIRECTED 10/14/22 10/14/22 [Valsartan-Hctz 80-12.5 mg Tab] Allergies Allergy/AdvReac Type Severity Reaction Status Date / Time diphenhydramine Allergy Rash/Hives Verified 10/14/22 13:20 [From Benadryl] Review of Systems ROS Statement: Those systems with pertinent positive or pertinent negative responses have been documented in the HPI. ROS Other: All systems not noted in ROS Statement are negative. Past Medical History Past Medical History: Fibromyalgia, Hypertension, Osteoarthritis (OA), Pneumonia, Rheumatoid Arthritis (RA), Thyroid Disorder Additional Past Medical History / Comment(s): Pt tested +covid on 02/08/21 at [facility] ER. 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 History of Any Multi-Drug Resistant Organisms: None Reported Past Surgical History: Back Surgery, Bladder Surgery, Tonsillectomy Additional Past Surgical History / Comment(s): Anterior colporrhaphy, cyst pubo vag sling, colonoscopy, lower back surgery, bilateral cataract removals/lens implants Past Anesthesia/Blood Transfusion Reactions: No Reported Reaction Past Psychological History: No Psychological Hx Reported Smoking Status: Former smoker Past Alcohol Use History: Occasional Past Drug Use History: None Reported - Past Family History Mother Family Medical History: Cancer Additional Family Medical History / Comment(s): Bone Caner. Father Additional Family Medical History / Comment(s): Father had rheumatic fever as a child and from heart problem at the age of 43yrs. General Exam - General Exam Comments Initial Comments: GENERAL: Patient is well-developed and well-nourished. Patient is nontoxic and well- hydrated and is in no acute distress. ENT: Neck is soft and supple. No significant lymphadenopathy is noted. Oropharynx is clear. Moist mucous membranes. Neck has full range of motion without eliciting any pain. EYES: The sclera were anicteric and conjunctiva were pink and moist. Extraocular movements were intact and pupils were equal round and reactive to light. Eyelids were unremarkable. PULMONARY: Unlabored respirations. Good breath sounds bilaterally. No audible rales rhonchi or wheezing was noted. CARDIOVASCULAR: There is a regular rate and rhythm without any murmurs gallops or rubs. ABDOMEN: Soft and nontender with normal bowel sounds. SKIN: Skin is clear with no lesions or rashes and otherwise unremarkable. NEUROLOGIC: Patient is alert and oriented x3. Cranial nerves II through XII are grossly intact. Motor and sensory are also intact. Normal speech, volume and content. Symmetrical smile. MUSCULOSKELETAL: Normal extremities with adequate strength and full range of motion. LYMPHATICS: No significant lymphadenopathy is noted PSYCHIATRIC: Normal psychiatric evaluation. Limitations: no limitations Course Vital Signs 10/14/22 10/14/22 10/14/22 10:27 13:40 14:12 Temperature 98.4 F 98.6 F Pulse Rate 55 L 62 60 Respiratory 20 18 18 Rate Blood Pressure 211/96 129/57 116/57 O2 Sat by Pulse 99 97 96 Oximetry Medical Decision Making - Medical Decision Making Chest x-ray was interpreted by me and shows no acute abnormality. Patient was given 20 mg of hydralazine her blood pressure came down nicely. I spoke with Dr. Valverde he had already called in a prescription for more blood pressure medication and she will go home follow-up with him and start the blood pressure medication tomorrow I interpreted the EKG EKG shows sinus bradycardia 56 bpm DE interval 171 QRS is 92 QT interval 440 QTC is 432 per patient's EKG shows no ST segment elevation or depression. - Lab Data Result diagrams: 10/14/22 12:49 10/14/22 12:49 Lab Results 10/14/22 10/14/22 10/14/22 Range/Units 12:49 12:49 12:49 WBC 6.2 (3.8-10.6) k/uL RBC 4.74 (3.80-5.40) m/uL Hgb 14.4 (11.4-16.0) gm/dL Hct 44.9 (34.0-46.0) % MCV 94.7 (80.0-100.0) fL MCH 30.5 (25.0-35.0) pg MCHC 32.2 (31.0-37.0) g/dL RDW 14.1 (11.5-15.5) % Plt Count 344 (150-450) k/uL MPV 8.1 Neutrophils % 63 % Lymphocytes % 26 % Monocytes % 7 % Eosinophils % 2 % Basophils % 0 % Neutrophils # 3.9 (1.3-7.7) k/uL Lymphocytes # 1.6 (1.0-4.8) k/uL Monocytes # 0.4 (0-1.0) k/uL Eosinophils # 0.1 (0-0.7) k/uL Basophils # 0.0 (0-0.2) k/uL PT 10.4 (9.0-12.0) sec INR 0.9 (<1.2) APTT 23.6 (22.0-30.0) sec Sodium 142 (137-145) mmol/L Potassium 4.4 (3.5-5.1) mmol/L Chloride 106 (98-107) mmol/L Carbon Dioxide 32 H (22-30) mmol/L Anion Gap 4 mmol/L BUN 17 (7-17) mg/dL Creatinine 0.78 (0.52-1.04) mg/dL Est GFR (CKD-EPI)AfAm 82 (>60 ml/min/1.73 sqM) Est GFR (CKD-EPI)NonAf 71 (>60 ml/min/1.73 sqM) Glucose 93 (74-99) mg/dL Calcium 9.2 (8.4-10.2) mg/dL Magnesium 2.1 (1.6-2.3) mg/dL Total Bilirubin 0.8 (0.2-1.3) mg/dL AST 28 (14-36) U/L ALT 19 (4-34) U/L Alkaline Phosphatase 68 (38-126) U/L Troponin I (0.000-0.034) ng/mL Total Protein 7.2 (6.3-8.2) g/dL Albumin 4.3 (3.5-5.0) g/dL 10/14/22 Range/Units 12:49 WBC (3.8-10.6) k/uL RBC (3.80-5.40) m/uL Hgb (11.4-16.0) gm/dL Hct (34.0-46.0) % MCV (80.0-100.0) fL MCH (25.0-35.0) pg MCHC (31.0-37.0) g/dL RDW (11.5-15.5) % Plt Count (150-450) k/uL MPV Neutrophils % % Lymphocytes % % Monocytes % % Eosinophils % % Basophils % % Neutrophils # (1.3-7.7) k/uL Lymphocytes # (1.0-4.8) k/uL Monocytes # (0-1.0) k/uL Eosinophils # (0-0.7) k/uL Basophils # (0-0.2) k/uL PT (9.0-12.0) sec INR (<1.2) APTT (22.0-30.0) sec Sodium (137-145) mmol/L Potassium (3.5-5.1) mmol/L Chloride (98-107) mmol/L Carbon Dioxide (22-30) mmol/L Anion Gap mmol/L BUN (7-17) mg/dL Creatinine (0.52-1.04) mg/dL Est GFR (CKD-EPI)AfAm (>60 ml/min/1.73 sqM) Est GFR (CKD-EPI)NonAf (>60 ml/min/1.73 sqM) Glucose (74-99) mg/dL Calcium (8.4-10.2) mg/dL Magnesium (1.6-2.3) mg/dL Total Bilirubin (0.2-1.3) mg/dL AST (14-36) U/L ALT (4-34) U/L Alkaline Phosphatase (38-126) U/L Troponin I <0.012 (0.000-0.034) ng/mL Total Protein (6.3-8.2) g/dL Albumin (3.5-5.0) g/dL Disposition Clinical Impression: Hypertensive urgency Disposition: HOME SELF-CARE Condition: Good Additional Instructions: Patient should take blood pressure medication recently prescribed by Dr. Valverde Is patient prescribed a controlled substance at d/c from ED?: No Referrals: Galileo Valverde MD [Primary Care Provider] - 1-2 days Time of Disposition: 13:53
[2022-10-14 13:04] LABS: Basophils % (A) 0 %; Eosinophils # (A) 0.1 k/uL (0-0.7); Eosinophils % (A) 2 %; HCT 44.9 % (34.0-46.0); HGB 14.4 gm/dL (11.4-16.0); Lymphocytes # (A) 1.6 k/uL (1.0-4.8); Lymphocytes % (A) 26 %; MCH 30.5 pg (25.0-35.0); MCHC 32.2 g/dL (31.0-37.0); MCV 94.7 fL (80.0-100.0); Mean Platelet Volume 8.1; Monocytes # (A) 0.4 k/uL (0-1.0); Monocytes % (A) 7 %; Neutrophils # (A) 3.9 k/uL (1.3-7.7); Neutrophils % (A) 63 %; Platelet Count 344 k/uL (150-450); RBC 4.74 m/uL (3.80-5.40); RDW 14.1 % (11.5-15.5); WBC 6.2 k/uL (3.8-10.6)
--- NOTE | 2022-10-14 13:11 | XR ---
EXAMINATION TYPE: XR chest 2V DATE OF EXAM: 10/14/2022 COMPARISON: 02/17/2021 HISTORY: Shortness of breath TECHNIQUE: Frontal and lateral views of the chest are obtained. FINDINGS: Scattered senescent parenchymal changes noted. Hyperinflation compatible with COPD. No evidence for infiltrate. No evidence for atelectasis. Heart size is stable. Mediastinal structures are stable and grossly unremarkable. No evidence for hilar prominence. Degenerative changes dorsal spine. IMPRESSION: 1. No evidence for acute pulmonary disease.
[2022-10-14 13:16] LABS: INR 0.9 (<1.2); Partial Thromboplastin Time 23.6 sec (22.0-30.0); Prothrombin Time 10.4 sec (9.0-12.0)
[2022-10-14 13:17] LABS: Albumin 4.3 g/dL (3.5-5.0); Calcium 9.2 mg/dL (8.4-10.2); Magnesium 2.1 mg/dL (1.6-2.3); Potassium 4.4 mmol/L (3.5-5.1); Total Bilirubin 0.8 mg/dL (0.2-1.3); Total Protein 7.2 g/dL (6.3-8.2)
[2022-10-14 13:41] VITALS: RESP 18
[2022-10-14 14:14] VITALS: BP 116/57; PULSE 60; TEMP 98.6
== END 2022-10-14 14:37 | disposition home or self-care (01) ==
LOC: EC 10:12
DX: I16.0 Hypertensive urgency (principal); E07.9 Disorder of thyroid, unspecified; Z79.810 Long term (current) use of selective estrogen receptor modulators (SERMs); Z88.8 Allergy status to other drugs, medicaments and biological substances
CPT/HCPCS: 36415; 80053; 83735; 84484; 85025; 85610; 85730; 71046; 99284; 96374; J0360

== ENCOUNTER → 2023-07-09 | Outpatient (CLI) | payer MEDICARE ==
--- NOTE | 2023-07-09 21:02 | XR ---
EXAMINATION TYPE: XR knee complete RT DATE OF EXAM: 07/09/2023 COMPARISON: None HISTORY: Right knee pain TECHNIQUE: 3 view right knee FINDINGS: There is narrowing of the medial lateral compartment joint spaces. Meniscal calcification i s present. No acute fracture or dislocation is evident. No joint effusion is evident. Small posterior superior patellar spur is noted. IMPRESSION: 1. No acute osseous abnormality right knee. 2. Calcified menisci
== END | disposition home or self-care (01) ==
LOC: RADXRMAIN 13:32
PROVIDERS: ATTEND Internal Medicine
DX: M25.561 Pain in right knee (principal); M79.89 Other specified soft tissue disorders

== ENCOUNTER → 2023-08-29 | Outpatient (CLI) | payer MEDICARE ==
[2023-08-29 15:40] LABS: Basophils # (A) 0.09 X 10*3/uL (0.00-0.10); Basophils % (A) 1.2 %; Eosinophils # (A) 0.14 X 10*3/uL (0.04-0.35); Eosinophils % (A) 1.8 %; HCT 48.4 % (37.2-46.3); Lymphocytes # (A) 1.57 X 10*3/uL (0.90-5.00); Lymphocytes % (A) 20.3 %; MCH 31.3 pg (27.0-32.0); Mean Platelet Volume 11.2 FL (9.5-12.2); Monocytes # (A) 0.77 X 10*3/uL (0.20-1.00); Monocytes % (A) 9.9 %; NRBC Per 100 WBC 0 X 10*3/uL (0.00-0.01); Neutrophils # (A) 5.14 X 10*3/uL (1.80-7.70); Neutrophils % (A) 66.4 %; Platelet Count 306 X 10*3/uL (140-440); RBC 4.79 X 10*6/uL (4.10-5.20); RDW 14.7 % (11.5-14.5); WBC 7.74 X 10*3/uL (4.50-10.00)
[2023-08-29 17:50] LABS: BUN/Creat Ratio 20.75 Ratio (12.00-20.00); Blood Urea Nitrogen 16.6 mg/dL (9.0-27.0); Calcium 9.7 mg/dL (8.7-10.3); Carbon Dioxide 32.8 mmol/L (21.6-31.8); Chloride 102 mmol/L (96-109); Glucose 98 mg/dL (70-110); Potassium 4.3 mmol/L (3.5-5.5); Sodium 144 mmol/L (135-145)
== END | disposition home or self-care (01) ==
LOC: LABWHC1 10:48
PROVIDERS: ATTEND Orthopaedic Surgery
DX: Z01.818 Encounter for other preprocedural examination (principal); I25.2 Old myocardial infarction; M23.91 Unspecified internal derangement of right knee; R00.1 Bradycardia, unspecified; R94.31 Abnormal electrocardiogram [ECG] [EKG]
CPT/HCPCS: 36415; 80048; 85025; 93005

== ENCOUNTER 2023-10-08 09:24 | Day surgery (SDC) | payer MEDICARE ==
[~2023-10-08 09:24] MED LIST changes: -ACETAMINOPHEN TAB 500 MG TAB PO PRN; +ALPRAZolam 0.25 MG TAB PO PRN; +ALPRAZolam 0.5 MG TAB PO PRN; -ALVIMOPAN 12 MG CAPSULE PO PRN; +ASPIRIN 325 MG TAB PO STA; +ATORVASTATIN 80 MG TAB PO STA; -DEXAMETHASONE SOD PHOSPHATE 4 MG/ML 1 ML VIAL IV ONE; +HEPARIN SODIUM,PORCINE (1 ML) 2,500 UNIT in SODIUM CHLORIDE 0.9% 250 ML IRRIGATION PRN; +HEPARIN SODIUM,PORCINE 10,000 UNIT in SODIUM CHLORIDE 0.9% 1,000 ML IRRIGATION PRN; -HEPARIN SODIUM,PORCINE/PF 5,000 UNIT/0.5 ML SYRINGE SQ PRN; -HYDROmorphone 0.5 MG/0.5 ML SYRINGE IVP PRN; -LIDOCAINE 1% (10MG/ML) FOR IV START INTRADERMA PRN; +NITROGLYCERIN SL TABS 0.4 MG TAB SUBLINGUAL PRN; -ONDANSETRON 4 MG/2 ML VIAL IVP ONE; +SODIUM CHLORIDE 0.9% 1,000 ML in EMPTY BAG 1 BAG IV ONE; -metroNIDAZOLE-NS PMX 500 MG in SALINE 1 100ML.BAG IVPB PRN
[2023-10-08 10:10] VITALS: RESP 18; TEMP 97.7
[2023-10-08] MEDS ORDERED: VERAPAMIL 2.5 MG/ML 2 ML AMP ONE (11:40)
[2023-10-08] MEDS ORDERED: fentaNYL (PF) 50 MCG/ML 2 ML AMP ONE (11:58)
[2023-10-08] MEDS ORDERED: HEPARIN SODIUM 1,000 UN/ML (10ML VL) ONE (11:58)
[2023-10-08] MEDS ORDERED: fentaNYL (PF) 50 MCG/1 ML VIAL IVP ONE (12:15)
[2023-10-08] MEDS ORDERED: MIDAZOLAM 2 MG/2 ML VIAL IVP ONE (12:18)
[2023-10-08] MEDS ORDERED: VERAPAMIL SYRINGE (5 MG/10 ML) INTRAARTER ONE (12:18)
[2023-10-08] MEDS ORDERED: LIDOCAINE 1% INJ 10MG/ML (20 ML MDV) SQ ONE (12:18)
[2023-10-08] MEDS: HEPARIN SODIUM 1,000 UN/ML (10ML VL) IV ONE ×3 (12:25→13:04)
[2023-10-08] MEDS ORDERED: CLOPIDOGREL 75 MG TAB ONE (12:34)
[2023-10-08] MEDS ORDERED: CLOPIDOGREL 75 MG TAB PO ONE (12:35)
[2023-10-08] MEDS ORDERED: IOPAMIDOL-370 100ML BTL INJ ONE (12:55)
[2023-10-08] MEDS ORDERED: RX INFO: IV CONTRAST WAS GIVEN 1 EACH MISC MISCELLANE PRN (13:10)
[2023-10-08] MEDS ORDERED: SODIUM CHLORIDE 0.9% 1,000 ML IV SCH (13:15)
--- NOTE | 2023-10-08 13:19 | P.CARDCATH ---
Date of Procedure: 10/08/23 Description of Procedure: Cardiac Catheterization: The patient is an 82-year-old female with history of hypertension and hyperlipidemia, scheduled to undergo orthopedic surgery and was found to have moderately sized reversible defect in the mid anterior wall. Recommendations were made regarding cardiac catheterization, the risks and the complications were discussed with the patient who is in full understanding and agreement. Procedure Description: Patient was brought to laboratory technology teacher in fasting semi-sedated state after receiving Fentanyl and Benadryl achieiving moderate conscious sedated state. Using Xylocaine Anesthesia and modified Seldinger technique, a 6-Lao sheath was introduced in the right radial artery . Subsequently, selective coronary angiography was performed using a 5-Lao 3.5 bend Adela catheter. Multiple views of the coronary artery including hemiaxial views were obtained. The 6-Lao pigtail catheter was used to cross the aortic valve and LVEDP was calculated. PCI: After removing the catheters a 6-Lao EBU 3.75 guiding catheter was introduced and the system and after cannulating the left main a 0.014 BMW J-wire was positioned in the distal diagonal branch, subsequently a 2.5 x 12 mm Treck was advanced and one inflation was done at 8 roxi, after removing the balloon a [employer] [place] eye IVUS catheter was introduced and images were obtained. After removing the catheter 3.0 x 15 mm Xience ana point stent was deployed at 16 roxi. Repeat IVUS images was performed and subsequently 3.0 x 12 mm NC Treck was advanced and one inflation at 10 roxi was done. Following that the wire was removed and images were obtained and revealed stable successful stenting. Following that, catheter and sheath were removed. Hemostasis was obtained with deployment of vascular band . There was no immediate complication. Patient was returned to room in stable condition. Of note, the patient received a total of 6000 units of intravenous heparin as well as intra-arterial verapamil. She received an oral loading dose of clopidogrel. Her ACT was followed. She had no chest discomfort but she had EKG changes that resolved at the end of the procedure. Findings: Left main: This is a large sized vessel, bifurcating into LAD and left circumflex, left main has no obstructive disease. LAD: This vessel is ectatic proximally, gives rise to a large first diagonal branch that has an 80-90% stenosis close to the ostium, the rest of the vessel Left circumflex: This is a nondominant vessel, large in caliber, giving rise to 2 obtuse marginal branch. The left circumflex has mild intimal disease no high- grade stenosis RCA: This is a large dominant vessel bifurcating distally into PDA and PLV. The mid RCA has 10-20% plaque with no high-grade stenosis Left Ventriculogram: Not performed Hemodynamics: There was no gradient across the aortic valve , LVEDP was 12-15 mmHg Conclusion: 1. Severe stenosis in the first diagonal branch 2. Mild disease in the left circumflex and RCA 3. Right dominance 4. Successful stenting of the first diagonal branch with reduction of stenosis from 85% to 0% with intravascular ultrasound imaging Recommendations: The patient will continue on aspirin and Plavix without any interruption for 6 months in addition to aggressive coronary risk modifications, maintaining LDL below 70 mg/dL. The findings and the recommendations were discussed with the patient and the family and they were in full understanding and agreement. Duration of sedation is 49 minutes.
[2023-10-08 16:50] VITALS: BP 154/69; PULSE 62
[2023-10-08] MEDS ORDERED: NON FORMULARY DRUG (Rosuvastatin Calcium [Rosuvastatin Calcium] 5 MG Tablet) PO SCH (21:00)
[2023-10-08] MEDS ORDERED: ATENOLOL 100 MG PO SCH (21:00)
[2023-10-09] MEDS ORDERED: VALSARTAN PO SCH (09:00)
[2023-10-09] MEDS ORDERED: ASPIRIN 81 MG PO SCH (09:00)
[2023-10-09] MEDS ORDERED: THYROID PORK 15 MG PO SCH (09:00)
[2023-10-09] MEDS ORDERED: CLOPIDOGREL 75 MG TAB PO SCH (09:00)
[2023-10-09] MEDS ORDERED: [UNRECOGNIZED DRUG - OTHER] PO SCH (09:00)
[2023-10-09] MEDS ORDERED: HYDROCHLOROTHIAZIDE PO SCH (09:00)
[2023-10-09] MEDS ORDERED: amLODIPine 5 MG TAB PO SCH (09:00)
== END 2023-10-08 17:00 | disposition home or self-care (01) ==
LOC: CATHCVL 09:24
PROVIDERS: ATTEND Internal Medicine Interventional Cardiology
DX: I25.10 Atherosclerotic heart disease of native coronary artery without angina pectoris (principal); I10 Essential (primary) hypertension; E78.5 Hyperlipidemia, unspecified; F10.90 Alcohol use, unspecified, uncomplicated; F15.90 Other stimulant use, unspecified, uncomplicated; Z79.82 Long term (current) use of aspirin; Z79.02 Long term (current) use of antithrombotics/antiplatelets; Z87.891 Personal history of nicotine dependence; Z79.899 Other long term (current) drug therapy
CPT/HCPCS: 92978; 93458; 99152; 99153 ×2; C9600; C1769 ×4; C1887; C1894; C1725 ×2; C1753; C1874; J2250; J2001; J1644; Q9967; J3010

== ENCOUNTER → 2023-11-06 | Outpatient (CLI) | payer MEDICARE ==
--- NOTE | 2023-11-09 12:30 | MR ---
EXAMINATION TYPE: MR shoulder LT wo con DATE OF EXAM: 11/06/2023 COMPARISON: None HISTORY: Lt shoulder pain TECHNIQUE: Multiplanar, multisequence imaging of the left shoulder is performed without contrast. FINDINGS: There are marked acute and chronic degenerative changes of the AC joint resulting in moderate shoulde r impingement.. There are marked degenerative changes the glenohumeral joint with marked cartilaginous thinning, spur ring of the humeral head and subchondral edema and cysts within the humeral head and bony acetabulum. There is a moderate joint effusion. There is subcutaneous acromial and subdeltoid bursitis. The supraspinatus tendon is markedly abnormal in signal intensity from the musculotendinous junction to its distal attachment. There is a small rim rent tear and multiple intrasubstance tears with stret [place] of the tendon and mild retraction of the musculotendinous junction medially. The subscapularis tendon is thickened consistent with tendinosis but no discrete tear. The infraspinatus tendon is inta ct There is fluid within the biceps tendon sheath likely secondary to fluid from the glenohumeral joint effusion. The biceps anchor is intact but there are tears of the superior cartilaginous labrum consis tent with SLAP injury.. IMPRESSION: 1. Rotator cuff tears involving the supraspinatus tendon with mild retraction. 2. Marked degenerative change of the AC joint and glenohumeral joint. 3 moderate joint effusion. 4. Probable SLAP injury.
== END | disposition home or self-care (01) ==
LOC: RADMRIMAIN 15:50
PROVIDERS: ATTEND Internal Medicine
DX: M19.012 Primary osteoarthritis, left shoulder (principal); M75.102 Unspecified rotator cuff tear or rupture of left shoulder, not specified as traumatic

== ENCOUNTER 2024-04-22 22:55 | Emergency (ER) | payer MEDICARE ==
[2024-04-22 23:20] VITALS: RESP 16; TEMP 97.9
[2024-04-23] MEDS: HYDROcodone/APAP 10-325MG 1 EACH TAB PO ONE (00:23)
[2024-04-23] MEDS: LIDOCAINE 4% PATCH TOPICAL ONE (00:39)
--- NOTE | 2024-04-23 01:25 | XR ---
EXAM: XR Left Shoulder Complete, 2 or More Views CLINICAL HISTORY: ITS.REASON XR Reason: pain TECHNIQUE: Two or more views of the left shoulder. COMPARISON: No relevant prior studies available. FINDINGS: Bones/joints: Osseous demineralization. No fracture or subluxation. Hydroxyapatite deposition in the rotator cuff measuring 8 x 3 mm, concerning for calcific tendinitis. Soft tissues: Unremarkable. IMPRESSION: No acute fracture or subluxation.
--- NOTE | 2024-04-23 01:34 | ED ---
Extremity Problem HPI - General Chief complaint: Extremity Problem,Nontraumatic Stated complaint: Back pain Time Seen by Provider: 04/23/24 00:01 Source: patient Mode of arrival: ambulatory Limitations: no limitations - History of Present Illness Initial comments: 83-year-old female presenting with chief complaint of left shoulder blade pain. Pain has been ongoing for few days. Pain is worse with range of motion. Is also worse when she transfers from lying down to sitting up. She denies any injury or trauma. No numbness or tingling. No chest pain or difficulty breathing. No dizziness. No fevers. No weakness. - Related Data Home Medications Medication Instructions Recorded Confirmed atenoloL [Tenormin] 100 mg PO HS 04/09/15 10/08/23 Valsartan/Hydrochlorothiazide 1 tab PO DAILY 10/14/22 10/08/23 [Valsartan-Hctz 80-12.5 mg Tab] Thyroid,Pork [[employer] Thyroid] 45 mg PO DAILY 09/01/23 10/08/23 amLODIPine [Norvasc] 5 mg PO DAILY 10/03/23 10/08/23 Previous Rx's Medication Instructions Recorded Aspirin 81 mg PO DAILY tab 10/08/23 Clopidogrel [Plavix] 75 mg PO DAILY #90 tab 10/08/23 Nitroglycerin Sl Tabs [Nitrostat] 0.4 mg SUBLINGUAL Q5M PRN #25 tab 10/08/23 Rosuvastatin Calcium 20 mg PO HS #0 10/08/23 Allergies Allergy/AdvReac Type Severity Reaction Status Date / Time diphenhydramine Allergy Rash/Hives Verified 10/08/23 09:38 [From Benadryl] Review of Systems ROS Statement: Those systems with pertinent positive or pertinent negative responses have been documented in the HPI. ROS Other: All systems not noted in ROS Statement are negative. Past Medical History Past Medical History: Fibromyalgia, Hypertension, Osteoarthritis (OA), Pneumonia, Rheumatoid Arthritis (RA), Thyroid Disorder Additional Past Medical History / Comment(s): Pt tested +covid on 02/08/[address] [facility] ER. 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 History of Any Multi-Drug Resistant Organisms: None Reported Past Surgical History: Back Surgery, Bladder Surgery, Tonsillectomy Additional Past Surgical History / Comment(s): Anterior colporrhaphy, cyst pubo vag sling, colonoscopy, lower back surgery, bilateral cataract removals/lens implants Past Anesthesia/Blood Transfusion Reactions: No Reported Reaction Past Psychological History: No Psychological Hx Reported Smoking Status: Former smoker - Past Family History Mother Family Medical History: Cancer Additional Family Medical History / Comment(s): Bone Caner. Father Additional Family Medical History / Comment(s): Father had rheumatic fever as a child and from heart problem at the age of 43yrs. General Exam Limitations: no limitations General appearance: alert, in no apparent distress Head exam: Present: atraumatic, normocephalic Eye exam: Present: normal appearance, EOMI Neck exam: Present: normal inspection. Absent: meningismus Respiratory exam: Absent: respiratory distress Cardiovascular Exam: Present: regular rate Left Shoulder Exam: Present: normal inspection, tenderness. Absent: full ROM Back exam: Present: muscle spasm Neurological exam: Present: alert, oriented X3 Psychiatric exam: Present: normal affect, normal mood Skin exam: Present: normal color Course Vital Signs 04/22/24 04/23/24 23:01 01:48 Temperature 97.9 F Pulse Rate 64 46 L Respiratory 16 16 Rate Blood Pressure 152/73 146/68 O2 Sat by Pulse 97 98 Oximetry Medical Decision Making - Medical Decision Making Was pt. sent in by a medical professional or institution ([facility], [facility], urgent care, hospital, or fdc...) When possible be specific @ -No Did you speak to anyone other than the patient for history (EMS, parent, family, police, friend...)? What history was obtained from this source @ -No Did you review nursing and triage notes (agree or disagree)? Why? @ -I reviewed and agree with nursing and triage notes Were old charts reviewed (outside hosp., previous admission, EMS record, old EKG, old radiological studies, urgent care reports/EKG's, fdc records)? Report findings @ -No old charts were reviewed Differential Diagnosis (chest pain, altered mental status, abdominal pain women, abdominal pain men, vaginal bleeding, weakness, fever, dyspnea, syncope, headache, dizziness, GI bleed, back pain, seizure, CVA, palpatations, mental health, musculoskeletal)? @ -Differential Musculoskeletal Muscular strain, contusion, ligament sprain, fracture, arthritis, septic arthritis, bursitis, cellulitis, muscle spasm, nerve compression, DVT, arterial occlusion, herpes zoster, electrolyte abnormality, tumor.... This is not meant to be in all inclusive list EKG interpreted by me (3pts min.). @ -As above X-rays interpreted by me (1pt min.). @ -X-ray shows no acute fracture or subluxation. CT interpreted by me (1pt min.). @ -None done U/S interpreted by me (1pt. min.). @ -None done What testing was considered but not performed or refused? (CT, X-rays, U/S, labs)? Why? @ -None What meds were considered but not given or refused? Why? @ -None Did you discuss the management of the patient with other professionals (professionals i.e. , PA, [facility], lab, RT, psych nurse, community mental health social worker, pulp house supervisor, teacher, community service patrol officer, piano case maker)? Give summary @ -No Was smoking cessation discussed for >3mins.? @ -No Was critical care preformed (if so, how long)? @ -No Were there social determinants of health that impacted care today? How? (Homelessness, low income, unemployed, alcoholism, drug addiction, transportation, low edu. Level, literacy, decrease access to med. care, [facility], rehab)? @ -No Was there de-escalation of care discussed even if they declined (Discuss DNR or withdrawal of care, Hospice)? DNR status @ -No What co-morbidities impacted this encounter? (DM, HTN, Smoking, COPD, CAD, Cancer, CVA, ARF, Chemo, Hep., AIDS, mental health diagnosis, sleep apnea, morbid obesity)? @ -None Was patient admitted / discharged? Hospital course, mention meds given and route, prescriptions, significant lab abnormalities, going to OR and other pertinent info. @ -83-year-old female presenting with chief complaint of left-sided shoulder blade pain. History and physical exam are conducted. Pain is worse with range of motion. X-ray shows no fracture or subluxation. She reports improvement after pain medication. Educated on today's findings and supportive management at home. She has a doctor's appointment tomorrow. Follow-up with PCP. Report back to ER with any new or worsening symptoms. Discussed return parameters and answered all questions. Patient conveyed verbal understanding and agreed to the plan. I discussed this case in detail with my attending Dr. Klein Undiagnosed new problem with uncertain prognosis? @ -No Drug Therapy requiring intensive monitoring for toxicity (Heparin, Nitro, Insulin, Cardizem)? @ -No Were any procedures done? @ -No Diagnosis/symptom? @ -Shoulder pain Acute, or Chronic, or Acute on Chronic? @ -Acute Uncomplicated (without systemic symptoms) or Complicated (systemic symptoms)? @ -Uncomplicated Side effects of treatment? @ -No Exacerbation, Progression, or Severe Exacerbation? @ -No Poses a threat to life or bodily function? How? (Chest pain, [place], [place], pneumonia, PE, COPD, DKA, ARF, appy, cholecystitis, CVA, Diverticulitis, Homicidal, Suicidal, threat to staff... and all critical care pts) @ -Low likelihood Disposition Clinical Impression: Shoulder pain Disposition: HOME SELF-CARE Condition: Good Instructions (If sedation given, give patient instructions): Shoulder Pain (ED) Additional Instructions: Follow-up with PCP. Report back to ER with any new or worsening symptoms. Is patient prescribed a controlled substance at d/c from ED?: No Referrals: Galileo Valverde MD [Primary Care Provider] - 1-2 days Time of Disposition: 01:34
[2024-04-23] MEDS: HYDROmorphone 0.5 MG/0.5 ML SYRINGE IM STA (01:44)
[2024-04-23 01:59] VITALS: BP 146/68; PULSE 46
== END 2024-04-23 01:48 | disposition home or self-care (01) ==
LOC: EC 22:55
DX: M25.512 Pain in left shoulder (principal); Z88.8 Allergy status to other drugs, medicaments and biological substances; Z87.891 Personal history of nicotine dependence
CPT/HCPCS: 73030; 99284; 96372; J1170

== ENCOUNTER 2024-05-14 06:18 | Day surgery (SDC) | payer MEDICARE ==
--- NOTE | 2024-05-12 08:22 | P.HPOR ---
History of Present Illness H&P Date: 05/12/24 Chief Complaint: Right knee pain Patient is an 83-year-old female who presents with right knee pain after a fall about 10 months ago. She has diffuse pain and swelling. She has instability and buckling. She's tried medications without much relief. She notes daily pain that limits her normal function and activities. Review of Systems Per HPI Past Medical History Past Medical History: Fibromyalgia, Hypertension, Osteoarthritis (OA), Pneumonia, Rheumatoid Arthritis (RA), Thyroid Disorder Additional Past Medical History / Comment(s): Pt tested +covid on 02/08/21 at [facility] ER. 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 History of Any Multi-Drug Resistant Organisms: None Reported Past Surgical History: Back Surgery, Bladder Surgery, Heart Catheterization With Stent, Tonsillectomy Additional Past Surgical History / Comment(s): Anterior colporrhaphy, cyst pubo vag sling, colonoscopy, lower back surgery, bilateral cataract removals/lens implants Past Anesthesia/Blood Transfusion Reactions: No Reported Reaction Past Psychological History: No Psychological Hx Reported Smoking Status: Former smoker - Past Family History Mother Family Medical History: Cancer Additional Family Medical History / Comment(s): Floyd Treadwell. Father Additional Family Medical History / Comment(s): Father had rheumatic fever as a child and from heart problem at the age of 43yrs. Medications and Allergies Home Medications Medication Instructions Recorded Confirmed Type atenoloL [Tenormin] 100 mg PO HS 04/09/15 10/08/23 History Valsartan/Hydrochlorothiazide 1 tab PO DAILY 10/14/22 10/08/23 History [Valsartan-Hctz 80-12.5 mg Tab] Thyroid,Pork [Publication Designer Thyroid] 45 mg PO DAILY 09/01/23 10/08/23 History amLODIPine [Norvasc] 5 mg PO DAILY 10/03/23 10/08/23 History Aspirin 81 mg PO DAILY tab 10/08/23 Rx Clopidogrel [Plavix] 75 mg PO DAILY #90 tab 10/08/23 Rx Nitroglycerin Sl Tabs [Nitrostat] 0.4 mg SUBLINGUAL Q5M PRN #25 tab 10/08/23 Rx Rosuvastatin Calcium 20 mg PO HS #0 10/08/23 10/08/23 Rx Allergies Allergy/AdvReac Type Severity Reaction Status Date / Time diphenhydramine Allergy Rash/Hives Verified 10/08/23 09:38 [From Zuril] Physical Examination - Knee right Appearance: effusion Effusion grade: trace Tenderness with palpation: anterior, medial Pain: throughout ROM Gait: limping ROM: extension: -10 degrees ROM: flexion: 110 degrees Crepitus with motion: Yes Strength: extension: 5/5 Strength: flexion: 5/5 Meniscal tests: medial meniscal tests: positive, medial joint line pain: positive Results Patient is a well-developed well-nourished female approximately 5 foot 6, 150 po unds of mesomorphic habitus. HEENT exam is nonfocal, neck supple. She has painless passive motion of the right hip. Straight leg raise is negative. She's tender about the medial joint line of the right knee. Collaterals are stable, Ashley is negative, Arabella's elicits medial pain. She has an antalgic gait pattern. Her distal neurovascular intact in the right lower extremity. - Diagnostic results Knee MRI: image reviewed (MRI of the right knee shows evidence of a posterior medial meniscal tear) Assessment and Plan Assessment: Right knee internal derangement/symptomatic medial meniscal tear Right knee chondrocalcinosis Plan: I talked to the patient at length regarding her condition and treatment options. At this point she is quite syndromatic having pain and mechanical symptoms that limit her. After a thorough discussion she opts to proceed with surgery. We will plan to proceed with right knee arthroscopy with probable partial medial meniscectomy. We will likely restart her anticoagulation postoperatively.
[2024-05-12 12:03] VITALS: BMI 25.0
[2024-05-14] MEDS: IV FLUID CONTINUATION 1,000 ML IV ONE (06:53)
[2024-05-14] MEDS ORDERED: MIDAZOLAM 2 MG/2 ML VIAL IV PRN (07:00)
[2024-05-14] MEDS ORDERED: HYDROmorphone 0.5 MG/0.5 ML SYRINGE IVP PRN (07:00)
[2024-05-14 07:02] VITALS: TEMP 96.8
[2024-05-14] MEDS: LACTATED RINGERS 1,000 ML IV SCH (07:14)
[2024-05-14] MEDS: ONDANSETRON 4 MG/2 ML VIAL IVP ONE (07:14)
[2024-05-14] MEDS: DEXAMETHASONE SOD PHOSPHATE 4 MG/ML 1 ML VIAL IV ONE (07:14)
[2024-05-14] MEDS ORDERED: fentaNYL (PF) 50 MCG/ML 2 ML AMP ONE (07:26)
[2024-05-14] MEDS ORDERED: PROPOFOL 10 MG/ML 20 ML VIAL IV ONE (07:26)
[2024-05-14] MEDS ORDERED: LIDOCAINE 1% INJ 10MG/ML (20 ML MDV) ONE (07:26)
[2024-05-14] MEDS ORDERED: KETOROLAC 15 MG/ML 1 ML VIAL ONE (07:26)
--- NOTE | 2024-05-14 08:22 | P.OP ---
Date of Procedure: 05/14/24 Preoperative Diagnosis: Right knee internal derangement Postoperative Diagnosis: Right knee posterior medial and lateral meniscal tears/pseudogoutmarked synovitis Procedure(s) Performed: Right knee arthroscopic partial medial meniscectomy/partial lateral meniscectomy/synovectomy of the medial, lateral, and patellofemoral compartments. Anesthesia: GETA Surgeon: William Kim Estimated Blood Loss (ml): 10 Pathology: none sent Condition: stable Disposition: PACU Indications for Procedure: The patient is an 83-year-old female who presents with progressive right knee pain and mechanical symptoms despite conservative measures. A discussion of the risks and benefits of operative intervention versus continued conservative measures was made with the patient. She opted to proceed with surgery. Operative risks include infection, neurovascular injury, development of blood clots, possible incomplete resolution of symptoms, possible worsening of symptoms and need for subsequent procedures was discussed. Informed consent was obtained. Operative Findings: As below Description of Procedure: The patient was brought to the operating room, and after induction of general anesthesia examined the right knee. Collaterals were stable, Ashley was negative, and posterior drawer was negative. The right lower extremity was prepped and draped in a normal fashion. A superior lateral portal was made through a 3 mm skin incision superior and lateral to the patella. This was used for outflow. A lateral portal was made through a 5 mm vertical skin incision lateral to the patella tendon above the joint line. Diagnostic arthroscopy was performed. On inspection of the medial compartment, a complex tear involving the posterior horn of the medial meniscus in the white-red junction was noted. This was debrided back to stable base with straight baskets and a motorized shaver. Chondrocalcinosis of a portion of the meniscus was noted along with marked anterior medial synovitis. This was reviewed with a motorized shaver. On inspection of the notch, the anterior cruciate ligament appeared to be intact. On inspection of the lateral compartment, a small flap tear involving the posterior horn of the medial meniscus in the white-white junction was noted. This was to be back to a stable base with straight baskets and motorized shaver. Again marked anterolateral synovitis was noted along with chondrocalcinosis. This was debrided with a motorized shaver. On inspection of the patellofemoral articulation, minimal degenerative changes were noted, however there was marked synovitis debrided with a motorized shaver. The gutters were clear debris. The knee was then thoroughly irrigated. The portals were closed with Steri-Strips. A sterile dressing was applied in addition to a compression stocking. The patient was awoken from general anesthesia and transferred to recovery room in good condition. Blood loss was estimated at 10 mL. No complications were incurred.
[2024-05-14 09:24] VITALS: RESP 16
[2024-05-14 10:31] VITALS: BP 151/77; PULSE 55
== END 2024-05-14 10:26 | disposition home or self-care (01) ==
LOC: OR 06:18
PROVIDERS: ATTEND Orthopaedic Surgery
DX: S83.241A Other tear of medial meniscus, current injury, right knee, initial encounter (principal); S83.281A Other tear of lateral meniscus, current injury, right knee, initial encounter; M11.261 Other chondrocalcinosis, right knee; M65.161 Other infective (teno)synovitis, right knee; M79.7 Fibromyalgia; I25.10 Atherosclerotic heart disease of native coronary artery without angina pectoris; I10 Essential (primary) hypertension; M06.9 Rheumatoid arthritis, unspecified; E03.9 Hypothyroidism, unspecified; M19.90 Unspecified osteoarthritis, unspecified site; F10.90 Alcohol use, unspecified, uncomplicated; Z86.16 Personal history of COVID-19; Z98.890 Other specified postprocedural states; Z95.5 Presence of coronary angioplasty implant and graft; Z87.891 Personal history of nicotine dependence; Z79.890 Hormone replacement therapy; Z79.02 Long term (current) use of antithrombotics/antiplatelets; Z79.899 Other long term (current) drug therapy; Z88.8 Allergy status to other drugs, medicaments and biological substances; X58.XXXA Exposure to other specified factors, initial encounter
CPT/HCPCS: 29880; J1100; J0690; J2405; J2001; J3010; J1885; J2704

== ENCOUNTER → 2024-12-06 | Outpatient (CLI) | payer MEDICARE | END | disposition home or self-care (01) | LOC: LABPAT 12:15 | PROVIDERS: ATTEND Orthopaedic Surgery | DX: Z22.322 Carrier or suspected carrier of Methicillin resistant Staphylococcus aureus (principal) | CPT/HCPCS: 86850; 86900; 86901; 87070 ==

== ENCOUNTER 2024-12-14 05:44 | Day surgery (SDC) | payer MEDICARE ==
--- NOTE | 2024-12-13 08:51 | P.HPOR ---
History of Present Illness H&P Date: 12/13/24 Chief Complaint: Left hip pain Patient is an 83-year-old retired female who presents with left hip pain is worsened over the past several years. She notes groin and thigh pain worse with weightbearing activities. She has been limping. She has tried medications without much relief. She is having night symptoms. Review of Systems Per HPI Past Medical History Past Medical History: Fibromyalgia, Hypertension, Osteoarthritis (OA), Pneumonia, Rheumatoid Arthritis (RA), Thyroid Disorder Additional Past Medical History / Comment(s): Rheumatoid arthritis in large joints, diverticular disease, hypothyroid, urinary incontinence-wears pad History of Any Multi-Drug Resistant Organisms: None Reported Past Surgical History: Back Surgery, Bladder Surgery, Bowel Resection, Heart Catheterization With Stent, Tonsillectomy Additional Past Surgical History / Comment(s): Anterior colporrhaphy, cyst pubo vag sling, colonoscopy, lower back surgery, bilateral cataract removals/lens implants, sigmoid resection w/colostomy 2020 due to abscess Past Anesthesia/Blood Transfusion Reactions: No Reported Reaction Date of Last Stent Placement:: 2022 Smoking Status: Former smoker - Past Family History Mother Family Medical History: Cancer Additional Family Medical History / Comment(s): Bone Caner. Father Additional Family Medical History / Comment(s): Father had rheumatic fever as a child and from heart problem at the age of 43yrs. 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 Thyroid] 45 mg PO QAM 09/01/23 12/09/24 History amLODIPine [Norvasc] 5 mg PO HS 10/03/23 12/09/24 History Valsartan/Hydrochlorothiazide 1 each PO QAM 05/12/24 12/09/24 History [Valsartan-Hctz 320-25 mg Tab] Aspirin 650 mg PO DAILY 12/09/24 12/09/24 History Rosuvastatin Calcium [Crestor] 5 mg PO HS 12/10/24 12/10/24 History Allergies Allergy/AdvReac Type Severity Reaction Status Date / Time diphenhydramine Allergy Rash/Hives Verified 12/09/24 15:26 [From Benadryl] Physical Examination - Hip left Gait: antalgic Tenderness with palpation: anterior Pain with motion: internal rotation and hip flexion ROM: flexion: 80 degrees ROM: internal rotation: 10 degrees ROM: external rotation: 50 degrees Crepitus with motion: Yes Strength: extension: 5/5 Strength: flexion: 5/5 Strength: abduction: 5/5 Tests: impingement tests: positive Results The patient is a well-developed well-nourished female approximately 5 foot 6, 150 pounds of mesomorphic habitus. HEENT exam is nonfocal, neck is supple. She has painful passive motion of the left hip. She has mild pain with passive motion of the right hip. Straight leg raise is negative. Her distal neurovascular appears intact in the left lower extremity. - Diagnostic results Hip x-ray: image reviewed (There is of the left hip obtained the office show severe osteoarthrosis with [id number] changes and subchondral sclerosis.) Assessment and Plan Assessment: Left hip severe osteoarthrosis Plan: Patient at length regarding her condition along with treatment options. At this point she is quite symptomatic having pain and mechanical symptoms related to her left hip osteoarthrosis despite conservative measures. After a thorough discussion she opts to proceed with surgery. We will plan to proceed with left total hip arthroplasty utilizing anterior approach. Risks and benefits were discussed at length in layman's terms. We will institute DVT prophylaxis postoperatively.
[~2024-12-14 05:44] MED LIST changes: -ALPRAZolam 0.25 MG TAB PO PRN; -ALPRAZolam 0.5 MG TAB PO PRN; -ASPIRIN 325 MG TAB PO STA; -ATORVASTATIN 80 MG TAB PO STA; -HEPARIN SODIUM,PORCINE (1 ML) 2,500 UNIT in SODIUM CHLORIDE 0.9% 250 ML IRRIGATION PRN; -HEPARIN SODIUM,PORCINE 10,000 UNIT in SODIUM CHLORIDE 0.9% 1,000 ML IRRIGATION PRN; -NITROGLYCERIN SL TABS 0.4 MG TAB SUBLINGUAL PRN; -SODIUM CHLORIDE 0.9% 1,000 ML in EMPTY BAG 1 BAG IV ONE; +TRANEXAMIC 1,000 MG/100ML-NACL 1,000 MG in SALINE 1 100ML.BAG IVPB PRN
[2024-12-14] MEDS ORDERED: LIDOCAINE 1% (10MG/ML) FOR IV START INTRADERMA PRN (06:03)
[2024-12-14] MEDS: MELOXICAM 7.5 MG TAB PO PRN (06:57)
[2024-12-14] MEDS: ONDANSETRON 4 MG/2 ML VIAL IVP ONE (06:58)
[2024-12-14] MEDS: LACTATED RINGERS 1,000 ML IV SCH (06:58)
[2024-12-14] MEDS: DEXAMETHASONE SOD PHOSPHATE 4 MG/ML 1 ML VIAL IV ONE (06:58)
[2024-12-14] MEDS: ACETAMINOPHEN TAB 500 MG TAB PO PRN (06:58)
[2024-12-14] MEDS: IV FLUID CONTINUATION 1,000 ML IV ONE (07:15)
[2024-12-14] MEDS: MIDAZOLAM 2 MG/2 ML VIAL IV ONE (07:21)
--- NOTE | 2024-12-14 07:22 | P.ANPRN ---
Procedure Note - Anesthesia - Nerve Block Performed Left Law Single Time Out Performed: Yes Date of Procedure: 12/14/24 Procedure Start Time: 07:12 Procedure Stop Time: 07:19 Location of Patient: PreOp Indication: Acute Post-Operative Pain, Requested by Surgeon Sedation Type: Sedate with meaningful contact maintained Preparation: Sterile Prep Position: Supine Needle Types: Pajunk Needle Gauge: 21 Ultrasound used to visualize needle placement: Yes Ultrasound used to observe medication spread: Yes Injectate: 0.5% Ropivacaine (see comment for volume) (30 mg + 4 mg Dexamethas one) Blood Aspirated: No Pain Paresthesia on Injection Noted: No Resistance on Injection: Normal Image Stored and Saved: Yes Events: Uneventful and Well Tolerated
[2024-12-14] MEDS ORDERED: HYDROmorphone (PF) 1 MG/ML ONE (07:28)
[2024-12-14] MEDS ORDERED: PROPOFOL 10 MG/ML 20 ML VIAL IV ONE (07:28)
[2024-12-14] MEDS ORDERED: ePHEDrine 50 MG/ML 1 ML VIAL ONE (07:28)
[2024-12-14] MEDS ORDERED: DEXAMETHASONE SOD PHOSPHATE 4 MG/ML 1 ML VIAL ONE (07:28)
[2024-12-14] MEDS ORDERED: SUCCINYLCHOLINE CHLORIDE 200 MG/10 ML VIAL IV ONE (07:28)
[2024-12-14] MEDS ORDERED: ROCURONIUM 10 MG/ML (5 ML VIAL) IV ONE (07:28)
[2024-12-14] MEDS ORDERED: TRANEXAMIC 1,000 MG/100ML-NACL PREMIX BAG ONE (07:28)
[2024-12-14] MEDS ORDERED: NEOSTIGMINE 1 MG/ML 10 ML VIAL ONE (07:28)
[2024-12-14] MEDS ORDERED: fentaNYL (PF) 50 MCG/ML 2 ML AMP ONE (07:28)
[2024-12-14] MEDS ORDERED: ROPIVACAINE 5 MG/ML 30 ML VIAL ONE (07:28)
[2024-12-14] MEDS ORDERED: LIDOCAINE 1% INJ 10MG/ML (20 ML MDV) ONE (07:28)
[2024-12-14] MEDS ORDERED: GLYCOPYRROLATE 0.2 MG/ML 2 ML VIAL ONE (07:28)
[2024-12-14] MEDS ORDERED: HYDROmorphone 0.5 MG/0.5 ML SYRINGE IVP PRN ×2 (09:07)
[2024-12-14] MEDS ORDERED: hydrOXYzine pamoate 25 MG CAP PO PRN (09:07)
[2024-12-14] MEDS ORDERED: NALOXONE 0.4 MG/ML 1 ML VIAL IV PRN (09:07)
[2024-12-14] MEDS ORDERED: HYDROcodone/APAP 7.5-325MG 1 EACH TAB PO PRN (09:07)
[2024-12-14] MEDS ORDERED: MAGNESIUM HYDROXIDE 2,400 MG/30 ML CUP PO PRN (09:07)
--- NOTE | 2024-12-14 09:13 | FL ---
EXAMINATION TYPE: FL guidance operating room, XR Hip Limited LT DATE OF EXAM: 12/14/2024 CLINICAL HISTORY: Left hip pain and osteoarthritis TECHNIQUE: Fluoroscopy. Limited intraoperative views left hip COMPARISON: Pelvic x-ray October 06, 2024. FINDINGS: Fluoroscopic guidance was provided during left hip replacement procedure performed by Dr. Kim. A total of 26 seconds of fluoroscopic time was utilized during the procedure and 3 spot image s was acquired. Total dose area product (DAP) in uGy*m?, mGy*cm? (or similar: 1.4295. Intraoperative images acquired show placement of metallic hardware from total left hip arthroplasty w hich appears satisfactorily in position on the frontal projection. IMPRESSION: As Above. [facility], , 12/14/2024 9:10 AM
--- NOTE | 2024-12-14 09:26 | P.OP ---
Date of Procedure: 12/14/24 Preoperative Diagnosis: Left hip osteoarthrosissevere Postoperative Diagnosis: Same Procedure(s) Performed: Left total hip arthroplastypress-fitanterior approach Implants: DePuy Corail size 12-125 degree press-fit collared femoral stem, 36+1.5 cobalt chrome femoral head, 52 mm [place] acetabular shell with neutral polyethylene liner. Anesthesia: GETA Surgeon: William Kim Door Maker #1: Serg Myers Estimated Blood Loss (ml): 150 Pathology: none sent Condition: stable Disposition: PACU Indications for Procedure: The patient is an 84-year-old female who presents with progressive left hip pain secondary to osteoarthrosis despite conservative measures. A discussion of the risks and benefits of operative intervention versus continued conservative measures was made with the patient. She opted to proceed with surgery. Operative risks include infection, neurovascular injury, development of blood clots, leg length discrepancy, fracture, possible component loosening/failure, possible instability, and possible need for subsequent procedures was discussed. Informed consent was obtained. Operative Findings: As below Description of Procedure: The patient was brought to the operating room, and after induction of spinal anesthesia was placed supine on the Leslee table. Positioning was checked with fluoroscopy. The left hip was then prepped and draped in a normal fashion. A 12 cm incision was then made starting 2 fingerbreadths distal and 3 finger breaths posterior to the ASIS in line with the proximal femur. The skin was incised sharply. Subcutaneous tissues were divided sharply. Electrocautery was used for hemostasis. The fascia was split in line with skin incision. The interval between the sartorius and tensor fascia rosalie was then bluntly develop ed. The posterior fascia was opened with electrocautery. The lateral circumflex vessels were identified and cauterized prior to sectioning. A retractor was placed along the superior femoral neck as well as the anterior acetabular rim. A wide capsulotomy was performed. The neck cut was then made at a 45 angle to the shaft approximately 1 1/2 cm above the level of the lesser trochanter. The head was extracted. Attention was then paid towards preparing the acetabulum. Anterior and posterior retractors were placed. The remaining capsular labral tissue sharply debrided clearly defining the acetabular margins. I began reaming with a 49 mm reamer taking care to initially medialize then reaming at 45 of abduction and 20 of anteversion. Sequential reaming is performed up to 51 mm. A trial 52 mm acetabular shell was inserted in the same orientation and was fully seated. There was good rim fit and stability. Positioning was checked with fluoroscopy. The final 52 mm acetabular shell was inserted again at 45 of abduction and 20 of anteversion. This was fully seated. There was good rim fit and stability. Again fluoroscopy was used to check the adequacy of placement. A neutral polyethylene liner was gently impacted. Care was taken to avoid any soft tissue interposition. Pulsatile lavage was utilized. Attention was then paid towards preparing the proximal femur. The central region was cleared of soft tissue. A canal finder was used to find the femoral canal. Sequential broaching was performed up to size 12 taking care to lateralize proximally. A calcar mill was used to fashion the medial calcar. There was good rotational stability. A 125 degree standard neck along with a 36 mm +1.5 head was placed. The hip was gently reduced. Fluoroscopy was used to check the adequacy of positioning along with leg lengths. I felt both were good. The hip was gently dislocated. The trial components were removed. The final size 12-125 degree collared standard press-fit femoral stem was inserted parallel to the posterior cortex. This was fully seated and there was good rotational stability. A 36 mm +1.5 cobalt chrome femoral head was placed. This was gently impacted. The hip was then gently reduced. Final fluoroscopic view showed adequate placement implant along with protestant of leg length. Stability was checked with 80 of external rotation and 60 of extension of the right hip. The wound was irrigated with sterile lavage. The fascia was closed with running 0 Vicryl suture. There was minimal drainage therefore a deep drain was not placed. The second dose of IV TXA was given. The subcutaneous tissues were reapproximated interrupted 2-0 Vicryl sutures. The skin was reapproximated with 3-0 subcuticular strata fix suture. Skin tape and adhesive was applied. A sterile dressing was applied. The patient was then awoken from sedation and transferred to recovery room in good condition. Blood loss was estimated at 150 mL. No complications were incurred. Sponge and needle counts were correct at the end of the case. Serg MOSS assisted during the major components is case to include exposure, bone resection, implantation, and closure.
[2024-12-14] MEDS: HYDROmorphone 0.5 MG/0.5 ML SYRINGE IVP PRN (09:32)
--- NOTE | 2024-12-14 09:50 | XR ---
EXAMINATION TYPE: XR Hip Limited LT DATE OF EXAM: 12/14/2024 9:43 AM COMPARISON: None. CLINICAL INDICATION: Female, 84 years old with history of Status post hip surgery, assess surgical al ignment, pain TECHNIQUE: Single AP portable view of left hip is obtained immediately postoperatively. FINDINGS: Metallic hardware from left hip arthroplasty is seen and appears satisfactory in alignment and position. There is evidence of recent surgery with surrounding subcutaneous gas noted. IMPRESSION: Metallic hardware from left hip arthroplasty is satisfactory in position. [facility], , 12/14/2024 9:48 AM
[2024-12-14] MEDS: HYDROcodone/APAP 5-325MG 1 EACH TAB PO PRN (15:32)
--- NOTE | 2024-12-14 15:36 | P.CONS ---
History of Present Illness - Reason for Consult Consult date: 12/14/24 - History of Present Illness Yenni Reese, is an 84-year-old female who was admitted to [facility] by Dr. Kim and underwent left total hip arthroplasty on 12/14/2024. Medical consultation was requested for management while hospitalized Patient has a known history of hypertension, hyperlipidemia, hypothyroidism, history of diverticulitis with perforation requiring surgery , history of fibromyalgia , history of gastroesophageal reflux disease history of rheumatoid arthritis and osteoarthritis. On review of systems patient is alert and oriented x 3 in no apparent distress there is no fever or chills no headache or dizziness no chest pain no shortness of breath no cough no nausea or vomiting no abdominal pain no diarrhea and no urinary symptoms. Past Medical History Past Medical History: Fibromyalgia, Hypertension, Osteoarthritis (OA), Pneumonia, Rheumatoid Arthritis (RA), Thyroid Disorder Additional Past Medical History / Comment(s): Rheumatoid arthritis in large joints, diverticular disease, hypothyroid, urinary incontinence-wears pad History of Any Multi-Drug Resistant Organisms: None Reported Past Surgical History: Back Surgery, Bladder Surgery, Bowel Resection, Heart Catheterization With Stent, Tonsillectomy Additional Past Surgical History / Comment(s): Anterior colporrhaphy, cyst pubo vag sling, colonoscopy, lower back surgery, bilateral cataract removals/lens implants, sigmoid resection w/colostomy 2020 due to abscess Past Anesthesia/Blood Transfusion Reactions: No Reported Reaction Date of Last Stent Placement:: 2022 Smoking Status: Former smoker - Past Family History Mother Family Medical History: Cancer Additional Family Medical History / Comment(s): Bone Caner. Father Additional Family Medical History / Comment(s): Father had rheumatic fever as a child and from heart problem at the age of 43yrs. Medications and Allergies Home Medications Medication Instructions Recorded Confirmed Type atenoloL [Tenormin] 100 mg PO QAM 04/09/15 12/14/24 History Thyroid,Pork [Plant Operator/Shift Supervisor Thyroid] 45 mg PO QAM 09/01/23 12/14/24 History amLODIPine [Norvasc] 5 mg PO HS 10/03/23 12/14/24 History Valsartan/Hydrochlorothiazide 1 each PO QAM 05/12/24 12/14/24 History [Valsartan-Hctz 320-25 mg Tab] Aspirin 650 mg PO DAILY 12/09/24 12/14/24 History Rosuvastatin Calcium [Crestor] 5 mg PO HS 12/10/24 12/14/24 History Aspirin [Children's Aspirin] 81 mg PO 12/14/24 History Allergies Allergy/AdvReac Type Severity Reaction Status Date / Time diphenhydramine Allergy Rash/Hives Verified 12/14/24 06:20 [From [facility]] Physical Exam Vitals: Vital Signs Temp Pulse Resp BP Pulse Ox 12/14/24 14:00 97.8 F 89 16 156/78 95 12/14/24 13:49 54 L 14 104/61 99 12/14/24 13:15 57 L 14 102/55 100 12/14/24 12:15 49 L 14 103/49 98 12/14/24 11:45 52 L 14 105/52 100 12/14/24 11:15 49 L 18 110/52 100 12/14/24 11:00 49 L 16 112/55 100 12/14/24 10:45 56 L 16 110/63 100 12/14/24 10:30 53 L 16 111/55 100 12/14/24 10:15 61 16 113/64 100 12/14/24 10:00 54 L 16 105/66 95 12/14/24 09:45 55 L 16 112/56 97 12/14/24 09:30 53 L 16 113/64 96 12/14/24 09:15 97.1 F L 80 16 119/56 100 12/14/24 07:26 55 L 17 141/66 100 12/14/24 06:33 97.5 F L 58 L 18 177/69 99 Intake and Output 12/14/24 12/14/24 12/14/24 06:59 14:59 22:59 Intake Total 750 Output Total 150 Balance 600 Intake: IV 750 Output: Estimated Blood Loss 150 Other: Weight 72.6 kg 72.6 kg In general patient is alert and oriented x 3 in no distress HEENT head normocephalic and atraumatic Neck is supple no JVD no goiter no lymphadenopathy no carotid bruit Chest examination is clear to auscultation no crackles no wheezing Cardiac exam reveals regular heart sounds S1 and S2 no gallops no murmurs Abdomen is soft nontender no organomegaly with normal bowel sounds Extremity exam reveals no edema no cyanosis or clubbing Neurological examination reveals no gross focal deficits Assessment and Plan Plan: Advanced osteoarthritis of the left hip, failed conservative management, status post left total hip arthroplasty today by Dr. Dooley Pain management and DVT prophylaxis as per orthopedic protocols Underlying history of hypertension Underlying history of hyperlipidemia Underlying history of hypothyroidism At this time patient was seen and examined Home medications reviewed and reordered Check labs in a.m. Follow during this admission for medical management.
[2024-12-14] MEDS: traMADol 50 MG TAB PO PRN (21:19)
[2024-12-14] MEDS: ATORVASTATIN 10 MG TAB PO SCH (21:19)
[2024-12-14] MEDS: SENNOSIDES-DOCUSATE SODIUM 1 EACH TAB PO SCH (21:20)
[2024-12-14] MEDS: amLODIPine 5 MG TAB PO SCH (21:20)
[2024-12-15 04:53] VITALS: RESP 17
[2024-12-15] MEDS: PANTOPRAZOLE 40 MG TABLET PO SCH (06:57)
[2024-12-15 08:14] VITALS: BP 115/60; PULSE 69; TEMP 98.7
[2024-12-15 08:50] LABS: ALT 14 U/L (8-44); AST 29 U/L (13-35); Albumin 3.7 g/dL (3.8-4.9); Albumin/Globulin Ratio 1.76 Ratio (1.60-3.17); Alkaline Phosphatase 69 U/L (41-126); Blood Urea Nitrogen 31.9 mg/dL (9.0-27.0); Carbon Dioxide 27.3 mmol/L (21.6-31.8); Chloride 102 mmol/L (96-109); Globulin 2.1 g/dL (1.6-3.3); Glucose 142 mg/dL (70-110); Potassium 4.6 mmol/L (3.5-5.5); Sodium 140 mmol/L (135-145); Total Bilirubin 0.4 mg/dL (0.3-1.2); Total Protein 5.8 g/dL (6.2-8.2)
[2024-12-15 08:58] LABS: Basophils # (A) 0.02 X 10*3/uL (0.00-0.10); Basophils % (A) 0.1 %; Eosinophils # (A) 0 X 10*3/uL (0.04-0.35); Eosinophils % (A) 0 %; HCT 34.8 % (37.2-46.3); HGB 11.1 g/dL (12.0-15.0); Lymphocytes # (A) 0.91 X 10*3/uL (0.90-5.00); Lymphocytes % (A) 6.5 %; MCH 29.9 pg (27.0-32.0); MCHC 31.9 g/dL (32.0-37.0); MCV 93.8 FL (80.0-97.0); Mean Platelet Volume 10.9 FL (9.5-12.2); Monocytes # (A) 1.37 X 10*3/uL (0.20-1.00); Monocytes % (A) 9.7 %; NRBC Per 100 WBC 0 X 10*3/uL (0.00-0.01); Neutrophils % (A) 83.1 %; Platelet Count 331 X 10*3/uL (140-440); RBC 3.71 X 10*6/uL (4.10-5.20); RDW 14.7 % (11.5-14.5); WBC 14.08 X 10*3/uL (4.50-10.00)
[2024-12-15] MEDS: ASPIRIN 81 MG PO SCH (09:13)
[2024-12-15] MEDS: hydroCHLOROthiazide 25 MG TAB PO SCH (09:14)
[2024-12-15] MEDS: atenoloL 50 MG TAB PO SCH (09:14)
[2024-12-15] MEDS: THYROID, PORK 30 MG TAB PO SCH (09:14)
[2024-12-15] MEDS: RIVAROXABAN 10 MG TAB PO SCH (09:14)
[2024-12-15] MEDS: VALSARTAN 160 MG TAB PO SCH (09:15)
--- NOTE | 2024-12-15 11:27 | P.PN ---
Subjective Progress Note Date: 12/15/24 Principal diagnosis: Status post direct anterior left total hip arthroplasty Patient evaluated at bedside, she is resting in her hospital chair. Patient did very well with ambulation with therapy. She has good pain control currently. She denies headaches, lightheadedness, chest pain or shortness of breath. She is urinating with no issues. Objective - Vital Signs Vital signs: Vital Signs Temp 98.7 F 12/15/24 07:21 Pulse 69 12/15/24 07:21 Resp 17 12/15/24 07:21 BP 115/60 12/15/24 07:21 Pulse Ox 94 L 12/15/24 07:21 FiO2 Intake & Output 12/14/24 12/15/24 12/15/24 18:59 06:59 18:59 Intake Total 750 1650 Output Total 150 Balance 600 1650 Weight 72.6 kg Intake: IV 750 Oral 1650 Output: Estimated Blood Loss 150 Other: # Voids 1 5 - Exam Left lower extremity: Incision is clean, dry, and intact. The exofin fusion tape is in good condition. There is minimal soft tissue swelling and ecchymosis surrounding the medial and lateral aspects of the incision. Calf is soft, no tenderness with palpation. Plantar flexion, dorsiflexion, EHL, FHL are intact. Sensory exam to light touch throughout the extremity is intact, dorsal pedis pulses 2+. - Labs CBC & Chem 7: 12/15/24 02:43 12/15/24 02:43 Labs: Abnormal Lab Results - Last 24 Hours (Table) 12/15/24 12/15/24 Range/Units 02:43 02:43 WBC 14.08 H (4.50-10.00) X 10*3/uL RBC 3.71 L (4.10-5.20) X 10*6/uL Hgb 11.1 L (12.0-15.0) g/dL Hct 34.8 L (37.2-46.3) % MCHC 31.9 L (32.0-37.0) g/dL RDW 14.7 H (11.5-14.5) % Immature Gran # 0.08 H (0.00-0.04) X 10*3/uL Neutrophils # 11.70 H (1.80-7.70) X 10*3/uL Monocytes # 1.37 H (0.20-1.00) X 10*3/uL Eosinophils # 0 L (0.04-0.35) X 10*3/uL BUN 31.9 H (9.0-27.0) mg/dL Est GFR (CKD-EPI) 49 L (>=60) BUN/Creatinine Ratio 29.00 H (12.00-20.00) Ratio Glucose 142 H (70-110) mg/dL Total Protein 5.8 L (6.2-8.2) g/dL Albumin 3.7 L (3.8-4.9) g/dL Assessment and Plan Assessment: Postoperative day #1 status post direct anterior left total hip arthroplasty Plan: Pain control, patient would like to hold off on narcotics. Patient normally takes aspirin at home for pain control which she is comfortable doing at this time DVT prophylaxis, patient did receive a dose of Xarelto today. Will have her resume aspirin once home. Home PT/nursing after discharge Wound care instructions discussed, this to include bandage changes and showering instructions Icing and elevating techniques discussed Medical recommendations appreciated Discharge planning: Patient stable for discharge home today Time with Patient: Less than 30
--- NOTE | 2024-12-15 11:30 | P.DS ---
Providers Date of admission: 12/14/2024 Expected date of discharge: 12/15/24 Attending physician: William Kim Consults: 12/14/24 09:16 Consult Physician Routine Consulting Provider: Galileo Valverde Consult Reason/Comments: Medical Management s/p direct anterior left total hip arthroplasty Do you want consulting provider notified?: Yes Primary care physician: Galileo Valverde [facility] Course: Date of admission: 12/14/2024 Date of discharge: 12/15/2024 Admission diagnosis: Status post direct anterior left total hip arthroplasty Discharge diagnosis: Same Attending physician: Dr. Kim Surgical procedures: Direct anterior left total hip arthroplasty Brief history: Patient is a 84-year-old female with a history of progressive primary left hip osteoarthritis. At this point patient has failed conservative treatment measures and has opted to proceed with a elective direct anterior left total hip arthroplasty. Hospital course: Details of patient's surgery can be found in operative report. Patient tolerated the procedure well and was subsequently transported to orthopedic floor. Patient's orthopeidc and medical care was provided daily. Patient had daily laboratory tests performed for evaluation of overall blood counts. Patient had daily physical therapy to include strengthening range of motion as well as education with walker ambulation. Patient was treated with Xar elto for their postoperative DVT prophylaxis during their inpatient stay. Patient was noted to have a relatively uneventful postoperative course. Patient reported satisfactory pain control with oral pain medications by postoperative day 0. Patient showed satisfactory progress with physical therapy. Patient moved steadily through the program and had no difficulty meeting the goals by postoperative day 1. Given patient's otherwise satisfactory course and having met physical therapy goals, plan is to discharge patient home on postoperative day 1. Discharge condition/disposition: Patient will be discharged home in stable condition. Discharge medications: Instructions are given on resumption of patient's normal daily medications per primary care recommendation, in addition patient will be prescribed no new medication. Discharge instructions: 1. Wound care and infection precautions, keep incision dry and covered while showering, no lotions, creams, moisturizers. No soaking, tubs, pools, hottubs. Do not scrub over the incision. 2. Weight-bear as tolerated with walker / cane until follow-up. 3. Ice and elevate when necessary. Do not exceed 20 minutes per hour with ice pack. 4. Utilize compression sleeve until seen at first follow up appointment. 5. Visiting nursing care. 6. Home physical therapy. 7. Pain meds and anticoagulants per prescription. 8. Pain medication has potential to cause constipation. Increase oral fluid and fiber intake. Contact primary care provider if you have not had a bowel movement within 48 hours after discharge 9. No anti-inflammatory medication until discussed at first post operative visit, this including Motrin, Aleve, Mobic, Diclofenac 10. Follow up in office at 2 weeks postop with Rajesh Gallegos PA-C/Serg [place] 11. Follow up with your primary care doctor 7-10 days after discharge. 12. Contact [facility] with any questions, . Procedures: Direct anterior left total hip arthroplasty Patient Condition at Discharge: Good Plan - Discharge Summary Discharge Rx Participant: Yes New Discharge Prescriptions: No Action atenoloL [Tenormin] 100 mg PO QAM Valsartan/Hydrochlorothiazide [Valsartan-Hctz 320-25 mg Tab] 1 each PO QAM Aspirin [Children's Aspirin] 81 mg PO Thyroid,Pork [Office Support Assistant Thyroid] 45 mg PO QAM amLODIPine [Norvasc] 5 mg PO HS Aspirin 650 mg PO DAILY Rosuvastatin Calcium [Crestor] 5 mg PO HS Discharge Medication List atenoloL [Tenormin] 100 mg PO QAM 04/09/15 [History] Thyroid,Pork [Office Support Assistant Thyroid] 45 mg PO QAM 09/01/23 [History] amLODIPine [Norvasc] 5 mg PO HS 10/03/23 [History] Valsartan/Hydrochlorothiazide [Valsartan-Hctz 320-25 mg Tab] 1 each PO QAM 05/12/24 [History] Aspirin 650 mg PO DAILY 12/09/24 [History] Rosuvastatin Calcium [Crestor] 5 mg PO HS 12/10/24 [History] Aspirin [Children's Aspirin] 81 mg PO 12/14/24 [History] Follow up Appointment(s)/Referral(s): Serg Myers, CAMILA [PHYSICIAN SALES RECRUITER] - 12/29/24 9:10 am Patient Instructions/Handouts: Anterior Hip Replacement (GEN) Activity/Diet/Wound Care/Special Instructions: Orthopedic Discharge Instructions: 1. Wound care and infection precautions, keep incision dry and covered while showering, no lotions, creams, moisturizers. No soaking, pools, hot tubs. Do not scrub over incision. 2. Weight-bear as tolerated with walker / cane until follow-up. 3. Ice and elevate when necessary. Do not exceed 20 minutes per hour with ice pack. 4. Utilize compression sleeve until seen at first follow up appointment. 5. Pain meds and anticoagulants per prescription. 6. Pain medication has potential to cause constipation. Increase oral fluid and fiber intake. Contact primary care provider if you have not had a bowel movement within 48 hours after discharge. 7. No anti-inflammatory medication until discussed at first post operative visit, this including Motrin, Aleve, Mobic, Diclofenac. 8. Follow up in office at 2 weeks postop with Rajesh Gallegos PA-C / Serg Myers PA-C 9. Follow up with your primary care doctor 7-10 days after discharge. 10. Contact [facility] with any questions, . Keep incision clean, dry contact. While showering, cover fusion tape with Saran wrap. Keep fusion tape on until follow-up appointment in office in 2 weeks Anticoagulation instructions: 1. Patient will resume her aspirin once home, this will be used for both pain control and anticoagulation Discharge Disposition: HOME WITH HOME HEALTH SERVICES
== END 2024-12-15 13:15 | disposition home health service (06) ==
LOC: OR 05:44 → 4SSUR 09:10 → OR 12-15 13:15
PROVIDERS: ATTEND Orthopaedic Surgery
DX: M16.12 Unilateral primary osteoarthritis, left hip (principal); G89.18 Other acute postprocedural pain; I10 Essential (primary) hypertension; E03.9 Hypothyroidism, unspecified; E78.5 Hyperlipidemia, unspecified; M06.9 Rheumatoid arthritis, unspecified; Z87.891 Personal history of nicotine dependence; Z79.82 Long term (current) use of aspirin; Z79.890 Hormone replacement therapy; Z88.8 Allergy status to other drugs, medicaments and biological substances
CPT/HCPCS: 27130; 97161; 97535; 97166; 64999; 80053; 85025; 73501; C1776; J2250; J0330; J1100; J2710; J0690 ×2; J2405; J2003; J3010; J1171 ×2; J2795; J2704; J1596

== ENCOUNTER → 2025-03-30 | Outpatient (CLI) | payer MEDICARE ==
--- NOTE | 2025-03-30 13:53 | XR ---
EXAMINATION TYPE: XR lumbar spine 2 or 3V DATE OF EXAM: 03/30/2025 CLINICAL HISTORY: pain TECHNIQUE: Three views of the lumbar spine are submitted. COMPARISON: CT abdomen and pelvis 12/20/2021 FINDINGS: There are 5 lumbar type vertebral bodies identified. No acute fracture. Vertebral body heights are wi thin normal limits. Dextrocurvature of the lumbar spine with apex at L3. Multilevel disc space narrow ing with endplate sclerosis and anterior osteophytosis. Multilevel facet arthropathy. No spondylolist hesis. The overlying soft tissue appears unremarkable. Partial visualization of left hip arthroplasty . IMPRESSION: 1. No acute fracture or dislocation is seen in the lumbar spine. 2. 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 3. Dextroscoliotic curvature of the lumbar spine. [facility], , 03/30/2025 1:51 PM
== END | disposition home or self-care (01) ==
LOC: RADXRMAIN 13:34
PROVIDERS: ATTEND Internal Medicine
DX: M51.360 Other intervertebral disc degeneration, lumbar region with discogenic back pain only (principal); M41.86 Other forms of scoliosis, lumbar region
CPT/HCPCS: 72100